=== PATIENT | male | born 1965 | race Caucasian/White ===

== ENCOUNTER 2018-06-11 05:52 | Inpatient (IN) | payer OTHER, SELFPAY ==
[2018-06-09 09:59] VITALS: BP 126/73; PULSE 79; RESP 18; TEMP 36.8; O2SAT 97; BMI 27.3
[2018-06-11] VITALS (11 sets, daily range): BP systolic 105–135; BP diastolic 63–82; PULSE 70–90; RESP 16–18; TEMP 36.7–37.6; O2SAT 96–100; BMI 27.3
--- NOTE | 2018-06-11 | IMM_PTH ---
PATIENT: SHENA AVILA LOC: MS2 U#:[id number] AGE/SX: 52/M [place] [facility] [id number] RE06/11/[address]: Dr. Francois Colon MD : 1965 BED: 1 DIS: 06/14/2018 SPEC #: [id number] RECD: 06/13/18 14:35 STATUS: ISABELLA REQ #: [id number] JOEL: 06/11/18 00:[address]: Francois Colon DEPT: IMMUNOHISTOCHEMISTRY RECD BY: Katherine Bates ENTERED: 06/13/18 14:37 SP TYPE: IMMUNO OTHR DR: Dr. Brayan Pierce MD Tissues: A - Sigmoid colon biopsy Procedures: MSH2 (add) MLH-1 (add) MSH6 (add) Anti-PMS2 (add) JORDAN-2 (add) P53 (add) KI-67 (initial) PHYSICIAN & INSTITUTION [place] [id number] SPECIMEN INFORMATION: Tissue Source: A - Sigmoid colon, appendix Clinical Info: Sigmoid colon cancer Specimen Number: [id number] CPT code: 63435, 27339 x6 METHODOLOGY: Deparaffinized sections of prefer/formalin-fixed tissue or PAP/DQ stained slides are incubated with monoclonal/polyclonal antibodies/oligonucleotide probes. Localization is made via biotin free immunoperoxidase method. Appropriate controls are performed and reacted as expected. Results on target cell population are indicated in the following table: RESULTS: ANTIBODY / CLONE RESULT Block A3 Ki-67 (30-9) positive, high P53 (DO-7) negative JORDAN-2 (SP21) positive MLH-1 (M1) positive, focal MSH2 (25D12) positive, focal MSH6 (44) positive, focal PMS2 (EOH5613) positive These tests were developed and their performance characteristics determined by [facility]. They may not have been cleared or approved by the U.S. Food and Drug Administration. The FDA has determined that such clearance or approval is not necessary. INTERPRETATION: A. Sigmoid colon: Invasive adenocarcinoma. Result of Microsatellite Instability Study: Negative (no loss of mismatch protein; no microsatellite instability detected). KILEY:andrew 06/18/18 Case has been reviewed in consultation with Dr. Caro who concurs with the above diagnosis. IDC:[email or web address]
[2018-06-11] MEDS: Acetaminophen 500 MG Tablet 1000 MG PO ×3 (06:25→23:01)
[2018-06-11] MEDS: Gabapentin 600 MG Tablet PO (06:26)
[2018-06-11 06:50] LABS: Bedside Glucose 121 mg/dL (70-110)
[2018-06-11] MEDS: Lubricating Jelly 60 GM Tube 30 GM TOPICAL (08:00)
[2018-06-11] MEDS: Bupivacaine Mpf 0.5% 30 ML VIAL (12:00)
--- NOTE | 2018-06-11 12:30 | OP.PCM_ITS ---
Report of Operation Date of Procedure: 06/11/18 Pre-Operative Diagnosis: SIGMOID COLON CANCER Post-Operative Diagnosis: SIGMOID COLON CANCER Surgery/Procedure Performed:: LAPAROSCOPIC SIGMOID COLECTOMY WITH SPLENIC FLEXURE MOBILIZARTION, APPENDECTOMY video production coordinator: Whit Carrero Type of Anesthesia:: General Anesthesiologist: Power Garcia Specimen's removed: RIGHT COLON, APPENDIX Drains: HERNANDEZ - 450 Estimated Blood Loss (mL): 100 Fluids Replaced: 1500 Description of Procedure: The patient was brought to the operating suite. Sign in was performed verifying patient, site, procedure, position, and DVT prophylaxis with SCDs. Patient received Cefotetan 2gm. Preoperative bowel prep of mechanical and antibiotic comprised of GoLYTELY and then neomycin and Flagyl 1 g 3 doses evening before was given. Following induction of general anesthetic, the patient was placed in a modified lithotomy position and care being taken to or by pressure points in the legs and arms. An upper body strap was placed and a upper body warmer was placed. A Hernandez catheter was placed. A rectal washout was performed with dilute Betadine solution. The patient?s abdomen and perineal area were then prepped and draped in the usual fashion. Timeout was performed verifying patient, site, position. Local anesthetic was injected above the umbilicus. Incision made and dissection carried down to the umbilical root fascia. 2 stay sutures were placed. Incision made in the fascia, the peritoneum entered under direct visualization. A 10 mm Ramírez trocar was inserted and secured with the stay sutures. Pneumoperitoneum to 15 mmHg was insufflated. 2 5mm ports were placed in the lower midline and later in the left paramedian position and a 10/12 port were placed in the right lower quadrant inferior laterally. Adhesions were taken down using Harmonic scalpel. . Visual inspection revealed a normal-appearing liver with no significant abnormalities. The large bulky tumor was seen in the pelvis with adhesions to the left lower quadrant. These adhesions were taken down sharply and using the Harmonic scalpel. Following this, the somewhat firm areas, which was still on the lateral abdominal wall was dissected and sent for frozen section. This returned as inflammation, but no signs of malignancy. Once this was completed, mobilization the avascular plane was undertaken from the ascending colon down to the area of the mid sigmoid with care taken at mobilization of the level of the iliac vessels then further down to the left lateral rectal peritoneal reflection. As mobilization progressed, the left and right ureters were able to be visualized and manipulated with aerosols assuring that the ureters were intact.. Once this left-sided mobilization was undertaken, a window was made in to the bare area just proximal to the inferior mesenteric vessels As dissection was continued, the MICHELLE branches were identified and ligated with 10 and 5 mm hemoclips and divided with the Harmonic scalpel. Once this was fully divided and surrounded with dissection carried down to the area posterior to the rectum, a 60 mm echelon stapler with a thick load was placed and fired to transect the rectum. A second load was required. I performed an appendectomy dividing the mesoappendix with the Harmonic scalpel and the base of the appendix with the regular load stapler. The appendix was removed the right lower quadrant port site. With full dissection of the mesentery and full mobilization the colon, the umbilical incision was extended and a wound protector placed. The sigmoid colon were delivered through the wound protector. At this point at the planned transection point of the proximal sigmoid colon, the pericolonic were fully mobilized to the margin of the bowel using the harmonic scalpel. The bowel was transected family with a 10 blade scalpel. A 29 mm CEA circular stapler anvil was then placed in the descending colon region and a 2-0 Prolene pursestring suture was used to close the bowel around the anvil. The bowel did not easily make it to the pelvis, so therefore, mobilization splenic flexure using Harmonic Scalpel was completed with the colon being completely mobilized off to rectus fascia/left kidney. This allowed good reachi ng of the bowel to the pelvis without tension At this point, I proceeded down to the rectum. Rigid proctoscopy was performed after flooding the pelvis with saline. Insufflation demonstrated no leak at the rectal staple line. The staple line was felt to be approximately 17 cm. Next the 29 CEA stapler was lubricated and placed through the rectum up to the staple line. The spike was then opened just anterior to the previous echelon stapler line and the anvil properly seated onto the stapler and brought down to mid gap. The stapler was fired released and withdrawn from the rectum. The proximal and distal doughnuts were noted to be intact. Repeat proctoscopy was again performed again with the pelvis being flooded with saline. Air left in the rectum with insufflation and there was no intra-abdominal leakage noted. The anastomosis was noted to be at 13 cm from the anal verge Gown and gloves were changed. Pneumoperitoneum was released and the umbilical incision was closed with running 0 PDS sutures with the 2 sutures meeting and closed just above the umbilicus. Pneumoperitoneum was reestablished. The right lower quadrant fascial defect was closed with a running 0 PDS suture. Visual inspection revealed no material adhered to the midline closure. The 5mm ports were removed under direct visualization with no signs of bleeding. Pneumoperitoneum was released. Right lower quadrant fascial suture was secured. Subcutaneous tissue at the level of the umbilicus reapproximated with interrupted 3-0 Vicryl sutures. Skin was closed with interrupted and running 4- 0 Monocryl subcuticular sutures. Steri-Strips and bandages were applied.
--- NOTE | 2018-06-11 12:34 | COL._PTH ---
PATIENT: SHENA AVILA LOC: MS2 U#:[id number] AGE/SX: 52/M ROOM: [facility] [id number] RE06/11/[address]: Dr. Francois Colon MD : 1965 BED: 1 DIS: 06/14/2018 SPEC #: [id number] RECD: 06/11/18 12:34 STATUS: ISABELLA REQ #: [id number] JOEL: 06/11/18 12:[address]: Francois Colon DEPT: SURGICAL PATHOLOGY RECD BY: Nilo Nagy ENTERED: 06/11/18 12:53 SP TYPE: COLON OTHR DR: Dr. Brayan Pierce MD Tissues: A - Colon, NOS B - Colon Donuts C - Colon Donuts Procedures: Surgery Specimen Level III Surgery Specimen Level HEADER OPERATION: Laparoscopic sigmoid colectomy with resection, appendectomy PRE-OP DIAGNOSIS: Cancer of sigmoid colon TISSUE SUBMITTED: A - Sigmoid colon, appendix, B - Proximal donut, C - Distal donut MICROSCOPIC DIAGNOSIS A. Sigmoid colon and appendix, colectomy and appendectomy: Invasive adenocarcinoma. See cancer summary below. COLON CANCER SUMMARY: Specimen - sigmoid colon and appendix Procedure - Sigmoidectomy and appendectomy Specimen length - 37 cm, appendix 5.5 cm in length and 0.7 cm in diameter Tumor site - sigmoid colon Tumor size - 2 x 1.5 cm Macroscopic tumor perforation - not identified Histologic type - adenocarcinoma Histologic grade - low grade (moderately differentiated) Histologic features suggestive of Microsatellite Instability: Intratumoral lymphocytic response - tumor infiltrating lymphocyte (mild) Peritumoral lymphocytic response (Crohn-like) - none Tumor subtype and differentiation: Mucinous tumor component - not identified Medullary tumor component - not identified High histologic grade - poorly differentiated. Microscopic tumor extension - tumor invades through the muscularis propria into subserosal adipose tissue. Margins: Proximal margin - free of tumor Distal margin - free of tumor Circumferential margin - tumor deposit is present at the inked circumferential resection margin. The tumor is 6 cm away from the closest axial resection margin (staple end). Treatment effect - no known presurgical therapy. Lymph-Vascular invasion - not identified Perineural invasion - not identified Tumor deposits - present Number of tumor deposits - 4 Type of polyp in which invasive carcinoma arose - none identified Lymph nodes: Number of lymph nodes examined - 19 Number of lymph nodes involved - 12 Distant metastasis - unknown Additional findings - appendix with no gross abnormality. Ancillary studies: See microsatellite instability study by IHC ([id number]) for complete details. Negative (no loss of mismatch protein; no microsatellite instability detected). Immunohistochemistry Studies for Mismatch Repair Proteins: MLH1 - Intact nuclear positivity, tumor cells, focal MSH2 - Intact nuclear positivity, tumor cells, focal MSH6 - Intact nuclear positivity, tumor cells, focal PMS2 - Intact nuclear positivity, tumor cells PATHOLOGIC STAGE: pT3 pN2b Mx The above summary is in compliance with [employer] [place] [employer] (CAP) Cancer Protocols Checklist and [place] Joint Committee on Cancer (AJCC), Staging Manual, 8th Ed. B. Proximal donut: Colonic donut, no pathologic diagnosis. C. Distal donut: Colonic donut with mucosal congestion and hemorrhage. SJ:andrew 06/16/18 COMMENT A. The largest focus of metastatic carcinoma in a lymph node measures 1.6cms in greatest dimension-. Extranodal extension is noted. Many of the lymph nodes are completely replaced by the metastatic tumor. Please make reference to previous specimen from [facility] ([id number]), colon mass at 40 cm, biopsy with diagnosis of invasive moderately differentiated adenocarcinoma. Case has been reviewed in consultation with Dr. Caro who concurs with the above diagnosis. IDC:[email or web address] MICROSCOPIC DESCRIPTION Slides are reviewed. GROSS DESCRIPTION A - Received in fixative is one container labeled with the patient's name and designated sigmoid colon and appendix. The specimen consists of a 30 cm segment of bowel with attached fibrofatty tissue. The bowel has been opened along one aspect near metallic tracer clip. Located 6 cm from one stapled end is a firm, poon-pink lesion measuring 2 x 1.5 cm. The remainder of the bowel mucosa is light poon in color and contains normal rugal folds. No other mucosal mass lesions are identified. The serosal surface in the area of the mass is inked in black ink. Present free in the container is a vermiform appendix measuring 5.5 cm in length and 0.7 cm in average diameter. Sections do not reveal mass lesion. The lumen is patent. No perforations are seen. The specimen is left for overnight fixation. / AM: 06/11/18 After fixation, the mass is serially sectioned. Serial sections reveal involvement of subserosal fatty tissue by mass. No other mass lesions are identified. The attached fibrofatty tissue contains a number of firm nodules resembling lymph nodes. Feller Machine Operator sections are submitted in 12 cassettes as follows: 1 - proximal and distal mucosal margins (proximal margin inked black), 2-5 - tumor with serosal surface inked, 6 - one nodule bisected, 7 - one nodule bisected, 8 - security representative section of one large lymph node, 9-12 - multiple lymph nodes. / AM: 06/12/18 B - Received in fixative is one container labeled with the patient's name and designated proximal donut. The specimen consists of a mucosal donut measuring 2 cm in diameter and 1 cm in length. No mucosal mass lesions are identified. Feller Machine Operator sections are submitted in one cassette. / AM: 06/11/18 C - Received in fixative is one container labeled with the patient's name and designated distal donut. The specimen consists of a mucosal donut measuring 2 cm in diameter and 1.3 cm in length. No mucosal mass lesions are identified. Feller Machine Operator sections are submitted in one cassette. / AM: 06/11/18 TC:0 CPT: 40285, 18752 x2
[2018-06-11] MEDS: Ketorolac 15 MG/ML Vial IV (15:36)
--- NOTE | 2018-06-11 17:50 | NURSING ---
IV fluids hung in pacu- rate entered at 65 per current order-
[2018-06-11] MEDS: Tamsulosin HCl 0.4 MG Capsule PO (18:53)
[2018-06-11] MEDS: Docusate Sodium 100 MG Capsule PO (22:59)
[2018-06-12 01:27] VITALS: BP 103/62; PULSE 72; RESP 16; TEMP 36.8; O2SAT 97
[2018-06-12 05:53] LABS: Hematocrit 39.5 % (40-54); Hemoglobin 13.3 g/dl (13.0-16.5); Mean Corp Hgb Conc 33.7 g/gl (32-36); Mean Corpuscular Hgb 30.2 pg (27.0-32.0); Mean Corpuscular Volume 89.8 fL (80-94); Mean Platelet Vol. 11.6 fl (6.2-12.0); Platelet Count 149 K/mm3 (150-450); RBC Distribution Width CV 12.9 % (11.6-14.6); RBC Distribution Width SD 42.1 fl (35.1-43.9)
[2018-06-12] MEDS: Acetaminophen 500 MG Tablet 1000 MG PO ×2 (05:56→12:03)
[2018-06-12] MEDS: Ketorolac 15 MG/ML Vial IV ×3 (05:56→20:02)
[2018-06-12] MEDS: 0.9% NaCl Peripheral Flush Adult/Peds IV ×4 (05:56→21:32)
[2018-06-12 06:06] LABS: Anion Gap 8 (5-15); BUN 13 mg/dL (7-18); Calcium,Total 8.7 mg/dL (8.5-10.1); Chloride 107 mmol/L (98-107); EST Glomerular Filtration Rate 83 mL/min (>60); Est Glom Filt Rate - Afr Amer 100 mL/min (>60); Glucose 113 mg/dL (74-106); Sodium Level 143 mmol/L (136-145)
[2018-06-12 06:22] LABS: Scan Indicated on CBC? Y/N NO
[2018-06-12 07:00] VITALS: RESP 18; O2SAT 98
[2018-06-12 07:27] VITALS: BP 106/54; PULSE 62; RESP 16; TEMP 36.9; O2SAT 99
[2018-06-12] MEDS: Docusate Sodium 100 MG Capsule PO (09:19)
[2018-06-12] MEDS: Enoxaparin 40 MG/0.4 ML Syringe SC (09:19)
--- NOTE | 2018-06-12 11:05 | CASEMGMT ---
SARAH MERCADO ASSESSMENT Face to Face with patient for initial transition planning/care coordination assessment. SARAH MERCADO introduced self and role at [facility]. Pt voices understanding and consents to assessment at this time. Pt resting in bed in no distress at this time. @ bedside. Pt is A/O at this time and answers all questions appropriately. Care providers, pharmacy, and demographics verified/updated at this time. PCP: Kari Specialists: Isaiah Tsang Pharmacy: [facility] [place] [employer], [facility] Retail on day of d/c only. Insurance: [employer] Prescription Benefit: Yes Living Will/HPOA: States does not have LW or HCPOA . Interested in more information and states would like to talk with about filling out paperwork. Provided information on advanced directives. BOOM Merritt, made aware. LNOK: and 2 sons, ages 15 and 10. Living Arrangements: Lives with in a 2-story home. 3 steps to enter. States bedroom is upstairs but that he can sleep in the living room on the main floor if he would need to after returning home, if he would have difficulty with stairs. Has 1/2 bath on main floor. Transportation: Pt states drives self and states no transportation concerns at this time. DME/HHC: Denies using any DME and denies needs. has never used HHC or been to a SNF. States has went to Out-pt therapy in the past after having knee surgery. may be interested in Out-pt therapy after following up with MD. Instructed to discuss this with his doctor @ F/U appt. Pt wishes to return home and states has no concerns with going home at time of discharge. Pt states does not smoke or drink ETOH, except for on rare occasion. CM to follow for any further discharge planning/needs. Pt voices no further concerns/needs at this time. Advised pt to ask for CM if any further questions/concerns/needs arise. Voices understanding. Plan: Home with spousal support. Sony URIAS RN, CM
[2018-06-12 13:59] VITALS: BP 112/69; PULSE 74; RESP 16; TEMP 37.1; O2SAT 99
[2018-06-12 14:01] VITALS: RESP 18
--- NOTE | 2018-06-12 15:30 | CASEMGMT ---
Social Work Note SW received referral for advanced directives. SW met with pt. Pt's present. Pt gave this worker permission to speak to him in front of his . SW explained advanced directives with pt. Pt states that he would like to take the documents home and complete them at a later time. Ayse June PRESS BOX CUSTODIAN, ELECTRONICS WORKER
[2018-06-12] MEDS: Ensure Surgery 237 ML LIQUID PO (15:55)
[2018-06-12] MEDS: Tamsulosin HCl 0.4 MG Capsule PO (16:57)
--- NOTE | 2018-06-12 19:18 | PN.SURG_ITS ---
Subjective: some incisional pain, liquid bowel movement - Physical Exam General: Alert, Oriented x3, Cooperative Lungs: Clear to auscultation, Normal air movement Cardiovascular: Regular rate, No murmurs Abdomen: Bowel Sounds Present, Soft, Hypoactive Bowel Sounds, Tender - at incisions but otherwise benign Vital Signs Temp Pulse Resp BP Pulse Ox 98.8 F 74 18 112/69 99 06/12/18 13:59 06/12/18 13:59 06/12/18 14:01 06/12/18 13:59 06/12/18 13:59 Oxygen Delivery Method Room Air Weight: 99.2 kg Body Mass Index (BMI) 27.3 Intake and Output for Last 24 Hours 06/10/18 06/11/18 06/12/18 23:59 23:59 23:59 Intake Total 3107 / 3107 2435 / 2435 Output Total 3600 / 3600 1550 / 1550 Balance -493 / -493 885 / 885 Laboratory Tests Past 24 Hrs 06/12/18 06/12/18 05:30 05:30 WBC 10.0 RBC 4.40 L Hgb 13.3 Hct 39.5 L MCV 89.8 MCH 30.2 MCHC 33.7 RDW 12.9 RDW Differential 42.1 Plt Count 149 L MPV 11.6 Sodium 143 Potassium 4.0 Chloride 107 Carbon Dioxide 28.0 Anion Gap 8 BUN 13 Creatinine 1.00 Estim Creat Clear Calc 102.10 Est GFR (MDRD) Af Amer 100 Est GFR (MDRD) Non-Af 83 BUN/Creatinine Ratio 13.0 Glucose 113 H Calcium 8.7 Medical Necessity - Tobacco Use Smoking Status: Former smoker Assessment/Plan postoperative day #1 status post laparoscopic sigmoid colectomy with splenic flexure mobilization and appendectomy for sigmoid colon cancer. patient doing quite well with well-managed pain control. Bowel sounds present, we will encourage cautious oral liquids, we'll not advanced till bowel movement and more flatus. We will encourage chewing gum, incentive spirometry and amb ulation.
[2018-06-12] MEDS: Ondansetron ODT 4 MG Tablet PO (20:08)
[2018-06-12 20:10] VITALS: BP 140/86; PULSE 61; RESP 14; TEMP 37.1; O2SAT 98
[2018-06-12] MEDS: Morphine 2 MG/ML Syringe IV (21:32)
[2018-06-13] MEDS: Acetaminophen 500 MG Tablet 1000 MG PO ×4 (00:17→18:20)
[2018-06-13 02:10] VITALS: BP 120/73; PULSE 67; RESP 16; TEMP 36.9; O2SAT 95
[2018-06-13] MEDS: Ketorolac 15 MG/ML Vial IV ×2 (04:34→20:33)
[2018-06-13] MEDS: 0.9% NaCl Peripheral Flush Adult/Peds IV ×2 (04:34→20:33)
[2018-06-13 05:51] LABS: Absolute Lymphocyte Count 1.06 X10^3/ul (0.83-4.51); Absolute Neutrophil Count 4.8 X10^3/uL (2.0-7.7); Eosinophil# 0.02 X10^3/uL; Eosinophils% 0.3 % (0-5); Hematocrit 39.7 % (40-54); Hemoglobin 13.2 g/dl (13.0-16.5); Lymphocyte # 1.06 X10^3/ul (4.0); Mean Corp Hgb Conc 33.2 g/gl (32-36); Mean Corpuscular Hgb 30.2 pg (27.0-32.0); Mean Corpuscular Volume 90.8 fL (80-94); Mean Platelet Vol. 11.7 fl (6.2-12.0); Monocyte# 0.68 X10^3/uL; Monocyte% 10.3 % (0-10); Neutrophil # 4.84 X10^3/uL (2.7-7.7); Neutrophil % 73.2 % (47-70); Platelet Count 132 K/mm3 (150-450); RBC Distribution Width SD 42.7 fl (35.1-43.9); Red Blood Count 4.37 M/mm3 (4.6-6.2); White Blood Count 6.6 K/mm3 (4.4-11.0)
[2018-06-13 05:55] LABS: POSITIVE COUNT NO; POSITIVE DIFFERENTIAL NO; POSITIVE MORPHOLOGY NO
[2018-06-13 06:17] LABS: ALB/GLOB Ratio 1.3 RATIO (0.9-2.4); AST(SGOT) 23 U/L (15-37); Alanine Aminotransfer ALT/SGPT 28 U/L (16-61); Albumin, Serum 3.4 g/dL (3.2-5.0); Alkaline Phosphatase 40 U/L (45-117); Anion Gap 8 (5-15); BUN 13 mg/dL (7-18); Calcium,Total 8.5 mg/dL (8.5-10.1); Chloride 106 mmol/L (98-107); Creatinine, Serum 0.93 mg/dL (0.70-1.30); EST Glomerular Filtration Rate 91 mL/min (>60); Est Glom Filt Rate - Afr Amer 110 mL/min (>60); Estimated Creatinine Clearance 109.79 ml/min; Globulin 2.7 g/dL (2.2-4.2); Glucose 93 mg/dL (74-106); Potassium 3.9 mmol/L (3.5-5.1); Protein, Total 6.1 g/dL (6.4-8.2); Sodium Level 143 mmol/L (136-145)
[2018-06-13 08:00] VITALS: O2SAT 98
[2018-06-13 08:10] VITALS: BP 120/79; PULSE 56; RESP 16; TEMP 36.8; O2SAT 98
[2018-06-13] MEDS: Morphine 2 MG/ML Syringe 1 MG IV (10:56)
[2018-06-13] MEDS: Docusate Sodium 100 MG Capsule PO ×2 (10:57→21:35)
[2018-06-13] MEDS: Enoxaparin 40 MG/0.4 ML Syringe SC (10:57)
[2018-06-13 14:42] VITALS: BP 132/79; PULSE 58; RESP 16; TEMP 36.9; O2SAT 99
[2018-06-13] MEDS: Ibuprofen 400 MG Tablet PO (15:22)
--- NOTE | 2018-06-13 16:53 | PCM.PN.SRG ---
- Physical Exam General: Alert, Oriented x3, Cooperative Lungs: Clear to auscultation, Normal air movement Cardiovascular: Regular rate, No murmurs Abdomen: Bowel Sounds Present, Soft, Non Tender Vital Signs Temp Pulse Resp BP Pulse Ox 98.4 F 58 L 16 132/79 H 99 06/13/18 14:42 06/13/18 14:42 06/13/18 14:42 06/13/18 14:42 06/13/18 14:42 Oxygen Delivery Method Room Air Weight: 99.2 kg Body Mass Index (BMI) 27.3 Intake and Output for Last 24 Hours 06/11/18 06/12/18 06/13/18 23:59 23:59 23:59 Intake Total 3107 / 3107 2435 / 2435 590 / 590 Output Total 3600 / 3600 1550 / 1550 500 / 500 Balance -493 / -493 885 / 885 90 / 90 Laboratory Tests Past 24 Hrs 06/13/18 06/13/18 05:30 05:30 WBC 6.6 RBC 4.37 L Hgb 13.2 Hct 39.7 L MCV 90.8 MCH 30.2 MCHC 33.2 RDW 13.0 RDW Differential 42.7 Plt Count 132 L MPV 11.7 Immature Gran % (Auto) 0.200 Neut % (Auto) 73.2 H Lymph % (Auto) 16.0 L [place] % (Auto) 10.3 H Eos % (Auto) 0.3 Baso % (Auto) 0.0 Absolute Neuts (auto) 4.8 Absolute Lymphs (auto) 1.06 Total Counted Not Reportable Sodium 143 Potassium 3.9 Chloride 106 Carbon Dioxide 29.0 Anion Gap 8 BUN 13 Creatinine 0.93 Estim Creat Clear Calc 109.79 Est GFR (MDRD) Af Amer 110 Est GFR (MDRD) Non-Af 91 BUN/Creatinine Ratio 14.0 Glucose 93 Calcium 8.5 Total Bilirubin 0.60 AST 23 ALT 28 Alkaline Phosphatase 40 L Total Protein 6.1 L Albumin 3.4 Globulin 2.7 Albumin/Globulin Ratio 1.3 Medical Necessity - Tobacco Use Smoking Status: Former smoker Assessment/Plan postoperative day #2 status post laparoscopic sigmoid colectomy with splenic flexure mobilization and appendectomy for sigmoid colon cancer. patient doing quite well with well-managed pain control I initially but then had significant oral intake and noted some pain secondary to cramping and distention. This is resolved overnight.. Bowel sounds present, we will encourage cautious oral liquids. he is passing flatus and has liquid bowel movements. If his symptoms do not return we will plan to advance his diet later today. We will encourage chewing gum, incentive spirometry and ambulation.
[2018-06-13] MEDS: Tamsulosin HCl 0.4 MG Capsule PO (18:20)
[2018-06-13 20:31] VITALS: BP 109/69; PULSE 60; RESP 16; TEMP 36.8; O2SAT 96
[2018-06-13] MEDS: Ensure Surgery 237 ML LIQUID PO (21:35)
[2018-06-14 00:50] VITALS: BP 123/81; PULSE 58; RESP 16; TEMP 36.8; O2SAT 97
[2018-06-14] MEDS: Acetaminophen 500 MG Tablet 1000 MG PO ×2 (00:51→06:26)
[2018-06-14 06:24] VITALS: BP 125/75; PULSE 56; RESP 16; TEMP 36.6; O2SAT 96
[2018-06-14 08:52] VITALS: BP 109/58; PULSE 76; RESP 18; TEMP 36.8; O2SAT 96
--- NOTE | 2018-06-14 09:41 | DCINST_ITS ---
Discharge Diet: Light diet - advance as tolerated Discharge Activity: May Not Drive - for 1 week or while taking narcotic pain meds., May not drive while taking narcotic pain medications. May shower in (days): 0 Lifting Restrictions: 10 pounds Call your doctor if your incision/area has: Continuous Slow Oozing, Sudden Increased Bleeding, Increased Pain/ Swelling, Increased Redness, Foul Smelling Discharge Call your doctor if you observe: Fever of 101 or Higher Suture Line Care: Avoid Pulling/Pushing, Avoid Pinching/Bending Additional Dressing/Incision Instructions:: Change or remove dressing in 4 days. Leave steri-strips in place for 1 week. Allergies/Adverse Reactions: Allergies No Known Allergies Allergy (Verified 06/09/18 09:39) Medications to take at Discharge Tamsulosin HCl [Flomax] 0.4 mg PO QHS 06/09/18 Acetaminophen [Tylenol] 1,000 mg PO Q6 tablet 06/14/18 Insulin Lispro [Humalog KwikPen] 0 unit SC Q4H PRN PRN insuln.pen 06/14/18 Oxycodone HCl/Acetaminophen [Percocet 5/325] 1 tab PO Q6H PRN PRN 7 Days #10 tab 06/14/18 The following prescriptions were given: Oxycodone HCl/Acetaminophen [Percocet 5/325] 1 tab PO Q6H PRN PRN 7 Days #10 tab PRN Reason: Pain Primary Care Physician: Brayan Pierce MD [Primary Care Provider] - Test Results: Test results from this visit will be discussed in further detail at your follow- up appointment, if applicable. Please Follow Up With: Francois Colon MD - [phone] When: Call to make an appointment to be seen in about 5 days.
--- NOTE | 2018-06-14 10:03 | PCM.DC.SUM ---
Discharge Date and Diagnosis Date of Admission: 06/11/18 Date of Discharge: 06/14/18 - Primary Discharge Diagnosis sigmoid colon cancer Hospital Course and Treatment Operations: colectomy - laparoscopic sigmoid colectomy with splenic flexure mobilization and appendectomy Summary of Care Provided: The patient is a 52 year old M recently diagnosed with a sigmoid colon cancer. The patient was brought in for laparoscopic sigmoid resection. The patient was maintained on the EUS protocol and did well postoperatively with return of bowel function on postoperative day 2. The patient tolerated advancement of diet and was discharged home on postoperative day 3. - Physical Exam General: Alert, Oriented x3, Cooperative Lungs: Clear to auscultation, Normal air movement Cardiovascular: Regular rate, No murmurs Abdomen: Bowel Sounds Present, Soft, Non Tender Vital Signs Temp Pulse Resp BP Pulse Ox 98.3 F 76 18 109/58 L 96 06/14/18 08:52 06/14/18 08:52 06/14/18 08:52 06/14/18 08:52 06/14/18 08:52 Oxygen Delivery Method Room Air Weight: 99.2 kg Body Mass Index (BMI) 27.3 Intake and Output for Last 24 Hours 06/12/18 06/13/18 06/14/18 23:59 23:59 23:59 Intake Total 2435 / 2435 840 / 840 500 / 500 Output Total 1550 / 1550 500 / 500 525 / 525 Balance 885 / 885 340 / 340 -25 / -25 Discharge Diet: Light diet - advance as tolerated Discharge Activity: May Not Drive - for 1 week or while taking narcotic pain meds., May not drive while taking narcotic pain medications. May shower in (days): 0 Call your doctor if your incision/area has: Continuous Slow Oozing, Sudden Increased Bleeding, Increased Pain/ Swelling, Increased Redness, Foul Smelling Discharge Call your doctor if you observe: Fever of 101 or Higher Suture Line Care: Avoid Pulling/Pushing, Avoid Pinching/Bending Additional Dressing/Incision Instructions:: Change or remove dressing in 4 days. Leave steri-strips in place for 1 week. Home Medications: Medications to take at Discharge Tamsulosin HCl [Flomax] 0.4 mg PO QHS 06/09/18 Acetaminophen [Tylenol] 1,000 mg PO Q6 tablet 06/14/18 Insulin Lispro [Humalog KwikPen] 0 unit SC Q4H PRN PRN insuln.pen 06/14/18 Oxycodone HCl/Acetaminophen [Percocet 5/325] 1 tab PO Q6H PRN PRN 7 Days #10 tab 06/14/18 Following Prescrptions Were Given to Patient: Oxycodone HCl/Acetaminophen [Percocet 5/325] 1 tab PO Q6H PRN PRN 7 Days #10 tab PRN Reason: Pain Primary Care Physician: Brayan Pierce MD [Primary Care Provider] - Please Follow Up With: Francois Colon MD - [phone] When: Call to make an appointment to be seen in about 5 days. Medical Necessity - Tobacco Use Smoking Status: Former smoker Meaningful Use Info Meaningful Use Diagnoses (Choose all that apply): None applicable
[2018-06-14] MEDS: Docusate Sodium 100 MG Capsule PO (10:06)
[2018-06-14] MEDS: Enoxaparin 40 MG/0.4 ML Syringe SC (10:07)
--- NOTE | 2018-06-14 12:43 | NURSING ---
scop patch removed from behind right ear by this RN prior to discharge.
--- OUTSIDE RECORDS SUMMARY | 2018-09-12 07:31 | XMS RPT_ITS ---
:1965 Author Organization OHIP Care Team Providers Name Role Phone DUTCH LOWERY Admitting Unavailable DUTCH LOWERY Attending Unavailable DUTCH LOWERY Admitting Unavailable DUTCH LOWERY Attending Unavailable DUTCH LOWERY Admitting Unavailable DUTCH LOWERY Attending Unavailable DUTCH LOWERY Admitting Unavailable DUTCH LOWERY Attending Unavailable STANISLAV COLON Admitting Unavailable ISAIAH STANISLAV Lvaon Attending Unavailable ALMAZ SANTOS ([facility]) Attending Unavailable ISAURA LOZANO ([facility]) Referring Unavailable ISAIAH, STANISLAV Lavon Admitting Unavailable ISAIAHSTANISLAV Attending Unavailable ISAIAHSTANISLAV Referring Unavailable ISAIAHSTANISLAV Attending Unavailable ISAIAHSTANISLAV Referring Unavailable ISAIAHSTANISLAV Attending Unavailable STANISLAV COLON Referring Unavailable GIOVANY RODRIGUES Attending Unavailable ARA PIERCE Referring Unavailable DUTCH LOWERY Attending Unavailable ISAURA LOZANO ([facility]) Referring Unavailable ISAURA VALIENTE ([facility]) Referring Unavailable DUTCH LOWERY Attending Unavailable ISAURA LOZANO ([facility]) Referring Unavailable ISAIAH, STANISLAV T Admitting Unavailable ISAIAH, STANISLAV Lavon Attending Unavailable ZECHARIAH LOPEZ ([facility]) Referring Unavailable ISAIAH, STANISLAV Rodrigues Admitting Unavailable ISAIAH, STANISLAV Lavon Attending Unavailable SANDY HA ([place]) Referring Unavailable SANDY HA ([place]) Attending Unavailable ZECHARIAH LOPEZ ([facility]) Referring Unavailable ZECHARIAH LOPEZ ([facility]) Attending Unavailable MASCDUTCH Cespedes Attending Unavailable ISAIAH, STANISLAV Rodrigues Referring Unavailable ISAIAH, STANISLAV Rodrigues Attending Unavailable ARA PIERCE Referring Unavailable MYRON LEIJA Admitting Unavailable MYRON LEIJA Attending Unavailable ISAIAH, STANISLAV T Admitting Unavailable ISAIAH, STANISLAV T Attending Unavailable ISAIAH, STANISLAV T Referring Unavailable ISAIAH, STANISLAV T Admitting Unavailable ISAIAH, STANISLAV T Attending Unavailable ISAIAH, STANISLAV T Referring Unavailable [facility] DUMAS () Attending Unavailable MASCI, DUTCH Valadez Referring Unavailable MASCI, DUTCH Valadez Referring Unavailable MASCI, DUTCH Valadez Referring Unavailable ISAIAH, STANISLAV T Admitting Unavailable ISAIAH, STANISLAV T Attending Unavailable ISAIAH, STANISLAV T Referring Unavailable MASCI, DUTCH Valadez Referring Unavailable MASCI, DUTCH Valadez Referring Unavailable ISAIAH, STANISLAV T Attending Unavailable ISAIAH, STANISLAV T Referring Unavailable Ara Pierce Primary Care Unavailable James Ferris Attending Unavailable Isaiah, Stanislav Admitting Unavailable Isaiah, Stanislav Attending Unavailable Isaiah, Stanislav Referring Unavailable Ara Pierce Primary Care Unavailable PROBLEMS PROBLEMS DATE TYPE CONDITION / CODE ATTENDING STATUS SOURCE 07/01/2018 Active Malignant neoplasm NA Active [place] of sigmoid colon / Clinic Main C18.7(ICD-10) [place] Repository 06/14/2018 Unknown C18.9 - Malignant Isaiah, Active [place] neoplasm of colon, [facility] unspecified / Hospital C18.9(ICD-10) Repository 05/27/2018 Active Malignant neoplasm MYRON LEIJA Active [place] of colon, [facility] Main unspecified / [place] C18.9(ICD-10) Repository 05/22/2018 Active Encounter for ISAIAH, Active [place] screening for [facility] malignant neoplasm [place] of colon / Repository Z12.11(ICD-10) 02/18/2018 Active Other intervertebral ISAIAH, 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 Main radiculopathy, [place] lumbar region / Repository M47.816(ICD-10) 02/18/2018 Active Low back pain / ISAIAH, Active [place] M54.5(ICD-10) [facility] Main [place] Repository 02/18/2018 Active Other chronic pain / ISAIAH, Active [place] G89.29(ICD-10) [facility] Main [place] Repository 04/25/2010 Active Hyperlipidemia, ISAIAH, Active [place] unspecified / [facility] Main E78.5(ICD-10) [place] Repository 05/16/2009 Active Impaired fasting ISAIAH, Active [place] glucose / [facility] Main R73.01(ICD-10) [place] Repository 06/10/2007 Active Calculus of ureter / ISAIAH, Active [place] N20.1(ICD-10) [facility] Main [place] Repository 05/20/2018 Active Gastro-esophageal ISAIAH, Active [place] reflux disease [facility] without esophagitis [place] / K21.9(ICD-10) Repository 06/10/2007 Active Left lower quadrant ISAIAH, Active [place] abdominal swelling, [facility] Main mass and lump / [place] R19.04(ICD-10) Repository 09/07/2017 Active Unknown / NA Active [place] UNK(Unknown) [facility] Main [place] Repository PROCEDURES PROCEDURES No Procedure Records FoundRESULTS RESULTS PROCEDURE Observed: 07/17/2018 Status: COMPLETED Source: [place] 2:34 PM [facility] REPOSITORY HNO ID: [id number] Author: Giovany Rodrigues Service: (none) Author Type: Physician Type: Procedures Filed: 07/17/2018 3:24 PM Note Text: ?? [facility] LOCATION: [address] [place] [address] PHYSICIANS NOTE: TRANSRECTAL ULTRASOUND AND BIOPSY PROCEDURE: July 17, 2018 Sign In History and Physical Exam reviewed and is unchanged. Primary Diagnosis: No diagnosis found. Informed Consent Discussed: Yes. Risks, benefits, alternatives and personnel discussed with patient who consents to proceed. Sign in Communication: Completed Time Out: Team Confirms the Correct Patient, Correct Procedure; Transrectal Ultrasound and Biopsy, Correct Site and Site Marking (not applicable), Correct Position. Affirmation of Time Out: YES Sign Out: Sign Out Discussion: Completed Patient history and ROS confirmed unchanged from last office visit. Family history for prostate cancer is: negative Audible Time Out: Yes TRUS PROCEDURE WITH BIOPSY Number of Prior Biopsies: 0 Highest Number of Cores on a Prior Biopsy: <12-12 The patient was placed in the lateral decubitus position. Digital rectal exam was normal. The ultrasound probe was placed into the rectum and the prostate visualized. Approximately five cc plain lidocaine was injected bilaterally into the perioprostatic nerves. The prostate was visualized in both planes and no hypoechoic lesion identified. The total prostate volume was 60 gm The patient underwent biopsy removing 12 total cores. Prostate biopsies taken from the site below using ultrasound guidance: Right Base: 2 Right Mid: 2 Right [place]: 2 Left Base: 2 Left Mid: 2 Left [place]: 2 PSA (ng/mL) Date Value 07/08/2018 6.51 Patient has full bladder and BPH Weak stream, despite Flomax Needs UA and PVR next visit Complications: None Follow-up: Patient already has appointment scheduled ONE MONTH. Giovany Rodrigues DO, MBA CNOV Observed: 07/17/2018 Status: COMPLETED Source: [place] 2:00 PM [facility] REPOSITORY Office Visit (UROLMD) AMELIA AVILA ([id number]) 1965 M Date Time Provider Department 07/17/18 2:00 PM GIOVANY RODRIGUES UROLMD During your visit today, we recorded the following information about you: Pulse Blood pressure Weight Height 62/minute 128/71 94.8 kg 1.905 m [facility] 07/17/2018 2:33 PM Signed Patient presents with: Prostate Biopsy Giovany Rodrigues DO, MBA 07/17/2018 3:24 PM Signed ?? [facility] LOCATION: [address] [place] [address] PHYSICIANS NOTE: TRANSRECTAL ULTRASOUND AND BIOPSY PROCEDURE: July 17, 2018 Sign In History and Physical Exam reviewed and is unchanged. Primary Diagnosis: No diagnosis found. Informed Consent Discussed: Yes. Risks, benefits, alternatives and personnel discussed with patient who consents to proceed. Sign in Communication: Completed Time Out: Team Confirms the Correct Patient, Correct Procedure; Transrectal Ultrasound and Biopsy, Correct Site and Site Marking (not applicable), Correct Position. Affirmation of Time Out: YES Sign Out: Sign Out Discussion: Completed Patient history and ROS confirmed unchanged from last office visit. Family history for prostate cancer is: negative Audible Time Out: Yes TRUS PROCEDURE WITH BIOPSY Number of Prior Biopsies: 0 Highest Number of Cores on a Prior Biopsy: <12-12 The patient was placed in the lateral decubitus position. Digital rectal exam was normal. The ultrasound probe was placed into the rectum and the prostate visualized. Approximately five cc plain lidocaine was injected bilaterally into the perioprostatic nerves. The prostate was visualized in both planes and no hypoechoic lesion identified. The total prostate volume was 60 gm The patient underwent biopsy removing 12 total cores. Prostate biopsies taken from the site below using ultrasound guidance: Right Base: 2 Right Mid: 2 Right [place]: 2 Left Base: 2 Left Mid: 2 Left [place]: 2 PSA (ng/mL) Date Value 07/08/2018 6.51 Patient has full bladder and BPH Weak stream, despite Flomax Needs UA and PVR next visit Complications: None Follow-up: Patient already has appointment scheduled ONE MONTH. Giovany Rodrigues DO, MBA Janelle Shook RN 07/17/2018 3:29 PM Signed FOLLOWING YOUR PROSTATE BIOPSY Rest and refrain from physical activity (jogging, lifting heavy objects) for 2 days. Drink plenty of liquids to clear the urine. (Water is the best). You may experience some burning on urination. You may have some blood or small clots in your urine. You may see blood in your stool. You may experience some rectal pressure as well as some minor rectal blood. These are not unusual and generally subside in 2-3 days. You may see blood in your ejaculate for a few weeks and sometimes a few months. Do not resume medications that make you more prone to bleeding until 1 day after the biopsy, unless otherwise directed by your physician (refer to pre-procedure instruction list) Call Your Doctor if You Have: Fever/Chills Temperature greater than 101 F Difficulty urinating Excessive bleeding from your rectum or urethra [facility] [place] 8am-5pm [phone] After hours/weekend physician answering service [phone] If after hours or on weekend you develop fever/chills, temp more than 101F or unable to urinate go to Emergency Room. Rev 04/21/13 BREANNA Jimenez RN 07/17/2018 4:40 PM Signed STRO TRANS RECTAL TRUSP - PROSTATE WITH BIOPSY July 17, 2018 PREOPERATIVE/PROCEDURAL VERIFICATION: Patient verified by: Name and Date of UNIVERSAL PROTOCOL / SAFETY CHECKLIST Procedure to be performed: Prostate Biopsy Sign in Communication: Completed Time Out: Team Confirms the Correct Patient, Correct Procedure, Correct Site and Site Marking, Correct Position (if applicable), Prep and Dry Time (if applicable). Time: 1450 Affirmation of Time Out: YES Sign Out Discussion: Completed Latex Allergy: No Allergies reviewed and updated. Anticoagulant: No Pre-Procedure Antibiotics: Yes, see MAR for administration. Fleets Enema: No Pre-Procedure Vital Signs: BP BP 128/71 Pulse 62 Ht 190.5 cm (6' 3) Wt 94.8 kg (209 lb) SpO2 100% BMI 26.12 kg/m? Pain Rating: on a scale of 0-10: 0 Pre-Procedure Anesthetic given: Administered by MD - see Procedure Physician Note. Instruction sheet given and reviewed: Yes Patient verbalizes understanding: Yes Post-Procedure vital signs: BP 125/85 Pulse 77 Respirations 20. Pain Rating: on a scale of 0-10: 0 Post-Procedure Antibiotics: No. Patient tolerated procedure well and did have some blood from tip of penis during exam. Denies any dizziness or wooziness or light headedness after procedure. Color good. Juice given. will drive home, but ambulated out with gait steady. Nurse's signature: Beverley Jimenez RN Referring Provider: ARA PIERCE [[id number]] Allergies As of Date: 07/17/2018 (No Known Allergies) Date Reviewed: 07/17/2018 Reviewed by: Giovany Rodrigues - Fully Assessed Reason for Visit: Prostate Biopsy [371] Primary Visit Diagnosis:Elevated prostate specific antigen (PSA) [R97.20] Other Visit Diagnoses:Malignant neoplasm of colon, unspecified part of colon (HCC) [C18.9] BPH with obstruction/lower urinary tract symptoms [N40.1, N13.8] Order(s):UA DIP, URINE (POC) [9668816] Order #: [id number]. #:[id number] PROSTATE BIOPSY (POC) GUKI USE ONLY [[id number]] Order #: [id number]: 1 [] levoFLOXacin 750 mg tab(s) (LEVAQUIN)Disp: Rfl: [] gentamicin 40 mg/mL 120 mg injectionDisp: Rfl: SURGICAL PATHOLOGY [7238798] Order #: [id number] Prescriptions as of 07/17/2018 Sig: LIDOCAINE-PRILOCAINE 2.5 %-2.* APPLY TO AFFECTED AREA 30 MIN* ONDANSETRON HCL 8 MG TABLET Take 1 tablet by mouth every * TAMSULOSIN 0.4 MG CAPSULE Take 1 capsule by mouth daily* STOOL SOFTENER ORAL Take 2 capsules by mouth. Rhona* RANITIDINE 75 MG TABLET Take 75 mg by mouth as needed. Problem List As Of Date 07/17/2018 Noted Resolved ESOPHAGEAL REFLUX [K21.9] INVALID FOR* OTHER LUNG DISEASE NEC [J98.4] INVALID FOR* CALCULUS OF URETER [N20.1] INVALID FOR* Impaired Fasting Glucose [R73.01] INVALID FOR* DDD (Degenerative Disc Disease), Lumbar [M51.36]INVALID FOR* Prediabetes [R73.03] INVALID FOR*05/07/2016 Hyperlipidemia [E78.5] INVALID FOR* Chronic bilateral low back pain without sciatic*INVALID FOR* Spondylosis of lumbar region without myelopathy*INVALID FOR* Discogenic low back pain [M51.36] INVALID FOR* More... Annular tear of lumbar disc [M51.36] INVALID FOR* More... More... Colon cancer metastasized to intra-abdominal ly*INVALID FOR* Cancer of sigmoid colon (HCC) [C18.7] INVALID FOR* Other instructions from your clinician: FOLLOWING YOUR PROSTATE BIOPSY Rest and refrain from physical activity (jogging, lifting heavy objects) for 2 days. Drink plenty of liquids to clear the urine. (Water is the best). You may experience some burning on urination. You may have some blood or small clots in your urine. You may see blood in your stool. You may experience some rectal pressure as well as some minor rectal blood. These are not unusual and generally subside in 2-3 days. You may see blood in your ejaculate for a few weeks and sometimes a few months. Do not resume medications that make you more prone to bleeding until 1 day after the biopsy, unless otherwise directed by your physician (refer to pre-procedure instruction list) Call Your Doctor if You Have: Fever/Chills Temperature greater than 101 F Difficulty urinating Excessive bleeding from your rectum or urethra [facility] M-F 8am-5pm [phone] After hours/weekend physician answering service [phone] If after hours or on weekend you develop fever/chills, temp more than 101F or unable to urinate go to Emergency Room. Rev 04/21/13 KW Visit Notes: >> Cinthya Hernandez Mónica [facility] Jul 17, 2018 2:29 PM Status: Signed Patient presents with: Prostate Biopsy >> Beverley Jimenez RN [facility] Jul 17, 2018 4:32 PM Status: Signed STRO TRANS RECTAL TRUSP - PROSTATE WITH BIOPSY July 17, 2018 PREOPERATIVE/PROCEDURAL VERIFICATION: Patient verified by: Name and Date of UNIVERSAL PROTOCOL / SAFETY CHECKLIST Procedure to be performed: Prostate Biopsy Sign in Communication: Completed Time Out: Team Confirms the Correct Patient, Correct Procedure, Correct Site and Site Marking, Correct Position (if applicable), Prep and Dry Time (if applicable). Time: 1450 Affirmation of Time Out: YES Sign Out Discussion: Completed Latex Allergy: No Allergies reviewed and updated. Anticoagulant: No Pre-Procedure Antibiotics: Yes, see MAR for administration. Fleets Enema: No Pre-Procedure Vital Signs: BP BP 128/71 Pulse 62 Ht 190.5 cm (6' 3) Wt 94.8 kg (209 lb) SpO2 100% BMI 26.12 kg/m? Pain Rating: on a scale of 0-10: 0 Pre-Procedure Anesthetic given: Administered by MD - see Procedure Physician Note. Instruction sheet given and reviewed: Yes Patient verbalizes understanding: Yes Post-Procedure vital signs: BP 125/85 Pulse 77 Respirations 20. Pain Rating: on a scale of 0-10: 0 Post-Procedure Antibiotics: No. Patient tolerated procedure well and did have some blood from tip of penis during exam. Denies any dizziness or wooziness or light headedness after procedure. Color good. Juice given. will drive home, but ambulated out with gait steady. Nurse's signature: Beverley Jimenez RN Prescriptions ordered this encounter Disp Refills Start End LEVOFLOXACIN 750 MG TABLET 07/17/2018 07/17/2018 Route: ORAL GENTAMICIN 40 MG/ML INJECTION SOLUTI* 07/17/2018 07/17/2018 Route: INTRAMUSCULA Disposition: Return in about 4 weeks (around 08/14/2018). Follow-up and Disposition History Recorded Letter Text Encounter Status:Closed by GIOVANY RODRIGUES on 07/17/18 PROGRESS Observed: 07/16/2018 Status: COMPLETED Source: [place] 9:18 AM [facility] REPOSITORY HNO ID: [id number] Author: Beverly Dumas Service: (none) Author Type: Genetic Counselor Type: Progress Notes Filed: 07/16/2018 2:50 PM Note Text: [facility] Consultation Note Genetic Counselor: Beverly Dumas, MS, [facility] Patient: Amelia Avila Patient Name and confirmed at initiation of visit HIGH LEVEL SUMMARY: ? The patient's personal history is potentially suggestive of a hereditary colorectal cancer syndrome. ? At this time, the patient does not meet NCCN criteria for consideration of hereditary colorectal cancer testing (Em Syndrome and FAP/AFAP). ? Personal history of colorectal cancer and four tubular adenomas at age 52 remains concerning for an inherited predisposition to colorectal cancer, and we discussed other moderate risk genes for which there are not testing guidelines. Due to this, self-pay testing options were discussed and may be pursued if the patient desires. IDENTIFICATION AND CHIEF COMPLAINT: Dr. Dutch Escalante requested a consultation for genetic counseling and risk assessment for Amelia Avila, a 52 year old male, for discussion of his personal history of colorectal cancer. He presents to clinic today to discuss the possibility of a genetic predisposition to cancer, and to further clarify his risks, as well as his family members' risks for cancer. HISTORY OF PRESENT ILLNESS: In April of 2018, at the age of 52, Amelia Avila was diagnosed with adenocarcinoma of the sigmoid colon. At the time of diagnosis, four tubular adenomas were also identified in the cecum and transverse colon. This was treated with hemicolectomy. Final pathology included immunohistochemistry of the mismatch repair proteins, with normal (negative) results: See microsatellite instability study by IHC ([id number]) for complete details. Negative (no loss of mismatch protein; no microsatellite instability detected). Immunohistochemistry Studies for Mismatch Repair Proteins: MLH1 - Intact nuclear positivity, tumor cells, focal MSH2 - Intact nuclear positivity, tumor cells, focal MSH6 - Intact nuclear positivity, tumor cells, focal PMS2 - Intact nuclear positivity, tumor cells He has no other personal history of cancer, though noted increased urination frequency in 2018. Imaging related to his cancer diagnosis noted enlargement of the prostate, with subsequent PSA result of 6.51 (ref rangs of 0.00 - 2.59 ng/mL). He has a urology appointment tomorrow. 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 CANCER SURVEILLANCE HISTORY: Mammograms: N/A Breast MRI's: N/A Breast Biopsies: N/A Colonoscopy: Yes / First colonoscopy Apr 2018 identified cancer of sigmoid colon and four tubular adenomas. EGD: No GI Polyps: Yes / 4 tubular adenomas found on initial colonoscopy Pelvic Exam: N/A Pap Smear: N/A CA-125: N/A Transvaginal Ultrasound: N/A Prostate Cancer surveillance: Recent PSA elevated, referred to urology. Seeing tomorrow in [place]. Possible prostate biopsy. Dermatology: No REPRODUCTIVE HISTORY AND PERSONAL RISK ASSESSMENT FACTORS: Weight: Last 1 Encounter Wt Readings: Date: Wt: 07/15/2018 95.7 kg (211 lb) Height: Last 1 Encounter Ht Readings: Date: Ht: 07/01/2018 190.5 cm (6' 3) SOCIAL HISTORY: Social History Substance Use Topics - Smoking status: Former Smoker Packs/day: 0.50 Years: 10.00 Types: Cigarettes - Smokeless tobacco: Never Used Comment: latia in 1996 - Alcohol use 3.0 - 4.5 oz/week 2 - 3 Glasses of Wine (5oz) per week FAMILY HISTORY: We obtained a detailed, 4-generation family history. Significant diagnoses are listed below: ? Personal history of colon cancer and 4 adenomatous polyps diagnosed at age 52. ? Father with lung cancer diagnosed at age 69. at age 69. History of smoking. ? Paternal half-aunt with breast cancer in her mid to late 60's. Currently about age 68. FAMILY HISTORY Problem Relation Age of Onset - Hypertension Mother - Cancer Father LUNG The patient's maternal ancestors are of [place] ([place] ) descent and paternal ancestors are of [place] descent. There is no Ashkenazi Jain ancestry. There is no known consanguinity.. A copy of the patient's pedigree will be available under the scanned documents tab following today's visit. GENETIC COUNSELING RISK ASSESSMENT, DISCUSSION, AND SUGGESTED FOLLOW UP: We reviewed the natural history and genetic etiology of sporadic, familial and hereditary cancer syndromes. The patient's personal history is potentially suggestive of an inherited predisposition to colon cancer, based on his diagnosis of colon cancer under age 60 and presence of four additional adenomatous polyps. However, the patient does not meet NCCN testing criteria for Em syndrome or FAP, the most common hereditary colorectal cancer syndromes, at this time. An available risk assessment model (Premm5) estimates there is a 4.3% chance for Amelia Avila to carry a mutation in one of the mismatch repair genes that cause Em syndrome, which is below the 5% cutoff to meet NCCN guidelines for consideration of genetic testing. Premm 5 model: 4.3% probability of MLH1, MSH2, MSH6, PMS2, or EPCAM mutation (does not account for negative IHC) We discussed that while Em syndrome and FAP/AFAP are the most common causes of hereditary colon cancer, there are several other 'moderate risk' genes that increase the risk of colon cancer to a lesser degree. Identification of a hereditary cancer syndrome or moderate risk gene mutation may help his care providers tailor his medical management. Some of these genes have accompanying NCCN or other expert recommendations for management, while some of the more recently discovered genes may not have evidence based guidelines. If a mutation were detected, the patient would be referred back to the referring provider and to any additional appropriate care providers to discuss the relevant options. Inheritance of hereditary cancer syndromes was discussed with the patient. If a mutation is not found in the patient, this will decrease the likelihood of a hereditary colorectal cancer syndrome as the explanation for the patient's personal history of colorectal cancer. However, it cannot completely rule out this possibility. Cancer surveillance options would be discussed for the patient according to the appropriate standard National Comprehensive Cancer Network and [place] [employer] guidelines, with consideration of their personal and family history risk factors. In this case, the patient will be referred back to their care providers for discussions of management. Based on today's assessment of the patient's family and personal history, genetic testing through the patient's insurance is not recommended. However, we discussed that should he wish to pursue genetic testing, patient self-pay testing options are available through several laboratories. Specifically, we discussed a hereditary colorectal cancer panel test through [facility], who provides a patient self-pay chilel of $250. Furthermore, both genetic testing recommendations and family histories overweaver time, and the patient is therefore encouraged to follow up with genetics to provide any updates to his family history (including any new cancer diagnoses in himself or family members) and to check back for updated recommendations and testing options should he decide not to pursue self-pay testing at this time. At the time of the encounter, we discussed that insurance coverage of testing was unlikely due to the lack of family history and his age at diagnosis. We agreed to follow-up communication via [employer] message/telephone to discuss testing options, and a subsequent lab appointment in [place] if Mr. Saravia decides he would like to proceed. The patient was seen for a total of 60 minutes, greater than 50% of which was spent [id number]-[id number] counseling. This plan is being carried out per Dr. Kendy Asencio's recommendations. This note will also be sent to the referring provider via the electronic medical record. Beverly Dumas MS, [facility] Licensed Genetic Counselor [facility] CC: Dr. Dutch Asencio EDUCATIONAL INFORMATION SUPPLIED TO PATIENT AT ENCOUNTER: None - note will be available in [facility] Additional Educational Information about Em syndrome was requested by the patient and will be provided via [employer]. INFORMATION TO BE MAILED TO PATIENT None KEY Observed: 07/16/2018 Status: COMPLETED Source: [place] 12:00 AM [facility] REPOSITORY Telephone (DOMINICK) AMELIA AVILA ([id number]) 1965 M Date Time Provider Department 07/16/18 MAIRA العراقي) DOMINICK During your visit today, we recorded the following information about you: Maira العراقي RN, RN 07/16/2018 11:30 AM Signed CYCLE 1/DAY 1 POST TREATMENT CALL Today's date: July 16, 2018 Treatment Regimen: Folfox C1D1 Date: 07/15/2018 Called patient to follow-up on symptom management. Spoke with patient Patient reports treatment related symptoms: Yes- Headaches after taking Zofran. Patient stated during treatment yesterday, patient developed a headache after zofran was administered. At home yesterday, patient took Zofran PO and developed a 6-7/10 aching headache in the back of my head, top of my neck. Patient stated he took 1000 mg tylenol yesterday with little to no relief. Patient stated ibuprofen typically works better for pain relief.Patient informed this nurse will send a different anti- nausea medication to [facility] pharmacy in [place]. Patient denies N/V today and stated he is only taking Zofran PRN. Patient reports adequate fluid and nutrition intake: YES Reinforced CURRENT treatment education based on current and anticipated symptoms. Patient verbalizes understanding of anticipated symptoms and when to seek medical attention. Discussed port/line care, if applicable and patient verbalizes understanding. Patient instructed to contact office or after hours Hematology/Oncology fellow for: temperature ? 100.4; questions or concerns. Contact information provided. Patient is also asking if he can have pump d/c here in [place] tomorrow since the medication will be done around 10:00am. Patient was wondering if the Urologist would need access to his port during his biopsy tomorrow. This nurse contacted Dr. Rodrigues's office and spoke to Darling which stated they will not need access to patient's port tomorrow. Please schedule patient for Pump D/C tomorrow in [place]. Thank you. ANDRE Menon RN, RN 07/16/2018 11:32 AM Signed PSR's: Patient is asking if he can have pump d/c here in [place] tomorrow since the medication will be done around 10:00am. Patient was wondering if the Urologist in [place] would need access to his port during his biopsy tomorrow. If [place] needs access, patient would like to keep [place] pump d/c appointment. This nurse contacted Dr. Rodrigues's office and spoke to Darling which stated they will not need access to patient's port tomorrow. Please schedule patient for Pump D/C tomorrow, 07/17/2018 in [place]. Thank you. Emani Rodriguez 07/16/2018 11:39 AM Signed D/C [place] scheduled for . Maira اعلراقي RN, RN 07/17/2018 3:08 PM Signed Addended by: MAIRA العراقي on: 07/17/2018 03:08 PM Modules accepted: Orders Dutch Escalante DO 07/17/2018 3:18 PM Signed Addended by: DUTCH ESCALANTE DO on: 07/17/2018 03:18 PM Modules accepted: Orders Allergies As of Date: 07/16/2018 (No Known Allergies) Date Reviewed: 07/15/2018 Reviewed by: Johana Potts (Rn) ANDRE Head - Fully Assessed Reason for Visit: Care Coordination [3491] Cmt: Cycle 1/Day 1 Post Treatment Call Reason For Visit History Recorded Order(s):promethazine (PHENERGAN) 25 mg tabletTake 1 tablet by mouth every 6 hours as needed for Nausea/Vomiting. FOR NAUSEADisp: 60 tabletRfl: 2 Prescriptions as of 07/16/2018 Sig: PROMETHAZINE 25 MG TABLET Take 1 tablet by mouth every * OXYCODONE-ACETAMINOPHEN 5 MG-* Take 1 tablet by mouth every * LIDOCAINE-PRILOCAINE 2.5 %-2.* APPLY TO AFFECTED AREA 30 MIN* ONDANSETRON HCL 8 MG TABLET Take 1 tablet by mouth every * TAMSULOSIN 0.4 MG CAPSULE Take 1 capsule by mouth daily* STOOL SOFTENER ORAL Take 2 capsules by mouth. Rhona* RANITIDINE 75 MG TABLET Take 75 mg by mouth as needed. Problem List As Of Date 07/16/2018 Noted Resolved ESOPHAGEAL REFLUX [K21.9] INVALID FOR* OTHER LUNG DISEASE NEC [J98.4] INVALID FOR* CALCULUS OF URETER [N20.1] INVALID FOR* Impaired Fasting Glucose [R73.01] INVALID FOR* DDD (Degenerative Disc Disease), Lumbar [M51.36]INVALID FOR* Prediabetes [R73.03] INVALID FOR*05/07/2016 Hyperlipidemia [E78.5] INVALID FOR* Chronic bilateral low back pain without sciatic*INVALID FOR* Spondylosis of lumbar region without myelopathy*INVALID FOR* Discogenic low back pain [M51.36] INVALID FOR* More... Annular tear of lumbar disc [M51.36] INVALID FOR* More... More... Colon cancer metastasized to intra-abdominal ly*INVALID FOR* Cancer of sigmoid colon (HCC) [C18.7] INVALID FOR* Prescriptions ordered this encounter Disp Refills Start End PROMETHAZINE 25 MG TABLET 60 t* 2 07/17/2018 Route: ORAL Sig: Take 1 tablet by mouth every 6 hours as needed for Nausea/Vomiting. FOR NAUSEA Encounter Status:Closed by EMANI RODRIGUEZ on 07/16/18 KEY Observed: 07/10/2018 Status: COMPLETED Source: [place] 12:00 AM [facility] REPOSITORY Telephone (AKURFL) AMELIA AVILA ([id number]) 1965 M Date Time Provider Department 07/10/18 GIOVANY RODRIGUES During your visit today, we recorded the following information about you: Olga Bautista 07/10/2018 1:52 PM Signed ----- Message from Giovany Rodrigues sent at 07/10/2018 1:31 PM EST ----- Please add on at 2 PM in [place] on 07/17/18 Thanks ----- Message ----- From: Olga Bautista Sent: 07/09/2018 3:39 PM To: Giovany Rodrigues Your next opening for a procedure is Aug 13. Is that ok? Olga Bautista ----- Message ----- From: Giovany Rodrigues Sent: 07/09/2018 2:33 PM To: Olga Bautista Please add new appt for this patient with possible trus biopsy prostate Thanks ----- Message ----- From: Dutch Escalante Sent: 07/09/2018 1:37 PM To: Giovany Rosario, How goes it? I'm going to refer this very nice donny to see you. He's about to start 6 months' worth of adjuvant chemotherapy for high risk resected colon cancer (12 of 19 LNs positive). He was put on Flomax a few months prior to this diagnosis for slowing of stream. Had normal PSA in 2009. I repeated (right or wrong; but thought right due to his younger age of colon cancer and wanting to be sure I'm not missing something else) it and it's 6 now. I'm hoping just BPH but he seemed rather young for BPH that required treatment. Anyway, if you think he needs a biopsy, maybe best to hold off till done with chemo. Thanks again, Dutch Bautista 07/10/2018 1:54 PM Signed July 10, 2018 1:53 PM Called and left a voicemail for patient to call the office. I went ahead and scheduled him for 07/17/18 at 2:00pm per Dr. Rodrigues. Patient is unaware of time till he calls back-RELL Bautista 07/10/2018 1:58 PM Signed July 10, 2018 1:57 PM Patient called back, he is aware of appointment with Dr. Rodrigues on 07/17/18 @ 2:00pm. Address given to patient-RELL Jimenez RN 07/10/2018 4:42 PM Signed Sorry but unable to accommodate this patient in [place] at that time due to equipment availability. Please assist in getting patient rescheduled for another day. Giovany Rodrigues DO, MBA 07/10/2018 5:43 PM Signed How long will it take to turn over the probe? We can put one in the morning and one in the afternoon Beverley Jimenez RN 07/11/2018 1:54 PM Signed Procedure to continue at 2 pm and other patient moved up to earlier slot to accommodate. Please keep Procedure at 2pm on 07-17-2018 with Prostate Biopsy. No other concerns. Spoke with patient as appt was cancelled after accommodations made. He is suppose to get Chemo disconnected at 4 pm. Spoke with [facility] to see if they can do because he wont be able to get to [place] at 4 pm. We can disconnect at 4 pm here in [place] Per Jessie SMITH. MEDICATION INFORMATION ASPIRIN and ADVIL can make you more prone to bleeding after surgery. Please STOP taking these medications at least (7) days before surgery or procedure. Medications can be resumed (1) days after the Prostate Biopsy procedure. NOTE: Please obtain approval to stop any prescribed medication from the prescribing doctor. Some common medications that contain ASPIRIN or act like Aspirin are to be avoided are as follows: This is a list of the medications you should avoid: Advil Clinoril (Sulindac) Naprosyn (Naproxen) Aggrenox Ecotrin NSAID (Non-Steroidal Agrylin Excedrin Anti-Inflammatory Drugs) Aleve (Naproxen) Fish Oil Pepto-Bismol Shoshana-Clark Gingko Bil[place]a Persantine (Dipyridamole) Anacin Glucosamine Chondroitin Plavix (Clopidogrel) Ascriptin Green Tea Plaquenil (Hydroxychloroquine) Aspergum Heparin Pletal (Cilostazol) Aspirin Herbals Ticlid (Ticlopidine) Nick Ibuprofen Trental (Pentoxyfylline) Bextra Indocin (Indomethacin) Vanquish Bufferin Midol Vitamin E (MVI) Coumadin (warfarin) Mobic/Meloxicam Multivitamin (MVI) MEDICATIONS you may SUBSTITUTE: Anacin 3 Plenadol Percocet* Datril Sine-Aide Excedrin PM Tylenol Fioricet* Tylenol with codeine* (*Denotes prescription needed to obtain these medications) ADDITIONAL DIRECTIONS Antibiotic: Oral and IM Injection will be given in office the day of the procedure Please arrive 15 minutes early, you will be asked to provide a urine sample upon arrival. Fasting: Fasting is NOT required. Fleets Enema: Please administer rectally 2-4 hours before the Prostate Biopsy. This can be purchased at the pharmacy of your choice. VALIUM (Diazepam): You may have been given a script for VALUIM. The Valium is to be taken 1 hour before the Prostate Biopsy (TRUS) Consulting Property Manager: If you take the Valium, you WILL NEED a petrol tanker driver. If you DO NOT take the Valium, you WILL NOT need a petrol tanker driver. For questions contact: [facility] Urology Nurse Line @ [phone] After hours, call answering service @ [phone] Allergies As of Date: 07/10/2018 (No Known Allergies) Date Reviewed: 07/09/2018 Reviewed by: Odilia (Rn) ANDRE Mata - Fully Assessed Reason for Visit: Appointment [186] Prescriptions as of 07/10/2018 Sig: OXYCODONE-ACETAMINOPHEN 5 MG-* Take 1 tablet by mouth every * LIDOCAINE-PRILOCAINE 2.5 %-2.* APPLY TO AFFECTED AREA 30 MIN* ONDANSETRON HCL 8 MG TABLET Take 1 tablet by mouth every * TAMSULOSIN 0.4 MG CAPSULE Take 1 capsule by mouth daily* STOOL SOFTENER ORAL Take 2 capsules by mouth. Rhona* RANITIDINE 75 MG TABLET Take 75 mg by mouth as needed. Problem List As Of Date 07/10/2018 Noted Resolved ESOPHAGEAL REFLUX [K21.9] INVALID FOR* OTHER LUNG DISEASE NEC [J98.4] INVALID FOR* CALCULUS OF URETER [N20.1] INVALID FOR* Impaired Fasting Glucose [R73.01] INVALID FOR* DDD (Degenerative Disc Disease), Lumbar [M51.36]INVALID FOR* Prediabetes [R73.03] INVALID FOR*05/07/2016 Hyperlipidemia [E78.5] INVALID FOR* Chronic bilateral low back pain without sciatic*INVALID FOR* Spondylosis of lumbar region without myelopathy*INVALID FOR* Discogenic low back pain [M51.36] INVALID FOR* More... Annular tear of lumbar disc [M51.36] INVALID FOR* More... More... Colon cancer metastasized to intra-abdominal ly*INVALID FOR* Cancer of sigmoid colon (HCC) [C18.7] INVALID FOR* Encounter Status:Closed by OLGA GREWAL on 07/10/18 ANES POST Observed: 07/09/2018 Status: COMPLETED Source: [place] 11:03 AM [facility] REPOSITORY HNO ID: [id number] Author: Priscila Troncoso Service: Anesthesiology Author Type: Anesthesiologist Type: Anesthesia PostOp Filed: 07/09/2018 11:03 AM Note Text: POST ANESTHESIA EVALUATION NOTE SERVICE DATE: 07/09/2018 SERVICE TIME: 11:03 AM : 1965 Vitals: 07/09/18 0750 07/09/18 0917 07/09/18 1000 Temp: 36 ?C (96.8 ?F) 36.5 ?C (97.7 ?F) 36.6 ?C (97.9 ?F) 07/09/18 0917 07/09/18 0930 07/09/18 0945 07/09/18 1000 BP: 103/66 106/67 114/75 116/78 07/09/18 0917 07/09/18 0930 07/09/18 0945 07/09/18 1000 Pulse: 65 (!) 53 (!) 55 (!) 55 07/09/18 0917 07/09/18 0930 07/09/18 0945 07/09/18 1000 Resp: 07/09/18 0917 07/09/18 0930 07/09/18 0945 07/09/18 1000 SpO2: 98% 97% 97% 95% Validated Vital Signs: Yes POST ANES STATUS: No apparent anesthetic complications. The patient is appropriately hydrated with stable respiratory and cardiovascular status. Patient has safe and adequate airway control. The patient has appropriate pain relief and no significant post operative nausea or vomiting. The patient has achieved baseline mental status. Intra-Operative Events: No Significant Anesthesia Events Further assessment by Anesthesia Service: None Other Remarks: SIGNATURE: Priscila Troncoso MD PATIENT NAME: Amelia Avila DATE: July 09, 2018 TIME: 11:03 AM PAGER/CONTACT #: [id number] NURSING PROG Observed: 07/09/2018 Status: COMPLETED Source: [place] 9:37 AM [facility] REPOSITORY O ID: [id number] Author: Odilia (Rn) ANDRE Mata Service: (none) Author Type: Registered Nurse Type: Nursing Progress Note Filed: 07/09/2018 10:13 AM Note Text: @ 0917 Pt received to PACU, via cart, from OR. Pt sedated - rouses easily AND briefly - quickly returns to sleep when not stimulated. Left subclavian area dressing clean AND dry. SCD hose on. Side rails up. @ 0923 Portable chest x-ray done. @ 0940 in to speak to pt. @ 1002 Preliminary report to ASCU. @ 1012 VS stable - pt denies any discomfort . Physical assess same. XR CHEST 1V FRONTAL Observed: 07/09/2018 Status: F Source: [facility] 9:25 AM [facility] REPOSITORY * * *Final Report* * * DATE OF EXAM: Jul 09 2018 9:25AM MDX [id number] - XR CHEST 1V FRONTAL PORT / PROCEDURE REASON: Evaluate tube, line or lead position * * * * Physician Interpretation * * * * EXAMINATION: CHEST RADIOGRAPH (PORTABLE SINGLE VIEW AP) Exam Date/Time: 07/09/2018 9:25 AM Clinical History: Evaluate tube, line or lead position, MQ: [id number]_5 Comparison: None RESULT: See impression. IMPRESSION: Lines, tubes, and devices: Placement of left subclavian chest port with tip overlying the region of the superior cavoatrial junction. Lungs and pleura: No focal consolidation, pleural effusion or pneumothorax. Cardiomediastinal silhouette: Within normal limits. Other: No acute osseous abnormality. Last Putter Away: PSCB Transcribe Date/Time: Jul 09 2018 10:03A Dictated by : DIANE PORTER MD This examination was interpreted and the report reviewed and electronically signed by: DIANE PORTER MD on Jul 09 2018 10:04AM EST [id number] BRIEF OP NOT Observed: 07/09/2018 Status: COMPLETED Source: [place] 9:12 AM [facility] REPOSITORY HNO ID: [id number] Author: Stanislav Colon Service: General Surgery Author Type: Physician Type: Brief Op Note Filed: 07/09/2018 9:15 AM Note Text: BRIEF OPERATIVE NOTATION FOR SURGICAL PROCEDURE. Imed Tom 1965 [id number] male LOG ID: [id number] Surgery/Procedure Date: 07/09/2018 Incision/Procedure Start Time: 8:47 AM Incision Close/Procedure End Time: 9:10 AM Surgeon(s)/Proceduralist(s) and Field Service Consultant(s): Surgeon(s) and Role: * Stanislav Colon - Primary Physician Field Service Consultant: Whitney Bey REFERRING PHYSICIAN: Outpatient DEPT: SID PROVIDER: Joana POS: [id number] ANESTHESIA: Monitored Anesthesia Care ASA CLASS: 3 - Severe DIAGNOSIS: PROCEDURE: left Subclavian portacath - [id number] and Fluoroscopic for vascular access - [id number] IVF: 500 EBL: 10 Specimens: ADDITIONAL DIAGNOSES: FINDINGS: tip in SVC RA COMPLICATIONS: None PMHx - PAST MEDICAL HISTORY Diagnosis Date - Allergic rhinitis - DDD (degenerative disc disease), lumbar - Kidney stone - Prediabetes COMORBIDITIES - None Post Op Occurrences - None Wound Classification - Clean Operative note dictated in the dictation system. - [id number] Stanislav Colon MD XR FLUOROSCOPY Observed: 07/09/2018 Status: F Source: [place] 9:11 AM [facility] REPOSITORY * * *Final Report* * * DATE OF EXAM: Jul 09 2018 9:11AM MDR [id number] - XR FLUOROSCOPY / PROCEDURE REASON: LEFT PORT PLACEMENT FOR COLON CA * * * * Physician Interpretation * * * * INDICATION: Intraoperative fluoroscopy TECHNIQUE: Single submitted fluoroscopic spot image Fluoroscopic Radiation Summary: Plane A, Air Kerma: 6.8 mGy Plane B, Air Kerma: 0.0 mGy Dose Area Product (DAP): 1871.2 mGy*cmS2 Fluoro time: 0:38 min:sec FINDINGS/ IMPRESSION: Single submitted fluoroscopic spot image demonstrates a central venous catheter with probable tip overlying the region of the superior cavoatrial junction. Evaluation is limited by fluoroscopic technique. Refer to the procedure note for details regarding this procedure. Last Putter Away: PSCB Transcribe Date/Time: Jul 09 2018 10:04A Dictated by : DIANE PORTER MD This examination was interpreted and the report reviewed and electronically signed by: DIANE PORTER MD on Jul 09 2018 10:05AM EST [id number] PT ED Observed: 07/09/2018 Status: COMPLETED Source: [place] 8:25 AM [facility] REPOSITORY HNO ID: [id number] Author: Saritha SantiagoRnAbby Graham RN Service: Nursing Author Type: Registered Nurse Type: Patient Education Filed: 07/09/2018 8:25 AM Note Text: PRE OP LEARNING ASSESSMENT PROCEDURE/SURGERY: insertion medport READINESS TO LEARN COGNITIVE ABILITY: Alert and oriented MOTIVATION TO LEARN: Interested FAMILY SUPPORT: High - Very involved in pt care PATIENT LEARNS BEST BY: Verbal Instruction FACTORS AFFECTING LEARNING: None PHYSICAL LIMITATIONS AFFECTING LEARNING: None Electronically Signed By: Saritha Graham RN In Department: [facility] SURGERY HISTORY PHYSICAL Observed: 07/09/2018 Status: COMPLETED Source: [place] 8:19 AM [facility] OTHER [facility] REPOSITORY HNO ID: [id number] Author: Stanislav Colon Service: General Surgery Author Type: Physician Type: HANDP Filed: 07/09/2018 8:19 AM Note Text: HISTORY AND PHYSICAL ? Imed Tom 1965 ? ? REFERRING PHYSICIAN: Stanislav Colon MD ? CHIEF COMPLAINT: No chief complaint on file. ? HPI: The patient is a 52 year old male with a diagnosis of sigmoid colon cancer. Imed is currently scheduled to undergo chemotherapy and needs vascular access for treatment. The patient denies a prior history of central venous access. ? The patient is right hand dominant. ? PAST MEDICAL HISTORY PAST MEDICAL HISTORY Diagnosis Date - Allergic rhinitis ? - DDD (degenerative disc disease), lumbar ? - Kidney stone ? - Prediabetes ? ? ? PAST SURGICAL HISTORY PAST SURGICAL HISTORY Procedure Laterality Date - AMPUTATION FINGER/THUMB ? ? ? accident as a child - COLONOSCOP W/ OR W/O [facility] SPEC ? 05/20/2018 ? Colonoscopy - KNEE SCOPE,DIAGNOSTIC ? 2013 ? Arthroscopy, knee - PART REMOVAL COLON W ANASTOMOSIS ? 06/11/2018 ? Hemicolectomy - PAST SURGICAL HISTORY OF ? ? ? injections in back/nerve ablation - REPAIR OF NASAL SEPTUM ? 2002 ? ? ? CURRENT MEDICATIONS ? Current Outpatient Prescriptions: ondansetron (ZOFRAN) 8 mg tablet Take 1 tablet by mouth every 8 hours as needed for Nausea/Vomiting. Disp: 30 tablet Rfl: 2 tamsulosin ER (FLOMAX) 0.4 mg cap Take 1 capsule by mouth daily at bedtime. Disp: 90 capsule Rfl: 3 docusate sodium (STOOL SOFTENER ORAL) Take 2 capsules by mouth. Daily Disp: Rfl: ranitidine (ZANTAC) 75 mg tablet Take 75 mg by mouth as needed. Disp: Rfl: oxyCODONE-acetaminophen (PERCOCET) 5-325 mg tablet EVERY 6 HOURS NEEDED PRN For Pain Disp: Rfl: ? No current facility-administered medications for this visit. ? ALLERGIES: Patient has no known allergies. ? PERSONAL HISTORY: SOCIAL HISTORY Social History Marital status: Spouse name: Years of education: Number of children: ? Social History Main Topics Smoking status: Former Smoker Packs/day: 0.50 Years: 10.00 Types: Cigarettes Smokeless tobacco: Never Used Comment: latia in 1996 Alcohol use: Yes 3.0 - 4.5 oz/week Glasses of Wine (5oz): 2 - 3 per week Drug use: No ? FAMILY HISTORY: FAMILY HISTORY FAMILY HISTORY Problem Relation Age of Onset - Hypertension Mother ? - Cancer Father ? ? LUNG ? ? REVIEW OF SYMPTOMS: The review of systems data was entered by the nurse and reviewed by me ? ? REVIEW OF SYSTEMS: ?General:???The patient denies fatigue, denies weight loss, denies weight gain, denies feeling hot, and denies feelings of cold. ?Eyes: ?The patient denies glaucoma, denies eye injury/surgery, wears glasses or contacts. ?Ear/Nose/Throat: ?The patient denies allergies, denies hayfever, denies ear infections, and denies bloody noses. ?Cardiovascular: ?The patient denies chest pain, denies heart disease, denies high blood pressure,denies cardiac stent, denies prior heart attack, denies irregular heart beat, denies high cholesterol, ?denies poor circulation, denies heart failure, other cardiac issues, denies claudication, denies cold feet, denies peripheral arterial stent. ?Respiratory: ?The patient denies tuberculosis, denies pneumonia, denies frequent cough, denies pulmonary embolism, denies shortness of breath, and denies coughing up blood. ?Gastrointestinal: ?The patient denies difficulty swallowing, notes acid reflux, denies ulcers, denies vomiting, denies jaundice/hepatitis, denies gallbladder problems, denies black or tarry stools, denies hemorrhoids, denies bleeding from rectum, denies diverticulitis, denies constipation, denies diarrhea, denies loss of stool control, and denies hernias. ?Kidney/Bladder: ?The patient notes kidney stones, denies urine infections, and denies bloody urine. ?Skin: ?The patient denies a history of skin cancer, denies bleeding/changing moles, and denies a history of skin rash. ?Neurologic: ?The patient denies a history of epilepsy/convulsions, denies headaches, denies head/spinal injuries, and denies stroke/TIA. ?Psychiatric: ?The patient denies psychiatric medications, denies depression, and denies voices, denies substance abuse. ?Endocrine: ?The patient denies thyroid disorders, denies diabetes, and denies hormonal problems. ?Hematologic: ?The patient denies a history of bruising, denies bleeding, and denies anemia, denies blood clots. ?Infections: ?The patient denies a history of measles and mumps, denies rheumatic fever, and denies sexually transmitted diseases. ?Musculoskeletal: ?The patient denies back pain/injury, notes back problems, denies sciatica, NOTES knee/foot trouble, denies arthritis, or NOTES gout. ? PHYSICAL EXAMINATION: ? General: The patient is 52 year old male, well nourished, well hydrated in no acute distress. The patient is oriented to time, place, and person. ? VITALS: There were no vitals taken for this visit. There is no height or weight on file to calculate BMI. ? HEENT: Normal cephalic, ataumatic, pupils are equally round, sclera are anicteric, mucous membranes are moist, oropharynx is clear. Neck has no masses, asymmetry or lymphadenopathy. Thyroid is unremarkable. ? Respiratory: Clear to auscultation and percussion. Normal respiratory excursion and pattern. ? Cardiac: Examination is regular rate and rhythm. No murmurs, rubs, or additional cardiac tones ? Abdominal exam: Soft, nontender, with no palpable masses. No hepatosplenomegaly. No palpable hernias. ? Rectal exam: exam deferred ? Extremities: no clubbing, cyanosis or edema. No adenopathy. ? Other: ? ? LABORATORY VALUES: As Noted ? RADIOLOGIC STUDIES: As Noted ? Assessment IMPRESSION: Colon cancer, need for IV access ? PLAN: I plan to perform a left subclavian port a cath placement. The planned surgical procedure was discussed extensively with the patient. The risks, benefits, anticipated outcomes and possible complications were mentioned. My staff has also explained the procedure in understandable terms and the patient was given the option to take printed material concerning the planned procedure. The patient had the opportunity to ask questions concerning the planned procedure. The patient freely consents to the planned procedure. ? Planned Procedure: left Subclavian portacath - [id number] and Fluoroscopic for vascular access - [id number] ? Patient Weight Last 1 Encounter Wt Readings: Date: Wt: 06/30/2018 94.8 kg (209 lb) ? Antibiotic: Ancef 2gm IVPB production trainer to OR ? Planned Anesthetic: MAC with local ? I do not plan to access the port at the time of surgery. ? Diagnoses: (C18.7) Cancer of sigmoid colon (HCC) (primary encounter diagnosis) ? Stanislav Colon MD ANES PREOP Observed: 07/09/2018 Status: COMPLETED Source: [place] 7:44 AM [facility] OTHER CAMPUS REPOSITORY O ID: [id number] Author: Priscila Troncoso Service: Anesthesiology Author Type: Anesthesiologist Type: Anesthesia PreOp Filed: 07/09/2018 7:45 AM Note Text: ANESTHESIOLOGY DAY OF SURGERY NOTE SERVICE DATE: 07/09/2018 SERVICE TIME: 7:44 AM : 1965 Procedure(s) (LRB): INSERTION PORT VENOUS ACCESS ADULT (Left) Surgeon(s): Stanislav Colon Estimated body mass index is 26.12 kg/m? as calculated from the following: Height as of 06/03/18: 190.5 cm (6' 3). Weight as of 06/30/18: 94.8 kg (209 lb). Most recent hematocrit and potassium results: Hematocrit 46.7 05/20/2018 Potassium 3.9 07/08/2018 ANES DOS/PREOP NOTE: Vitals: There were no vitals filed for this visit. ACTIVE PROBLEM LIST Esophageal Reflux Other Diseases of Lung, Not Elsewhere Classified Calculus of Ureter Impaired Fasting Glucose Ddd (Degenerative Disc Disease), Lumbar Hyperlipidemia Chronic Bilateral Low Back Pain Without Sciatica Spondylosis of Lumbar Region Without Myelopathy Or Radiculopathy Discogenic Low Back Pain Annular Tear of Lumbar Disc Colon Cancer Metastasized to Intra-Abdominal Lymph Node (Hcc) Cancer of Sigmoid Colon (Hcc) PAST MEDICAL HISTORY Diagnosis Date - Allergic rhinitis - DDD (degenerative disc disease), lumbar - Kidney stone - Prediabetes PAST SURGICAL HISTORY Procedure Laterality Date - AMPUTATION FINGER/THUMB accident as a child - COLONOSCOP W/ OR W/O [facility] SPEC 05/20/2018 Colonoscopy - KNEE SCOPE,DIAGNOSTIC 2013 Arthroscopy, knee - PART REMOVAL COLON W ANASTOMOSIS 06/11/2018 Hemicolectomy - PAST SURGICAL HISTORY OF injections in back/nerve ablation - REPAIR OF NASAL SEPTUM 2002 FAMILY HISTORY Problem Relation Age of Onset - Hypertension Mother - Cancer Father LUNG Social History: Social History Substance Use Topics - Smoking status: Former Smoker Packs/day: 0.50 Years: 10.00 Types: Cigarettes - Smokeless tobacco: Never Used Comment: qit in 1996 - Alcohol use 3.0 - 4.5 oz/week 2 - 3 Glasses of Wine (5oz) per week No current facility-administered medications on file prior to encounter. Current Outpatient Prescriptions on File Prior to Encounter: ondansetron (ZOFRAN) 8 mg tablet Take 1 tablet by mouth every 8 hours as needed for Nausea/Vomiting. tamsulosin ER (FLOMAX) 0.4 mg cap Take 1 capsule by mouth daily at bedtime. oxyCODONE-acetaminophen (PERCOCET) 5-325 mg tablet EVERY 6 HOURS NEEDED PRN For Pain docusate sodium (STOOL SOFTENER ORAL) Take 2 capsules by mouth. Daily ranitidine (ZANTAC) 75 mg tablet Take 75 mg by mouth as needed. Current Facility-Administered Medications: lactated ringers infusion 5-30 mL/hr INTRAVENOUS CONTINUOUS Whitney (Harry-C) Maida lactated ringers infusion 30 mL/hr INTRAVENOUS CONTINUOUS Stanislav Colon ceFAZolin iv piggyback 2 g in D5W (iso-osmotic) 100 mL (ANCEF) 2 g INTRAVENOUS Pre-Op Once Stanislav Colon Allergies: ALLERGIES No Known Allergies DOS EXAM: Adequate NPO Status: Yes Anesthetic Risks, Benefits, Alternatives, Personnel and Consent Discussed: Yes Patient agrees to proceed: Yes Previous Anesthesia: No history of adverse event Airway Assessment: MP 2; Neck ROM: Full ROM without neurologic symptoms; Airway Evaluation: Short Neck Symptoms of Sleep Apnea: Age over 50 (52 year old) and Male gender Dentition: Missing tooth upper right Additional Physical Exam: Lungs: Patient health status unchanged since recent history and physical. See history and physical for exam findings. Cardiac: Patient health status unchanged since recent history and physical. See history and physical for exam findings. Additional Pertinent Findings: N/A Blood Products: Not anticipated for this procedure Anesthetic Plan: MAC with general as back up Anesthetic Monitoring: Standard ASA Monitors Pain Management Plan: Parenteral or Oral ASA Class: 3 Other Medical Problems: None Chronic Beta Petar medication administered within 24 hours: N/A I have interviewed and examined the patient. I have reviewed the medical record and/or the pre-anesthesia evaluation, pertinent labs, and test results. Significant changes in the patient's condition since the History and Physical, not otherwise documented in primary service progress notes: No This contains updated information obtained within 48 hours of Surgery/Procedure. SIGNATURE: Priscila Troncoso MD PATIENT NAME: Amelia Avila DATE: July 09, 2018 TIME: 7:44 AM CSN: [id number] OPERATIVE NO Observed: 07/09/2018 Status: COMPLETED Source: [place] 12:00 AM [facility] OTHER CAMPUS REPOSITORY HNO ID: [id number] Author: Stanislav Colon Service: General Surgery Author Type: Physician Type: Operative Report Filed: 07/15/2018 8:22 AM Note Text: [facility] - Operative Report AMELIA AVILA : 1965 AGE: 52. SEX: M PATIENT TYPE: A HOSP [facility]: [facility] LOCATION: [facility] ATTENDING PHYSICIAN: Stanislav Colon M.D. CSN NUMBER: [id number] DATE OF SURGERY/PROCEDURE: 07/09/2018 INCISION/PROCEDURE START TIME: 08:47. INCISION CLOSE/PROCEDURE END TIME: 09:10. PREOPERATIVE DIAGNOSIS: 1. Colon cancer. 2. Need for IV access. POSTOPERATIVE DIAGNOSIS: 1. Colon cancer. 2. Successful left subclavian Port-A-Cath placement. SURGEON: Stanislav Colon M.D. MACHINE HELPER: SURGERY/PROCEDURE: Left subclavian Port-A-Cath placement with fluoroscopy for access. ANESTHESIA: Local MAC, monitored anesthetic care. LOG ID: [id number]. ASA: 3. IV FLUIDS: 500 cc. EBL: 10 cc. URINE OUTPUT: No catheter. FINDINGS: Tip of the catheter in the SVC-RA. DRAINS: None. COMPLICATIONS: None. DISPOSITION: The patient taken to PACU in stable condition. DESCRIPTION OF PROCEDURE: The patient's left neck and subclavian site were marked in the holding area. The patient concurred this was the planned operative site. The plan was not to access the port. Sign-in was performed verifying patient, site, procedure, position, critical nursing information, VTE, and antibiotic prophylaxis. The patient received 2 g of Ancef and had sequential compression devices placed. Following IV sedation, the left neck and chest were prepped and draped in the usual fashion. Time-out was performed verifying the patient, site, procedure, position. Local anesthetic was injected, and a Seldinger needle was used to access the left subclavian vein on the first attempt without difficulty. Fluoroscopy demonstrated good positioning of the wire to the SVC-RA region. Local anesthetic was injected, and an incision was made and a pocket was created for the port site. Next, an incision was made over the wire and the catheter over the port site to the wire site. Under fluoroscopic control, an introducer sheath and dilator were inserted over the wire. The wire and dilator were removed. The catheter was fed to the introducer sheath to the SVC-RA region, and the introducer sheath was removed. There was good return of venous blood and easy flow of saline through the system. Fluoroscopy demonstrated good position of the catheter. The catheter was cut to length, affixed to the port with a locking ring, and secured to the pocket with two 2-0 Prolene sutures. There was good return of venous blood to the port and easy flow of saline through the port. Fluoroscopy demonstrated good position of the system. Subcutaneous skin was closed with interrupted 3-0 Vicryl sutures. Skin was closed with 4-0 Monocryl subcuticular suture. Steri- Strips were applied. The port was again accessed, good return of venous blood, easy flow of saline, flushed with 3 mL of 100 units/mL of heparin, a dressing applied. The patient was brought to Recovery in stable condition. Stanislav Colon M.D. R /[id number] PROGRESS Observed: 07/08/2018 Status: COMPLETED Source: [place] 4:02 PM [facility] REPOSITORY [facility] ID: [id number] Author: Nika Nelson) Jorden Service: (none) Author Type: Sales Estimator Type: Progress Notes Filed: 07/08/2018 4:29 PM Note Text: PSYCHOSOCIAL ASSESSMENT Date of Service: July 08, 2018 Amelia Avila is a 52 year old male being seen for initial social work assessment. 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 Escalante Radiation Oncologist: DESEAN Goals of Care: Curative intent Today's visit includes: self/patient and spouse Family History of Cancer: Father *SUPPORT NETWORK: Marital status: Parent(s): Mother is living and Father is Child/Children: Yes. How many? 2 sons, aged 10 and 15 direct care counselor arrangements needed: No Siblings: 1 brother(s) Grandchild(kayleen): none Home Health Provider: No Community Services: No Shae Identified: No Church/Spirituality: None Are these practices or beliefs that may affect or influence treatment? No *EMPLOYMENT/FINANCIAL/HEALTH INSURANCE: Employment: Employed: [employer] Income source: Salary Insurance: Private Prescription coverage: Yes COBRA Is the patient appropriate for referral to [facility] COBRA Assistance program? No Financial Distress: No : No *LIVING ARRANGEMENTS: Type: House- independent [place] Resides with: Family Spouse and two sons and two cats *FUNCTIONAL STATUS: Cognitive limitations: none Physical limitations: none Language barrier: No Hearing Impaired: No Speech Impaired: No Visual Impairments: Yes, glasses Literacy Issues: No Special considerations/accommodations needed: No MENTAL HEALTH HISTORY: No History of combat/trauma: No Substance Use and Treatment History: denied History of Abuse: No Issues with: ? Sleep:No ? Eating:No ? Exercising: No ? Stress Management: No *ADVANCE DIRECTIVES/LEGAL DOCUMENTS: Living Will: No and declined at this time Health Care Durable Power of Hot Worker: No and declined at this time Scanned into EPIC: No Guardianship: NA Scanned into EPIC:NA *COPING STATUS: Coping Strengths: supportive relationships with immediate family and with friends successful managing past crises hopefulness self advocate strong problem-solving skills ability to plan able to follow direction consistently over time able to communicate effectively uses physical exercise future oriented and able to identify goals Current affect/mood: appropriate History of Loss: Yes, father from lung cancer Adjustment to diagnosis: reflecting understanding, responding appropriately and accepting help *BARRIERS/CARE CHALLENGES: Other Difficulty discussing diagnosis with family Are barriers/care challenges identified likely to have an impact on the patient's quality of life during treatment? Yes Family Concerns *CLINICAL IMPRESSION: BOOM met with patient and spouse following his chemotherapy education appointment. Patient reports strong support system and lives with his spouse, two sons and two cats. Patient reports he has had no issues with sleep, appetite, pain, cognition or mood. Patient also denies history of any MH issues. Patient reports he stays physically active (mostly walking) and is currently employed. Patient reports his FMLA paperwork is complete and denies any needs with this at this time. Patient reports he does not have Advance Directives completed and does not wish to do this today. Patient would like to complete these documents at his next visit to [facility] and will meet with BOOM at that time. SW oriented patient and his spouse to services and provided him with a list of local cancer resources. After patient left to schedule an appointment, his informed BOOM that patient has not yet told his children and brother of his diagnosis. She reports that patient's youngest son (10 y/o) has frequent seizures, which can be exacerbated by stress, so they are very worried about how to discuss this news with him specifically. BOOM directed patient's spouse to [email or web address] and [email or web address], which both offer some insight into this issue. SW also encouraged her to reach out with specific questions. She is agreeable. INTERVENTIONS/REFERRALS TO BE PROVIDED: Monitor patient response to treatment Communicate pertinent medical/psychosocial information to Cancer Center team Provide emotional support to patient/family Referral to community resource Education Relaxation Techniques Provided education on distress and screening process Continue follow up as needed Resources and Referrals: ? Internal: [facility] ? External: [facility] PLAN: Follow up appointment with BOOM in: [place] ABS GR + CBC Collected: 07/08/2018 Status: F Source: [place] 2:36 PM [facility] REPOSITORY TYPE CODE TESTS RESULT OUT OF REFERENCE UNITS RANGE LAB WWBC 3.70-11.00 k/uL [place] WBC 4.02 LAB WRBC 4.20-6.00 m/uL Les RBC 4.42 LAB WHGB 13.0-17.0 g/dL [place] Hemoglobin 13.2 LAB WHCT 39.0-51.0 % [place] Hematocrit 40.3 LAB WMCV 80.0-100.0 fL [place] MCV 91.2 LAB WMCH 26.0-34.0 pg [place] MCH 29.9 LAB WMCHC 30.5-36.0 g/dL [place] MCHC 32.8 LAB WRDW 11.5-15.0 % Les RDW 13.0 LAB WPLT 150-400 k/uL Low Les Platelet Cnt 147 LAB WMPV 9.0-12.7 fL Les MPV 11.5 Result Comment: Test performed at: [facility] Les, [address] [place] [address]. LAB ABGRAN 1.45-7.50 k/uL Absol Gran 2.52 Count COMP METABOLIC PANEL Collected: 07/08/2018 Status: F Source: [place] 2:35 PM [facility] [place] REPOSITORY TYPE CODE TESTS RESULT OUT OF REFERENCE UNITS RANGE LAB TP 6.3-8.0 g/dL Protein, Total 6.8 LAB ALB 3.9-4.9 g/dL Albumin 4.6 LAB CA 8.5-10.2 mg/dL Calcium, Total 10.1 LAB TBIL 0.2-1.3 mg/dL Bilirubin, Total 0.4 LAB ALKP 38-113 U/L Alkaline Phosphatase 49 LAB AST 14-40 U/L AST 20 LAB GLU 74-99 mg/dL Glucose High 168 LAB BUN 9-24 mg/dL BUN 14 LAB CRET 0.73-1.22 mg/dL Creatinine 0.73 LAB NA 136-144 mmol/L Sodium 138 LAB K 3.7-5.1 mmol/L Potassium 3.9 LAB CL 97-105 mmol/L Chloride 102 LAB CO2 22-30 mmol/L CO2 29 LAB AGAP 9-18 mmol/L Anion Gap Low 7 LAB ALT 10-54 U/L ALT 25 LAB GFRAA eGFR- >60 Amer. LAB GFRNAA . eGFR-All Other Races >60 Result Comment: eGFR (Estimated GFR) Units of measure: mL/min/1.73 meters squared eGFR is derived from the reexpressed MDRD Study equation using the following parameters: serum creatinine, age, gender and race. The creatinine assay has been calibrated to be traceable to IDMS. An eGFR <60 mL/min/1.73m2 for >3 months is consistent with chronic kidney disease. Refer to KDOQI guidelines for clinical interpretation. In patients with unstable renal function, e.g. those with acute kidney injury, the eGFR may not accurately reflect actual GFR. MAGNESIUM Collected: 07/08/2018 Status: F Source: [place] 2:35 PM [facility] REPOSITORY TYPE CODE TESTS RESULT OUT OF REFERENCE UNITS RANGE LAB MG 1.7-2.3 mg/dL Magnesium 2.1 PSA, DIAGNOSTIC Collected: 07/08/2018 Status: F Source: [place] 2:35 PM [facility] REPOSITORY TYPE CODE TESTS RESULT OUT OF REFERENCE UNITS RANGE LAB PSA 0.00-2.59 ng/mL PSA, High Diagnostic 6.51 Result Comment: Total PSA test methodology used is the Electrochemiluminescence Immunoassay. For an individual patient, the significance of a PSA level should be interpreted in a broad clinical context, including age, race, family history, digital rectal exam, prostate size, results of prior te sting (prostate biopsy, free PSA, PCA3), and use of 5-alpha reductase inhibitors. Considering the high incidence of asymptomatic cancer in the general population that may not pose an ultimate risk to a patient, the decision to recommend urological evaluation or prostate biopsy should be individualized after consideration of all these factors. REFERENCE: Melchor Rogers M.D., M.P.H., Mateo Edmond M.D., Ph.D., Bret Lugo M.D., Lisbeth Payne, M.P.H., Johana Friend, Sc.Jose. Effect of Verification Bias on Screening for Prostate Cancer by Measurement of Prostatic Specific Antigen. N Engl J Med 2003,349:335-42. Performed By: #### PSA #### [facility] [address], [place] [address] PROGRESS Observed: 07/08/2018 Status: COMPLETED Source: [place] 1:50 PM [facility] REPOSITORY HNO ID: [id number] Author: Stanislav Colon Service: (none) Author Type: Physician Type: Progress Notes Filed: 07/09/2018 5:53 AM Note Text: HISTORY AND PHYSICAL Imed [facility] 1965 REFERRING PHYSICIAN: Stanislav Colon MD CHIEF COMPLAINT: No chief complaint on file. HPI: The patient is a 52 year old male with a diagnosis of sigmoid colon cancer. Imed is currently scheduled to undergo chemotherapy and needs vascular access for treatment. The patient denies a prior history of central venous access. The patient is right hand dominant. PAST MEDICAL HISTORY Diagnosis Date - Allergic rhinitis - DDD (degenerative disc disease), lumbar - Kidney stone - Prediabetes PAST SURGICAL HISTORY Procedure Laterality Date - AMPUTATION FINGER/THUMB accident as a child - COLONOSCOP W/ OR W/O [facility] SPEC 05/20/2018 Colonoscopy - KNEE SCOPE,DIAGNOSTIC 2014 Arthroscopy, knee - PART REMOVAL COLON W ANASTOMOSIS 06/11/2018 Hemicolectomy - PAST SURGICAL HISTORY OF injections in back/nerve ablation - REPAIR OF NASAL SEPTUM 2002 Current Outpatient Prescriptions: ondansetron (ZOFRAN) 8 mg tablet Take 1 tablet by mouth every 8 hours as needed for Nausea/Vomiting. Disp: 30 tablet Rfl: 2 tamsulosin ER (FLOMAX) 0.4 mg cap Take 1 capsule by mouth daily at bedtime. Disp: 90 capsule Rfl: 3 docusate sodium (STOOL SOFTENER ORAL) Take 2 capsules by mouth. Daily Disp: Rfl: ranitidine (ZANTAC) 75 mg tablet Take 75 mg by mouth as needed. Disp: Rfl: oxyCODONE-acetaminophen (PERCOCET) 5-325 mg tablet EVERY 6 HOURS NEEDED PRN For Pain Disp: Rfl: No current facility-administered medications for this visit. ALLERGIES: Patient has no known allergies. PERSONAL HISTORY: Social History Marital status: Spouse name: Years of education: Number of children: Social History Main Topics Smoking status: Former Smoker Packs/day: 0.50 Years: 10.00 Types: Cigarettes Smokeless tobacco: Never Used Comment: qit in 1996 Alcohol use: Yes 3.0 - 4.5 oz/week Glasses of Wine (5oz): 2 - 3 per week Drug use: No FAMILY HISTORY: FAMILY HISTORY Problem Relation Age of Onset - Hypertension Mother - Cancer Father LUNG REVIEW OF SYMPTOMS: The review of systems data was entered by the nurse and reviewed by me REVIEW OF SYSTEMS: ?General:???The patient denies fatigue, denies weight loss, denies weight gain, denies feeling hot, and denies feelings of cold. ?Eyes: ?The patient denies glaucoma, denies eye injury/surgery, wears glasses or contacts. ?Ear/Nose/Throat: ?The patient denies allergies, denies hayfever, denies ear infections, and denies bloody noses. ?Cardiovascular: ?The patient denies chest pain, denies heart disease, denies high blood pressure,denies cardiac stent, denies prior heart attack, denies irregular heart beat, denies high cholesterol, ?denies poor circulation, denies heart failure, other cardiac issues, denies claudication, denies cold feet, denies peripheral arterial stent. ?Respiratory: ?The patient denies tuberculosis, denies pneumonia, denies frequent cough, denies pulmonary embolism, denies shortness of breath, and denies coughing up blood. ?Gastrointestinal: ?The patient denies difficulty swallowing, notes acid reflux, denies ulcers, denies vomiting, denies jaundice/hepatitis, denies gallbladder problems, denies black or tarry stools, denies hemorrhoids, denies bleeding from rectum, denies diverticulitis, denies constipation, denies diarrhea, denies loss of stool control, and denies hernias. ?Kidney/Bladder: ?The patient notes kidney stones, denies urine infections, and denies bloody urine. ?Skin: ?The patient denies a history of skin cancer, denies bleeding/changing moles, and denies a history of skin rash. ?Neurologic: ?The patient denies a history of epilepsy/convulsions, denies headaches, denies head/spinal injuries, and denies stroke/TIA. ?Psychiatric: ?The patient denies psychiatric medications, denies depression, and denies voices, denies substance abuse. ?Endocrine: ?The patient denies thyroid disorders, denies diabetes, and denies hormonal problems. ?Hematologic: ?The patient denies a history of bruising, denies bleeding, and denies anemia, denies blood clots. ?Infections: ?The patient denies a history of measles and mumps, denies rheumatic fever, and denies sexually transmitted diseases. ?Musculoskeletal: ?The patient denies back pain/injury, notes back problems, denies sciatica, NOTES knee/foot trouble, denies arthritis, or NOTES gout. PHYSICAL EXAMINATION: General: The patient is 52 year old male, well nourished, well hydrated in no acute distress. The patient is oriented to time, place, and person. VITALS: There were no vitals taken for this visit. There is no height or weight on file to calculate BMI. HEENT: Normal cephalic, ataumatic, pupils are equally round, sclera are anicteric, mucous membranes are moist, oropharynx is clear. Neck has no masses, asymmetry or lymphadenopathy. Thyroid is unremarkable. Respiratory: Clear to auscultation and percussion. Normal respiratory excursion and pattern. Cardiac: Examination is regular rate and rhythm. No murmurs, rubs, or additional cardiac tones Abdominal exam: Soft, nontender, with no palpable masses. No hepatosplenomegaly. No palpable hernias. Rectal exam: exam deferred Extremities: no clubbing, cyanosis or edema. No adenopathy. Other: LABORATORY VALUES: As Noted RADIOLOGIC STUDIES: As Noted Assessment IMPRESSION: Colon cancer, need for IV access PLAN: I plan to perform a left subclavian port a cath placement. The planned surgical procedure was discussed extensively with the patient. The risks, benefits, anticipated outcomes and possible complications were mentioned. My staff has also explained the procedure in understandable terms and the patient was given the option to take printed material concerning the planned procedure. The patient had the opportunity to ask questions concerning the planned procedure. The patient freely consents to the planned procedure. Planned Procedure: left Subclavian portacath - [id number] and Fluoroscopic for vascular access - 34276-380-06 Patient Weight Last 1 Encounter Wt Readings: Date: Wt: 06/30/2018 94.8 kg (209 lb) Antibiotic: Ancef 2gm IVPB production trainer to OR Planned Anesthetic: MAC with local I do not plan to access the port at the time of surgery. Diagnoses: (C18.7) Cancer of sigmoid colon (HCC) (primary encounter diagnosis) Stanislav Colon MD CNOV Observed: 07/08/2018 Status: COMPLETED Source: [place] 1:20 PM [facility] REPOSITORY Office Visit (GENSWS) AMELIA AVILA ([id number]) 1965 M Date Time Provider Department 07/08/18 1:20 PM STANISLAV COLON During your visit today, we recorded the following information about you: Stanislav Colon MD 07/09/2018 5:53 AM Addendum HISTORY AND PHYSICAL Amelia Avila 1965 REFERRING PHYSICIAN: Stanislav Colon MD CHIEF COMPLAINT: No chief complaint on file. HPI: The patient is a 52 year old male with a diagnosis of sigmoid colon cancer. Imsaurabh is currently scheduled to undergo chemotherapy and needs vascular access for treatment. The patient denies a prior history of central venous access. The patient is right hand dominant. PAST MEDICAL HISTORY Diagnosis Date - Allergic rhinitis - DDD (degenerative disc disease), lumbar - Kidney stone - Prediabetes PAST SURGICAL HISTORY Procedure Laterality Date - AMPUTATION FINGER/THUMB accident as a child - COLONOSCOP W/ OR W/O [facility] SPEC 05/20/2018 Colonoscopy - KNEE SCOPE,DIAGNOSTIC 2013 Arthroscopy, knee - PART REMOVAL COLON W ANASTOMOSIS 06/11/2018 Hemicolectomy - PAST SURGICAL HISTORY OF injections in back/nerve ablation - REPAIR OF NASAL SEPTUM 2002 Current Outpatient Prescriptions: ondansetron (ZOFRAN) 8 mg tablet Take 1 tablet by mouth every 8 hours as needed for Nausea/Vomiting. Disp: 30 tablet Rfl: 2 tamsulosin ER (FLOMAX) 0.4 mg cap Take 1 capsule by mouth daily at bedtime. Disp: 90 capsule Rfl: 3 docusate sodium (STOOL SOFTENER ORAL) Take 2 capsules by mouth. Daily Disp: Rfl: ranitidine (ZANTAC) 75 mg tablet Take 75 mg by mouth as needed. Disp: Rfl: oxyCODONE-acetaminophen (PERCOCET) 5-325 mg tablet EVERY 6 HOURS NEEDED PRN For Pain Disp: Rfl: No current facility-administered medications for this visit. ALLERGIES: Patient has no known allergies. PERSONAL HISTORY: Social History Marital status: Spouse name: Years of education: Number of children: Social History Main Topics Smoking status: Former Smoker Packs/day: 0.50 Years: 10.00 Types: Cigarettes Smokeless tobacco: Never Used Comment: latia in 1996 Alcohol use: Yes 3.0 - 4.5 oz/week Glasses of Wine (5oz): 2 - 3 per week Drug use: No FAMILY HISTORY: FAMILY HISTORY Problem Relation Age of Onset - Hypertension Mother - Cancer Father LUNG REVIEW OF SYMPTOMS: The review of systems data was entered by the nurse and reviewed by me REVIEW OF SYSTEMS: ?General:???The patient denies fatigue, denies weight loss, denies weight gain, denies feeling hot, and denies feelings of cold. ?Eyes: ?The patient denies glaucoma, denies eye injury/surgery, wears glasses or contacts. ?Ear/Nose/Throat: ?The patient denies allergies, denies hayfever, denies ear infections, and denies bloody noses. ?Cardiovascular: ?The patient denies chest pain, denies heart disease, denies high blood pressure,denies cardiac stent, denies prior heart attack, denies irregular heart beat, denies high cholesterol, ?denies poor circulation, denies heart failure, other cardiac issues, denies claudication, denies cold feet, denies peripheral arterial stent. ?Respiratory: ?The patient denies tuberculosis, denies pneumonia, denies frequent cough, denies pulmonary embolism, denies shortness of breath, and denies coughing up blood. ?Gastrointestinal: ?The patient denies difficulty swallowing, notes acid reflux, denies ulcers, denies vomiting, denies jaundice/hepatitis, denies gallbladder problems, denies black or tarry stools, denies hemorrhoids, denies bleeding from rectum, denies diverticulitis, denies constipation, denies diarrhea, denies loss of stool control, and denies hernias. ?Kidney/Bladder: ?The patient notes kidney stones, denies urine infections, and denies bloody urine. ?Skin: ?The patient denies a history of skin cancer, denies bleeding/changing moles, and denies a history of skin rash. ?Neurologic: ?The patient denies a history of epilepsy/convulsions, denies headaches, denies head/spinal injuries, and denies stroke/TIA. ?Psychiatric: ?The patient denies psychiatric medications, denies depression, and denies voices, denies substance abuse. ?Endocrine: ?The patient denies thyroid disorders, denies diabetes, and denies hormonal problems. ?Hematologic: ?The patient denies a history of bruising, denies bleeding, and denies anemia, denies blood clots. ?Infections: ?The patient denies a history of measles and mumps, denies rheumatic fever, and denies sexually transmitted diseases. ?Musculoskeletal: ?The patient denies back pain/injury, notes back problems, denies sciatica, NOTES knee/foot trouble, denies arthritis, or NOTES gout. PHYSICAL EXAMINATION: General: The patient is 52 year old male, well nourished, well hydrated in no acute distress. The patient is oriented to time, place, and person. VITALS: There were no vitals taken for this visit. There is no height or weight on file to calculate BMI. HEENT: Normal cephalic, ataumatic, pupils are equally round, sclera are anicteric, mucous membranes are moist, oropharynx is clear. Neck has no masses, asymmetry or lymphadenopathy. Thyroid is unremarkable. Respiratory: Clear to auscultation and percussion. Normal respiratory excursion and pattern. Cardiac: Examination is regular rate and rhythm. No murmurs, rubs, or additional cardiac tones Abdominal exam: Soft, nontender, with no palpable masses. No hepatosplenomegaly. No palpable hernias. Rectal exam: exam deferred Extremities: no clubbing, cyanosis or edema. No adenopathy. Other: LABORATORY VALUES: As Noted RADIOLOGIC STUDIES: As Noted Assessment IMPRESSION: Colon cancer, need for IV access PLAN: I plan to perform a left subclavian port a cath placement. The planned surgical procedure was discussed extensively with the patient. The risks, benefits, anticipated outcomes and possible complications were mentioned. My staff has also explained the procedure in understandable terms and the patient was given the option to take printed material concerning the planned procedure. The patient had the opportunity to ask questions concerning the planned procedure. The patient freely consents to the planned procedure. Planned Procedure: left Subclavian portacath - [id number] and Fluoroscopic for vascular access - 01811-794-66 Patient Weight Last 1 Encounter Wt Readings: Date: Wt: 06/30/2018 94.8 kg (209 lb) Antibiotic: Ancef 2gm IVPB production trainer to OR Planned Anesthetic: MAC with local I do not plan to access the port at the time of surgery. Diagnoses: (C18.7) Cancer of sigmoid colon (HCC) (primary encounter diagnosis) Stanislav Colon MD Referring Provider: STANISLAV COLON [[id number]] Allergies As of Date: 07/08/2018 (No Known Allergies) Date Reviewed: 07/08/2018 Reviewed by: Stanislav Colon - Fully Assessed Primary Visit Diagnosis:Cancer of sigmoid colon (HCC) [C18.7] Prescriptions as of 07/08/2018 Sig: ONDANSETRON HCL 8 MG TABLET Take 1 tablet by mouth every * TAMSULOSIN 0.4 MG CAPSULE Take 1 capsule by mouth daily* STOOL SOFTENER ORAL Take 2 capsules by mouth. Rhona* RANITIDINE 75 MG TABLET Take 75 mg by mouth as needed. OXYCODONE-ACETAMINOPHEN 5 MG-* EVERY 6 HOURS NEEDED PRN F* Medication notes this encounter OXYCODONE-ACETAMINOPHEN 5 MG-325 MG TABLET >> Jan Monroe LPN 07/08/2018 1:30 PM >> JAN MONROE LPN tayo Jul 08, 2018 1:30 PM Please d/c Problem List As Of Date 07/08/2018 Noted Resolved ESOPHAGEAL REFLUX [K21.9] INVALID FOR* OTHER LUNG DISEASE NEC [J98.4] INVALID FOR* CALCULUS OF URETER [N20.1] INVALID FOR* Impaired Fasting Glucose [R73.01] INVALID FOR* DDD (Degenerative Disc Disease), Lumbar [M51.36]INVALID FOR* Prediabetes [R73.03] INVALID FOR*05/07/2016 Hyperlipidemia [E78.5] INVALID FOR* Chronic bilateral low back pain without sciatic*INVALID FOR* Spondylosis of lumbar region without myelopathy*INVALID FOR* Discogenic low back pain [M51.36] INVALID FOR* More... Annular tear of lumbar disc [M51.36] INVALID FOR* More... More... Colon cancer metastasized to intra-abdominal ly*INVALID FOR* Cancer of sigmoid colon (HCC) [C18.7] INVALID FOR* Encounter Status:Closed by STANISLAV COLON MD on 07/08/18 NURSING PROG Observed: 07/08/2018 Status: COMPLETED Source: [place] 8:30 AM CLINIC OTHER CAMPUS REPOSITORY HNO ID: [id number] Author: Radha (Rn) ANDRE Song Service: Nursing Author Type: Registered Nurse Type: Nursing Progress Note Filed: 07/08/2018 10:09 AM Note Text: PACC Nurse Progress Note History AND Physical: PACC Visit Date: N/A Original HANDP Date: 06/30/[address] Escalante ED visit Date: N/A Outside HANDP Scanned Date: N/A Labs Within Last 6 Months: CBC: Date 05/20/18 cbc/diff- platelets 145, within acceptable limits BMP/CMP: Date 05/20/18 cmp- BS 112,otherwise wnl Imaging Within Last 12 Months: N/A Cardiac Testing: EKG in last 12 Months: Yes: Date: 05/27/18, Comment: SR with 1st degree AV block BMI Percentile (PEDS): N/A Risk Assessment: N/A Anesthesia Review: N/A Narrative: HX colon CA -stage 3, S/P sigmoid colectomy 06/11/18 Pre-op Considerations: N/A Chart Check: IN PROGRESS Needs instructions. Radha Song RN July 08, 2018 8:30 AM PATIENT PREOPERATIVE INSTRUCTIONS No ref. provider found has scheduled you for your procedure at this surgery center: [facility]: [phone] -- [address] [place] [address]. Please read below carefully for your personalized instructions. Blood Thinning Medications: - Stop NSAIDS (Ibuprofen, Advil, Aleve, Motrin, Celebrex, Mobic, etc.) 7 days before surgery, as directed by your surgeon. - Stop Vitamin E, ALL multi-vitamins, herbals and dietary supplements 7 days before surgery. Dietary Restrictions: - No solid food after midnight. - You may have 12 ounces of clear liquids (water, clear juices such as apple juice or gatorade, carbonated beverages, clear tea, black coffee, jello) until 2 hours before scheduled arrival at facility. Pain Medications: - Your pain medication may cause thinning of your blood. Please see directions for Blood Thinning Medications. Medications: Approved medications to take the morning of surgery with a sip of water: Zantac, Pt wants to take Flomax also - Your pain medication may cause thinning of your blood. Please see directions for Blood Thinning Medications. If you start any new medications after today's visit, please contact the surgeon's office. Important Reminders: - Candy, mints, gum and tobacco products are NOT permitted the morning of surgery. - Hearing aids, dentures and glasses may be worn the morning of surgery. - NO jewelry, body piercings, makeup, hairpins or contacts are to be worn the day of surgery. OK to shower DOS do not use creams, lotions, powders perfume/cologne or after shave if extremity surgery remove all nail brazilian pre op and do not shave site If you develop symptoms such as a fever, cold, or flu, or have other changes to your health within TWO DAYS of scheduled surgery or the morning of surgery, please contact the surgery center above. Personal Belongings: - Leave ALL valuables and money at home or with family members. For Outpatient Procedures: - YOU MUST HAVE A RESPONSIBLE COUNTY MANAGER TAKE YOU HOME. A TRAIN GATEMAN OR FLAT FOLDING MACHINE OPERATOR CANNOT BE MADE A RESPONSIBLE COUNTY MANAGER. - We recommend that a responsible person stays with you overnight to take care of you. - You cannot stay in a hotel alone after outpatient surgery. You will not be permitted to have your surgery, if you do not have someone to take care of you. Arrival Time for Surgery: - The Surgery Center or hospital where you are having surgery will call the afternoon before surgery (or Saturday for Saturday surgery) with a scheduled arrival time. - If you have not heard by 4 pm, please contact the surgery center above. Please be aware that emergency situations arise, which may delay or change your surgical time. If this happens, we will notify you as soon as possible and regret any inconvenience. Radha Song RN 07/08/18 10 am OBSOLETE Observed: 07/08/2018 Status: COMPLETED Source: [place] 12:00 AM [facility] REPOSITORY Refill (HEMAWS) AMELIA AVILA ([id number]) 1965 M Date Time Provider Department 07/08/18 DUTCH ESCALANTE During your visit today, we recorded the following information about you: Allergies As of Date: 07/08/2018 (No Known Allergies) Date Reviewed: 07/08/2018 Reviewed by: Stanislav oClon - Fully Assessed Reason for Visit: Refill Request [94] Order(s):lidocaine-prilocaine (EMLA) creamAPPLY TO AFFECTED AREA 30 MINUTES BEFORE CHEMOTHERAPYDisp: 15 gRfl: 2 Prescriptions as of 07/08/2018 Sig: LIDOCAINE-PRILOCAINE 2.5 %-2.* APPLY TO AFFECTED AREA 30 MIN* ONDANSETRON HCL 8 MG TABLET Take 1 tablet by mouth every * TAMSULOSIN 0.4 MG CAPSULE Take 1 capsule by mouth daily* OXYCODONE-ACETAMINOPHEN 5 MG-* EVERY 6 HOURS NEEDED PRN F* STOOL SOFTENER ORAL Take 2 capsules by mouth. Rhona* RANITIDINE 75 MG TABLET Take 75 mg by mouth as needed. Problem List As Of Date 07/08/2018 Noted Resolved ESOPHAGEAL REFLUX [K21.9] INVALID FOR* OTHER LUNG DISEASE NEC [J98.4] INVALID FOR* CALCULUS OF URETER [N20.1] INVALID FOR* Impaired Fasting Glucose [R73.01] INVALID FOR* DDD (Degenerative Disc Disease), Lumbar [M51.36]INVALID FOR* Prediabetes [R73.03] INVALID FOR*05/07/2016 Hyperlipidemia [E78.5] INVALID FOR* Chronic bilateral low back pain without sciatic*INVALID FOR* Spondylosis of lumbar region without myelopathy*INVALID FOR* Discogenic low back pain [M51.36] INVALID FOR* More... Annular tear of lumbar disc [M51.36] INVALID FOR* More... More... Colon cancer metastasized to intra-abdominal ly*INVALID FOR* Cancer of sigmoid colon (HCC) [C18.7] INVALID FOR* Prescriptions ordered this encounter Disp Refills Start End LIDOCAINE-PRILOCAINE 2.5 %-2.5 % TOP* 15 g 2 07/08/2018 Sig: APPLY TO AFFECTED AREA 30 MINUTES BEFORE CHEMOTHERAPY Encounter Status:Closed by DUTCH ESCALANTE DO on 07/08/18 CNSW Observed: 07/08/2018 Status: COMPLETED Source: [place] 12:00 AM [facility] REPOSITORY Social Work (DOMINICK) AMELIA AVILA ([id number]) 1965 M Date Time Provider Department 07/08/18 NIKA CALVO (SW) During your visit today, we recorded the following information about you: VIRGINIA Sweet 07/08/2018 4:29 PM Addendum PSYCHOSOCIAL ASSESSMENT Date of Service: July 08, 2018 Amelia Avila is a 52 year old male being seen for initial social work assessment. 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 Escalante Radiation Oncologist: DESEAN Goals of Care: Curative intent Today's visit includes: self/patient and spouse Family History of Cancer: Father *SUPPORT NETWORK: Marital status: Parent(s): Mother is living and Father is Child/Children: Yes. How many? 2 sons, aged 10 and 15 direct care counselor arrangements needed: No Siblings: 1 brother(s) Grandchild(kayleen): none Home Health Provider: No Community Services: No Shae Identified: No Church/Spirituality: None Are these practices or beliefs that may affect or influence treatment? No *EMPLOYMENT/FINANCIAL/HEALTH INSURANCE: Employment: Employed: [employer] Income source: Salary Insurance: Private Prescription coverage: Yes COBRA Is the patient appropriate for referral to [facility] COBRA Assistance program? No Financial Distress: No : No *LIVING ARRANGEMENTS: Type: House- independent colonial Resides with: Family Spouse and two sons and two cats *FUNCTIONAL STATUS: Cognitive limitations: none Physical limitations: none Language barrier: No Hearing Impaired: No Speech Impaired: No Visual Impairments: Yes, glasses Literacy Issues: No Special considerations/accommodations needed: No MENTAL HEALTH HISTORY: No History of combat/trauma: No Substance Use and Treatment History: denied History of Abuse: No Issues with: ? Sleep:No ? Eating:No ? Exercising: No ? Stress Management: No *ADVANCE DIRECTIVES/LEGAL DOCUMENTS: Living Will: No and declined at this time Health Care Durable Power of Hot Worker: No and declined at this time Scanned into [facility]: No Guardianship: NA Scanned into [facility]:NA *COPING STATUS: Coping Strengths: supportive relationships with immediate family and with friends successful managing past crises hopefulness self advocate strong problem-solving skills ability to plan able to follow direction consistently over time able to communicate effectively uses physical exercise future oriented and able to identify goals Current affect/mood: appropriate History of Loss: Yes, father from lung cancer Adjustment to diagnosis: reflecting understanding, responding appropriately and accepting help *BARRIERS/CARE CHALLENGES: Other Difficulty discussing diagnosis with family Are barriers/care challenges identified likely to have an impact on the patient's quality of life during treatment? Yes Family Concerns *CLINICAL IMPRESSION: BOOM met with patient and spouse following his chemotherapy education appointment. Patient reports strong support system and lives with his spouse, two sons and two cats. Patient reports he has had no issues with sleep, appetite, pain, cognition or mood. Patient also denies history of any MH issues. Patient reports he stays physically active (mostly walking) and is currently employed. Patient reports his [facility] paperwork is complete and denies any needs with this at this time. Patient reports he does not have Advance Directives completed and does not wish to do this today. Patient would like to complete these documents at his next visit to [facility] and will meet with BOOM at that time. BOOM oriented patient and his spouse to services and provided him with a list of local cancer resources. After patient left to schedule an appointment, his informed BOOM that patient has not yet told his children and brother of his diagnosis. She reports that patient's youngest son (10 y/o) has frequent seizures, which can be exacerbated by stress, so they are very worried about how to discuss this news with him specifically. BOOM directed patient's spouse to [email or web address] and cancer.org, which both offer some insight into this issue. BOOM also encouraged her to reach out with specific questions. She is agreeable. INTERVENTIONS/REFERRALS TO BE PROVIDED: Monitor patient response to treatment Communicate pertinent medical/psychosocial information to Cancer Center team Provide emotional support to patient/family Referral to community resource Education Relaxation Techniques Provided education on distress and screening process Continue follow up as needed Resources and Referrals: ? Internal: [facility] ? External: [facility] PLAN: Follow up appointment with SW in: PRN VIR[place]IA Sweet Allergies As of Date: 07/08/2018 (No Known Allergies) Date Reviewed: 07/08/2018 Reviewed by: Stanislav Colon - Fully Assessed Reason for Visit: Psychosocial Assessment [[id number]] Prescriptions as of 07/08/2018 Sig: LIDOCAINE-PRILOCAINE 2.5 %-2.* APPLY TO AFFECTED AREA 30 MIN* ONDANSETRON HCL 8 MG TABLET Take 1 tablet by mouth every * TAMSULOSIN 0.4 MG CAPSULE Take 1 capsule by mouth daily* OXYCODONE-ACETAMINOPHEN 5 MG-* EVERY 6 HOURS NEEDED PRN F* STOOL SOFTENER ORAL Take 2 capsules by mouth. Rhona* RANITIDINE 75 MG TABLET Take 75 mg by mouth as needed. Problem List As Of Date 07/08/2018 Noted Resolved ESOPHAGEAL REFLUX [K21.9] INVALID FOR* OTHER LUNG DISEASE NEC [J98.4] INVALID FOR* CALCULUS OF URETER [N20.1] INVALID FOR* Impaired Fasting Glucose [R73.01] INVALID FOR* DDD (Degenerative Disc Disease), Lumbar [M51.36]INVALID FOR* Prediabetes [R73.03] INVALID FOR*05/07/2016 Hyperlipidemia [E78.5] INVALID FOR* Chronic bilateral low back pain without sciatic*INVALID FOR* Spondylosis of lumbar region without myelopathy*INVALID FOR* Discogenic low back pain [M51.36] INVALID FOR* More... Annular tear of lumbar disc [M51.36] INVALID FOR* More... More... Colon cancer metastasized to intra-abdominal ly*INVALID FOR* Cancer of sigmoid colon (HCC) [C18.7] INVALID FOR* Encounter Status:Closed by NIKA CALVO on 07/08/18 EMERGENCY DEPARTMENT Observed: 07/01/2018 Status: F Source: [place] SUMMARY 1:14 AM [facility] REPOSITORY [facility] Medical Records Department [address] [place] [id number] Emergency Department Summary 06/16/18 1244 MR#: [id number] Acct: [id number] Name: AMELIA AVILA Rep #: [id number] : 1965 52 From: James Ferris DO PCP: Ara Pierce MD Status: DEP ER - ER Visit Summary Date of Service: 06/16/18 Chief Complaint: Shortness of breath History of Present Illness: The patient is a 52 M who had surgery last week for partial colectomy with Dr. Solis. Patient was discharged home. He states yesterday he ate normally for the first time. Has been moving his bowels. We will cup today he felt short of breath a tightness in his chest. Denies any palpitations. He denies any leg swelling. No history of DVT. Former smoker. He states that to him it seems may be that this is gastritis/indigestion. He occasionally does take an acid maritime pilot when he has symptoms. Physical Examination: Afebrile vital signs stable Gen: Well-nourished well-developed Head: Normocephalic atraumatic Eyes: Perrl EOMI ENT: TMs clear no rhinorrhea moist mucous membranes Neck: Supple no lymphadenopathy no JVD nontender CVS: Regular rate rhythm no murmurs normal S1-S2 Respiratory: No distress clear to auscultation bilaterally chest nontender Abdomen: Soft healing surgical incisions nondistended normal bowel sounds no masses Back: Nontender Extremity: Nontender no edema Skin: Normal color no rash Neuro: alert orientated 3 CN II-XII intact normal strength sensation reflexes gait cerebellar Psych: Normal affect normal mood Test Results: CBC CMP and troponin negative. EKG sinus rhythm with a rate of 67. CT Nancy of the chest was negative for pulmonary embolism or dissection. Noted nodule see radiology dictation Emergency Department Course and Treatment: Patient received IV fluids. He also received a GI cocktail which had resolution of his symptoms. I think this is most likely GERD related and with the slight expiratory wheeze heard he may have had a small amount of aspiration. His lung sounds are clear on repeat examination. I spoke with Dr. Solis who has come to the emergency department seeing the patient. Follow-up as scheduled. Impression: 1. Chest pain 2. Bronchospasm 3. GERD This note was generated with MDLIVEation software. It may contain incorrect words, spelling, and punctuation that were not noted in review of the chart prior to signing ED Disposition - Plan for ED Patient: Disposition: Home or Assisted Living Chief Complaint: Shortness of Breath Instructions: ED GERD Referrals: Stanislav Colon MD [STAFF PHYSICIAN] - Keep Brenda appointment Additional Instructions: I would recommend you starting your acid reducing medicine. What to do if you have Problems For any increased pain, shortness of breath, bleeding, nausea or vomiting, chest pain, or any unexpected problems, contact your Primary Care Provider. Call [facility] ([phone]) or report to the closest Emergency Room. Call 911 if necessary. 07/01/18 0114 <Electronically signed by James Ferris DO> Date James Ferris DO Cosigner Signature (If Indicated): Date CC: Ara Pierce MD HOSP Observed: 07/01/2018 Status: COMPLETED Source: [place] 12:00 AM CLINIC OTHER CAMPUS REPOSITORY Patient:Amelia Avila MRN: <[id number]> Height:6' 3(1.905 m) Weight:209 lb (94.802 kg) Outpatient Medications as of 07/09/18: lidocaine-prilocaine (EMLA) cream ondansetron (ZOFRAN) 8 mg tablet tamsulosin ER (FLOMAX) 0.4 mg cap docusate sodium (STOOL SOFTENER ORAL) ranitidine (ZANTAC) 75 mg tablet Admission/Clinic Administered Medications as of 07/09/18: lactated ringers infusion lactated ringers infusion ceFAZolin iv piggyback 2 g in D5W (iso-osmotic) 100 mL (ANCEF) Problem List: Esophageal reflux [K21.9] Other diseases of lung, not elsewhere classified [J98.4] Calculus of ureter [N20.1] Impaired fasting glucose [R73.01] DDD (degenerative disc disease), lumbar [M51.36] Hyperlipidemia [E78.5] Chronic bilateral low back pain without sciatica [M54.5, G89.29] Spondylosis of lumbar region without myelopathy or radiculopathy [M47.816] Discogenic low back pain [M51.36] Annular tear of lumbar disc [M51.36] Colon cancer metastasized to intra-abdominal lymph node (HCC) [C18.9, C77.2] Cancer of sigmoid colon (HCC) [C18.7] Allergies: No Known Allergies Date Verified:07/09/18 Lab Values Lab Value Units Date High Low POTA* 3.9 mmol/L 07/08/2018 5.1 3.7 Progress Notes ([facility]): [place] Sweet 07/08/2018 4:29 PM Addendum PSYCHOSOCIAL ASSESSMENT Date of Service: July 08, 2018 Amelia Avila is a 52 year old male being seen for initial social work assessment. 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 Escalante Radiation Oncologist: DESEAN Goals of Care: Curative intent Today's visit includes: self/patient and spouse Family History of Cancer: Father *SUPPORT NETWORK: Marital status: Parent(s): Mother is living and Father is Child/Children: Yes. How many? 2 sons, aged 10 and 15 direct care counselor arrangements needed: No Siblings: 1 brother(s) Grandchild(kayleen): none Home Health Provider: No Community Services: No Shae Identified: No Church/Spirituality: None Are these practices or beliefs that may affect or influence treatment? No *EMPLOYMENT/FINANCIAL/HEALTH INSURANCE: Employment: Employed: [employer] Income source: Salary Insurance: Private Prescription coverage: Yes COBRA Is the patient appropriate for referral to [facility] COBRA Assistance program? No Financial Distress: No : No *LIVING ARRANGEMENTS: Type: House- independent [place] Resides with: Family Spouse and two sons and two cats *FUNCTIONAL STATUS: Cognitive limitations: none Physical limitations: none Language barrier: No Hearing Impaired: No Speech Impaired: No Visual Impairments: Yes, glasses Literacy Issues: No Special considerations/accommodations needed: No MENTAL HEALTH HISTORY: No History of combat/trauma: No Substance Use and Treatment History: denied History of Abuse: No Issues with: ? Sleep:No ? Eating:No ? Exercising: No ? Stress Management: No *ADVANCE DIRECTIVES/LEGAL DOCUMENTS: Living Will: No and declined at this time Health Care Durable Power of Hot Worker: No and declined at this time Scanned into [facility]: No Guardianship: NA Scanned into [facility]:NA *COPING STATUS: Coping Strengths: supportive relationships with immediate family and with friends successful managing past crises hopefulness self advocate strong problem-solving skills ability to plan able to follow direction consistently over time able to communicate effectively uses physical exercise future oriented and able to identify goals Current affect/mood: appropriate History of Loss: Yes, father from lung cancer Adjustment to diagnosis: reflecting understanding, responding appropriately and accepting help *BARRIERS/CARE CHALLENGES: Other Difficulty discussing diagnosis with family Are barriers/care challenges identified likely to have an impact on the patient's quality of life during treatment? Yes Family Concerns *CLINICAL IMPRESSION: SW met with patient and spouse following his chemotherapy education appointment. Patient reports strong support system and lives with his spouse, two sons and two cats. Patient reports he has had no issues with sleep, appetite, pain, cognition or mood. Patient also denies history of any MH issues. Patient reports he stays physically active (mostly walking) and is currently employed. Patient reports his [facility] paperwork is complete and denies any needs with this at this time. Patient reports he does not have Advance Directives completed and does not wish to do this today. Patient would like to complete these documents at his next visit to [facility] and will meet with SW at that time. SW oriented patient and his spouse to services and provided him with a list of local cancer resources. After patient left to schedule an appointment, his informed BOOM that patient has not yet told his children and brother of his diagnosis. She reports that patient's youngest son (10 y/o) has frequent seizures, which can beexacerbated by stress, so they are very worried about how to discuss this news with him specifically. BOOM directed patient's spouse to [email or web address] and [email or web address], which both offer some insight into this issue. BOOM also encouraged her to reach out with specific questions. She is agreeable. INTERVENTIONS/REFERRALS TO BE PROVIDED: Monitor patient response to treatment Communicate pertinent medical/psychosocial information to Cancer Center team Provide emotional support to patient/family Referral to community resource Education Relaxation Techniques Provided education on distress and screening process Continue follow up as needed Resources and Referrals: ? Internal: [facility] Schreiber ? External: [facility] PLAN: Follow up appointment with BOOM in: [place] Previous Version Progress Notes ([facility]): Stanislav Colon MD 07/09/2018 5:53 AM Addendum HISTORY AND PHYSICAL Imed Tom 1965 REFERRING PHYSICIAN: Stanislav Colon MD CHIEF COMPLAINT: No chief complaint on file. HPI: The patient is a 52 year old male with a diagnosis of sigmoid colon cancer. Imed is currently scheduled to undergo chemotherapy and needs vascular access for treatment. The patient denies a prior history of central venous access. The patient is right hand dominant. PAST MEDICAL HISTORY Diagnosis Date - Allergic rhinitis - DDD (degenerative disc disease), lumbar - Kidney stone - Prediabetes PAST SURGICAL HISTORY Procedure Laterality Date - AMPUTATION FINGER/THUMB accident as a child - COLONOSCOP W/ OR W/O [facility] SPEC 05/20/2018 Colonoscopy - KNEE SCOPE,DIAGNOSTIC 2013 Arthroscopy, knee - PART REMOVAL COLON W ANASTOMOSIS 06/11/2018 Hemicolectomy - PAST SURGICAL HISTORY OF injections in back/nerve ablation - REPAIR OF NASAL SEPTUM 2002 Current Outpatient Prescriptions: ondansetron (ZOFRAN) 8 mg tablet Take 1 tablet by mouth every 8 hours as needed for Nausea/Vomiting. Disp: 30 tablet Rfl: 2 tamsulosin ER (FLOMAX) 0.4 mg cap Take 1 capsule by mouth daily at bedtime. Disp: 90 capsule Rfl: 3 docusate sodium (STOOL SOFTENER ORAL) Take 2 capsules by mouth. Daily Disp: Rfl: ranitidine (ZANTAC) 75 mg tablet Take 75 mg by mouth as needed. Disp: Rfl: oxyCODONE-acetaminophen (PERCOCET) 5-325 mg tablet EVERY 6 HOURS NEEDED PRN For Pain Disp: Rfl: No current facility-administered medications for this visit. ALLERGIES: Patient has no known allergies. PERSONAL HISTORY: Social History Marital status: Spouse name: Years of education: Number of children: Social History Main Topics Smoking status: Former Smoker Packs/day: 0.50 Years: 10.00 Types: Cigarettes Smokeless tobacco: Never Used Comment: qit in 1996 Alcohol use: Yes 3.0 - 4.5 oz/week Glasses of Wine (5oz): 2 - 3 per week Drug use: No FAMILY HISTORY: FAMILY HISTORY Problem Relation Age of Onset - Hypertension Mother - Cancer Father LUNG REVIEW OF SYMPTOMS: The review of systems data was entered by the nurse and reviewed by me REVIEW OF SYSTEMS: ?General:???The patient denies fatigue, denies weight loss, denies weight gain, denies feeling hot, and denies feelings of cold. ?Eyes: ?The patient denies glaucoma, denies eye injury/surgery, wears glasses or contacts. ?Ear/Nose/Throat: ?The patient denies allergies, denies hayfever, denies ear infections, and denies bloody noses. ?Cardiovascular: ?The patient denies chest pain, denies heart disease, denies high blood pressure,denies cardiac stent, denies prior heart attack, denies irregular heart beat, denies high cholesterol, ?denies poor circulation, denies heart failure, other cardiac issues, denies claudication, denies cold feet, denies peripheral arterial stent. ?Respiratory: ?The patient denies tuberculosis, denies pneumonia, denies frequent cough, denies pulmonary embolism, denies shortness of breath, and denies coughing up blood. ?Gastrointestinal: ?The patient denies difficulty swallowing, notes acid reflux, denies ulcers, denies vomiting, denies jaundice/hepatitis, denies gallbladder problems, denies black or tarry stools, denies hemorrhoids, denies bleeding from rectum, denies diverticulitis, denies constipation, denies diarrhea, denies loss of stool control, and denies hernias. ?Kidney/Bladder: ?The patient notes kidney stones, denies urine infections, and denies bloody urine. ?Skin: ?The patient denies a history of skin cancer, denies bleeding/changing moles, and denies a history of skin rash. ?Neurologic: ?The patient denies a history of epilepsy/convulsions, denies headaches, denies head/spinal injuries, and denies stroke/TIA. ?Psychiatric: ?The patient denies psychiatric medications, denies depression, and denies voices, denies substance abuse. ?Endocrine: ?The patient denies thyroid disorders, denies diabetes, and denies hormonal problems. ?Hematologic: ?The patient denies a history of bruising, denies bleeding, and denies anemia, denies blood clots. ?Infections: ?The patient denies a history of measles and mumps, denies rheumatic fever, and denies sexually transmitted diseases. ?Musculoskeletal: ?The patient denies back pain/injury, notes back problems, denies sciatica, NOTES knee/foot trouble, denies arthritis, or NOTES gout. PHYSICAL EXAMINATION: General: The patient is 52 year old male, well nourished, well hydrated in no acute distress. The patient is oriented to time, place, and person. VITALS: There were no vitals taken for this visit. There is no height or weight on file to calculate BMI. HEENT: Normal cephalic, ataumatic, pupils are equally round, sclera are anicteric, mucous membranes are moist, oropharynx is clear. Neck has no masses, asymmetry or lymphadenopathy. Thyroid is unremarkable. Respiratory: Clear to auscultation and percussion. Normal respiratory excursion and pattern. Cardiac: Examination is regular rate and rhythm. No murmurs, rubs, or additional cardiac tones Abdominal exam: Soft, nontender, with no palpable masses. No hepatosplenomegaly. No palpable hernias. Rectal exam: exam deferred Extremities: no clubbing, cyanosis or edema. No adenopathy. Other: LABORATORY VALUES: As Noted RADIOLOGIC STUDIES: As Noted Assessment IMPRESSION: Colon cancer, need for IV access PLAN: I plan to perform a left subclavian port a cath placement. The planned surgical procedure was discussed extensively with the patient. The risks, benefits, anticipated outcomes and possible complications were mentioned. My staff has also explained the procedure in understandable terms and the patient was given the option to take printed material concerning the planned procedure. The patient had the opportunity to ask questions concerning the planned procedure. The patient freely consents to the planned procedure. Planned [facility] [id number] and Fluoroscopic for vascular access - [id number] Patient Weight Last 1 Encounter Wt Readings: Date: Wt: 06/30/2018 94.8 kg (209 lb) Antibiotic: Ancef 2gm IVPB production trainer to OR Planned Anesthetic: MAC with local I do not plan to access the port at the time of surgery. Diagnoses: (C18.7) Cancer of sigmoid colon (HCC) (primary encounter diagnosis) Stanislav Colon MD Previous Version 12 LEAD ELECTROCARDIOGRAM Observed: 06/30/2018 Status: F Source: [place] 1:51 PM [facility] REPOSITORY [facility] [place] [address] 12 Lead EKG 06/16/18 1000 MR#: [id number] Acct: [id number] Name: AMELIA AVILA Rep #: [id number] : 1965 52 From: James Galaviz MD Attending Dr: Status: DEP ER Ordering Dr: James Ferris DO Date: 06/16/18 Location: ED Sex: M C Admitted: Test Reason : SOB CP Blood Pressure : / mmHG Vent. Rate : 067 BPM Atrial Rate : 067 BPM P-R Int : 178 ms QRS Dur : 088 ms QT Int : 368 ms P-R-T Axes : 043 048 005 degrees QTc Int : 388 ms Normal sinus rhythm Nonspecific T wave abnormality Abnormal ECG Confirmed by JAMES GALAVIZ ([id number]), writer editor ISA CARUSO ([id number]) on 06/30/2018 1:50:51 PM Referred By: JAYDEN Confirmed By:JAMES GALAVIZ 06/30/18 1350 Date James Galaviz MD CC: James Ferris DO; Ara Pierce MD Signed PROGRESS Observed: 06/30/2018 Status: COMPLETED Source: [place] 11:40 AM [facility] REPOSITORY O ID: [id number] Author: Dutch Escalante Service: (none) Author Type: Physician Type: Progress Notes Filed: 06/30/2018 1:26 PM Note Text: Consult requested by Dr. Colon for a patient recently diagnosed with stage III colon cancer. The impression and plan will be communicated by way of the shared electronic record. HPI: Patient is a 52-year-old male with past medical history significant for hyperlipidemia, renal lithiasis, esophageal reflux and chronic low back pain. He was seen by his PCP for complaint of slowing of urinary stream. Exam was suggestive of BPH and the patient was given a prescription for Flomax. However at the same exam he noted that he had a one-time episode of bright red blood in the stool. He was then referred for colonoscopy. Patient underwent a screening colonoscopy on 05/20/2018. There were 4 medium-sized polyps observed in the proximal sigmoid colon, distal sigmoid colon in the transverse colon as well as the cecum. All were removed with hot snare. There was also what appeared to be a malignant mass in the sigmoid colon. There was a fungating infiltrative and ulcerated nonobstructing medium sized mass. It was not circumferential. It measured about 2 cm in length. The diameter measured about 6 mm. Oozing was present. Biopsies were obtained. Pathology: 1. Cecal polyp, biopsy (A) - Tubular adenoma. 2. Proximal transverse colon polyp, biopsy (B) - Tubular adenoma. 3. Colon polyp at 50 cm, biopsy (C) - Tubular adenoma. 4. Colon mass at 40 cm, biopsy (D) - Invasive moderately differentiated adenocarcinoma. 5. Colon polyp at 20 cm, biopsy (E) - Tubular adenoma. CT of chest, abdomen and pelvis 05/22/2018: CHEST: NO METASTATIC DISEASE IN THE CHEST. ABDOMEN AND PELVIS: MULTIPLE PERITONEAL SOFT TISSUE NODULES SUSPICIOUS FOR PERITONEAL CARCINOMATOSIS. ?MANY OF THESE ARE AMENABLE TO PERCUTANEOUS BIOPSY IF CLINICALLY INDICATED. ENLARGED PROSTATE, CORRELATE WITH PSA LEVEL. [facility] and underwent diagnostic laparoscopy on 05/29/2018. No evidence of metastatic disease was observed. Underwent appendectomy along with sigmoid colectomy on 06/11/2018. Pathology: A. Sigmoid colon and appendix, colectomy and appendectomy: Invasive adenocarcinoma. See cancer summary below. COLON CANCER SUMMARY: Specimen ? sigmoid colon and appendix Procedure ? Sigmoidectomy and appendectomy Specimen length ? 37 cm, appendix 5.5 cm in length and 0.7 cm in diameter Tumor site ? sigmoid colon Tumor size ? 2 x 1.5 cm Macroscopic tumor perforation ? not identified Histologic type - adenocarcinoma Histologic grade ? low grade (moderately differentiated) Histologic features suggestive of Microsatellite Instability: Intratumoral lymphocytic response ? tumor infiltrating lymphocyte (mild) Peritumoral lymphocytic response (Crohn-like) - none Tumor subtype and differentiation: Mucinous tumor component - not identified Medullary tumor component - not identified High histologic grade ? poorly differentiated. Microscopic tumor extension ? tumor invades through the muscularis propria into subserosal adipose tissue. Margins: Proximal margin ? free of tumor Distal margin - free of tumor Circumferential margin ? tumor deposit is present at the inked circumferential resection margin. The tumor is 6 cm away from the closest axial resection margin (staple end). Treatment effect ? no known presurgical therapy. Lymph-Vascular invasion ? not identified Perineural invasion - not identified Tumor deposits ? present Number of tumor deposits - 4 Type of polyp in which invasive carcinoma arose ? none identified Lymph nodes: Number of lymph nodes examined - 19 Number of lymph nodes involved - 12 Distant metastasis ? unknown Additional findings ? appendix with no gross abnormality. Ancillary studies: See microsatellite instability study by IHC ([id number]) for complete details. Negative (no loss of mismatch protein; no microsatellite instability detected). Immunohistochemistry Studies for Mismatch Repair Proteins: MLH1 - Intact nuclear positivity, tumor cells, focal MSH2 - Intact nuclear positivity, tumor cells, focal MSH6 - Intact nuclear positivity, tumor cells, focal PMS2 - Intact nuclear positivity, tumor cells PATHOLOGIC STAGE: pT3 pN2b Mx He has no complaints today. His appetite is been increasing and he is not having as much abdominal pain. Bowels are starting work on a more regular basis without evidence of GI bleeding. Flomax did help improve his urinary stream. He had a baseline PSA test in 2009. PMH, medications and allergies personally reviewed by me today. Any changes documented in appropriate section. No known family history of cancer other than father who had lung cancer. ROS: Constitutional: Denies episodes of fever and night sweats. Not significantly fatigued. Normal appetite. Neuro: Denies [place], vertigo, dizziness and imbalance. Denies symptoms of neuropathy. HEENT: No recent change in voice, vision or hearing. Resp: Denies cough, wheeze and hemoptysis. Denies shortness of breath at rest. Denies HO. CVS: Denies exertional chest pain, PND, orthopnea and LE edema. GI: Denies dysgeusia. Denies symptoms of stomatitis. Denies dysphagia and odynophagia. : See above. Endo: Denies hot flashes. Denies polyuria and polydipsia. Denies heat and cold intolerance. Musculoskeletal: Denies bone, back, joint and muscular pain. Derm: Denies rash. Denies jaundice and diffuse pruritis. Heme: Denies unusual bleeding and unexplained bruising. Psych: Normal mood. PHYSICAL EXAM: Vitals: Blood pressure 125/75, pulse 77, temperature 36.5 ?C (97.7 ?F), weight 94.8 kg (209 lb). Well-appearing and in no acute distress. EYES: Sclerae are anicteric bilaterally. ENT: Oral mucosa is unremarkable. NECK: Supple. LYMPHATIC: There is no palpable cervical or supraclavicular adenopathy. RESPIRATORY: Inspiratory breath sounds are of normal intensity in all randall. No rales, wheezes or rhonchi. Expiratory phase is normal. CARDIOVASCULAR: Rhythm is regular. Normal intensity S1/S2. There is no gallop or murmur. ABDOMEN: Trocar incision sites as well as small midline incision are healed well with no sign of infection. Minimal abdominal tenderness. Extremities: No swelling or edema. SKIN: No jaundice or rash. No petechiae. NEUROLOGIC: cafeteria cook II-XII are grossly intact. No focal motor weakness. MUSCULOSKELETAL: No muscle wasting. 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 -KPS is 80-90%. -I discussed with the patient and his the natural history, treated course, and prognosis of stage IIIC colon cancer. Also discussed the rationale, logistics, potential risks (including ), benefits and alternatives, as well as the personnel involved in the administration of FOLFOX. I answered his questions in detail and he verbalized understanding and agreed with the recommended therapy. Please see the electronic consent document for details of doses and schedule. -Given younger age, I recommended genetic counseling. -Discussed plan for surveillance following chemotherapy including baseline CT scan about 3-4 months after completing treatment and then every 6 months thereafter for the first 2 years or so then annually out to 5 years. Plan: -Rx for Zofran sent. -Will need port placement. -Chemotherapy teaching. -Begin chemotherapy after port placement. -Telegenetics consultation. (N40.0) Hypertrophy of prostate Assessment: -Symptoms responded to Flomax. Plan: -Refill Flomax. -Check PSA when here for other lab work at the time of chemotherapy teaching. Total [id number] time was >60 minutes with greater than 45 minutes spent discussing the issues outlined above and/or coordinating care. DO STEVE MuñozOVSP Observed: 06/30/2018 Status: COMPLETED Source: [place] 11:10 AM [facility] REPOSITORY Visit (SP) Office (DOMINICK) VERITO AVILASAURABH ([id number]) 1965 M Date Time Provider Department 06/30/18 11:10 AM DUTCH ESCALANTE During your visit today, we recorded the following information about you: Temperature Pulse Blood pressure Weight 97.7 degrees 77/minute 125/75 94.8 kg Ashleigh Payne LPN, LPN 06/30/2018 11:51 AM Signed New patient, Discuss recent dx: colon cancer MYLENE Hinojosa DO 06/30/2018 1:26 PM Signed Consult requested by Dr. Colon for a patient recently diagnosed with stage III colon cancer. The impression and plan will be communicated by way of the shared electronic record. HPI: Patient is a 52-year-old male with past medical history significant for hyperlipidemia, renal lithiasis, esophageal reflux and chronic low back pain. He was seen by his PCP for complaint of slowing of urinary stream. Exam was suggestive of BPH and the patient was given a prescription for Flomax. However at the same exam he noted that he had a one-time episode of bright red blood in the stool. He was then referred for colonoscopy. Patient underwent a screening colonoscopy on 05/20/2018. There were 4 medium-sized polyps observed in the proximal sigmoid colon, distal sigmoid colon in the transverse colon as well as the cecum. All were removed with hot snare. There was also what appeared to be a malignant mass in the sigmoid colon. There was a fungating infiltrative and ulcerated nonobstructing medium sized mass. It was not circumferential. It measured about 2 cm in length. The diameter measured about 6 mm. Oozing was present. Biopsies were obtained. Pathology: 1. Cecal polyp, biopsy (A) - Tubular adenoma. 2. Proximal transverse colon polyp, biopsy (B) - Tubular adenoma. 3. Colon polyp at 50 cm, biopsy (C) - Tubular adenoma. 4. Colon mass at 40 cm, biopsy (D) - Invasive moderately differentiated adenocarcinoma. 5. Colon polyp at 20 cm, biopsy (E) - Tubular adenoma. CT of chest, abdomen and pelvis 05/22/2018: CHEST: NO METASTATIC DISEASE IN THE CHEST. ABDOMEN AND PELVIS: MULTIPLE PERITONEAL SOFT TISSUE NODULES SUSPICIOUS FOR PERITONEAL CARCINOMATOSIS. ?MANY OF THESE ARE AMENABLE TO PERCUTANEOUS BIOPSY IF CLINICALLY INDICATED. ENLARGED PROSTATE, CORRELATE WITH PSA LEVEL. Was referred to [facility] and underwent diagnostic laparoscopy on 05/29/2018. No evidence of metastatic disease was observed. Underwent appendectomy along with sigmoid colectomy on 06/11/2018. Pathology: A. Sigmoid colon and appendix, colectomy and appendectomy: Invasive adenocarcinoma. See cancer summary below. COLON CANCER SUMMARY: Specimen ? sigmoid colon and appendix Procedure ? Sigmoidectomy and appendectomy Specimen length ? 37 cm, appendix 5.5 cm in length and 0.7 cm in diameter Tumor site ? sigmoid colon Tumor size ? 2 x 1.5 cm Macroscopic tumor perforation ? not identified Histologic type - adenocarcinoma Histologic grade ? low grade (moderately differentiated) Histologic features suggestive of Microsatellite Instability: Intratumoral lymphocytic response ? tumor infiltrating lymphocyte (mild) Peritumoral lymphocytic response (Crohn-like) - none Tumor subtype and differentiation: Mucinous tumor component - not identified Medullary tumor component - not identified High histologic grade ? poorly differentiated. Microscopic tumor extension ? tumor invades through the muscularis propria into subserosal adipose tissue. Margins: Proximal margin ? free of tumor Distal margin - free of tumor Circumferential margin ? tumor deposit is present at the inked circumferential resection margin. The tumor is 6 cm away from the closest axial resection margin (staple end). Treatment effect ? no known presurgical therapy. Lymph-Vascular invasion ? not identified Perineural invasion - not identified Tumor deposits ? present Number of tumor deposits - 4 Type of polyp in which invasive carcinoma arose ? none identified Lymph nodes: Number of lymph nodes examined - 19 Number of lymph nodes involved - 12 Distant metastasis ? unknown Additional findings ? appendix with no gross abnormality. Ancillary studies: See microsatellite instability study by IHC ([id number]) for complete details. Negative (no loss of mismatch protein; no microsatellite instability detected). Immunohistochemistry Studies for Mismatch Repair Proteins: MLH1 - Intact nuclear positivity, tumor cells, focal MSH2 - Intact nuclear positivity, tumor cells, focal MSH6 - Intact nuclear positivity, tumor cells, focal PMS2 - Intact nuclear positivity, tumor cells PATHOLOGIC STAGE: pT3 pN2b Mx He has no complaints today. His appetite is been increasing and he is not having as much abdominal pain. Bowels are starting work on a more regular basis without evidence of GI bleeding. Flomax did help improve his urinary stream. He had a baseline PSA test in 2009. PMH, medications and allergies personally reviewed by me today. Any changes documented in appropriate section. No known family history of cancer other than father who had lung cancer. ROS: Constitutional: Denies episodes of fever and night sweats. Not significantly fatigued. Normal appetite. Neuro: Denies [place], vertigo, dizziness and imbalance. Denies symptoms of neuropathy. HEENT: No recent change in voice, vision or hearing. Resp: Denies cough, wheeze and hemoptysis. Denies shortness of breath at rest. Denies HO. CVS: Denies exertional chest pain, PND, orthopnea and LE edema. GI: Denies dysgeusia. Denies symptoms of stomatitis. Denies dysphagia and odynophagia. : See above. Endo: Denies hot flashes. Denies polyuria and polydipsia. Denies heat and cold intolerance. Musculoskeletal: Denies bone, back, joint and muscular pain. Derm: Denies rash. Denies jaundice and diffuse pruritis. Heme: Denies unusual bleeding and unexplained bruising. Psych: Normal mood. PHYSICAL EXAM: Vitals: Blood pressure 125/75, pulse 77, temperature 36.5 ?C (97.7 ?F), weight 94.8 kg (209 lb). Well-appearing and in no acute distress. EYES: Sclerae are anicteric bilaterally. ENT: Oral mucosa is unremarkable. NECK: Supple. LYMPHATIC: There is no palpable cervical or supraclavicular adenopathy. RESPIRATORY: Inspiratory breath sounds are of normal intensity in all randall. No rales, wheezes or rhonchi. Expiratory phase is normal. CARDIOVASCULAR: Rhythm is regular. Normal intensity S1/S2. There is no gallop or murmur. ABDOMEN: Trocar incision sites as well as small midline incision are healed well with no sign of infection. Minimal abdominal tenderness. Extremities: No swelling or edema. SKIN: No jaundice or rash. No petechiae. NEUROLOGIC: cafeteria cook II-XII are grossly intact. No focal motor weakness. MUSCULOSKELETAL: No muscle wasting. 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 -KPS is 80-90%. -I discussed with the patient and his the natural history, treated course, and prognosis of stage IIIC colon cancer. Also discussed the rationale, logistics, potential risks (including ), benefits and alternatives, as well as the personnel involved in the administration of FOLFOX. I answered his questions in detail and he verbalized understanding and agreed with the recommended therapy. Please see the electronic consent document for details of doses and schedule. -Given younger age, I recommended genetic counseling. -Discussed plan for surveillance following chemotherapy including baseline CT scan about 3-4 months after completing treatment and then every 6 months thereafter for the first 2 years or so then annually out to 5 years. Plan: -Rx for Zofran sent. -Will need port placement. -Chemotherapy teaching. -Begin chemotherapy after port placement. -Telegenetics consultation. (N40.0) Hypertrophy of prostate Assessment: -Symptoms responded to Flomax. Plan: -Refill Flomax. -Check PSA when here for other lab work at the time of chemotherapy teaching. Total hjqu-xx-rshi time was >60 minutes with greater than 45 minutes spent discussing the issues outlined above and/or coordinating care. Dutch Escalante DO Referring Provider: STANISLAV COLON [[id number]] Allergies As of Date: 06/30/2018 (No Known Allergies) Date Reviewed: 06/30/2018 Reviewed by: Dutch Escalante - Fully Assessed Reason for Visit: New Patient [[id number]] Primary Visit Diagnosis:Cancer of sigmoid colon (HCC) [C18.7] Other Visit Diagnoses:Colon cancer metastasized to intra- abdominal lymph node (HCC) [C18.9, C77.2] Hypertrophy of prostate [N40.0] Weak urinary stream [R39.12] Order(s):PSA/PROSTSPECAG DIAG [SQPSA] Order #: [id number] FUTURE CONSULT TO GENETIC COUNSELING [1159112] Order #: [id number]: 1 ondansetron (ZOFRAN) 8 mg tabletTake 1 tablet by mouth every 8 hours as needed for Nausea/Vomiting.Disp: 30 tabletRfl: 2 tamsulosin ER (FLOMAX) 0.4 mg capTake 1 capsule by mouth daily at bedtime.Disp: 90 capsuleRfl: 3 Follow-up and Disposition History Recorded Prescriptions as of 06/30/2018 Sig: TAMSULOSIN 0.4 MG CAPSULE Take 1 capsule by mouth daily* STOOL SOFTENER ORAL Take 2 capsules by mouth. Rhona* RANITIDINE 75 MG TABLET Take 75 mg by mouth as needed. ONDANSETRON HCL 8 MG TABLET Take 1 tablet by mouth every * OXYCODONE-ACETAMINOPHEN 5 MG-* EVERY 6 HOURS NEEDED PRN F* Problem List As Of Date 06/30/2018 Noted Resolved ESOPHAGEAL REFLUX [K21.9] INVALID FOR* OTHER LUNG DISEASE NEC [J98.4] INVALID FOR* CALCULUS OF URETER [N20.1] INVALID FOR* Impaired Fasting Glucose [R73.01] INVALID FOR* DDD (Degenerative Disc Disease), Lumbar [M51.36]INVALID FOR* Prediabetes [R73.03] INVALID FOR*05/07/2016 Hyperlipidemia [E78.5] INVALID FOR* Chronic bilateral low back pain without sciatic*INVALID FOR* Spondylosis of lumbar region without myelopathy*INVALID FOR* Discogenic low back pain [M51.36] INVALID FOR* More... Annular tear of lumbar disc [M51.36] INVALID FOR* More... More... Colon cancer metastasized to intra-abdominal ly*INVALID FOR* Cancer of sigmoid colon (HCC) [C18.7] INVALID FOR* Visit Notes: >> Ashleigh Payne LPN Mon Jun 30, 2018 11:35 AM Status: Signed New patient, Discuss recent dx: colon cancer Ashleigh Payne LPN Encounter Status:Closed by DUTCH ESCALANTE DO on 06/30/18 PROGRESS Observed: 06/19/2018 Status: COMPLETED Source: [facility] 6:37 PM [facility] RE[facility]IT[facility] HNO ID: [id number] Author: Stanislav Colon Service: (none) Author Type: Physician Type: Progress Notes Filed: 06/19/2018 6:42 PM Note Text: FOLLOW UP VISIT - POST OP COLON CANCER NAME: [facility] NO.: [id number] DATE OF SERVICE: 06/19/2018 : 1965 REFERRING PHYSICIAN: Ara Pierce MD Amelia is a patient I am following for a sigmoid colon cancer. The patient is a 52 year old male referred for endoscopy and seen by my physician's pizza hut assistant Sandy JOSEPH. Amelia notes no history of colon complaints. He states he had one isolated episode of bright red rectal bleeding which he attributed to a hemorrhoid as it occurred after some constipation and straining. Denies any bleeding before or since that time. Denies any changes in bowel habits, abdominal pain or black tarry stools. He notes rare acid reflux which is relieved by awyk-vsw-ernnzcm antacids. Amelia has not undergone prior endoscopy. The patient is being seen by Sandy today at the request of Zechariah Lopez CNP on April 24, 2018. The patient underwent colonoscopy on May 20, 2018 which demonstrated 4 polyps located in the cecum, proximal transverse colon, 50 cm and 20 cm. Unfortunately, there was an irregular ulcerated lesion located was felt to be within the mid sigmoid colon at approximately 40 cm. Multiple biopsies were performed, the site was tattooed, and a marker clip was placed. Postprocedure KUB was obtained which demonstrated the clip to be in the mid sigmoid colon. Pathology returned as: Specimen originated from [facility] Specimen #: [id number] Submitting Physician: STANISLAV COLON ([id number]) FINAL DIAGNOSIS 1. Cecal polyp, biopsy (A) - Tubular adenoma. 2. Proximal transverse colon polyp, biopsy (B) - Tubular adenoma. 3. Colon polyp at 50 cm, biopsy (C) - Tubular adenoma. 4. Colon mass at 40 cm, biopsy (D) - Invasive moderately differentiated adenocarcinoma. 5. Colon polyp at 20 cm, biopsy (E) - Tubular adenoma. JEL/dss 05/22/2018 As I was comfortable at the time of endoscopy this was in fact invasive cancer, preoperative laboratory studies and a CT scan were obtained. These demonstrated: Admission on 05/20/2018, Discharged on 05/20/2018 Component Date Value - Detail Assembler 05/20/2018 Value: Specimen originated from [facility] Specimen #: [id number] Submitting Physician: STANISLAV COLON ([id number]) FINAL DIAGNOSIS 1. Cecal polyp, biopsy (A) - Tubular adenoma. 2. Proximal transverse colon polyp, biopsy (B) - Tubular adenoma. 3. Colon polyp at 50 cm, biopsy (C) - Tubular adenoma. 4. Colon mass at 40 cm, biopsy (D) - Invasive moderately differentiated adenocarcinoma. 5. Colon polyp at 20 cm, biopsy (E) - Tubular adenoma. JEL/dss 05/22/2018 Maureen Anderson M.D. (Electronic Signature) SPECIMEN SUBMITTED A: CECUM POLYP B: PROXIMAL TRANSVERSE COLON POLYP C: COLON, POLYP AT 50CM D: COLON, BIOPSY AT 40CM E: COLON, POLYP AT 20CM CLINICAL DATA A-C, E: HOT SNARE GROSS DESCRIPTION A. Received in formalin is one piece of poon, soft tissue measuring 0.2 x 0.2 x 0.2 cm. To tally submitted in one cassette. B. Received in formalin are four pieces of poon, soft tissue aggregating to 1.4 x 0.2 x 0.1 cm. Totally submitted in one cassette. C. Received in formalin is a poon polypoid segment of tissue measuring 0.5 x 0.4 x 0.3 cm. No stalk is noted. The line of resection is noted. Specimen is bisected. Totally submitted in one cassette. D. Received in formalin are six pieces of poon, soft tissue aggregating to 2.0 x 0.3 x 0.2 cm. Totally submitted in one cassette. E. Received in formalin are five pieces of poon, soft tissue aggregating to 1.2 x 0.2 x 0.2 cm. Totally submitted in one cassette. Gross examination performed at [facility], [address] [place] [address] 05/21/2018 9:57:38 AM Date of Report: 05/22/2018 Date of Procedure: 05/20/2018 Date of Receipt: 05/20/2018 Submitted by: STANISLAV COLON ([id number]) [facility] performed at [facility], [address] [place] [address]. Appointment on 05/20/2018 Component Date Value - WBC 05/20/2018 4.54 - RBC 05/20/2018 5.07 - Hemoglobin 05/20/2018 15.1 - Hematocrit 05/20/2018 46.7 - MCV 05/20/2018 92.1 - MCH 05/20/2018 29.8 - MCHC 05/20/2018 32.3 - RDW-CV 05/20/2018 13.1 - Platelet Count 05/20/2018 145* - MPV 05/20/2018 11.5 - Neut% 05/20/2018 64.1 - Abs Neut (ANC) 05/20/2018 2.90 - Lymph% 05/20/2018 24.7 - Abs Lymph 05/20/2018 1.12 - [place]% 05/20/2018 9.9 - Abs [place] 05/20/2018 0.45 - Eosin% 05/20/2018 0.9 - Abs Eosin 05/20/2018 0.04 - Baso% 05/20/2018 0.4 - Abs Baso 05/20/2018 <0.03 - Nucleated Reds 05/20/2018 0.0 - Absolute nRBC 05/20/2018 <0.01 - Diff Type 05/20/2018 Auto Diff - Protein, Total 05/20/2018 6.3 - Albumin 05/20/2018 4.2 - Calcium 05/20/2018 9.7 - Bilirubin, Total 05/20/2018 0.6 - Alkaline Phosphatase 05/20/2018 49 - AST 05/20/2018 27 - Glucose 05/20/2018 112* - BUN 05/20/2018 12 - Creatinine 05/20/2018 0.95 - Sodium 05/20/2018 140 - Potassium 05/20/2018 4.3 - Chloride 05/20/2018 102 - CO2 05/20/2018 29 - Anion Gap 05/20/2018 9 - ALT 05/20/2018 27 - eGFR- 05/20/2018 >60 - eGFR-All Other Races 05/20/2018 >60 - CEA 05/20/2018 5.4* CT scan of the chest abdomen and pelvis is still currently pending. My impression was I saw no specific chest abnormalities. There was a small lesion in the liver that I felt was most likely a cyst but I could not truly characterize this. I saw no other specific intra-abdominal abnormalities. Final CT report: IMPRESSION: CHEST: NO METASTATIC DISEASE IN THE CHEST. ABDOMEN AND PELVIS: MULTIPLE PERITONEAL SOFT TISSUE NODULES SUSPICIOUS FOR PERITONEAL CARCINOMATOSIS. ?MANY OF THESE ARE AMENABLE TO PERCUTANEOUS BIOPSY IF CLINICALLY INDICATED. ENLARGED PROSTATE, CORRELATE WITH PSA LEVEL. Last Putter Away: RODOLFO ? Transcribe Date/Time: May ?3:44P Dictated by : JOEL HOWELL MD This examination was interpreted and the report reviewed and electronically signed by: JOEL HOWELL MD on May ?4:02PM ?EST Results-Findings * * *Final Report* * * DATE OF EXAM: May 22 2018 12:03PM ? [facility] ? 0530 ?- ?CT ABD/PEL W IVCON ?/ PROCEDURE REASON: Left lower quadrant abdominal mass ?? ? * * * * Physician Interpretation * * * * ?EXAMINATION: ?CT CHEST WITH CONTRAST CT ABDOMEN AND PELVIS WITH CONTRAST HISTORY: ?Sigmoid colon cancer TECHNIQUE: ?Spiral CT acquisition following IV contrast. Contrast: IV: ?150 mL of Omnipaque 300 Oral: ?50 mL of 50ML Omnipaque [address] Radiation dose: Integrated Dose-length product (DLP) for this visit = ? 954 mGy*cm. CT Dose Reduction Employed: Automated exposure control(AEC) and iterative recon COMPARISON: ?CT abdomen/pelvis 12/12/2006 RESULT: Chest: Limitations: ?None. Lines, tubes, and devices: ?None. Lung parenchyma and pleura: ?No consolidation. No suspicious pulmonary nodule. No pleural effusion. Central airways are patent. Thoracic inlet, heart, and mediastinum: ?No lymphadenopathy in the axillary, mediastinal, or hilar regions. The thoracic aorta and main pulmonary artery are normal in caliber. The cardiac chambers are normal in size. No coronary artery atherosclerotic calcifications are noted, although the study is not optimized for coronary assessment. No pericardial effusion or thickening. Bones and soft tissues: ?No destructive bone lesion. Chest wall is unremarkable. Abdomen and pelvis: Liver: 1 cm hepatic dome cyst. ?No suspicious hepatic lesion. Biliary: No bile duct dilation. ?Gallbladder is unremarkable. Spleen: No mass. No splenomegaly. Pancreas: No mass or duct dilation. Adrenals: No mass. Kidneys: 1.5 cm left midpole cyst. ?No calculus or hydronephrosis. Vasculature: ?The celiac axis and SMA are patent. The portal vein and branches, splenic vein, SMV, and hepatic veins are patent. ?No abdominal aortic or iliac artery aneurysm. GI tract: There is focal thickening in the mid sigmoid colon with endoscopically placed clip in place, consistent with the known sigmoid colon cancer. ?Remainder of the large and small bowel is unremarkable. ? Appendix within normal limits. Lymph nodes: No pathologically enlarged abdominal or pelvic lymph nodes. Mesentery/Peritoneum: There are multiple peritoneal based soft tissue nodules, for example: -Partially calcified 1.8 x 1.0 cm soft tissue nodule abutting the expected location of the sigmoid cancer (5:114) -Conglomerate of soft tissue along the peritoneum in the left lower quadrant measuring 4.0 x 1.3 cm (5:89) -Peritoneal based soft tissue mass in the left midabdomen anteriorly measuring 2.9 x 1.5 cm (5:59) Pelvis: Trace pelvic ascites. ?Enlarged prostate. Bones/Soft Tissues: No osseous metastatic disease. The patient returns today to discuss pathology results and plan course of treatment for resection of his colon cancer. I spoke with Dr Leija for consideration of laparoscopy/biopsy and if positive - consideration of resection with intraoperative intraperitoneal chemotherapy. The patient underwent diagnostic laparoscopy at [facility] last . No signs of peritoneal metastases were noted area and the small bowel was run in its entirety. No biopsies were performed. I performed a laparoscopic low anterior resection and and mobilization of the splenic flexure on June 11, 2018. The pathology demonstrated: MICROSCOPIC DIAGNOSIS A. Sigmoid colon and appendix, colectomy and appendectomy: Invasive adenocarcinoma. See cancer summary below. COLON CANCER SUMMARY: Specimen ? sigmoid colon and appendix Procedure ? Sigmoidectomy and appendectomy Specimen length ? 37 cm, appendix 5.5 cm in length and 0.7 cm in diameter Tumor site ? sigmoid colon Tumor size ? 2 x 1.5 cm Macroscopic tumor perforation ? not identified Histologic type - adenocarcinoma Histologic grade ? low grade (moderately differentiated) Histologic features suggestive of Microsatellite Instability: Intratumoral lymphocytic response ? tumor infiltrating lymphocyte (mild) Peritumoral lymphocytic response (Crohn-like) - none Tumor subtype and differentiation: Mucinous tumor component - not identified Medullary tumor component - not identified High histologic grade ? poorly differentiated. Microscopic tumor extension ? tumor invades through the muscularis propria into subserosal adipose tissue. Margins: Proximal margin ? free of tumor Distal margin - free of tumor Circumferential margin ? tumor deposit is present at the inked circumferential resection margin. The tumor is 6 cm away from the closest axial resection margin (staple end). Treatment effect ? no known presurgical therapy. Lymph-Vascular invasion ? not identified Perineural invasion - not identified Tumor deposits ? present Number of tumor deposits - 4 Type of polyp in which invasive carcinoma arose ? none identified Lymph nodes: Number of lymph nodes examined - 19 Number of lymph nodes involved - 12 Distant metastasis ? unknown Additional findings ? appendix with no gross abnormality. Ancillary studies: See microsatellite instability study by IHC ([id number]) for complete details. Negative (no loss of mismatch protein; no microsatellite instability detected). Immunohistochemistry Studies for Mismatch Repair Proteins: MLH1 - Intact nuclear positivity, tumor cells, focal MSH2 - Intact nuclear positivity, tumor cells, focal MSH6 - Intact nuclear positivity, tumor cells, focal PMS2 - Intact nuclear positivity, tumor cells PATHOLOGIC STAGE: pT3 pN2b Mx The above summary is in compliance with [employer] [place] [employer] (CAP) Cancer Protocols Checklist and [place] Joint Committee on Cancer (AJCC), Staging Manual, 8th Ed. B. Proximal donut: Colonic donut, no pathologic diagnosis. C. Distal donut: Colonic donut with mucosal congestion and hemorrhage. SJ:andrew 06/16/18 COMMENT A. The largest focus of metastatic carcinoma in a lymph node measures 1.6cms in greatest dimension-. Extranodal extension is noted. Many of the lymph nodes are completely replaced by the metastatic tumor. Imed notes an episode of shortness of breath for which he presented to [facility] emergency department on June 16. He underwent CT angiogram of the chest which was negative. Post operative pain has been well controlled. The patient denies nausea. The patient`s appetite has been good. VITALS: Blood pressure 112/72, pulse 85, temperature 36.3 ?C (97.3 ?F), temperature source Temporal Artery, weight 97.2 kg (214 lb 3.2 oz), SpO2 97 %. On examination, the abdominal skin incisions were clean, dry, and intact. The bowel sounds were normal, the abdomen was soft. Assessment IMPRESSION: Status Post laparoscopic low anterior resection for colon cancer. PLAN: Amelia may return to regular activities as tolerated with the exception of no heavy lifting. .he may shower and bathe. The patient may now drive as long as he is no longer taking narcotic pain medication. If he notes any difficulties, he should contact me immediately. I plan to refer him for evaluation by oncology - I have discussed the above pathology results with Dr. Dutch Escalante. Diagnoses: (C18.7) Cancer of sigmoid colon (HCC) (primary encounter diagnosis) Return to Clinic: The patient is instructed to follow- up with me in 3 weeks. Stanislav Colon MD CNOV Observed: 06/19/2018 Status: COMPLETED Source: [facility] 3:30 PM [facility] REPOSITORY Office Visit (GENSWS) VERITO AVILASAURABH ([id number]) 1965 M Date Time Provider Department 06/19/18 3:30 PM STANISLAV COLON GENDEDRA During your visit today, we recorded the following information about you: Temperature Pulse Blood pressure Weight 97.3 degrees 85/minute 112/72 97.2 kg Stanislav Colon MD 06/19/2018 6:42 PM Signed FOLLOW UP VISIT - POST OP COLON CANCER NAME: Amelia Avila [facility] NO.: [id number] DATE OF SERVICE: 06/19/2018 : 1965 REFERRING PHYSICIAN: Ara Pierce MD Amelia is a patient I am following for a sigmoid colon cancer. The patient is a 52 year old male referred for endoscopy and seen by my physician's pizza hut assistant Sandy JOSEPH. Amelia notes no history of colon complaints. He states he had one isolated episode of bright red rectal bleeding which he attributed to a hemorrhoid as it occurred after some constipation and straining. Denies any bleeding before or since that time. Denies any changes in bowel habits, abdominal pain or black tarry stools. He notes rare acid reflux which is relieved by kqoy-sla-qjgufii antacids. Amelia has not undergone prior endoscopy. The patient is being seen by Sandy kendall at the request of Zechariah Lopez CNP on April 24, 2018. The patient underwent colonoscopy on May 20, 2018 which demonstrated 4 polyps located in the cecum, proximal transverse colon, 50 cm and 20 cm. Unfortunately, there was an irregular ulcerated lesion located was felt to be within the mid sigmoid colon at approximately 40 cm. Multiple biopsies were performed, the site was tattooed, and a marker clip was placed. Postprocedure KUB was obtained which demonstrated the clip to be in the mid sigmoid colon. Pathology returned as: Specimen originated from [facility] Specimen #: [id number] Submitting Physician: STANISLAV COLON ([id number]) FINAL DIAGNOSIS 1. Cecal polyp, biopsy (A) - Tubular adenoma. 2. Proximal transverse colon polyp, biopsy (B) - Tubular adenoma. 3. Colon polyp at 50 cm, biopsy (C) - Tubular adenoma. 4. Colon mass at 40 cm, biopsy (D) - Invasive moderately differentiated adenocarcinoma. 5. Colon polyp at 20 cm, biopsy (E) - Tubular adenoma. JEL/dss 05/22/2018 As I was comfortable at the time of endoscopy this was in fact invasive cancer, preoperative laboratory studies and a CT scan were obtained. These demonstrated: Admission on 05/20/2018, Discharged on 05/20/2018 Component Date Value - Detail Assembler 05/20/2018 Value: Specimen originated from [facility] Specimen #: [id number] Submitting Physician: STANISLAV COLON ([id number]) FINAL DIAGNOSIS 1. Cecal polyp, biopsy (A) - Tubular adenoma. 2. Proximal transverse colon polyp, biopsy (B) - Tubular adenoma. 3. Colon polyp at 50 cm, biopsy (C) - Tubular adenoma. 4. Colon mass at 40 cm, biopsy (D) - Invasive moderately differentiated adenocarcinoma. 5. Colon polyp at 20 cm, biopsy (E) - Tubular adenoma. JEL/dss 05/22/2018 Maureen Anderson M.D. (Electronic Signature) SPECIMEN SUBMITTED A: CECUM POLYP B: PROXIMAL TRANSVERSE COLON POLYP C: COLON, POLYP AT 50CM D: COLON, BIOPSY AT 40CM E: COLON, POLYP AT 20CM CLINICAL DATA A-C, E: HOT SNARE GROSS DESCRIPTION A. Received in formalin is one piece of poon, soft tissue measuring 0.2 x 0.2 x 0.2 cm. To tally submitted in one cassette. B. Received in formalin are four pieces of poon, soft tissue aggregating to 1.4 x 0.2 x 0.1 cm. Totally submitted in one cassette. C. Received in formalin is a poon polypoid segment of tissue measuring 0.5 x 0.4 x 0.3 cm. No stalk is noted. The line of resection is noted. Specimen is bisected. Totally submitted in one cassette. D. Received in formalin are six pieces of poon, soft tissue aggregating to 2.0 x 0.3 x 0.2 cm. Totally submitted in one cassette. E. Received in formalin are five pieces of poon, soft tissue aggregating to 1.2 x 0.2 x 0.2 cm. Totally submitted in one cassette. Gross examination performed at [facility], [address] [place] [address] NMP 05/21/2018 9:57:38 AM Date of Report: 05/22/2018 Date of Procedure: 05/20/2018 Date of Receipt: 05/20/2018 Submitted by: STANISLAV COLON ([id number]) Location: [facility] Diagnostic interpretation performed at [facility], [address] [place] [address]. Appointment on 05/20/2018 Component Date Value - WBC 05/20/2018 4.54 - RBC 05/20/2018 5.07 - Hemoglobin 05/20/2018 15.1 - Hematocrit 05/20/2018 46.7 - MCV 05/20/2018 92.1 - MCH 05/20/2018 29.8 - MCHC 05/20/2018 32.3 - RDW-CV 05/20/2018 13.1 - Platelet Count 05/20/2018 145* - MPV 05/20/2018 11.5 - Neut% 05/20/2018 64.1 - Abs Neut (ANC) 05/20/2018 2.90 - Lymph% 05/20/2018 24.7 - Abs Lymph 05/20/2018 1.12 - [place]% 05/20/2018 9.9 - Abs [place] 05/20/2018 0.45 - Eosin% 05/20/2018 0.9 - Abs Eosin 05/20/2018 0.04 - Baso% 05/20/2018 0.4 - Abs Baso 05/20/2018 <0.03 - Nucleated Reds 05/20/2018 0.0 - Absolute nRBC 05/20/2018 <0.01 - Diff Type 05/20/2018 Auto Diff - Protein, Total 05/20/2018 6.3 - Albumin 05/20/2018 4.2 - Calcium 05/20/2018 9.7 - Bilirubin, Total 05/20/2018 0.6 - Alkaline Phosphatase 05/20/2018 49 - AST 05/20/2018 27 - Glucose 05/20/2018 112* - BUN 05/20/2018 12 - Creatinine 05/20/2018 0.95 - Sodium 05/20/2018 140 - Potassium 05/20/2018 4.3 - Chloride 05/20/2018 102 - CO2 05/20/2018 29 - Anion Gap 05/20/2018 9 - ALT 05/20/2018 27 - eGFR- 05/20/2018 >60 - eGFR-All Other Races 05/20/2018 >60 - CEA 05/20/2018 5.4* CT scan of the chest abdomen and pelvis is still currently pending. My impression was I saw no specific chest abnormalities. There was a small lesion in the liver that I felt was most likely a cyst but I could not truly characterize this. I saw no other specific intra-abdominal abnormalities. Final CT report: IMPRESSION: CHEST: NO METASTATIC DISEASE IN THE CHEST. ABDOMEN AND PELVIS: MULTIPLE PERITONEAL SOFT TISSUE NODULES SUSPICIOUS FOR PERITONEAL CARCINOMATOSIS. ?MANY OF THESE ARE AMENABLE TO PERCUTANEOUS BIOPSY IF CLINICALLY INDICATED. ENLARGED PROSTATE, CORRELATE WITH PSA LEVEL. Last Putter Away: RODOLFO ? Transcribe Date/Time: May ?3:44P Dictated by : JOEL HOWELL MD This examination was interpreted and the report reviewed and electronically signed by: JOEL HOWELL MD on May ?4:02PM ?EST Results-Findings * * *Final Report* * * DATE OF EXAM: May 22 2018 12:03PM ? [facility] ? 0530 ?- ?CT ABD/PEL W IVCON ?/ PROCEDURE REASON: Left lower quadrant abdominal mass ?? ? * * * * Physician Interpretation * * * * ?EXAMINATION: ?CT CHEST WITH CONTRAST CT ABDOMEN AND PELVIS WITH CONTRAST HISTORY: ?Sigmoid colon cancer TECHNIQUE: ?Spiral CT acquisition following IV contrast. Contrast: IV: ?150 mL of Omnipaque 300 Oral: ?50 mL of 50ML Omnipaque [address] Radiation dose: Integrated Dose-length product (DLP) for this visit = ? 954 mGy*cm. CT Dose Reduction Employed: Automated exposure control(AEC) and iterative recon COMPARISON: ?CT abdomen/pelvis 12/12/2006 RESULT: Chest: Limitations: ?None. Lines, tubes, and devices: ?None. Lung parenchyma and pleura: ?No consolidation. No suspicious pulmonary nodule. No pleural effusion. Central airways are patent. Thoracic inlet, heart, and mediastinum: ?No lymphadenopathy in the axillary, mediastinal, or hilar regions. The thoracic aorta and main pulmonary artery are normal in caliber. The cardiac chambers are normal in size. No coronary artery atherosclerotic calcifications are noted, although the study is not optimized for coronary assessment. No pericardial effusion or thickening. Bones and soft tissues: ?No destructive bone lesion. Chest wall is unremarkable. Abdomen and pelvis: Liver: 1 cm hepatic dome cyst. ?No suspicious hepatic lesion. Biliary: No bile duct dilation. ?Gallbladder is unremarkable. Spleen: No mass. No splenomegaly. Pancreas: No mass or duct dilation. Adrenals: No mass. Kidneys: 1.5 cm left midpole cyst. ?No calculus or hydronephrosis. Vasculature: ?The celiac axis and SMA are patent. The portal vein and branches, splenic vein, SMV, and hepatic veins are patent. ?No abdominal aortic or iliac artery aneurysm. GI tract: There is focal thickening in the mid sigmoid colon with endoscopically placed clip in place, consistent with the known sigmoid colon cancer. ?Remainder of the large and small bowel is unremarkable. ? Appendix within normal limits. Lymph nodes: No pathologically enlarged abdominal or pelvic lymph nodes. Mesentery/Peritoneum: There are multiple peritoneal based soft tissue nodules, for example: -Partially calcified 1.8 x 1.0 cm soft tissue nodule abutting the expected location of the sigmoid cancer (5:114) -Conglomerate of soft tissue along the peritoneum in the left lower quadrant measuring 4.0 x 1.3 cm (5:89) -Peritoneal based soft tissue mass in the left midabdomen anteriorly measuring 2.9 x 1.5 cm (5:59) Pelvis: Trace pelvic ascites. ?Enlarged prostate. Bones/Soft Tissues: No osseous metastatic disease. The patient returns today to discuss pathology results and plan course of treatment for resection of his colon cancer. I spoke with Dr Leija for consideration of laparoscopy/biopsy and if positive - consideration of resection with intraoperative intraperitoneal chemotherapy. The patient underwent diagnostic laparoscopy at [facility] last . No signs of peritoneal metastases were noted area and the small bowel was run in its entirety. No biopsies were performed. I performed a laparoscopic low anterior resection and and mobilization of the splenic flexure on June 11, 2018. The pathology demonstrated: MICROSCOPIC DIAGNOSIS A. Sigmoid colon and appendix, colectomy and appendectomy: Invasive adenocarcinoma. See cancer summary below. COLON CANCER SUMMARY: Specimen ? sigmoid colon and appendix Procedure ? Sigmoidectomy and appendectomy Specimen length ? 37 cm, appendix 5.5 cm in length and 0.7 cm in diameter Tumor site ? sigmoid colon Tumor size ? 2 x 1.5 cm Macroscopic tumor perforation ? not identified Histologic type - adenocarcinoma Histologic grade ? low grade (moderately differentiated) Histologic features suggestive of Microsatellite Instability: Intratumoral lymphocytic response ? tumor infiltrating lymphocyte (mild) Peritumoral lymphocytic response (Crohn-like) - none Tumor subtype and differentiation: Mucinous tumor component - not identified Medullary tumor component - not identified High histologic grade ? poorly differentiated. Microscopic tumor extension ? tumor invades through the muscularis propria into subserosal adipose tissue. Margins: Proximal margin ? free of tumor Distal margin - free of tumor Circumferential margin ? tumor deposit is present at the inked circumferential resection margin. The tumor is 6 cm away from the closest axial resection margin (staple end). Treatment effect ? no known presurgical therapy. Lymph-Vascular invasion ? not identified Perineural invasion - not identified Tumor deposits ? present Number of tumor deposits - 4 Type of polyp in which invasive carcinoma arose ? none identified Lymph nodes: Number of lymph nodes examined - 19 Number of lymph nodes involved - 12 Distant metastasis ? unknown Additional findings ? appendix with no gross abnormality. Ancillary studies: See microsatellite instability study by IHC ([id number]) for complete details. Negative (no loss of mismatch protein; no microsatellite instability detected). Immunohistochemistry Studies for Mismatch Repair Proteins: MLH1 - Intact nuclear positivity, tumor cells, focal MSH2 - Intact nuclear positivity, tumor cells, focal MSH6 - Intact nuclear positivity, tumor cells, focal PMS2 - Intact nuclear positivity, tumor cells PATHOLOGIC STAGE: pT3 pN2b Mx The above summary is in compliance with [employer] [employer] (CAP) Cancer Protocols Checklist and [place] Joint Committee on Cancer (AJCC), Staging Manual, 8th Ed. B. Proximal donut: Colonic donut, no pathologic diagnosis. C. Distal donut: Colonic donut with mucosal congestion and hemorrhage. SJ:andrew 06/16/18 COMMENT A. The largest focus of metastatic carcinoma in a lymph node measures 1.6cms in greatest dimension-. Extranodal extension is noted. Many of the lymph nodes are completely replaced by the metastatic tumor. Amelia notes an episode of shortness of breath for which he presented to [facility] emergency department on June 16. He underwent CT angiogram of the chest which was negative. Post operative pain has been well controlled. The patient denies nausea. The patient`s appetite has been good. VITALS: Blood pressure 112/72, pulse 85, temperature 36.3 ?C (97.3 ?F), temperature source Temporal Artery, weight 97.2 kg (214 lb 3.2 oz), SpO2 97 %. On examination, the abdominal skin incisions were clean, dry, and intact. The bowel sounds were normal, the abdomen was soft. Assessment IMPRESSION: Status Post laparoscopic low anterior resection for colon cancer. PLAN: Imed may return to regular activities as tolerated with the exception of no heavy lifting. .he may shower and bathe. The patient may now drive as long as he is no longer taking narcotic pain medication. If he notes any difficulties, he should contact me immediately. I plan to refer him for evaluation by oncology - I have discussed the above pathology results with Dr. Dutch Escalante. Diagnoses: (C18.7) Cancer of sigmoid colon (HCC) (primary encounter diagnosis) Return to Clinic: The patient is instructed to follow- up with me in 3 weeks. Stanislav Colon MD Referring Provider: STANISLAV COLON [[id number]] Allergies As of Date: 06/19/2018 (No Known Allergies) Date Reviewed: 06/19/2018 Reviewed by: Jan Monroe LPN - Fully Assessed Reason for Visit: Post Op [174] Cmt: Post op bowel resection 06/11/18 Primary Visit Diagnosis:Cancer of sigmoid colon (HCC) [C18.7] Prescriptions as of 06/19/2018 Sig: STOOL SOFTENER ORAL Take by mouth. OXYCODONE-ACETAMINOPHEN 5 MG-* EVERY 6 HOURS NEEDED PRN F* RANITIDINE 75 MG TABLET Take 75 mg by mouth as needed. TAMSULOSIN 0.4 MG CAPSULE Take 1 capsule by mouth daily* Problem List As Of Date 06/19/2018 Noted Resolved ESOPHAGEAL REFLUX [K21.9] INVALID FOR* OTHER LUNG DISEASE NEC [J98.4] INVALID FOR* CALCULUS OF URETER [N20.1] INVALID FOR* Impaired Fasting Glucose [R73.01] INVALID FOR* DDD (Degenerative Disc Disease), Lumbar [M51.36]INVALID FOR* Prediabetes [R73.03] INVALID FOR*05/07/2016 Hyperlipidemia [E78.5] INVALID FOR* Chronic bilateral low back pain without sciatic*INVALID FOR* Spondylosis of lumbar region without myelopathy*INVALID FOR* Discogenic low back pain [M51.36] INVALID FOR* More... Annular tear of lumbar disc [M51.36] INVALID FOR* More... Colon cancer (HCC) [C18.9] INVALID FOR* More... Follow-up and Disposition History Recorded Encounter Status:Closed by STANISLAV COLON MD on 06/19/18 CBC W/DIFF, AUTOMATED Collected: 06/16/2018 Status: F Source: [place] 10:50 AM [facility] REPOSITORY TYPE CODE TESTS RESULT OUT OF RANGE REFERENCE UNITS LAB L100.1000 4.4-11.0 K/mm3 Low WBC 4.0 LAB L100.1200 4.6-6.2 M/mm3 Low RBC 4.50 LAB L100.1300 13.0-16.5 g/dl Normal HGB 13.5 LAB L100.1400 40-54 % Low HCT 39.9 LAB L100.1500 80-94 fL Normal MCV 88.7 LAB L100.1600 27.0-32.0 pg Normal MCH 30.0 LAB L100.1700 32-36 g/gl Normal MCHC 33.8 LAB L100.1810 11.6-14.6 % Normal RDW CV 12.8 LAB L100.1820 35.1-43.9 fl Normal RDW SD 41.6 LAB L100.1900 150-450 K/mm3 Normal PLT 158 LAB L100.2000 6.2-12.0 fl Normal MPV 11.0 LAB L100.2100 47-70 % High NEUT% 71.5 LAB L100.2200 19-41 % Low LY% 16.6 LAB L100.2300 0-10 % Normal MONO% 9.7 LAB L100.2400 0-5 % Normal EO% 2.2 LAB L100.2500 0-1 % Normal BASO% 0.0 LAB L100.2550 0.0-0.9 % Normal IM GRAN % 0.000 Result Comment: IG% - Immature Granulocytes (promyelocytes, myelocytes and metamyelocytes) > 1% indicates that a LEFT SHIFT is Present. LAB L100.2620 2.0-7.7 X10 3/uL Normal Absolute Neut 2.9 LAB L100.2720 0.83-4.51 X10 3/ul Low Absolute Lymph 0.67 Performed By: #### L100.0100 #### [facility] [address] [place], [place], [id number] COMPREHENSIVE METABOLIC Collected: 06/16/2018 Status: F Source: [facility] 10:50 AM [facility] REPOSITORY TYPE CODE TESTS RESULT OUT OF RANGE REFERENCE UNITS LAB L501.0100 74-106 mg/dL High GLU 113 Result Comment: Fasting Glucose result from 100 to 125 mg/dL suggests IMPAIRED HOMEOSTASIS per A.D.A. criteria. Please note revised GLUCOSE reference range effective 2017. LAB L501.1000 7-18 mg/dL Normal BUN 13 LAB L501.1100 0.70-1.30 mg/dL Normal CREAT,SERUM 0.78 Result Comment: The validity of the calculated GFR AND GFRAA in patients over 70 years has not been determined. Clinical correlation is essential. LAB L501.1110 >60 mL/min Normal EST GFR 110 Result Comment: Non- GFR Calc LAB L501.1115 >60 mL/min Normal EST GFR - AA 133 Result Comment: GFR Calc LAB L501.1255 ml/min Normal Estimated CRCL 130.90 LAB L501.1300 10-20 RATIO BUN/CRE Normal 16.6 LAB L501.1500 6.4-8. g/dL 2 T PROT Normal 6.4 LAB L501.1800 3.2-5. g/dL 0 ALB Normal 3.5 LAB L501.1950 2.2-4. g/dL 2 GLOB Normal 2.9 LAB L501.2000 0.9-2. RATIO 4 A/G Normal 1.2 LAB L501.2200 8.5-10 mg/dL .1 CA Normal 8.5 LAB L501.4100 15-37 U/L AST Normal 37 LAB L501.4305 45-117 U/L Low ALK P 43 LAB L501.4405 16-61 U/L ALT Normal 49 LAB L501.4600 0.20-1 mg/dL .00 T BILI Normal 0.40 LAB L501.5300 136-14 mmol/L 5 NA Normal 141 LAB L501.5600 3.5-5. mmol/L 1 K Normal 3.9 LAB L501.5900 98-107 mmol/L CL Normal 106 LAB L501.6100 21.0-3 mmol/L 2.0 CO2 Normal 27.0 LAB L501.6200 5-15 GAP Normal 8 Performed By: #### L500.4050, L501.4010 #### [facility] [address] [place], [address] TROPONIN-I Collected: 06/16/2018 Status: F Source: [place] 10:50 AM [facility] REPOSITORY TYPE CODE TESTS RESULT OUT OF RANGE REFERENCE UNITS LAB L501.4010 <0.045 ng/mL Normal < 0.015 TROPONIN-I Result Comment: TROPONIN-I EXPECTED VALUES <0.045 Negative 0.045 - 0.590 Consistent with Cardiac Damage > OR = 0.600 Critical Value Not every elevated troponin is indicative of AZ. These values should be used with clinical judgement in examining the patient's clinical picture for diagnosis. To establish a diagnosis of AZ versus myocardial injury, there must be a demonstrated rise and/or fall in the troponin values, in addition to ischemic symptoms, EKG changes, new regional wall motion abnormality, and/or angiographical evidence. PLEASE NOTE: REFERENCE RANGES EDITED 17 Performed By: #### L500.4050, L501.4010 #### [facility] [address] [place], [address] CTA CHEST W/WO Observed: 06/16/2018 Status: F Source: [place] CONTRAST 10:09 AM [facility] REPOSITORY [facility] Imaging Services [address] [place] [address] CTA Chest W/WO Contrast MR#: [id number] Acct: [id number] Name: AMELIA AVILA Rep #: [id number] : 1965 M 52 From: Bernard Martínez MD PCP: Kari HERNANDEZ,Ara Status: REG ER Study: CTA Chest W/WO Contrast Date of Exam: 06/16/18 Exam# [id number] Ordering Dr: James Ferris DO STUDY: CTA CHEST/THORAX REASON FOR EXAM: Male, 52 years old. Shortness of breath, chest pain. Recent surgery. RADIATION DOSAGE (If Supplied By Facility): CTDIvol = ( 16.57 ) mGy, DLP = ( 538.41 ) mGycm TECHNIQUE: The examination was performed with the intravenous administration of 100 ml of Isovue 370 contrast material. Post-processing of the angiographic images was performed, with multiplanar reformation. No 3D reconstruction. Individualized dose optimization techniques were used for this CT. COMPARISON: None. FINDINGS: Normal enhancement of the main pulmonary artery and right and left pulmonary arteries. Normal enhancement of the bilateral peripheral pulmonary arteries. There is no demonstrated pulmonary embolism. Normal thoracic aorta and visualized great vessels. There is no demonstrated aortic dissection. Normal heart and pericardium. Normal mediastinum. Normal hilar regions. Normal visualized trachea and bronchi. The lungs are well expanded. Ill-defined 4 mm nodular density seen in the anterolateral right upper lobe on series 2 image 118, series 601 image 78. 2-3 mm nodule seen in the superior margin of the right middle lobe abutting the minor fissure on series 2 image 103, series 601 image 82. The lungs are otherwise clear Normal pleura. Gas bubbles are seen in the deep subcutaneous tissues bordering the musculature of the bilateral lower anterolateral chest wall/upper abdomen. There are degenerative changes of upper and lower most thoracic spine. Rounded 9 mm low-density in the upper right lobe of the liver consistent with a cyst CT/CTA Chest W/WO Contrast IMPRESSION: 1. No demonstrated pulmonary embolism or arterial dissection. 2. Gas bubbles in the deep anterolateral subcutaneous tissues of the bilateral lower chest wall/upper abdomen, presumably reflecting expected postoperative findings. 3. A pair of sub 6 mm densities are seen in the right midlung, as noted. The lungs are otherwise clear. Per Fleischner guidelines, no specific radiographic follow-up is required. 4. Rounded 9 mm low density in the upper right lobe of liver is likely a cyst. This could be potentially confirmed with ultrasound. Electronically Signed: Tyree Martínez MD at 12:27 EST , Service support , CC: James Ferris DO; Ara Pierce MD Last Putter Away: Signed PROGRESS Observed: 06/15/2018 Status: COMPLETED Source: [place] 7:01 AM [facility] REPOSITORY O ID: [id number] Author: Stanislav Colon Service: (none) Author Type: Physician Type: Progress Notes Filed: 06/15/2018 7:07 AM Note Text: OPERATIVE NOTATION FOR [facility] SURGICAL PROCEDURE. June 11, 2018 Amelia Avila 1965 [id number] male PROCEDURE: laparoscopic appendectomy - 53960-823, Laparoscopic Low Anterior Resection - [id number] and Lap Mobilization of the Splenic Flexure - +[phone] SURGEON: Abbi Colon M.D. FACS MACHINE HELPER: None DEPT: SID PROVIDER: [email or web address] Colon MD POS: [id number] DIAGNOSIS: (C18.7) Cancer of sigmoid colon (HCC) (primary encounter diagnosis) ASA CLASS: 2 - mild FINDINGS: COMPLICATIONS: None PMHx - PAST MEDICAL HISTORY Diagnosis Date - Allergic rhinitis - DDD (degenerative disc disease), lumbar - Kidney stone - Prediabetes COMORBIDITIES - None Post Op Occurrences - None Wound Classification - Clean Contaminated Operative note dictated in the [facility] dictation system. Stanislav Colon MD DISCHARGE SUMMARY Observed: 06/14/2018 Status: F Source: [place] 10:04 AM [facility] REPOSITORY [facility] Medical Records Department [address] [place] [address] Discharge Summary 06/14/18 1003 MR#: [id number] Acct: [id number] Name: AMELIA AVILA E Rep #: [id number] : 1965 52 From: Stanislav Colon MD PCP: Ara Pierce MD Status: ADM IN Y Location: [facility] [id number] Discharge Date and Diagnosis Date of Admission: 06/11/18 Date of Discharge: 06/14/18 - Primary Discharge Diagnosis sigmoid colon cancer Hospital Course and Treatment Operations: colectomy - laparoscopic sigmoid colectomy with splenic flexure mobilization and appendectomy Summary of Care Provided: The patient is a 52 year old M recently diagnosed with a sigmoid colon cancer. The patient was brought in for laparoscopic sigmoid resection. The patient was maintained on the EUS protocol and did well postoperatively with return of bowel function on postoperative day 2. The patient tolerated advancement of diet and was discharged home on postoperative day 3. - Physical Exam General: Alert, Oriented x3, Cooperative Lungs: Clear to auscultation, Normal air movement Cardiovascular: Regular rate, No murmurs Abdomen: Bowel Sounds Present, Soft, Non Tender Vital Signs Temp Pulse Resp BP Pulse Ox 98.3 F 76 18 109/58 L 96 06/14/18 08:52 06/14/18 08:52 06/14/18 08:52 06/14/18 08:52 06/14/18 08:52 Oxygen Delivery Method Room Air Weight: 99.2 kg Body Mass Index (BMI) 27.3 Intake and Output for Last 24 Hours Intake Total 2435 / 2435 840 / 840 500 / 500 Output Total 1550 / 1550 500 / 500 525 / 525 Balance 885 / 885 340 / 340 -25 / -25 Discharge Diet: Light diet - advance as tolerated Discharge Activity: May Not Drive - for 1 week or while taking narcotic pain meds., May not drive while taking narcotic pain medications. May shower in (days): 0 Call your doctor if your incision/area has: Continuous Slow Oozing, Sudden Increased Bleeding, Increased Pain/ Swelling, Increased Redness, Foul Smelling Discharge Call your doctor if you observe: Fever of 101 or Higher Suture Line Care: Avoid Pulling/Pushing, Avoid Pinching/Bending Additional Dressing/Incision Instructions:: Change or remove dressing in 4 days. Leave steri-strips in place for 1 week. Home Medications: Medications to take at Discharge Tamsulosin HCl [Flomax] 0.4 mg PO QHS 06/09/18 Acetaminophen [Tylenol] 1,000 mg PO Q6 tablet 06/14/18 Insulin Lispro [Humalog KwikPen] 0 unit SC Q4H PRN PRN insuln.pen 06/14/18 Oxycodone HCl/Acetaminophen [Percocet 5/325] 1 tab PO Q6H PRN PRN 7 Days #10 tab 06/14/18 Following Prescrptions Were Given to Patient: Oxycodone HCl/Acetaminophen [Percocet 5/325] 1 tab PO Q6H PRN PRN 7 Days #10 tab PRN Reason: Pain Primary Care Physician: Ara Pierce MD [Primary Care Provider] - Please Follow Up With: Stanislav Colon MD - [phone] When: Call to make an appointment to be seen in about 5 days. Medical Necessity - Tobacco Use Smoking Status: Former smoker Meaningful Use Info Meaningful Use Diagnoses (Choose all that apply): None applicable 06/14/18 1004 <Electronically signed by Stanislav Colon MD> Date Stanislav Colon MD Cosigner Signature (if applicable): Date CC: Ara Pierce MD; Stanislav Colon MD Signed DISCHARGE INSTRUCTION Observed: 06/14/2018 Status: F Source: [place] 9:41 AM [facility] REPOSITORY [facility] Medical Records Department [address] [place] [address] Instructions for Home/Discharge Instructions 06/14/18 0940 MR#: [id number] Acct: [id number] Name: AMELIA AVILA Rep #: [id number] : 1965 52 From: Stanislav Colon MD PCP: Ara Pierce MD Status: ADM IN Discharge Diet: Light diet - advance as tolerated Discharge Activity: May Not Drive - for 1 week or while taking narcotic pain meds., May not drive while taking narcotic pain medications. May shower in (days): 0 Lifting Restrictions: 10 pounds Call your doctor if your incision/area has: Continuous Slow Oozing, Sudden Increased Bleeding, Increased Pain/ Swelling, Increased Redness, Foul Smelling Discharge Call your doctor if you observe: Fever of 101 or Higher Suture Line Care: Avoid Pulling/Pushing, Avoid Pinching/Bending Additional Dressing/Incision Instructions:: Change or remove dressing in 4 days. Leave steri-strips in place for 1 week. Allergies/Adverse Reactions: Allergies No Known Allergies Allergy (Verified 06/09/18 09:39) Medications to take at Discharge Tamsulosin HCl [Flomax] 0.4 mg PO QHS 06/09/18 Acetaminophen [Tylenol] 1,000 mg PO Q6 tablet 06/14/18 Insulin Lispro [Humalog KwikPen] 0 unit SC Q4H PRN PRN insuln.pen 06/14/18 Oxycodone HCl/Acetaminophen [Percocet 5/325] 1 tab PO Q6H PRN PRN 7 Days #10 tab 06/14/18 The following prescriptions were given: Oxycodone HCl/Acetaminophen [Percocet 5/325] 1 tab PO Q6H PRN PRN 7 Days #10 tab PRN Reason: Pain Primary Care Physician: Ara Pierce MD [Primary Care Provider] - Test Results: Test results from this visit will be discussed in further detail at your follow-up appointment, if applicable. Please Follow Up With: Stanislav Colon MD - [phone] When: Call to make an appointment to be seen in about 5 days. 06/14/18 0941 <Electronically signed by Stanislav Colon MD> Date Stanislav Colon MD CC: Ara Pierce MD Signed CBC W/DIFF, AUTOMATED Collected: 06/13/2018 Status: F Source: [place] 5:30 AM [facility] REPOSITORY TYPE CODE TESTS RESULT OUT OF RANGE REFERENCE UNITS LAB L100.1000 4.4-11.0 K/mm3 Normal WBC 6.6 LAB L100.1200 4.6-6.2 M/mm3 Low RBC 4.37 LAB L100.1300 13.0-16.5 g/dl Normal HGB 13.2 LAB L100.1400 40-54 % Low HCT 39.7 LAB L100.1500 80-94 fL Normal MCV 90.8 LAB L100.1600 27.0-32.0 pg Normal MCH 30.2 LAB L100.1700 32-36 g/gl Normal MCHC 33.2 LAB L100.1810 11.6-14.6 % Normal RDW CV 13.0 LAB L100.1820 35.1-43.9 fl Normal RDW SD 42.7 LAB L100.1900 150-450 K/mm3 Low PLT 132 LAB L100.2000 6.2-12.0 fl Normal MPV 11.7 LAB L100.2100 47-70 % High NEUT% 73.2 LAB L100.2200 19-41 % Low LY% 16.0 LAB L100.2300 0-10 % High MONO% 10.3 LAB L100.2400 0-5 % Normal EO% 0.3 LAB L100.2500 0-1 % Normal BASO% 0.0 LAB L100.2550 0.0-0.9 % Normal IM GRAN % 0.200 Result Comment: IG% - Immature Granulocytes (promyelocytes, myelocytes and metamyelocytes) > 1% indicates that a LEFT SHIFT is Present. LAB L100.2620 2.0-7.7 X10 3/uL Normal Absolute Neut 4.8 LAB L100.2720 0.83-4.51 X10 3/ul Normal Absolute Lymph 1.06 Performed By: #### L100.0100 #### [facility] [address] [place], [address] COMPREHENSIVE METABOLIC Collected: 06/13/2018 Status: F Source: [facility] 5:30 AM [facility] REPOSITORY TYPE CODE TESTS RESULT OUT OF RANGE REFERENCE UNITS LAB L501.0100 74-106 mg/dL Normal GLU 93 Result Comment: Please note revised GLUCOSE reference range effective 2017. LAB L501.1000 7-18 mg/dL Normal BUN 13 LAB L501.1100 0.70-1.30 mg/dL Normal CREAT,SERUM 0.93 Result Comment: The validity of the calculated GFR AND GFRAA in patients over 70 years has not been determined. Clinical correlation is essential. LAB L501.1110 >60 mL/min Normal EST GFR 91 Result Comment: Non- GFR Calc LAB L501.1115 >60 mL/min Normal EST GFR - AA 110 Result Comment: GFR Calc LAB L501.1255 ml/min Normal Estimated CRCL 109.79 LAB L501.1300 10-20 RATIO BUN/CRE Normal 14.0 LAB L501.1500 6.4-8. g/dL Low 2 T PROT 6.1 LAB L501.1800 3.2-5. g/dL 0 ALB Normal 3.4 LAB L501.1950 2.2-4. g/dL 2 GLOB Normal 2.7 LAB L501.2000 0.9-2. RATIO 4 A/G Normal 1.3 LAB L501.2200 8.5-10 mg/dL .1 CA Normal 8.5 LAB L501.4100 15-37 U/L AST Normal 23 LAB L501.4305 45-117 U/L Low ALK P 40 LAB L501.4405 16-61 U/L ALT Normal 28 LAB L501.4600 0.20-1 mg/dL .00 T BILI Normal 0.60 LAB L501.5300 136-14 mmol/L 5 NA Normal 143 LAB L501.5600 3.5-5. mmol/L 1 K Normal 3.9 LAB L501.5900 98-107 mmol/L CL Normal 106 LAB L501.6100 21.0-3 mmol/L 2.0 CO2 Normal 29.0 LAB L501.6200 5-15 GAP Normal 8 Performed By: #### L500.4050 #### [facility] [address] [place], [address] BASIC METABOLIC Collected: 06/12/2018 Status: F Source: [place] [facility] (B[facility]) 5:30 AM [facility] REPOSITORY TYPE CODE TESTS RESULT OUT OF RANGE REFERENCE UNITS LAB L501.0100 74-106 mg/dL High GLU 113 Result Comment: Fasting Glucose result from 100 to 125 mg/dL suggests IMPAIRED HOMEOSTASIS per A.D.A. criteria. Please note revised GLUCOSE reference range effective 2017. LAB L501.1000 7-18 mg/dL Normal BUN 13 LAB L501.1100 0.70-1.30 mg/dL Normal CREAT,SERUM 1.00 Result Comment: The validity of the calculated GFR AND GFRAA in patients over 70 years has not been determined. Clinical correlation is essential. LAB L501.1110 >60 mL/min Normal EST GFR 83 Result Comment: Non- GFR Calc LAB L501.1115 >60 mL/min Normal EST GFR - AA 100 Result Comment: GFR Calc LAB L501.1255 ml/min Normal Estimated CRCL 102.10 LAB L501.1300 10-20 RATIO BUN/CRE Normal 13.0 LAB L501.2200 8.5-10 mg/dL .1 CA Normal 8.7 LAB L501.5300 136-14 mmol/L 5 NA Normal 143 LAB L501.5600 3.5-5. mmol/L 1 K Normal 4.0 LAB L501.5900 98-107 mmol/L CL Normal 107 LAB L501.6100 21.0-3 mmol/L 2.0 CO2 Normal 28.0 LAB L501.6200 5-15 GAP Normal 8 Performed By: #### L500.2500 #### [facility] [address] [place], [address] CBC-COMPLETE BLOOD CNT Collected: 06/12/2018 Status: F Source: [facility] NO DIFF 5:30 AM [facility] REPOSITORY TYPE CODE TESTS RESULT OUT OF RANGE REFERENCE UNITS LAB L100.1000 4.4-11.0 K/mm3 Normal WBC 10.0 LAB L100.1200 4.6-6.2 M/mm3 Low RBC 4.40 LAB L100.1300 13.0-16.5 g/dl Normal HGB 13.3 LAB L100.1400 40-54 % Low HCT 39.5 LAB L100.1500 80-94 fL Normal MCV 89.8 LAB L100.1600 27.0-32.0 pg Normal MCH 30.2 LAB L100.1700 32-36 g/gl Normal MCHC 33.7 LAB L100.1810 11.6-14.6 % Normal RDW CV 12.9 LAB L100.1820 35.1-43.9 fl Normal RDW SD 42.1 LAB L100.1900 150-450 K/mm3 Low PLT 149 LAB L100.2000 6.2-12.0 fl Normal MPV 11.6 Performed By: #### L100.0500 #### [facility] [address] [facility] [place] [place], [address] OPERATIVE REPORT Observed: 06/11/2018 Status: F Source: [place] 6:52 PM [facility] REPOSITORY [facility] Medical Records Department [facility] [place] [address] Operative Report 06/11/18 1228 MR#: [id number] Acct: [id number] Name: AMELIA AVILA Rep #: [id number] : 1965 52 From: Stanislav Colon MD PCP: Ara Pierce MD Status: ADM IN Y Location: [facility] [id number] Report of Operation Date of Procedure: 06/11/18 Pre-Operative Diagnosis: SIGMOID COLON CANCER Post-Operative Diagnosis: SIGMOID COLON CANCER Surgery/Procedure Performed:: LAPAROSCOPIC SIGMOID COLECTOMY WITH SPLENIC FLEXURE MOBILIZARTION, APPENDECTOMY product management internship: Whit Carrero Type of Anesthesia:: General Anesthesiologist: Power Garcia Specimen's removed: RIGHT COLON, APPENDIX Drains: JUAREZ - 450 Estimated Blood Loss (mL): 100 Fluids Replaced: 1500 Description of Procedure: The patient was brought to the operating suite. Sign in was performed verifying patient, site, procedure, position, and DVT prophylaxis with SCDs. Patient received Cefotetan 2gm. Preoperative bowel prep of mechanical and antibiotic comprised of GoLYTELY and then neomycin and Flagyl 1 g 3 doses evening before was given. Following induction of general anesthetic, the patient was placed in a modified lithotomy position and care being taken to or by pressure points in the legs and arms. An upper body strap was placed and a upper body warmer was placed. A Juarez catheter was placed. A rectal washout was performed with dilute Betadine solution. The patient s abdomen and perineal area were then prepped and draped in the usual fashion. Timeout was performed verifying patient, site, position. Local anesthetic was injected above the umbilicus. Incision made and dissection carried down to the umbilical root fascia. 2 stay sutures were placed. Incision made in the fascia, the peritoneum entered under direct visualization. A 10 mm Ramírez trocar was inserted and secured with the stay sutures. Pneumoperitoneum to 15 mmHg was insufflated. 2 5mm ports were placed in the lower midline and later in the left paramedian position and a 10/12 port were placed in the right lower quadrant inferior laterally. Adhesions were taken down using Harmonic scalpel. . Visual inspection revealed a normal-appearing liver with no significant abnormalities. The large bulky tumor was seen in the pelvis with adhesions to the left lower quadrant. These adhesions were taken down sharply and using the Harmonic scalpel. Following this, the somewhat firm areas, which was still on the lateral abdominal wall was dissected and sent for frozen section. This returned as inflammation, but no signs of malignancy. Once this was completed, mobilization the avascular plane was undertaken from the ascending colon down to the area of the mid sigmoid with care taken at mobilization of the level of the iliac vessels then further down to the left lateral rectal peritoneal reflection. As mobilization progressed, the left and right ureters were able to be visualized and manipulated with aerosols assuring that the ureters were intact.. Once this left-sided mobilization was undertaken, a window was made in to the bare area just proximal to the inferior mesenteric vessels As dissection was continued, the MICHELLE branches were identified and ligated with 10 and 5 mm hemoclips and divided with the Harmonic scalpel. Once this was fully divided and surrounded with dissection carried down to the area posterior to the rectum, a 60 mm echelon stapler with a thick load was placed and fired to transect the rectum. A second load was required. I performed an appendectomy dividing the mesoappendix with the Harmonic scalpel and the base of the appendix with the regular load stapler. The appendix was removed the right lower quadrant port site. With full dissection of the mesentery and full mobilization the colon, the umbilical incision was extended and a wound protector placed. The sigmoid colon were delivered through the wound protector. At this point at the planned transection point of the proximal sigmoid colon, the pericolonic were fully mobilized to the margin of the bowel using the harmonic scalpel. The bowel was transected family with a 10 blade scalpel. A 29 mm CEA circular stapler anvil was then placed in the descending colon region and a 2-0 Prolene pursestring suture was used to close the bowel around the anvil. The bowel did not easily make it to the pelvis, so therefore, mobilization splenic flexure using Harmonic Scalpel was completed with the colon being completely mobilized off to rectus fascia/left kidney. This allowed good reaching of the bowel to the pelvis without tension At this point, I proceeded down to the rectum. Rigid proctoscopy was performed after flooding the pelvis with saline. Insufflation demonstrated no leak at the rectal staple line. The staple line was felt to be approximately 17 cm. Next the 29 CEA stapler was lubricated and placed through the rectum up to the staple line. The spike was then opened just anterior to the previous echelon stapler line and the anvil properly seated onto the stapler and brought down to mid gap. The stapler was fired released and withdrawn from the rectum. The proximal and distal doughnuts were noted to be intact. Repeat proctoscopy was again performed again with the pelvis being flooded with saline. Air left in the rectum with insufflation and there was no intra-abdominal leakage noted. The anastomosis was noted to be at 13 cm from the anal verge Gown and gloves were changed. Pneumoperitoneum was released and the umbilical incision was closed with running 0 PDS sutures with the 2 sutures meeting and closed just above the umbilicus. Pneumoperitoneum was reestablished. The right lower quadrant fascial defect was closed with a running 0 PDS suture. Visual inspection revealed no material adhered to the midline closure. The 5mm ports were removed under direct visualization with no signs of bleeding. Pneumoperitoneum was released. Right lower quadrant fascial suture was secured. Subcutaneous tissue at the level of the umbilicus reapproximated with interrupted 3-0 Vicryl sutures. Skin was closed with interrupted and running 4-0 Monocryl subcuticular sutures. Steri-Strips and bandages were applied. 06/11/181851 <Electronically signed by Stanislav Colon MD> Date Stanislav Colon MD CC: Ara Pierce MD; Stanislav Colon MD Signed COLON (NEOPLASM) Observed: 06/11/2018 Status: F Source: [place] 12:34 PM [facility] REPOSITORY Patient: AMELIA AVILA : 1965 (52/M) Acct Num: [id number] Phys: Stanislav Colon MD Unit Num: [id number] Loc: MS2 [id number] Specimen: [id number] Received: 06/11/18 - 1234 Spec Type: COLON TISSUES 1 TISSUES: A. Colon, NOS B. Colon Donuts C. Colon Donuts COMMENT A. The largest focus of metastatic carcinoma in a lymph node measures 1.6cms in greatest dimension-. Extranodal extension is noted. Many of the lymph nodes are completely replaced by the metastatic tumor. Please make reference to previous specimen from [facility] ([id number]), colon mass at 40 cm, biopsy with diagnosis of invasive moderately differentiated adenocarcinoma. Case has been reviewed in consultation with Dr. Caro who concurs with the above diagnosis. IDC:SJ GROSS DESCRIPTION A - Received in fixative is one container labeled with the patient's name and designated sigmoid colon and appendix. The specimen consists of a 30 cm segment of bowel with attached fibrofatty tissue. The bowel has been opened along one aspect near metallic tracer clip. Located 6 cm from one stapled end is a firm, poon-pink lesion measuring 2 x 1.5 cm. The remainder of the bowel mucosa is light poon in color and contains normal rugal folds. No other mucosal mass lesions are identified. The serosal surface in the area of the mass is inked in black ink. Present free in the container is a vermiform appendix measuring 5.5 cm in length and 0.7 cm in average diameter. Sections do not reveal mass lesion. The lumen is patent. No perforations are seen. The specimen is left for overnight fixation. / AM: 06/11/18 After fixation, the mass is serially sectioned. Serial sections reveal involvement of subserosal fatty tissue by mass. No other mass lesions are identified. The attached fibrofatty tissue contains a number of firm nodules resembling lymph nodes. Fitness Sales Consultant sections are submitted in 12 cassettes as follows: 1 - proximal and distal mucosal margins (proximal margin inked black), 2-5 - tumor with serosal surface inked, 6 - one nodule bisected, 7 - one nodule bisected, 8 - fulfillment representative section of one large lymph node, 9-12 - multiple lymph nodes. / AM: 06/12/18 B - Received in fixative is one container labeled with the patient's name and designated proximal donut. The specimen consists of a mucosal donut measuring 2 cm in diameter and 1 cm in length. No mucosal mass lesions are identified. Fitness Sales Consultant sections are submitted in one cassette. / AM: 06/11/18 C - Received in fixative is one container labeled with the patient's name and designated distal donut. The specimen consists of a mucosal donut measuring 2 cm in diameter and 1.3 cm in length. No mucosal mass lesions are identified. Fitness Sales Consultant sections are submitted in one cassette. / AM: 06/11/18 TC:0 CPT: 56774, 37850 x2 HEADER OPERATION: Laparoscopic sigmoid colectomy with resection, appendectomy PRE-OP DIAGNOSIS: Cancer of sigmoid colon TISSUE SUBMITTED: A - Sigmoid colon, appendix, B - Proximal donut, C - Distal donut MICROSCOPIC DESCRIPTION Slides are reviewed. MICROSCOPIC DIAGNOSIS A. Sigmoid colon and appendix, colectomy and appendectomy: Invasive adenocarcinoma. See cancer summary below. COLON CANCER SUMMARY: Specimen - sigmoid colon and appendix Procedure - Sigmoidectomy and appendectomy Specimen length - 37 cm, appendix 5.5 cm in length and 0.7 cm in diameter Tumor site - sigmoid colon Tumor size - 2 x 1.5 cm Macroscopic tumor perforation - not identified Histologic type - adenocarcinoma Histologic grade - low grade (moderately differentiated) Histologic features suggestive of Microsatellite Instability: Intratumoral lymphocytic response - tumor infiltrating lymphocyte (mild) Peritumoral lymphocytic response (Crohn-like) - none Tumor subtype and differentiation: Mucinous tumor component - not identified Medullary tumor component - not identified High histologic grade - poorly differentiated. Microscopic tumor extension - tumor invades through the muscularis propria into subserosal adipose tissue. Margins: Proximal margin - free of tumor Distal margin - free of tumor Circumferential margin - tumor deposit is present at the inked circumferential resection margin. The tumor is 6 cm away from the closest axial resection margin (staple end) . Treatment effect - no known presurgical therapy. Lymph-Vascular invasion - not identified Perineural invasion - not identified Tumor deposits - present Number of tumor deposits - 4 Type of polyp in which invasive carcinoma arose - none identified Lymph nodes: Number of lymph nodes examined - 19 Number of lymph nodes involved - 12 Distant metastasis - unknown Additional findings - appendix with no gross abnormality. Ancillary studies: See microsatellite instability study by IHC ([id number]) for complete details. Negative (no loss of mismatch protein; no microsatellite instability detected). Immunohistochemistry Studies for Mismatch Repair Proteins: MLH1 - Intact nuclear positivity, tumor cells, focal MSH2 - Intact nuclear positivity, tumor cells, focal MSH6 - Intact nuclear positivity, tumor cells, focal PMS2 - Intact nuclear positivity, tumor cells PATHOLOGIC STAGE: pT3 pN2b Mx The above summary is in compliance with [employer] [place] [employer] (CAP) Cancer Protocols Checklist and [place] Joint Committee on Cancer (AJCC), Staging Manual, 8th Ed. B. Proximal donut: Colonic donut, no pathologic diagnosis. C. Distal donut: Colonic donut with mucosal congestion and hemorrhage. SJ:andrew 06/16/18 Signed Rayo Scott, DO 06/19/18 <signature on file> Performed By: #### PCOL. #### [facility] [address] [place], [address] BEDSIDE GLUCOSE Collected: 06/11/2018 Status: F Source: [place] 6:24 AM [facility] REPOSITORY TYPE CODE TESTS RESULT OUT OF REFERENCE UNITS RANGE LAB L501.080 70-110 mg/dL High BEDSIDE GLU 121 Result Comment: MANAGEMENT OF PATIENT CARE PER NURSING PROTOCOL Performed By: #### L501.080 #### [facility] Point of Care [address] [place], [place] [address] CNOP Observed: 06/11/2018 Status: COMPLETED Source: [place] 12:00 AM [facility] REPOSITORY Operative Note (Enc) (GENSWS) Progress Notes: Stanislav Colon MD 06/15/2018 7:07 AM Signed OPERATIVE NOTATION FOR [facility] SURGICAL PROCEDURE. June 11, 2018 Amelia Avila 1965 [id number] male PROCEDURE: laparoscopic appendectomy - 22286-974, Laparoscopic Low Anterior Resection - 72132-232 and Lap Mobilization of the Splenic Flexure - [phone] SURGEON: Abbi Colon M.D. FACS MACHINE HELPER: None DEPT: WQ PROVIDER: [id number] Colon MD POS: [id number] DIAGNOSIS: (C18.7) Cancer of sigmoid colon (HCC) (primary encounter diagnosis) ASA CLASS: 2 - mild FINDINGS: COMPLICATIONS: None PMHx - PAST MEDICAL HISTORY Diagnosis Date - Allergic rhinitis - DDD (degenerative disc disease), lumbar - Kidney stone - Prediabetes COMORBIDITIES - None Post Op Occurrences - None Wound Classification - Clean Contaminated Operative note dictated in the [facility] dictation system. Stanislav Colon MD Encounter Status:Closed by STANISLAV COLON MD on 06/15/18 IMMUNOHISTOCHEMISTRY Observed: 06/11/2018 Status: F Source: [place] 12:00 AM [facility] REPOSITORY Patient: AMELIA AVILA : 1965 (52/M) Acct Num: [id number] Phys: Stanislav Colon MD Unit Num: [id number] Loc: MS2 [id number] Specimen: [id number] Received: 06/13/18 - 8195 Spec Type: IMMUNO TISSUES 1 TISSUES: A. Sigmoid colon biopsy SPECIMEN INFORMATION: Tissue Source: A - Sigmoid colon, appendix Clinical Info: Sigmoid colon cancer Specimen Number: [id number] CPT code: 21297, 14144 x6 METHODOLOGY: Deparaffinized sections of prefer/formalin-fixed tissue or PAP/DQ stained slides are incubated with monoclonal/polyclonal antibodies/oligonucleotide probes. Localization is made via biotin free immunoperoxidase method. Appropriate controls are performed and reacted as expected. Results on target cell population are indicated in the following table: RESULTS: ANTIBODY / CLONE RESULT Block A3 Ki-67 (30-9) positive, high P53 (DO-7) negative JORDAN-2 (SP21) positive MLH-1 (M1) positive, focal MSH2 (25D12) positive, focal MSH6 (44) positive, focal PMS2 (MVU1282) positive These tests were developed and their performance characteristics determined by [facility]. They may not have been cleared or approved by the U.S. Food and Drug Administration. The FDA has determined that such clearance or approval is not necessary. INTERPRETATION: A. Sigmoid colon: Invasive adenocarcinoma. Result of Microsatellite Instability Study: Negative (no loss of mismatch protein; no microsatellite instability detected). SJ:andrew 06/18/18 Case has been reviewed in consultation with Dr. Caro who concurs with the above diagnosis. IDC:[facility] [address] [address] Signed Rayo Chavez, DO 06/19/18 <signature on file> Performed By: #### PIMM #### [facility] [address] [place] [address]. [place], [address] PROGRESS Observed: 06/04/2018 Status: COMPLETED Source: [place] 5:17 PM [facility] REPOSITORY HNO ID: [id number] Author: Stanislav Colon Service: (none) Author Type: Physician Type: Progress Notes Filed: 06/04/2018 5:18 PM Note Text: HISTORY AND PHYSICAL - COLON RESECTION FOR SIGMOID COLON CANCER Amelia Avila 1965 May 22, 2018 REFERRING PHYSICIAN: Zechariah Lopez (Refrigeration Systems Installer), APR* CHIEF COMPLAINT: Colon cancer HPI: The patient is a 52 year old male with a finding of a sigmoid colon cancer. The patient is a 52 year old male referred for endoscopy and seen by my physician's pizza hut assistant Sandy JOSEPH. Imed notes no history of colon complaints. He states he had one isolated episode of bright red rectal bleeding which he attributed to a hemorrhoid as it occurred after some constipation and straining. Denies any bleeding before or since that time. Denies any changes in bowel habits, abdominal pain or black tarry stools. He notes rare acid reflux which is relieved by [id number]-[id number] antacids. Amelia has not undergone prior endoscopy. The patient is being seen by Sandy today at the request of Zechariah Lopez CNP on April 24, 2018. The patient underwent colonoscopy on May 20, 2018 which demonstrated 4 polyps located in the cecum, proximal transverse colon, 50 cm and 20 cm. Unfortunately, there was an irregular ulcerated lesion located was felt to be within the mid sigmoid colon at approximately 40 cm. Multiple biopsies were performed, the site was tattooed, and a marker clip was placed. Postprocedure KUB was obtained which demonstrated the clip to be in the mid sigmoid colon. Pathology returned as: Specimen originated from [facility] Specimen #: [id number] Submitting Physician: STANISLAV COLON ([id number]) FINAL DIAGNOSIS 1. Cecal polyp, biopsy (A) - Tubular adenoma. 2. Proximal transverse colon polyp, biopsy (B) - Tubular adenoma. 3. Colon polyp at 50 cm, biopsy (C) - Tubular adenoma. 4. Colon mass at 40 cm, biopsy (D) - Invasive moderately differentiated adenocarcinoma. 5. Colon polyp at 20 cm, biopsy (E) - Tubular adenoma. JEL/dss 05/22/2018 As I was comfortable at the time of endoscopy this was in fact invasive cancer, preoperative laboratory studies and a CT scan were obtained. These demonstrated: Admission on 05/20/2018, Discharged on 05/20/2018 Component Date Value - Detail Assembler 05/20/2018 Value: Specimen originated from [facility] Specimen #: [id number] Submitting Physician: STANISLAV COLON ([id number]) FINAL DIAGNOSIS 1. Cecal polyp, biopsy (A) - Tubular adenoma. 2. Proximal transverse colon polyp, biopsy (B) - Tubular adenoma. 3. Colon polyp at 50 cm, biopsy (C) - Tubular adenoma. 4. Colon mass at 40 cm, biopsy (D) - Invasive moderately differentiated adenocarcinoma. 5. Colon polyp at 20 cm, biopsy (E) - Tubular adenoma. JEL/dss 05/22/2018 Maureen Anderson M.D. (Electronic Signature) SPECIMEN SUBMITTED A: CECUM POLYP B: PROXIMAL TRANSVERSE COLON POLYP C: COLON, POLYP AT 50CM D: COLON, BIOPSY AT 40CM E: COLON, POLYP AT 20CM CLINICAL DATA A-C, E: HOT SNARE GROSS DESCRIPTION A. Received in formalin is one piece of poon, soft tissue measuring 0.2 x 0.2 x 0.2 cm. To tally submitted in one cassette. B. Received in formalin are four pieces of poon, soft tissue aggregating to 1.4 x 0.2 x 0.1 cm. Totally submitted in one cassette. C. Received in formalin is a poon polypoid segment of tissue measuring 0.5 x 0.4 x 0.3 cm. No stalk is noted. The line of resection is noted. Specimen is bisected. Totally submitted in one cassette. D. Received in formalin are six pieces of poon, soft tissue aggregating to 2.0 x 0.3 x 0.2 cm. Totally submitted in one cassette. E. Received in formalin are five pieces of poon, soft tissue aggregating to 1.2 x 0.2 x 0.2 cm. Totally submitted in one cassette. Gross examination performed at [facility], [address] [place] [address] NM 05/21/2018 9:57:38 AM Date of Report: 05/22/2018 Date of Procedure: 05/20/2018 Date of Receipt: 05/20/2018 Submitted by: STANISLAV COLON ([id number]) Location: [facility] Diagnostic interpretation performed at [facility], [address] [place] [address]. Appointment on 05/20/2018 Component Date Value - WBC 05/20/2018 4.54 - RBC 05/20/2018 5.07 - Hemoglobin 05/20/2018 15.1 - Hematocrit 05/20/2018 46.7 - MCV 05/20/2018 92.1 - MCH 05/20/2018 29.8 - MCHC 05/20/2018 32.3 - RDW-CV 05/20/2018 13.1 - Platelet Count 05/20/2018 145* - MPV 05/20/2018 11.5 - Neut% 05/20/2018 64.1 - Abs Neut (ANC) 05/20/2018 2.90 - Lymph% 05/20/2018 24.7 - Abs Lymph 05/20/2018 1.12 - [place]rier% 05/20/2018 9.9 - Abs [place] 05/20/2018 0.45 - Eosin% 05/20/2018 0.9 - Abs Eosin 05/20/2018 0.04 - Baso% 05/20/2018 0.4 - Abs Baso 05/20/2018 <0.03 - Nucleated Reds 05/20/2018 0.0 - Absolute nRBC 05/20/2018 <0.01 - Diff Type 05/20/2018 Auto Diff - Protein, Total 05/20/2018 6.3 - Albumin 05/20/2018 4.2 - Calcium 05/20/2018 9.7 - Bilirubin, Total 05/20/2018 0.6 - Alkaline Phosphatase 05/20/2018 49 - AST 05/20/2018 27 - Glucose 05/20/2018 112* - BUN 05/20/2018 12 - Creatinine 05/20/2018 0.95 - Sodium 05/20/2018 140 - Potassium 05/20/2018 4.3 - Chloride 05/20/2018 102 - CO2 05/20/2018 29 - Anion Gap 05/20/2018 9 - ALT 05/20/2018 27 - eGFR- 05/20/2018 >60 - eGFR-All Other Races 05/20/2018 >60 - CEA 05/20/2018 5.4* CT scan of the chest abdomen and pelvis is still currently pending. My impression was I saw no specific chest abnormalities. There was a small lesion in the liver that I felt was most likely a cyst but I could not truly characterize this. I saw no other specific intra-abdominal abnormalities. Final CT report: IMPRESSION: CHEST: NO METASTATIC DISEASE IN THE CHEST. ABDOMEN AND PELVIS: MULTIPLE PERITONEAL SOFT TISSUE NODULES SUSPICIOUS FOR PERITONEAL CARCINOMATOSIS. ?MANY OF THESE ARE AMENABLE TO PERCUTANEOUS BIOPSY IF CLINICALLY INDICATED. ENLARGED PROSTATE, CORRELATE WITH PSA LEVEL. Last Putter Away: RODOLFO ? Transcribe Date/Time: May ?2017 ?3:44P Dictated by : JOEL HOWELL MD This examination was interpreted and the report reviewed and electronically signed by: JOEL HOWELL MD on May ?4:02PM ?EST Results-Findings * * *Final Report* * * DATE OF EXAM: May 22 2018 12:03PM ? [facility] ? 0530 ?- ?CT ABD/PEL W IVCON ?/ PROCEDURE REASON: Left lower quadrant abdominal mass ?? ? * * * * Physician Interpretation * * * * ?EXAMINATION: ?CT CHEST WITH CONTRAST CT ABDOMEN AND PELVIS WITH CONTRAST HISTORY: ?Sigmoid colon cancer TECHNIQUE: ?Spiral CT acquisition following IV contrast. Contrast: IV: ?150 mL of Omnipaque 300 Oral: ?50 mL of 50ML Omnipaque [address] Radiation dose: Integrated Dose-length product (DLP) for this visit = ? 954 mGy*cm. CT Dose Reduction Employed: Automated exposure control(AEC) and iterative recon COMPARISON: ?CT abdomen/pelvis 12/12/2006 RESULT: Chest: Limitations: ?None. Lines, tubes, and devices: ?None. Lung parenchyma and pleura: ?No consolidation. No suspicious pulmonary nodule. No pleural effusion. Central airways are patent. Thoracic inlet, heart, and mediastinum: ?No lymphadenopathy in the axillary, mediastinal, or hilar regions. The thoracic aorta and main pulmonary artery are normal in caliber. The cardiac chambers are normal in size. No coronary artery atherosclerotic calcifications are noted, although the study is not optimized for coronary assessment. No pericardial effusion or thickening. Bones and soft tissues: ?No destructive bone lesion. Chest wall is unremarkable. Abdomen and pelvis: Liver: 1 cm hepatic dome cyst. ?No suspicious hepatic lesion. Biliary: No bile duct dilation. ?Gallbladder is unremarkable. Spleen: No mass. No splenomegaly. Pancreas: No mass or duct dilation. Adrenals: No mass. Kidneys: 1.5 cm left midpole cyst. ?No calculus or hydronephrosis. Vasculature: ?The celiac axis and SMA are patent. The portal vein and branches, splenic vein, SMV, and hepatic veins are patent. ?No abdominal aortic or iliac artery aneurysm. GI tract: There is focal thickening in the mid sigmoid colon with endoscopically placed clip in place, consistent with the known sigmoid colon cancer. ?Remainder of the large and small bowel is unremarkable. ? Appendix within normal limits. Lymph nodes: No pathologically enlarged abdominal or pelvic lymph nodes. Mesentery/Peritoneum: There are multiple peritoneal based soft tissue nodules, for example: -Partially calcified 1.8 x 1.0 cm soft tissue nodule abutting the expected location of the sigmoid cancer (5:114) -Conglomerate of soft tissue along the peritoneum in the left lower quadrant measuring 4.0 x 1.3 cm (5:89) -Peritoneal based soft tissue mass in the left midabdomen anteriorly measuring 2.9 x 1.5 cm (5:59) Pelvis: Trace pelvic ascites. ?Enlarged prostate. Bones/Soft Tissues: No osseous metastatic disease. The patient returns today to discuss pathology results and plan course of treatment for resection of his colon cancer. I spoke with Dr Leija for consideration of laparoscopy/biopsy and if positive - consideration of resection with intraoperative intraperitoneal chemotherapy. The patient underwent diagnostic laparoscopy at [facility] last . No signs of peritoneal metastases were noted area and the small bowel was run in its entirety. No biopsies were performed. The patient is being seen by me today at the request of Zechariah Lopez ([facility]), APR* my opinion and advice regarding sigmoid colon cancer. PAST MEDICAL HISTORY Diagnosis Date - Allergic rhinitis - DDD (degenerative disc disease), lumbar - Kidney stone - Prediabetes PAST SURGICAL HISTORY Procedure Laterality Date - AMPUTATION FINGER/THUMB accident as a child - COLONOSCOP W/ OR W/O [facility] SPEC 05/20/2018 Colonoscopy - KNEE SCOPE,DIAGNOSTIC 2013 Arthroscopy, knee - PAST SURGICAL HISTORY OF injections in back/nerve ablation - REPAIR OF NASAL SEPTUM 2002 Current Outpatient Prescriptions: tamsulosin ER (FLOMAX) 0.4 mg cap Take 1 capsule by mouth daily at bedtime. Disp: 30 capsule Rfl: 1 No current facility-administered medications for this visit. ALLERGIES: Patient has no known allergies. PERSONAL HISTORY: Social History Marital status: Spouse name: Years of education: Number of children: Social History Main Topics Smoking status: Former Smoker Packs/day: 0.50 Years: 10.00 Types: Cigarettes Smokeless tobacco: Never Used Comment: qit in 1996 Alcohol use: Yes 3.0 - 4.5 oz/week Glasses of Wine (5oz): 2 - 3 per week Drug use: No FAMILY HISTORY: FAMILY HISTORY Problem Relation Age of Onset - Hypertension Mother - Cancer Father LUNG REVIEW OF SYMPTOMS: The review of systems data was entered by the nurse and reviewed by me Nursing Notes: Adele Acevedo RN 04/24/2018 4:17 PM Signed REVIEW OF SYSTEMS: General: The patient denies fatigue, denies weight loss, denies weight gain, denies feeling hot, and denies feelings of cold. Eyes: The patient denies glaucoma, denies eye injury/surgery, wears glasses or contacts. Ear/Nose/Throat: The patient denies allergies, denies hayfever, denies ear infections, and denies bloody noses. Cardiovascular: The patient denies chest pain, denies heart disease, denies high blood pressure,denies cardiac stent, denies prior heart attack, denies irregular heart beat, denies high cholesterol, denies poor circulation, denies heart failure, other cardiac issues, denies claudication, denies cold feet, denies peripheral arterial stent. Respiratory: The patient denies tuberculosis, denies pneumonia, denies frequent cough, denies pulmonary embolism, denies shortness of breath, and denies coughing up blood. Gastrointestinal: The patient denies difficulty swallowing, notes acid reflux, denies ulcers, denies vomiting, denies jaundice/hepatitis, denies gallbladder problems, denies black or tarry stools, denies hemorrhoids, denies bleeding from rectum, denies diverticulitis, denies constipation, denies diarrhea, denies loss of stool control, and denies hernias. Kidney/Bladder: The patient notes kidney stones, denies urine infections, and denies bloody urine. Skin: The patient denies a history of skin cancer, denies bleeding/changing moles, and denies a history of skin rash. Neurologic: The patient denies a history of epilepsy/convulsions, denies headaches, denies head/spinal injuries, and denies stroke/TIA. Psychiatric: The patient denies psychiatric medications, denies depression, and denies voices, denies substance abuse. Endocrine: The patient denies thyroid disorders, denies diabetes, and denies hormonal problems. Hematologic: The patient denies a history of bruising, denies bleeding, and denies anemia, denies blood clots. Infections: The patient denies a history of measles and mumps, denies rheumatic fever, and denies sexually transmitted diseases. Musculoskeletal: The patient denies back pain/injury, notes back problems, denies sciatica, NOTES knee/foot trouble, denies arthritis, or NOTES gout. ? PHYSICAL EXAMINATION: General: The patient is 52 year old male, well nourished, well hydrated in no acute distress. The patient is oriented to time, place, and person. VITALS: BP 114/68 Pulse 87 Temp 36.4 ?C (97.5 ?F) (Temporal Artery) Ht 190.5 cm (6' 3) Wt 99.8 kg (220 lb) SpO2 99% BMI 27.50 kg/m? Body mass index is 27.5 kg/m?. HEENT: Normal cephalic, ataumatic, pupils are equally round, sclera are anicteric, mucous membranes are moist, oropharynx is clear. Neck has no masses, asymmetry or lymphadenopathy. Thyroid is unremarkable. Respiratory: Clear to auscultation and percussion. Normal respiratory excursion and pattern. Cardiac: Examination is regular rate and rhythm. No rubs, murmurs or additional sounds Abdominal exam: Soft, nontender, with no palpable masses. No hepatosplenomegaly. No palpable hernias. Rectal exam: exam deferred Extremities: no clubbing, cyanosis or edema. No adenopathy. LABORATORY VALUES: As Noted RADIOLOGIC STUDIES: As Noted Assessment IMPRESSION: Sigmoid colon cancer, peritoneal nodules PLAN: We will again plan for laparoscopic sigmoid resection as previously discussed.. Diagnoses: (C18.7) Cancer of sigmoid colon (HCC) (primary encounter diagnosis) My findings have been communicated to Zechariahtayo Lopez via shared medical record. This note will be forwarded to Ara Pierce MD. Return to Clinic: The patient is instructed to follow-up with me 1 week postoperatively. Stanislav Colon MD CNOV Observed: 06/03/2018 Status: COMPLETED Source: [facility] 3:50 PM [facility] REPOSITORY Office Visit (GENSWS) AMELIA AVILA ([id number]) 1965 M Date Time Provider Department 06/03/18 3:50 PM STANISLAV COLON During your visit today, we recorded the following information about you: Temperature Pulse Blood pressure Weight 97.5 degrees 87/minute 114/68 99.8 kg Height 1.905 m Stanislav Colon MD 06/03/2018 3:39 PM Signed The following instructions are important for you related to your office visit today with the [facility]. INSTRUCTIONS FOR YOUR SURGICAL PROCEDURE - COLON RESECTION We discussed the risks and benefits of your planned procedure. If you have any additional questions, please contact our office immediately. Preadmission testing is an important part of preparation for your procedure. All laboratory studies, x-rays, and additional testing must be available for the preadmission testing staff to help ready you for surgery. You should not take aspirin or other blood thinners for one week prior to surgery unless instructed differently. You were given handouts with instructions for your bowel preparation. It is important that should follow these instructions closely. If you do not feel you are becoming adequately clean after your bowel preparation, contact our office. Make sure to drink plenty of clear liquids with your bowel cleansing. This well help to better clean your colon and prevent dehydration. Do not eat or drink liquids after midnight. After completing the bowel cleansing, You may be given antibiotic tablets to further prepare your colon. Typically neomycin and flagyl - 1gram orally at: 4pm, 6pm and 10pm are given. The times may be different if surgery is not scheduled for the first case of the day. You should not have anything to eat or drink after midnight the night prior to your surgery. You should wear comfortable clothes for your procedure. Please understand that the operating room schedule is an estimated time for your surgical procedure. Your procedure may be somewhat earlier or somewhat later than the estimated time. You will typically be kept NPO in the hospital until you have return of bowel activity. Once you have return of bowel activity, you will be started on clear liquids and typically will go home the following day. You'll be discharged home with postoperative instructions and typically pain medications. Please be aware that many pain medications may cause nausea. You should typically eat light foods as you take your pain medications. Your dressing will usually be able to be removed two to three days following surgery. You may typically shower three days after surgery. If you have Steri-Strips on your incision (little white tapes) you should leave these in place until they fall off. You will typically have a followup office visit 1 to 2 weeks after surgery. Again, if you have any difficulties or concerns, contact our office immediately. If you note any additional difficulties, questions, or concerns, you should contact our office immediately @ [phone] and ask to be transferred to the General Surgery department. Stanislav Colon MD 06/04/2018 5:18 PM Signed HISTORY AND PHYSICAL - COLON RESECTION FOR SIGMOID COLON CANCER Amelia Avila 1965 May 22, 2018 REFERRING PHYSICIAN: Zechariah Lopez ([facility]), APR* CHIEF COMPLAINT: Colon cancer HPI: The patient is a 52 year old male with a finding of a sigmoid colon cancer. The patient is a 52 year old male referred for endoscopy and seen by my physician's pizza hut assistant Sandy JOSEPH. Amelia notes no history of colon complaints. He states he had one isolated episode of bright red rectal bleeding which he attributed to a hemorrhoid as it occurred after some constipation and straining. Denies any bleeding before or since that time. Denies any changes in bowel habits, abdominal pain or black tarry stools. He notes rare acid reflux which is relieved by [id number] antacids. Amelia has not undergone prior endoscopy. The patient is being seen by Sandy kendall at the request of Zechariah Lopez CNP on April 24, 2018. The patient underwent colonoscopy on May 20, 2018 which demonstrated 4 polyps located in the cecum, proximal transverse colon, 50 cm and 20 cm. Unfortunately, there was an irregular ulcerated lesion located was felt to be within the mid sigmoid colon at approximately 40 cm. Multiple biopsies were performed, the site was tattooed, and a marker clip was placed. Postprocedure KUB was obtained which demonstrated the clip to be in the mid sigmoid colon. Pathology returned as: Specimen originated from [facility] Specimen #: [id number] Submitting Physician: STANISLAV COLON ([id number]) FINAL DIAGNOSIS 1. Cecal polyp, biopsy (A) - Tubular adenoma. 2. Proximal transverse colon polyp, biopsy (B) - Tubular adenoma. 3. Colon polyp at 50 cm, biopsy (C) - Tubular adenoma. 4. Colon mass at 40 cm, biopsy (D) - Invasive moderately differentiated adenocarcinoma. 5. Colon polyp at 20 cm, biopsy (E) - Tubular adenoma. JEL/dss 05/22/2018 As I was comfortable at the time of endoscopy this was in fact invasive cancer, preoperative laboratory studies and a CT scan were obtained. These demonstrated: Admission on 05/20/2018, Discharged on 05/20/2018 Component Date Value - Detail Assembler 05/20/2018 Value: Specimen originated from [facility] Specimen #: [id number] Submitting Physician: STANISLAV COLON ([id number]) FINAL DIAGNOSIS 1. Cecal polyp, biopsy (A) - Tubular adenoma. 2. Proximal transverse colon polyp, biopsy (B) - Tubular adenoma. 3. Colon polyp at 50 cm, biopsy (C) - Tubular adenoma. 4. Colon mass at 40 cm, biopsy (D) - Invasive moderately differentiated adenocarcinoma. 5. Colon polyp at 20 cm, biopsy (E) - Tubular adenoma. JEL/dss 05/22/2018 Maureen Anderson M.D. (Electronic Signature) SPECIMEN SUBMITTED A: CECUM POLYP B: PROXIMAL TRANSVERSE COLON POLYP C: COLON, POLYP AT 50CM D: COLON, BIOPSY AT 40CM E: COLON, POLYP AT 20CM CLINICAL DATA A-C, E: HOT SNARE GROSS DESCRIPTION A. Received in formalin is one piece of poon, soft tissue measuring 0.2 x 0.2 x 0.2 cm. To tally submitted in one cassette. B. Received in formalin are four pieces of poon, soft tissue aggregating to 1.4 x 0.2 x 0.1 cm. Totally submitted in one cassette. C. Received in formalin is a poon polypoid segment of tissue measuring 0.5 x 0.4 x 0.3 cm. No stalk is noted. The line of resection is noted. Specimen is bisected. Totally submitted in one cassette. D. Received in formalin are six pieces of poon, soft tissue aggregating to 2.0 x 0.3 x 0.2 cm. Totally submitted in one cassette. E. Received in formalin are five pieces of poon, soft tissue aggregating to 1.2 x 0.2 x 0.2 cm. Totally submitted in one cassette. Gross examination performed at [facility], [address] [place] [address] NMP 05/21/2018 9:57:38 AM Date of Report: 05/22/2018 Date of Procedure: 05/20/2018 Date of Receipt: 05/20/2018 Submitted by: STANISLAV COLON ([id number]) Location: [facility] Diagnostic interpretation performed at [facility], [address] [place] [address] [place] [address]. Appointment on 05/20/2018 Component Date Value - WBC 05/20/2018 4.54 - RBC 05/20/2018 5.07 - Hemoglobin 05/20/2018 15.1 - Hematocrit 05/20/2018 46.7 - MCV 05/20/2018 92.1 - MCH 05/20/2018 29.8 - MCHC 05/20/2018 32.3 - RDW-CV 05/20/2018 13.1 - Platelet Count 05/20/2018 145* - MPV 05/20/2018 11.5 - Neut% 05/20/2018 64.1 - Abs Neut (ANC) 05/20/2018 2.90 - Lymph% 05/20/2018 24.7 - Abs Lymph 05/20/2018 1.12 - [place]% 05/20/2018 9.9 - Abs [place] 05/20/2018 0.45 - Eosin% 05/20/2018 0.9 - Abs Eosin 05/20/2018 0.04 - Baso% 05/20/2018 0.4 - Abs Baso 05/20/2018 <0.03 - Nucleated Reds 05/20/2018 0.0 - Absolute nRBC 05/20/2018 <0.01 - Diff Type 05/20/2018 Auto Diff - Protein, Total 05/20/2018 6.3 - Albumin 05/20/2018 4.2 - Calcium 05/20/2018 9.7 - Bilirubin, Total 05/20/2018 0.6 - Alkaline Phosphatase 05/20/2018 49 - AST 05/20/2018 27 - Glucose 05/20/2018 112* - BUN 05/20/2018 12 - Creatinine 05/20/2018 0.95 - Sodium 05/20/2018 140 - Potassium 05/20/2018 4.3 - Chloride 05/20/2018 102 - CO2 05/20/2018 29 - Anion Gap 05/20/2018 9 - ALT 05/20/2018 27 - eGFR- 05/20/2018 >60 - eGFR-All Other Races 05/20/2018 >60 - CEA 05/20/2018 5.4* CT scan of the chest abdomen and pelvis is still currently pending. My impression was I saw no specific chest abnormalities. There was a small lesion in the liver that I felt was most likely a cyst but I could not truly characterize this. I saw no other specific intra-abdominal abnormalities. Final CT report: IMPRESSION: CHEST: NO METASTATIC DISEASE IN THE CHEST. ABDOMEN AND PELVIS: MULTIPLE PERITONEAL SOFT TISSUE NODULES SUSPICIOUS FOR PERITONEAL CARCINOMATOSIS. ?MANY OF THESE ARE AMENABLE TO PERCUTANEOUS BIOPSY IF CLINICALLY INDICATED. ENLARGED PROSTATE, CORRELATE WITH PSA LEVEL. Last Putter Away: PSCB ? Transcribe Date/Time: May ?3:44P Dictated by : JOEL HOWELL MD This examination was interpreted and the report reviewed and electronically signed by: JOEL HOWELL MD on May ?4:02PM ?EST Results-Findings * * *Final Report* * * DATE OF EXAM: May 22 2018 12:03PM ? [facility] ? 0530 ?- ?CT ABD/PEL W IVCON ?/ PROCEDURE REASON: Left lower quadrant abdominal mass ?? ? * * * * Physician Interpretation * * * * ?EXAMINATION: ?CT CHEST WITH CONTRAST CT ABDOMEN AND PELVIS WITH CONTRAST HISTORY: ?Sigmoid colon cancer TECHNIQUE: ?Spiral CT acquisition following IV contrast. Contrast: IV: ?150 mL of Omnipaque 300 Oral: ?50 mL of 50ML Omnipaque 240 W 850ML Water CT Radiation dose: Integrated Dose-length product (DLP) for this visit = ? 954 mGy*cm. CT Dose Reduction Employed: Automated exposure control(AEC) and iterative recon COMPARISON: ?CT abdomen/pelvis 12/12/2006 RESULT: Chest: Limitations: ?None. Lines, tubes, and devices: ?None. Lung parenchyma and pleura: ?No consolidation. No suspicious pulmonary nodule. No pleural effusion. Central airways are patent. Thoracic inlet, heart, and mediastinum: ?No lymphadenopathy in the axillary, mediastinal, or hilar regions. The thoracic aorta and main pulmonary artery are normal in caliber. The cardiac chambers are normal in size. No coronary artery atherosclerotic calcifications are noted, although the study is not optimized for coronary assessment. No pericardial effusion or thickening. Bones and soft tissues: ?No destructive bone lesion. Chest wall is unremarkable. Abdomen and pelvis: Liver: 1 cm hepatic dome cyst. ?No suspicious hepatic lesion. Biliary: No bile duct dilation. ?Gallbladder is unremarkable. Spleen: No mass. No splenomegaly. Pancreas: No mass or duct dilation. Adrenals: No mass. Kidneys: 1.5 cm left midpole cyst. ?No calculus or hydronephrosis. Vasculature: ?The celiac axis and SMA are patent. The portal vein and branches, splenic vein, SMV, and hepatic veins are patent. ?No abdominal aortic or iliac artery aneurysm. GI tract: There is focal thickening in the mid sigmoid colon with endoscopically placed clip in place, consistent with the known sigmoid colon cancer. ?Remainder of the large and small bowel is unremarkable. ? Appendix within normal limits. Lymph nodes: No pathologically enlarged abdominal or pelvic lymph nodes. Mesentery/Peritoneum: There are multiple peritoneal based soft tissue nodules, for example: -Partially calcified 1.8 x 1.0 cm soft tissue nodule abutting the expected location of the sigmoid cancer (5:114) -Conglomerate of soft tissue along the peritoneum in the left lower quadrant measuring 4.0 x 1.3 cm (5:89) -Peritoneal based soft tissue mass in the left midabdomen anteriorly measuring 2.9 x 1.5 cm (5:59) Pelvis: Trace pelvic ascites. ?Enlarged prostate. Bones/Soft Tissues: No osseous metastatic disease. The patient returns today to discuss pathology results and plan course of treatment for resection of his colon cancer. I spoke with Dr Leija for consideration of laparoscopy/biopsy and if positive - consideration of resection with intraoperative intraperitoneal chemotherapy. The patient underwent diagnostic laparoscopy at [facility] last . No signs of peritoneal metastases were noted area and the small bowel was run in its entirety. No biopsies were performed. The patient is being seen by me today at the request of Zechariah Lopez ([facility]), APR* my opinion and advice regarding sigmoid colon cancer. PAST MEDICAL HISTORY Diagnosis Date - Allergic rhinitis - DDD (degenerative disc disease), lumbar - Kidney stone - Prediabetes PAST SURGICAL HISTORY Procedure Laterality Date - AMPUTATION FINGER/THUMB accident as a child - COLONOSCOP W/ OR W/O [facility] SPEC 05/20/2018 Colonoscopy - KNEE SCOPE,DIAGNOSTIC 2014 Arthroscopy, knee - PAST SURGICAL HISTORY OF injections in back/nerve ablation - REPAIR OF NASAL SEPTUM 2002 Current Outpatient Prescriptions: tamsulosin ER (FLOMAX) 0.4 mg cap Take 1 capsule by mouth daily at bedtime. Disp: 30 capsule Rfl: 1 No current facility-administered medications for this visit. ALLERGIES: Patient has no known allergies. PERSONAL HISTORY: Social History Marital status: Spouse name: Years of education: Number of children: Social History Main Topics Smoking status: Former Smoker Packs/day: 0.50 Years: 10.00 Types: Cigarettes Smokeless tobacco: Never Used Comment: qit in 1996 Alcohol use: Yes 3.0 - 4.5 oz/week Glasses of Wine (5oz): 2 - 3 per week Drug use: No FAMILY HISTORY: FAMILY HISTORY Problem Relation Age of Onset - Hypertension Mother - Cancer Father LUNG REVIEW OF SYMPTOMS: The review of systems data was entered by the nurse and reviewed by mo Nursing Notes: Adele Acevedo RN 04/24/2018 4:17 PM Signed REVIEW OF SYSTEMS: General: The patient denies fatigue, denies weight loss, denies weight gain, denies feeling hot, and denies feelings of cold. Eyes: The patient denies glaucoma, denies eye injury/surgery, wears glasses or contacts. Ear/Nose/Throat: The patient denies allergies, denies hayfever, denies ear infections, and denies bloody noses. Cardiovascular: The patient denies chest pain, denies heart disease, denies high blood pressure,denies cardiac stent, denies prior heart attack, denies irregular heart beat, denies high cholesterol, denies poor circulation, denies heart failure, other cardiac issues, denies claudication, denies cold feet, denies peripheral arterial stent. Respiratory: The patient denies tuberculosis, denies pneumonia, denies frequent cough, denies pulmonary embolism, denies shortness of breath, and denies coughing up blood. Gastrointestinal: The patient denies difficulty swallowing, notes acid reflux, denies ulcers, denies vomiting, denies jaundice/hepatitis, denies gallbladder problems, denies black or tarry stools, denies hemorrhoids, denies bleeding from rectum, denies diverticulitis, denies constipation, denies diarrhea, denies loss of stool control, and denies hernias. Kidney/Bladder: The patient notes kidney stones, denies urine infections, and denies bloody urine. Skin: The patient denies a history of skin cancer, denies bleeding/changing moles, and denies a history of skin rash. Neurologic: The patient denies a history of epilepsy/convulsions, denies headaches, denies head/spinal injuries, and denies stroke/TIA. Psychiatric: The patient denies psychiatric medications, denies depression, and denies voices, denies substance abuse. Endocrine: The patient denies thyroid disorders, denies diabetes, and denies hormonal problems. Hematologic: The patient denies a history of bruising, denies bleeding, and denies anemia, denies blood clots. Infections: The patient denies a history of measles and mumps, denies rheumatic fever, and denies sexually transmitted diseases. Musculoskeletal: The patient denies back pain/injury, notes back problems, denies sciatica, NOTES knee/foot trouble, denies arthritis, or NOTES gout. ? PHYSICAL EXAMINATION: General: The patient is 52 year old male, well nourished, well hydrated in no acute distress. The patient is oriented to time, place, and person. VITALS: BP 114/68 Pulse 87 Temp 36.4 ?C (97.5 ?F) (Temporal Artery) Ht 190.5 cm (6' 3) Wt 99.8 kg (220 lb) SpO2 99% BMI 27.50 kg/m? Body mass index is 27.5 kg/m?. HEENT: Normal cephalic, ataumatic, pupils are equally round, sclera are anicteric, mucous membranes are moist, oropharynx is clear. Neck has no masses, asymmetry or lymphadenopathy. Thyroid is unremarkable. Respiratory: Clear to auscultation and percussion. Normal respiratory excursion and pattern. Cardiac: Examination is regular rate and rhythm. No rubs, murmurs or additional sounds Abdominal exam: Soft, nontender, with no palpable masses. No hepatosplenomegaly. No palpable hernias. Rectal exam: exam deferred Extremities: no clubbing, cyanosis or edema. No adenopathy. LABORATORY VALUES: As Noted RADIOLOGIC STUDIES: As Noted Assessment IMPRESSION: Sigmoid colon cancer, peritoneal nodules PLAN: We will again plan for laparoscopic sigmoid resection as previously discussed.. Diagnoses: (C18.7) Cancer of sigmoid colon (HCC) (primary encounter diagnosis) My findings have been communicated to Zechariah Lopez via shared medical record. This note will be forwarded to Ara Pierce MD. Return to Clinic: The patient is instructed to follow-up with me 1 week postoperatively. Stanislav Colon MD Referring Provider: ARA PIERCE [[id number]] Allergies As of Date: 06/03/2018 (No Known Allergies) Date Reviewed: 06/03/2018 Reviewed by: Jan Monroe LPN - Fully Assessed Reason for Visit: Post Op [174] Cmt: Post op diagnostic laparotomy Reason For Visit History Recorded Primary Visit Diagnosis:Cancer of sigmoid colon (HCC) [C18.7] Prescriptions as of 06/03/2018 Sig: TAMSULOSIN 0.4 MG CAPSULE Take 1 capsule by mouth daily* Problem List As Of Date 06/03/2018 Noted Resolved ESOPHAGEAL REFLUX [K21.9] INVALID FOR* OTHER LUNG DISEASE NEC [J98.4] INVALID FOR* CALCULUS OF URETER [N20.1] INVALID FOR* Impaired Fasting Glucose [R73.01] INVALID FOR* DDD (Degenerative Disc Disease), Lumbar [M51.36]INVALID FOR* Prediabetes [R73.03] INVALID FOR*05/07/2016 Hyperlipidemia [E78.5] INVALID FOR* Chronic bilateral low back pain without sciatic*INVALID FOR* Spondylosis of lumbar region without myelopathy*INVALID FOR* Discogenic low back pain [M51.36] INVALID FOR* More... Annular tear of lumbar disc [M51.36] INVALID FOR* More... Colon cancer (HCC) [C18.9] INVALID FOR* More... Other instructions from your clinician: The following instructions are important for you related to your office visit today with the [facility]. INSTRUCTIONS FOR YOUR SURGICAL PROCEDURE - COLON RESECTION We discussed the risks and benefits of your planned procedure. If you have any additional questions, please contact our office immediately. Preadmission testing is an important part of preparation for your procedure. All laboratory studies, x-rays, and additional testing must be available for the preadmission testing staff to help ready you for surgery. You should not take aspirin or other blood thinners for one week prior to surgery unless instructed differently. You were given handouts with instructions for your bowel preparation. It is important that should follow these instructions closely. If you do not feel you are becoming adequately clean after your bowel preparation, contact our office. Make sure to drink plenty of clear liquids with your bowel cleansing. This well help to better clean your colon and prevent dehydration. Do not eat or drink liquids after midnight. After completing the bowel cleansing, You may be given antibiotic tablets to further prepare your colon. Typically neomycin and flagyl - 1gram orally at: 4pm, 6pm and 10pm are given. The times may be different if surgery is not scheduled for the first case of the day. You should not have anything to eat or drink after midnight the night prior to your surgery. You should wear comfortable clothes for your procedure. Please understand that the operating room schedule is an estimated time for your surgical procedure. Your procedure may be somewhat earlier or somewhat later than the estimated time. You will typically be kept NPO in the hospital until you have return of bowel activity. Once you have return of bowel activity, you will be started on clear liquids and typically will go home the following day. You'll be discharged home with postoperative instructions and typically pain medications. Please be aware that many pain medications may cause nausea. You should typically eat light foods as you take your pain medications. Your dressing will usually be able to be removed two to three days following surgery. You may typically shower three days after surgery. If you have Steri-Strips on your incision (little white tapes) you should leave these in place until they fall off. You will typically have a followup office visit 1 to 2 weeks after surgery. Again, if you have any difficulties or concerns, contact our office immediately. If you note any additional difficulties, questions, or concerns, you should contact our office immediately @ [phone] and ask to be transferred to the General Surgery department. Encounter Status:Closed by STANSILAV COLON MD on 06/04/18 PT ED Observed: 05/29/2018 Status: COMPLETED Source: [place] 3:11 PM [facility] REPOSITORY HNO ID: [id number] Author: Ann Marie SantiagoRn) ANDRE Benton Service: Nursing Author Type: Registered Nurse Type: Patient Education Filed: 05/29/2018 3:11 PM Note Text: PATIENT EDUCATION TOPIC: PROCEDURE / SURGERY: Post-op Teaching: Symptom Management PATIENT NAME: Amelia Avila PATIENT LOCATION: M022 [id number] READINESS TO LEARN COGNITIVE ABILITY: Alert and oriented MOTIVATION TO LEARN: Eager FAMILY SUPPORT: High - Very involved in pt care INSTRUCTION PROVIDED TO: Patient and family member PATIENT LEARNS BEST BY: Individual Instruction Written Instruction - Hand-outs Verbal Instruction FACTORS AFFECTING LEARNING: None PHYSICAL LIMITATIONS AFFECTING LEARNING: None LEARNING RESPONSE DIAGNOSIS: ADULT: Well Adult PATIENT/FAMILY RESPONSE: Information received as demonstrated by interest and questions METHOD OF INSTRUCTION: Individual instruction Written instruction - handouts FOLLOW-UP PLAN: Patient instructed to call with any further issues Follow up phone call. INSTRUCTIONAL AIDS USED: NA SUPPLEMENTAL MATERIAL PROVIDED TO PATIENT: None REFERRAL (RECOMMENDATION): None Electronically Signed By: Ann Marie Benton RN ANES POST Observed: 05/29/2018 Status: COMPLETED Source: [place] 2:38 PM [facility] REPOSITORY [facility] ID: [id number] Author: True Neely Service: Anesthesiology Author Type: Anesthesiologist Type: Anesthesia PostOp Filed: 05/29/2018 2:39 PM Note Text: POST ANESTHESIA EVALUATION NOTE SERVICE DATE: 05/29/2018 SERVICE TIME: 2:39 PM : 1965 Vitals: 05/29/18 0844 05/29/18 1252 05/29/18 1345 05/29/18 1420 Temp: 36.1 ?C (97 ?F) 36.1 ?C (97 ?F) 36.1 ?C (97 ?F) 36.2 ?C (97.2 ?F) 05/29/18 1330 05/29/18 1345 05/29/18 1400 05/29/18 1420 BP: 145/81 135/85 131/80 128/77 05/29/18 1330 05/29/18 1345 05/29/18 1400 05/29/18 1420 Pulse: 60 (!) 58 60 62 05/29/18 1330 05/29/18 1345 05/29/18 1400 05/29/18 1420 Resp: 15 15 15 15 05/29/18 1330 05/29/18 1345 05/29/18 1400 05/29/18 1420 SpO2: 97% 99% 97% 97% Validated Vital Signs: Yes POST ANES STATUS: No apparent anesthetic complications. The patient is appropriately hydrated with stable respiratory and cardiovascular status. Patient has safe and adequate airway control. The patient has appropriate pain relief and no significant post operative nausea or vomiting. The patient has achieved baseline mental status. Intra-Operative Events: See the [facility] record for the event detail Further assessment by Anesthesia Service: None Other Remarks: SIGNATURE: True Neely MD PATIENT NAME: Amelia Avila DATE: May 29, 2018 TIME: 2:38 PM PAGER/CONTACT #: [phone] NURSING PROG Observed: 05/29/2018 Status: COMPLETED Source: WENDEL 2:32 PM [facility] REPOSITORY HNO ID: [id number] Author: Rachid (Rn) ANDRE Macdonald Service: (none) Author Type: Registered Nurse Type: Nursing Progress Note Filed: 05/29/2018 2:32 PM Note Text: PATIENT EDUCATION TOPIC: PROCEDURE / SURGERY: Post-op Teaching: Med Administration and Symptom Management PATIENT NAME: Amelia Avila PATIENT LOCATION: [place] [address] READINESS TO LEARN COGNITIVE ABILITY: Alert and oriented MOTIVATION TO LEARN: Eager FAMILY SUPPORT: High - Very involved in pt care INSTRUCTION PROVIDED TO: Patient and Family member PATIENT LEARNS BEST BY: Individual Instruction Written Instruction - Hand-outs FACTORS AFFECTING LEARNING: None PHYSICAL LIMITATIONS AFFECTING LEARNING: None LEARNING RESPONSE DIAGNOSIS: ADULT: Well Adult PATIENT/FAMILY RESPONSE: Verbalizes understanding of: POST-OPERATIVE INSTRUCTIONS-Correct actions to take to reduce postoperative complications POST-PROCEDURE INSTRUCTIONS-Correct actions to take to reduce post procedure complications METHOD OF INSTRUCTION: Individual instruction FOLLOW-UP PLAN: Complete - No need for follow-up Patient instructed to call with any further issues INSTRUCTIONAL AIDS USED: NA SUPPLEMENTAL MATERIAL PROVIDED TO PATIENT: None REFERRAL (RECOMMENDATION): None Electronically Signed By: Rachid Macdonald RN PLAN OF CARE Observed: 05/29/2018 Status: COMPLETED Source: [place]EN[place] 1:45 PM [facility] REPOSITORY HNO ID: [id number] Author: Johana Hayward (Tube Buffer) Service: (none) Author Type: (none) Type: Plan of Care Filed: 05/29/2018 1:45 PM Note Text: Pharmacy Discharge Medication Service: This patient has elected to receive their discharge prescriptions through the [facility] Bedside Prescription Delivery program. The prescriptions are currently being processed. A follow-up note will be entered once the prescriptions have been filled and delivered to the patient. Please contact me with any questions or updates to the patient's discharge medications. Johana Mainor ([employer]) DCT Contact Info: [id number] PLAN OF CARE Observed: 05/29/2018 Status: COMPLETED Source: [place] 1:36 PM [facility] REPOSITORY HNO ID: [id number] Author: Johana Hayward ([employer]) Service: (none) Author Type: (none) Type: Plan of Care Filed: 05/29/2018 1:45 PM Note Text: [employer] BEDSIDE DELIVERY SURVEY 1. Patient to use [facility] Bedside Delivery - YES 2. If fax, patient would like us to fax prescriptions to Pharmacy of choice a. Pharmacy: b. Location: c. Phone: 3. Insurance card on file - NO 4. Credit card for payment - N/A BRIEF OP NOT Observed: 05/29/2018 Status: COMPLETED Source: [place] 12:26 PM [facility] REPOSITORY HNO ID: [id number] Author: Susy Ornelas (Fel) Service: Colorectal Author Type: Fellow Type: Brief Op Note Filed: 05/29/2018 12:27 PM Note Text: BRIEF OPERATIVE NOTE - COLORECTAL SURGERY Log ID: [id number] Surgery/Procedure Date: 05/29/2018 Incision/Procedure Start Time: 11:51 AM Incision Close/Procedure End Time: 12:25 Surgeon(s) and Field Service Consultant(s): Surgeon(s) and Role: * Myron Leija - Primary * Susy Ornelas (Fel) - Fellow No Additional Staff Procedures and Anesthesia: Procedure(s) and Anesthesia Type: * LAPAROSCOPY DIAGNOSTIC - General Stoma Type: N/A Findings: No peritoneal carcinomatosis seen. Bulky sigmoid colon tumour - tattoed Estimated Blood Loss: Minimal Specimens: None Diagnosis Code(s): Pre-Op Diagnosis Codes: * Colon cancer (HCC) [C18.9] Postop Diagnosis: Sigmoid tumour Drains: None Wound Classification: Class 1, operative wound clean, non- traumatic, with no inflammation encountered, no break in technique, gastrointestinal and genitor-urinary tracts not entered Complications: None SIGNATURE: Susy Ornelas MD PATIENT NAME: Amelia Avila DATE: May 29, 2018 TIME: 12:26 PM PAGER/CONTACT #: [phone] CONFIRM BLOOD TYPE Collected: 05/29/2018 Status: F Source: WENDEL 9:10 AM [facility] REPOSITORY TYPE CODE TESTS RESULT OUT OF REFERENCE UNITS RANGE LAB %ABR O ABO/RH(D) POSITIVE Performed By: #### CONABO #### [place] [address] TYPE AND SCREEN Collected: 05/29/2018 Status: F Source: WENDEL 8:46 AM [facility] REPOSITORY TYPE CODE TESTS RESULT OUT OF REFERENCE UNITS RANGE LAB %ABR O ABO/RH(D) POSITIVE LAB % Antibody NEG Screen Performed By: #### TSCR #### [place] [address] PT ED Observed: 05/29/2018 Status: COMPLETED Source: WEN[place] 8:40 AM [facility] REPOSITORY HNO ID: [id number] Author: Gabriela SantiagoRnAbby Peterson RN Service: Nursing Author Type: Registered Nurse Type: Patient Education Filed: 05/29/2018 8:40 AM Note Text: PRE OP LEARNING ASSESSMENT PROCEDURE/SURGERY: SURGERY: pre op READINESS TO LEARN COGNITIVE ABILITY: Alert and oriented MOTIVATION TO LEARN: Eager FAMILY SUPPORT: High - Very involved in pt care PATIENT LEARNS BEST BY: Multiple Methods FACTORS AFFECTING LEARNING: None PHYSICAL LIMITATIONS AFFECTING LEARNING: None Electronically Signed By: Gabriela Peterson RN In Department: [place] [address] OPERATIVE NO Observed: 05/29/2018 Status: COMPLETED Source: [place] 12:00 AM [facility] REPOSITORY HNO ID: [id number] Author: Myron Leija Service: Colorectal Author Type: Physician Type: Operative Report Filed: 05/30/2018 8:30 AM Note Text: [facility] - Operative Report [address] [place] [address] [place] AMELIA AVILA : 1965 AGE: 52. SEX: M PATIENT TYPE: A [facility]: [facility] LOCATION: [id number] ATTENDING PHYSICIAN: Myron Leija M.D. CSN NUMBER: [id number] DATE OF SURGERY/PROCEDURE: 05/29/2018 INCISION/PROCEDURE START TIME: 11:51. INCISION CLOSE/PROCEDURE END TIME: 12:22. 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 POSTOPERATIVE DIAGNOSIS: Sigmoid colon cancer. SURGEON: Myron Leija M.D. MACHINE HELPER: Dr. Susy Ornelas. SURGERY/PROCEDURE: Diagnostic laparoscopy. ANESTHESIA: General endo-orotracheal. TOTAL INTRAVENOUS FLUIDS: 600 mL. ESTIMATED BLOOD LOSS: 5 mL. URINE OUTPUT: Not applicable. OPERATIVE INDICATIONS: The patient has a history of a sigmoid colon cancer and was referred to me by Dr. Stanislav Colon with the concerns on preoperative imaging for carcinomatosis. The plan is to undergo a diagnostic laparoscopy with possible biopsy should there be any carcinosis to plan for resection and possible HIPEC therapy versus a simple diagnostic laparoscopy with eventual sigmoid resection if no sign of any carcinomatosis. OPERATIVE FINDINGS: Tattoo and sigmoid colon with a large redundant sigmoid colon and no sign of any carcinomatosis. DESCRIPTION OF PROCEDURE: After patient consent, the patient was taken to the operating room and placed in a supine position on operating table. We made a pause to identify the patient, procedure, and other pertinent information. Once everyone was in agreement, we proceeded. He underwent general endo-orotracheal anesthesia and then was placed in a lithotomy position on operating room table ensuring all bony prominences well padded. His abdomen was prepped and draped in standard surgical fashion. He was given perioperative antibiotics with Ancef and we waited greater than 3 minutes for the skin prep time to dry. Following this, we made a secondary pause and then made an incision below the umbilicus and his abdomen was entered using a standard Esa technique. After adequate pneumoperitoneum, two right-sided 5-mm ports and a left-sided 5-mm port were placed. Generalized inspection of the abdomen starting with the diaphragms and over the top of the liver and circumferentially looking at the anterior abdominal wall revealed there to be no sign of any obvious carcinomatosis. He did have an obvious tattooed lesion in the sigmoid colon with a very large redundant sigmoid colon. We then ran the small bowel from the ligament of Treitz to ileocecal valve looking at all the mesentery and the bowel itself and there was no sign of any carcinomatosis. We again looked at the cul-de-sac as well as the entire colon including the mesentery on both the lateral and the medial side and there was no sign of any carcinomatosis. In addition, we looked all over the retroperitoneum and there was no sign of any carcinomatosis. The scope was removed. The pneumoperitoneum was allowed to resolve and the trocars were removed. We copiously irrigated out the sites and closed the fascia of the umbilical port using a 2-0 Vicryl and closed the skin using 4-0 Monocryl in running subcuticular form. Steri-Strips and sterile gauze dressing were applied. The patient was extubated and taken to recovery room in stable condition. I called Dr. Colon and informed him of all of this and he will plan to take sigmoid colon out shortly. COUNTS: All counts to include sponge, needle, instrument counts were correct. TOTAL INTRAVENOUS FLUIDS: 600 mL. ESTIMATED BLOOD LOSS: 5 mL. URINE OUTPUT: Not applicable. SPECIMENS: None. WOUND CLASS: 1. DRAINS: None. ANTIBIOTICS: Ancef. ATTESTATION: I was present throughout the entire procedure. Myron Leija M.D. SS:[id number] /[id number] cc: PROGRESS Observed: 05/28/2018 Status: COMPLETED Source: WEN[place] 6:05 PM [facility] REPOSITORY HNO ID: [id number] Author: Myron Leija Service: Colorectal Author Type: Physician Type: Progress Notes Filed: 05/28/2018 6:06 PM Note Text: Long discussion with Dr Colon and patient will be taken for a dx lap to see if this is a case of carcinomatosis. If not will then plan on getting a resection. If so then will set up for chemo or HIPEC. Procedure:DX lap and possible biopsy The risks, benefits and anticipated outcomes of the procedure, the risks and benefits of the alternatives to the procedure, and the roles and tasks of the personnel to be involved, were discussed with the patient, and the patient consents to the procedure and agrees to proceed. Myron Leija MD, FACS, FASCRS bunker worker Event Coordinator Marketing [employer] Sales, Department [place] [address] CNOV Observed: 05/27/2018 Status: COMPLETED Source: WENDEL 3:30 PM [facility] REPOSITORY Office Visit (GENSWS) AMELIA AVILA ([id number]) 1965 M Date Time Provider Department 05/27/18 3:30 PM STANISLAV COLON During your visit today, we recorded the following information about you: Pulse Blood pressure Weight 68/minute 142/82 99.5 kg Stanislav Colon MD 05/27/2018 7:31 PM Signed HISTORY AND PHYSICAL - COLON RESECTION FOR SIGMOID COLON CANCER Amelia Avila 1965 May 22, 2018 REFERRING PHYSICIAN: Zechariah Lopez (Refrigeration Systems Installer), APR* CHIEF COMPLAINT: Colon cancer HPI: The patient is a 52 year old male with a finding of a sigmoid colon cancer. The patient is a 52 year old male referred for endoscopy and seen by my physician's pizza hut assistant Sandy Ha - JAKE. Amelia notes no history of colon complaints. He states he had one isolated episode of bright red rectal bleeding which he attributed to a hemorrhoid as it occurred after some constipation and straining. Denies any bleeding before or since that time. Denies any changes in bowel habits, abdominal pain or black tarry stools. He notes rare acid reflux which is relieved by [id number] antacids. Amelia has not undergone prior endoscopy. The patient is being seen by Sandy today at the request of Zechariah Lopez CNP on April 24, 2018. The patient underwent colonoscopy on May 20, 2018 which demonstrated 4 polyps located in the cecum, proximal transverse colon, 50 cm and 20 cm. Unfortunately, there was an irregular ulcerated lesion located was felt to be within the mid sigmoid colon at approximately 40 cm. Multiple biopsies were performed, the site was tattooed, and a marker clip was placed. Postprocedure KUB was obtained which demonstrated the clip to be in the mid sigmoid colon. Pathology returned as: Specimen originated from [facility] Specimen #: [id number] Submitting Physician: STANISLAV COLON ([id number]) FINAL DIAGNOSIS 1. Cecal polyp, biopsy (A) - Tubular adenoma. 2. Proximal transverse colon polyp, biopsy (B) - Tubular adenoma. 3. Colon polyp at 50 cm, biopsy (C) - Tubular adenoma. 4. Colon mass at 40 cm, biopsy (D) - Invasive moderately differentiated adenocarcinoma. 5. Colon polyp at 20 cm, biopsy (E) - Tubular adenoma. JEL/dss 05/22/2018 As I was comfortable at the time of endoscopy this was in fact invasive cancer, preoperative laboratory studies and a CT scan were obtained. These demonstrated: Admission on 05/20/2018, Discharged on 05/20/2018 Component Date Value - Detail Assembler 05/20/2018 Value: Specimen originated from [facility] Specimen #: [id number] Submitting Physician: STANISLAV COLON ([id number]) FINAL DIAGNOSIS 1. Cecal polyp, biopsy (A) - Tubular adenoma. 2. Proximal transverse colon polyp, biopsy (B) - Tubular adenoma. 3. Colon polyp at 50 cm, biopsy (C) - Tubular adenoma. 4. Colon mass at 40 cm, biopsy (D) - Invasive moderately differentiated adenocarcinoma. 5. Colon polyp at 20 cm, biopsy (E) - Tubular adenoma. JEL/dss 05/22/2018 Maureen Anderson M.D. (Electronic Signature) SPECIMEN SUBMITTED A: CECUM POLYP B: PROXIMAL TRANSVERSE COLON POLYP C: COLON, POLYP AT 50CM D: COLON, BIOPSY AT 40CM E: COLON, POLYP AT 20CM CLINICAL DATA A-C, E: HOT SNARE GROSS DESCRIPTION A. Received in formalin is one piece of poon, soft tissue measuring 0.2 x 0.2 x 0.2 cm. To tally submitted in one cassette. B. Received in formalin are four pieces of poon, soft tissue aggregating to 1.4 x 0.2 x 0.1 cm. Totally submitted in one cassette. C. Received in formalin is a poon polypoid segment of tissue measuring 0.5 x 0.4 x 0.3 cm. No stalk is noted. The line of resection is noted. Specimen is bisected. Totally submitted in one cassette. D. Received in formalin are six pieces of poon, soft tissue aggregating to 2.0 x 0.3 x 0.2 cm. Totally submitted in one cassette. E. Received in formalin are five pieces of poon, soft tissue aggregating to 1.2 x 0.2 x 0.2 cm. Totally submitted in one cassette. Gross examination performed at [facility], [address] [place] [address] NM 05/21/2018 9:57:38 AM Date of Report: 05/22/2018 Date of Procedure: 05/20/2018 Date of Receipt: 05/20/2018 Submitted by: STANISLAV COLON ([id number]) [facility] interpretation performed at [facility], [address] [place] [address]. Appointment on 05/20/2018 Component Date Value - WBC 05/20/2018 4.54 - RBC 05/20/2018 5.07 - Hemoglobin 05/20/2018 15.1 - Hematocrit 05/20/2018 46.7 - MCV 05/20/2018 92.1 - MCH 05/20/2018 29.8 - MCHC 05/20/2018 32.3 - RDW-CV 05/20/2018 13.1 - Platelet Count 05/20/2018 145* - MPV 05/20/2018 11.5 - Neut% 05/20/2018 64.1 - Abs Neut (ANC) 05/20/2018 2.90 - Lymph% 05/20/2018 24.7 - Abs Lymph 05/20/2018 1.12 - [place]% 05/20/2018 9.9 - Abs [place] 05/20/2018 0.45 - Eosin% 05/20/2018 0.9 - Abs Eosin 05/20/2018 0.04 - Baso% 05/20/2018 0.4 - Abs Baso 05/20/2018 <0.03 - Nucleated Reds 05/20/2018 0.0 - Absolute nRBC 05/20/2018 <0.01 - Diff Type 05/20/2018 Auto Diff - Protein, Total 05/20/2018 6.3 - Albumin 05/20/2018 4.2 - Calcium 05/20/2018 9.7 - Bilirubin, Total 05/20/2018 0.6 - Alkaline Phosphatase 05/20/2018 49 - AST 05/20/2018 27 - Glucose 05/20/2018 112* - BUN 05/20/2018 12 - Creatinine 05/20/2018 0.95 - Sodium 05/20/2018 140 - Potassium 05/20/2018 4.3 - Chloride 05/20/2018 102 - CO2 05/20/2018 29 - Anion Gap 05/20/2018 9 - ALT 05/20/2018 27 - eGFR- 05/20/2018 >60 - eGFR-All Other Races 05/20/2018 >60 - CEA 05/20/2018 5.4* CT scan of the chest abdomen and pelvis is still currently pending. My impression was I saw no specific chest abnormalities. There was a small lesion in the liver that I felt was most likely a cyst but I could not truly characterize this. I saw no other specific intra-abdominal abnormalities. Final CT report: IMPRESSION: CHEST: NO METASTATIC DISEASE IN THE CHEST. ABDOMEN AND PELVIS: MULTIPLE PERITONEAL SOFT TISSUE NODULES SUSPICIOUS FOR PERITONEAL CARCINOMATOSIS. ?MANY OF THESE ARE AMENABLE TO PERCUTANEOUS BIOPSY IF CLINICALLY INDICATED. ENLARGED PROSTATE, CORRELATE WITH PSA LEVEL. Last Putter Away: RODOLFO ? Transcribe Date/Time: May ?3:44P Dictated by : JOEL HOWELL MD This examination was interpreted and the report reviewed and electronically signed by: JOEL HOWELL MD on May ?4:02PM ?EST Results-Findings * * *Final Report* * * DATE OF EXAM: May 22 2018 12:03PM ? [facility] ? 0530 ?- ?CT ABD/PEL W IVCON ?/ PROCEDURE REASON: Left lower quadrant abdominal mass ?? ? * * * * Physician Interpretation * * * * ?EXAMINATION: ?CT CHEST WITH CONTRAST CT ABDOMEN AND PELVIS WITH CONTRAST HISTORY: ?Sigmoid colon cancer TECHNIQUE: ?Spiral CT acquisition following IV contrast. Contrast: IV: ?150 mL of Omnipaque 300 Oral: ?50 mL of 50ML Omnipaque [address] Radiation dose: Integrated Dose-length product (DLP) for this visit = ? 954 mGy*cm. CT Dose Reduction Employed: Automated exposure control(AEC) and iterative recon COMPARISON: ?CT abdomen/pelvis 12/12/2006 RESULT: Chest: Limitations: ?None. Lines, tubes, and devices: ?None. Lung parenchyma and pleura: ?No consolidation. No suspicious pulmonary nodule. No pleural effusion. Central airways are patent. Thoracic inlet, heart, and mediastinum: ?No lymphadenopathy in the axillary, mediastinal, or hilar regions. The thoracic aorta and main pulmonary artery are normal in caliber. The cardiac chambers are normal in size. No coronary artery atherosclerotic calcifications are noted, although the study is not optimized for coronary assessment. No pericardial effusion or thickening. Bones and soft tissues: ?No destructive bone lesion. Chest wall is unremarkable. Abdomen and pelvis: Liver: 1 cm hepatic dome cyst. ?No suspicious hepatic lesion. Biliary: No bile duct dilation. ?Gallbladder is unremarkable. Spleen: No mass. No splenomegaly. Pancreas: No mass or duct dilation. Adrenals: No mass. Kidneys: 1.5 cm left midpole cyst. ?No calculus or hydronephrosis. Vasculature: ?The celiac axis and SMA are patent. The portal vein and branches, splenic vein, SMV, and hepatic veins are patent. ?No abdominal aortic or iliac artery aneurysm. GI tract: There is focal thickening in the mid sigmoid colon with endoscopically placed clip in place, consistent with the known sigmoid colon cancer. ?Remainder of the large and small bowel is unremarkable. ? Appendix within normal limits. Lymph nodes: No pathologically enlarged abdominal or pelvic lymph nodes. Mesentery/Peritoneum: There are multiple peritoneal based soft tissue nodules, for example: -Partially calcified 1.8 x 1.0 cm soft tissue nodule abutting the expected location of the sigmoid cancer (5:114) -Conglomerate of soft tissue along the peritoneum in the left lower quadrant measuring 4.0 x 1.3 cm (5:89) -Peritoneal based soft tissue mass in the left midabdomen anteriorly measuring 2.9 x 1.5 cm (5:59) Pelvis: Trace pelvic ascites. ?Enlarged prostate. Bones/Soft Tissues: No osseous metastatic disease. The patient returns today to discuss pathology results and plan course of treatment for resection of his colon cancer. I spoke with Dr Leija for consideration of laparoscopy/biopsy and if positive - consideration of resection with intraoperative intraperitoneal chemotherapy. The patient is being seen by me today at the request of Zechariah Lopez ([facility]), APR* my opinion and advice regarding sigmoid colon cancer. PAST MEDICAL HISTORY Diagnosis Date - Allergic rhinitis - DDD (degenerative disc disease), lumbar - Kidney stone - Prediabetes PAST SURGICAL HISTORY Procedure Laterality Date - AMPUTATION FINGER/THUMB accident as a child - COLONOSCOP W/ OR W/O [facility] SPEC 05/20/2018 Colonoscopy - KNEE SCOPE,DIAGNOSTIC 2013 Arthroscopy, knee - PAST SURGICAL HISTORY OF injections in back/nerve ablation - REPAIR OF NASAL SEPTUM 2002 Current Outpatient Prescriptions: metroNIDAZOLE (FLAGYL) 500 mg tablet Take 1 tablet by mouth three times daily. 2 TABLETS AT 6, 8, AND 10 PM Disp: 6 tablet Rfl: 0 tamsulosin ER (FLOMAX) 0.4 mg cap Take 1 capsule by mouth daily at bedtime. Disp: 30 capsule Rfl: 1 neomycin 500 mg tablet Take 2 tablets by mouth four times daily. 2 TABLETS AT 6, 8 ,AND 10 PM Disp: 6 tablet Rfl: 0 No current facility-administered medications for this visit. ALLERGIES: Patient has no known allergies. PERSONAL HISTORY: Social History Marital status: Spouse name: Years of education: Number of children: Social History Main Topics Smoking status: Former Smoker Packs/day: 0.50 Years: 10.00 Types: Cigarettes Smokeless tobacco: Never Used Comment: qit in 1996 Alcohol use: Yes 3.0 - 4.5 oz/week Glasses of Wine (5oz): 2 - 3 per week Drug use: No FAMILY HISTORY: FAMILY HISTORY Problem Relation Age of Onset - Hypertension Mother - Cancer Father LUNG REVIEW OF SYMPTOMS: The review of systems data was entered by the nurse and reviewed by me Nursing Notes: Adele Acevedo RN 04/24/2018 4:17 PM Signed REVIEW OF SYSTEMS: General: The patient denies fatigue, denies weight loss, denies weight gain, denies feeling hot, and denies feelings of cold. Eyes: The patient denies glaucoma, denies eye injury/surgery, wears glasses or contacts. Ear/Nose/Throat: The patient denies allergies, denies hayfever, denies ear infections, and denies bloody noses. Cardiovascular: The patient denies chest pain, denies heart disease, denies high blood pressure,denies cardiac stent, denies prior heart attack, denies irregular heart beat, denies high cholesterol, denies poor circulation, denies heart failure, other cardiac issues, denies claudication, denies cold feet, denies peripheral arterial stent. Respiratory: The patient denies tuberculosis, denies pneumonia, denies frequent cough, denies pulmonary embolism, denies shortness of breath, and denies coughing up blood. Gastrointestinal: The patient denies difficulty swallowing, notes acid reflux, denies ulcers, denies vomiting, denies jaundice/hepatitis, denies gallbladder problems, denies black or tarry stools, denies hemorrhoids, denies bleeding from rectum, denies diverticulitis, denies constipation, denies diarrhea, denies loss of stool control, and denies hernias. Kidney/Bladder: The patient notes kidney stones, denies urine infections, and denies bloody urine. Skin: The patient denies a history of skin cancer, denies bleeding/changing moles, and denies a history of skin rash. Neurologic: The patient denies a history of epilepsy/convulsions, denies headaches, denies head/spinal injuries, and denies stroke/TIA. Psychiatric: The patient denies psychiatric medications, denies depression, and denies voices, denies substance abuse. Endocrine: The patient denies thyroid disorders, denies diabetes, and denies hormonal problems. Hematologic: The patient denies a history of bruising, denies bleeding, and denies anemia, denies blood clots. Infections: The patient denies a history of measles and mumps, denies rheumatic fever, and denies sexually transmitted diseases. Musculoskeletal: The patient denies back pain/injury, notes back problems, denies sciatica, NOTES knee/foot trouble, denies arthritis, or NOTES gout. ? PHYSICAL EXAMINATION: General: The patient is 52 year old male, well nourished, well hydrated in no acute distress. The patient is oriented to time, place, and person. VITALS: BP 142/82 Pulse 68 Wt 99.5 kg (219 lb 6.4 oz) BMI 27.42 kg/m? Body mass index is 27.42 kg/m?. HEENT: Normal cephalic, ataumatic, pupils are equally round, sclera are anicteric, mucous membranes are moist, oropharynx is clear. Neck has no masses, asymmetry or lymphadenopathy. Thyroid is unremarkable. Respiratory: Clear to auscultation and percussion. Normal respiratory excursion and pattern. Cardiac: Examination is regular rate and rhythm. No rubs, murmurs or additional sounds Abdominal exam: Soft, nontender, with no palpable masses. No hepatosplenomegaly. No palpable hernias. Rectal exam: exam deferred Extremities: no clubbing, cyanosis or edema. No adenopathy. LABORATORY VALUES: As Noted RADIOLOGIC STUDIES: As Noted Assessment IMPRESSION: Sigmoid colon cancer, peritoneal nodules PLAN: I spoke with Myron Leija who will plan to perform a diagnostic laparoscopy with biopsies of these nodules on . If these returned as positive, he will likely plan for resection with HIPEC. Diagnoses: (C18.7) Cancer of sigmoid colon (HCC) (primary encounter diagnosis) My findings have been communicated to Zechariah Lopez via shared medical record. This note will be forwarded to Ara Pierce MD. Return to Clinic: The patient is instructed to follow-up with me as needed. Stanislav Colon MD Referring Provider: STANISLAV COLON [[id number]] Allergies As of Date: 05/27/2018 (No Known Allergies) Date Reviewed: 05/27/2018 Reviewed by: Jan Monroe LPN - Fully Assessed Reason for Visit: Established Patient [175] Cmt: f/u Colonoscopy results Primary Visit Diagnosis:Cancer of sigmoid colon (HCC) [C18.7] Order(s):ECG COMPLETE W INTERPRETATION [ECG01] Order #: [id number] FUTURE TYPE + SCREEN [SQTSCR] Order #: [id number] FUTURE LEA WHAT TO EXPECT DURING YOUR HOSPITAL STAY [[id number]] Order #: [id number]. #:[id number]: [id number] Prescriptions as of 05/27/2018 Sig: METRONIDAZOLE 500 MG TABLET Take 1 tablet by mouth three * TAMSULOSIN 0.4 MG CAPSULE Take 1 capsule by mouth daily* NEOMYCIN 500 MG TABLET Take 2 tablets by mouth four * Medication notes this encounter METRONIDAZOLE 500 MG TABLET >> Jan Monroe LPN 05/27/2018 1:10 PM >> JAN MONROE MYLENE SatMay 27, 2018 1:10 PM Please d/c NEOMYCIN 500 MG TABLET >> Jan Monroe AUTOMOBILE PAINTER 05/27/2018 1:09 PM >> JAN MONROE MYLENE SatMay 27, 2018 1:09 PM please d/c Problem List As Of Date 05/27/2018 Noted Resolved ESOPHAGEAL REFLUX [K21.9] INVALID FOR* OTHER LUNG DISEASE NEC [J98.4] INVALID FOR* CALCULUS OF URETER [N20.1] INVALID FOR* Impaired Fasting Glucose [R73.01] INVALID FOR* DDD (Degenerative Disc Disease), Lumbar [M51.36]INVALID FOR* Prediabetes [R73.03] INVALID FOR*05/07/2016 Hyperlipidemia [E78.5] INVALID FOR* Chronic bilateral low back pain without sciatic*INVALID FOR* Spondylosis of lumbar region without myelopathy*INVALID FOR* Discogenic low back pain [M51.36] INVALID FOR* More... Annular tear of lumbar disc [M51.36] INVALID FOR* More... Colon cancer (HCC) [C18.9] INVALID FOR* More... Follow-up and Disposition History Recorded Encounter Status:Closed by STANISLAV COLON MD on 05/27/18 PROGRESS Observed: 05/27/2018 Status: COMPLETED Source: [place] 2:15 PM [facility] REPOSITORY HNO ID: [id number] Author: Stanislav Colon Service: (none) Author Type: Physician Type: Progress Notes Filed: 05/27/2018 7:31 PM Note Text: HISTORY AND PHYSICAL - COLON RESECTION FOR SIGMOID COLON CANCER [facility] 1965 May 22, 2018 REFERRING PHYSICIAN: Zechariah Lopez ([employer]), APR* CHIEF COMPLAINT: Colon cancer HPI: The patient is a 52 year old male with a finding of a sigmoid colon cancer. The patient is a 52 year old male referred for endoscopy and seen by my physician's pizza hut assistant Sandy JOSEPH. Imed notes no history of colon complaints. He states he had one isolated episode of bright red rectal bleeding which he attributed to a hemorrhoid as it occurred after some constipation and straining. Denies any bleeding before or since that time. Denies any changes in bowel habits, abdominal pain or black tarry stools. He notes rare acid reflux which is relieved by [id number] antacids. Amelia has not undergone prior endoscopy. The patient is being seen by Sandy today at the request of Zechariah Lopez CNP on April 24, 2018. The patient underwent colonoscopy on May 20, 2018 which demonstrated 4 polyps located in the cecum, proximal transverse colon, 50 cm and 20 cm. Unfortunately, there was an irregular ulcerated lesion located was felt to be within the mid sigmoid colon at approximately 40 cm. Multiple biopsies were performed, the site was tattooed, and a marker clip was placed. Postprocedure KUB was obtained which demonstrated the clip to be in the mid sigmoid colon. Pathology returned as: Specimen originated from [facility] Specimen #: [id number] Submitting Physician: STANISLAV COLON ([id number]) FINAL DIAGNOSIS 1. Cecal polyp, biopsy (A) - Tubular adenoma. 2. Proximal transverse colon polyp, biopsy (B) - Tubular adenoma. 3. Colon polyp at 50 cm, biopsy (C) - Tubular adenoma. 4. Colon mass at 40 cm, biopsy (D) - Invasive moderately differentiated adenocarcinoma. 5. Colon polyp at 20 cm, biopsy (E) - Tubular adenoma. JEL/dss 05/22/2018 As I was comfortable at the time of endoscopy this was in fact invasive cancer, preoperative laboratory studies and a CT scan were obtained. These demonstrated: Admission on 05/20/2018, Discharged on 05/20/2018 Component Date Value - Detail Assembler 05/20/2018 Value: Specimen originated from [facility] Specimen #: [id number] Submitting Physician: STANISLAV COLON ([id number]) FINAL DIAGNOSIS 1. Cecal polyp, biopsy (A) - Tubular adenoma. 2. Proximal transverse colon polyp, biopsy (B) - Tubular adenoma. 3. Colon polyp at 50 cm, biopsy (C) - Tubular adenoma. 4. Colon mass at 40 cm, biopsy (D) - Invasive moderately differentiated adenocarcinoma. 5. Colon polyp at 20 cm, biopsy (E) - Tubular adenoma. JEL/dss 05/22/2018 Maureen Anderson M.D. (Electronic Signature) SPECIMEN SUBMITTED A: CECUM POLYP B: PROXIMAL TRANSVERSE COLON POLYP C: COLON, POLYP AT 50CM D: COLON, BIOPSY AT 40CM E: COLON, POLYP AT 20CM CLINICAL DATA A-C, E: HOT SNARE GROSS DESCRIPTION A. Received in formalin is one piece of poon, soft tissue measuring 0.2 x 0.2 x 0.2 cm. To tally submitted in one cassette. B. Received in formalin are four pieces of poon, soft tissue aggregating to 1.4 x 0.2 x 0.1 cm. Totally submitted in one cassette. C. Received in formalin is a poon polypoid segment of tissue measuring 0.5 x 0.4 x 0.3 cm. No stalk is noted. The line of resection is noted. Specimen is bisected. Totally submitted in one cassette. D. Received in formalin are six pieces of poon, soft tissue aggregating to 2.0 x 0.3 x 0.2 cm. Totally submitted in one cassette. E. Received in formalin are five pieces of poon, soft tissue aggregating to 1.2 x 0.2 x 0.2 cm. Totally submitted in one cassette. Gross examination performed at [facility], [address] [place] [address] 05/21/2018 9:57:38 AM Date of Report: 05/22/2018 Date of Procedure: 05/20/2018 Date of Receipt: 05/20/2018 Submitted by: STANISLAV COLON ([id number]) Location: [id number] Diagnostic interpretation performed at [facility], [address] [place] [address]. Appointment on 05/20/2018 Component Date Value - WBC 05/20/2018 4.54 - RBC 05/20/2018 5.07 - Hemoglobin 05/20/2018 15.1 - Hematocrit 05/20/2018 46.7 - MCV 05/20/2018 92.1 - MCH 05/20/2018 29.8 - MCHC 05/20/2018 32.3 - RDW-CV 05/20/2018 13.1 - Platelet Count 05/20/2018 145* - MPV 05/20/2018 11.5 - Neut% 05/20/2018 64.1 - Abs Neut (ANC) 05/20/2018 2.90 - Lymph% 05/20/2018 24.7 - Abs Lymph 05/20/2018 1.12 - [place]% 05/20/2018 9.9 - Abs [place] 05/20/2018 0.45 - Eosin% 05/20/2018 0.9 - Abs Eosin 05/20/2018 0.04 - Baso% 05/20/2018 0.4 - Abs Baso 05/20/2018 <0.03 - Nucleated Reds 05/20/2018 0.0 - Absolute nRBC 05/20/2018 <0.01 - Diff Type 05/20/2018 Auto Diff - Protein, Total 05/20/2018 6.3 - Albumin 05/20/2018 4.2 - Calcium 05/20/2018 9.7 - Bilirubin, Total 05/20/2018 0.6 - Alkaline Phosphatase 05/20/2018 49 - AST 05/20/2018 27 - Glucose 05/20/2018 112* - BUN 05/20/2018 12 - Creatinine 05/20/2018 0.95 - Sodium 05/20/2018 140 - Potassium 05/20/2018 4.3 - Chloride 05/20/2018 102 - CO2 05/20/2018 29 - Anion Gap 05/20/2018 9 - ALT 05/20/2018 27 - eGFR- 05/20/2018 >60 - eGFR-All Other Races 05/20/2018 >60 - CEA 05/20/2018 5.4* CT scan of the chest abdomen and pelvis is still currently pending. My impression was I saw no specific chest abnormalities. There was a small lesion in the liver that I felt was most likely a cyst but I could not truly characterize this. I saw no other specific intra-abdominal abnormalities. Final CT report: IMPRESSION: CHEST: NO METASTATIC DISEASE IN THE CHEST. ABDOMEN AND PELVIS: MULTIPLE PERITONEAL SOFT TISSUE NODULES SUSPICIOUS FOR PERITONEAL CARCINOMATOSIS. ?MANY OF THESE ARE AMENABLE TO PERCUTANEOUS BIOPSY IF CLINICALLY INDICATED. ENLARGED PROSTATE, CORRELATE WITH PSA LEVEL. Last Putter Away: RODOLFO ? Transcribe Date/Time: May ?3:44P Dictated by : JOEL HOWELL MD This examination was interpreted and the report reviewed and electronically signed by: JOEL HOWELL MD on May ?4:02PM ?EST Results-Findings * * *Final Report* * * DATE OF EXAM: May 22 2018 12:03PM ? [facility] ? 0530 ?- ?CT ABD/PEL W IVCON ?/ PROCEDURE REASON: Left lower quadrant abdominal mass ?? ? * * * * Physician Interpretation * * * * ?EXAMINATION: ?CT CHEST WITH CONTRAST CT ABDOMEN AND PELVIS WITH CONTRAST HISTORY: ?Sigmoid colon cancer TECHNIQUE: ?Spiral CT acquisition following IV contrast. Contrast: IV: ?150 mL of Omnipaque 300 Oral: ?50 mL of 50ML Omnipaque 240 W 850ML Water CT Radiation dose: Integrated Dose-length product (DLP) for this visit = ? 954 mGy*cm. CT Dose Reduction Employed: Automated exposure control(AEC) and iterative recon COMPARISON: ?CT abdomen/pelvis 12/12/2006 RESULT: Chest: Limitations: ?None. Lines, tubes, and devices: ?None. Lung parenchyma and pleura: ?No consolidation. No suspicious pulmonary nodule. No pleural effusion. Central airways are patent. Thoracic inlet, heart, and mediastinum: ?No lymphadenopathy in the axillary, mediastinal, or hilar regions. The thoracic aorta and main pulmonary artery are normal in caliber. The cardiac chambers are normal in size. No coronary artery atherosclerotic calcifications are noted, although the study is not optimized for coronary assessment. No pericardial effusion or thickening. Bones and soft tissues: ?No destructive bone lesion. Chest wall is unremarkable. Abdomen and pelvis: Liver: 1 cm hepatic dome cyst. ?No suspicious hepatic lesion. Biliary: No bile duct dilation. ?Gallbladder is unremarkable. Spleen: No mass. No splenomegaly. Pancreas: No mass or duct dilation. Adrenals: No mass. Kidneys: 1.5 cm left midpole cyst. ?No calculus or hydronephrosis. Vasculature: ?The celiac axis and SMA are patent. The portal vein and branches, splenic vein, SMV, and hepatic veins are patent. ?No abdominal aortic or iliac artery aneurysm. GI tract: There is focal thickening in the mid sigmoid colon with endoscopically placed clip in place, consistent with the known sigmoid colon cancer. ?Remainder of the large and small bowel is unremarkable. ? Appendix within normal limits. Lymph nodes: No pathologically enlarged abdominal or pelvic lymph nodes. Mesentery/Peritoneum: There are multiple peritoneal based soft tissue nodules, for example: -Partially calcified 1.8 x 1.0 cm soft tissue nodule abutting the expected location of the sigmoid cancer (5:114) -Conglomerate of soft tissue along the peritoneum in the left lower quadrant measuring 4.0 x 1.3 cm (5:89) -Peritoneal based soft tissue mass in the left midabdomen anteriorly measuring 2.9 x 1.5 cm (5:59) Pelvis: Trace pelvic ascites. ?Enlarged prostate. Bones/Soft Tissues: No osseous metastatic disease. The patient returns today to discuss pathology results and plan course of treatment for resection of his colon cancer. I spoke with Dr Leija for consideration of laparoscopy/biopsy and if positive - consideration of resection with intraoperative intraperitoneal chemotherapy. The patient is being seen by me today at the request of Zechariah Lopez ([facility]), APR* my opinion and advice regarding sigmoid colon cancer. PAST MEDICAL HISTORY Diagnosis Date - Allergic rhinitis - DDD (degenerative disc disease), lumbar - Kidney stone - Prediabetes PAST SURGICAL HISTORY Procedure Laterality Date - AMPUTATION FINGER/THUMB accident as a child - COLONOSCOP W/ OR W/O [facility] SPEC 05/20/2018 Colonoscopy - KNEE SCOPE,DIAGNOSTIC 2014 Arthroscopy, knee - PAST SURGICAL HISTORY OF injections in back/nerve ablation - REPAIR OF NASAL SEPTUM 2002 Current Outpatient Prescriptions: metroNIDAZOLE (FLAGYL) 500 mg tablet Take 1 tablet by mouth three times daily. 2 TABLETS AT 6, 8, AND 10 PM Disp: 6 tablet Rfl: 0 tamsulosin ER (FLOMAX) 0.4 mg cap Take 1 capsule by mouth daily at bedtime. Disp: 30 capsule Rfl: 1 neomycin 500 mg tablet Take 2 tablets by mouth four times daily. 2 TABLETS AT 6, 8 ,AND 10 PM Disp: 6 tablet Rfl: 0 No current facility-administered medications for this visit. ALLERGIES: Patient has no known allergies. PERSONAL HISTORY: Social History Marital status: Spouse name: Years of education: Number of children: Social History Main Topics Smoking status: Former Smoker Packs/day: 0.50 Years: 10.00 Types: Cigarettes Smokeless tobacco: Never Used Comment: latia in 1996 Alcohol use: Yes 3.0 - 4.5 oz/week Glasses of Wine (5oz): 2 - 3 per week Drug use: No FAMILY HISTORY: FAMILY HISTORY Problem Relation Age of Onset - Hypertension Mother - Cancer Father LUNG REVIEW OF SYMPTOMS: The review of systems data was entered by the nurse and reviewed by mo Nursing Notes: Adele Acevedo RN 04/24/2018 4:17 PM Signed REVIEW OF SYSTEMS: General: The patient denies fatigue, denies weight loss, denies weight gain, denies feeling hot, and denies feelings of cold. Eyes: The patient denies glaucoma, denies eye injury/surgery, wears glasses or contacts. Ear/Nose/Throat: The patient denies allergies, denies hayfever, denies ear infections, and denies bloody noses. Cardiovascular: The patient denies chest pain, denies heart disease, denies high blood pressure,denies cardiac stent, denies prior heart attack, denies irregular heart beat, denies high cholesterol, denies poor circulation, denies heart failure, other cardiac issues, denies claudication, denies cold feet, denies peripheral arterial stent. Respiratory: The patient denies tuberculosis, denies pneumonia, denies frequent cough, denies pulmonary embolism, denies shortness of breath, and denies coughing up blood. Gastrointestinal: The patient denies difficulty swallowing, notes acid reflux, denies ulcers, denies vomiting, denies jaundice/hepatitis, denies gallbladder problems, denies black or tarry stools, denies hemorrhoids, denies bleeding from rectum, denies diverticulitis, denies constipation, denies diarrhea, denies loss of stool control, and denies hernias. Kidney/Bladder: The patient notes kidney stones, denies urine infections, and denies bloody urine. Skin: The patient denies a history of skin cancer, denies bleeding/changing moles, and denies a history of skin rash. Neurologic: The patient denies a history of epilepsy/convulsions, denies headaches, denies head/spinal injuries, and denies stroke/TIA. Psychiatric: The patient denies psychiatric medications, denies depression, and denies voices, denies substance abuse. Endocrine: The patient denies thyroid disorders, denies diabetes, and denies hormonal problems. Hematologic: The patient denies a history of bruising, denies bleeding, and denies anemia, denies blood clots. Infections: The patient denies a history of measles and mumps, denies rheumatic fever, and denies sexually transmitted diseases. Musculoskeletal: The patient denies back pain/injury, notes back problems, denies sciatica, NOTES knee/foot trouble, denies arthritis, or NOTES gout. ? PHYSICAL EXAMINATION: General: The patient is 52 year old male, well nourished, well hydrated in no acute distress. The patient is oriented to time, place, and person. VITALS: BP 142/82 Pulse 68 Wt 99.5 kg (219 lb 6.4 oz) BMI 27.42 kg/m? Body mass index is 27.42 kg/m?. HEENT: Normal cephalic, ataumatic, pupils are equally round, sclera are anicteric, mucous membranes are moist, oropharynx is clear. Neck has no masses, asymmetry or lymphadenopathy. Thyroid is unremarkable. Respiratory: Clear to auscultation and percussion. Normal respiratory excursion and pattern. Cardiac: Examination is regular rate and rhythm. No rubs, murmurs or additional sounds Abdominal exam: Soft, nontender, with no palpable masses. No hepatosplenomegaly. No palpable hernias. Rectal exam: exam deferred Extremities: no clubbing, cyanosis or edema. No adenopathy. LABORATORY VALUES: As Noted RADIOLOGIC STUDIES: As Noted Assessment IMPRESSION: Sigmoid colon cancer, peritoneal nodules PLAN: I spoke with Myron Leija who will plan to perform a diagnostic laparoscopy with biopsies of these nodules on . If these returned as positive, he will likely plan for resection with HIPEC. Diagnoses: (C18.7) Cancer of sigmoid colon (HCC) (primary encounter diagnosis) My findings have been communicated to Zechariah Lopez via shared medical record. This note will be forwarded to Ara Pierce MD. Return to Clinic: The patient is instructed to follow-up with me as needed. Stanislav Colon MD EKG1 Observed: 05/27/2018 Status: F Source: [place]EN[place] 2:11 PM [facility] REPOSITORY NAME : AMELIA AVILA PID : [id number] : 1965 Gender : Male Race : Other ORD : Procedure Date : May 27 2018 14:11:22 Edit Date : May 31 2018 12:57:45 Diagnosis:SINUS RHYTHM WITH 1ST DEGREE AV BLOCK POSSIBLE LEFT ATRIAL ENLARGEMENT BORDERLINE ECG Confirmed by SUSAN CONTEH D.O. ([id number]) on 05/31/2018 12:57:35 PM Ventricular Rate : 62 BPM Atrial Rate : 62 BPM P-R Interval : 210 ms QRS Duration : 86 ms Q-T Interval : 380 ms QTC Calculation(Bezet) : 385 ms P [place] : 67 degrees R [place] : 75 degrees T [place] : 50 degrees Test Reason : pre op Location : 189 : [facility] Overread By : SUSAN CONTEH D.O. Edited By : SUSAN CONTEH D.O. Referred By : stanislav colon Acquired by : jpr, CAREN Observed: 05/27/2018 Status: COMPLETED Source: [place] 12:00 AM [facility] REPOSITORY Patient:Amelia Avila MRN: <[id number]> Height:6' 3(1.905 m) Weight:219 lb 6.4 oz (99.519 kg) Outpatient Medications as of 05/29/18: tamsulosin ER (FLOMAX) 0.4 mg cap Admission/Clinic Administered Medications as of 05/29/18: lidocaine (PF) 10 mg/mL (1 %) 1-2 mg injection (XYLOCAINE) lactated ringers infusion Problem List: Esophageal reflux [K21.9] Other diseases of lung, not elsewhere classified [J98.4] Calculus of ureter [N20.1] Impaired fasting glucose [R73.01] DDD (degenerative disc disease), lumbar [M51.36] Hyperlipidemia [E78.5] Chronic bilateral low back pain without sciatica [M54.5, G89.29] Spondylosis of lumbar region without myelopathy or radiculopathy [M47.816] Discogenic low back pain [M51.36] Annular tear of lumbar disc [M51.36] Colon cancer (HCC) [C18.9] Allergies: No Known Allergies Date Verified:05/29/18 Lab Values Lab Value Units Date High Low POTA* 4.3 mmol/L 05/20/2018 5.1 3.7 NAVIN* 46.7 % 05/20/2018 51.0 39.0 Progress Notes ([facility]): Manuela Alex RN, RN 05/28/2018 10:05 AM Signed PRIMARY CARE COORDINATION FOLLOW-UP NOTE Provider Action/FYI None Patient identified by name and date of . YES Spoke to patient Summary: Sigmoid cancer with suspicion for carcinomatosis, referred by Dr. Colon Concerns: Called patient to review prep and day of surgery: 1. No bowel prep today, but NPO after midnight. Can take flomax today 2. Confirmed he does not take blood thinners 3. Arrival time of 8am because he needs additional labs and consent with Dr. Leija 4. Gave arrival address and J 1-1 location 5. Explained diagnostic laparoscopy purpose and the laparoscopic incisions 6. He will have friend/family member there to drive him home 7. Dr. Leija will notify him of findings and plan for next step 8. From time of check in to discharge, should expect to be here atleast 4 hours 9. 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 If not will then plan on getting a resection. If so then will set up for chemo or HIPEC. Procedure:DX lap and possible biopsy The risks, benefits and anticipated outcomes of the procedure, the risks and benefits of the alternatives to the procedure, and the roles and tasks of the personnel to be involved, were discussed with the patient, and the patient consents to the procedure and agrees to proceed. Myron Leija MD, FACS, FASCRS bunker worker Event Coordinator Marketing And Sales, Department [place] [address] Gabriela Peterson RN, RN 05/29/2018 8:40 AM Signed PRE OP LEARNING ASSESSMENT PROCEDURE/SURGERY: SURGERY: pre op READINESS TO LEARN COGNITIVE ABILITY: Alert and oriented MOTIVATION TO LEARN: Eager FAMILY SUPPORT: High - Very involved in pt care PATIENT LEARNS BEST BY: Multiple Methods FACTORS AFFECTING LEARNING: None PHYSICAL LIMITATIONS AFFECTING LEARNING: None Electronically Signed By: Gabriela Peterson RN In Department: [facility] [id number] PROGRESS Observed: 05/22/2018 Status: COMPLETED Source: [place] 6:32 PM [facility] [place] REPOSITORY HNO ID: [id number] Author: Stanislav Colon Service: (none) Author Type: Physician Type: Progress Notes Filed: 05/22/2018 6:42 PM Note Text: HISTORY AND PHYSICAL - COLON RESECTION FOR SIGMOID COLON CANCER Imed [facility] 1965 May 22, 2018 REFERRING PHYSICIAN: Zechariah Lopez (Refrigeration Systems Installer), APR* CHIEF COMPLAINT: Colon cancer HPI: The patient is a 52 year old male with a finding of a sigmoid colon cancer. The patient is a 52 year old male referred for endoscopy and seen by my physician's pizza hut assistant Sandy Ha - JAKE. Imed notes no history of colon complaints. He states he had one isolated episode of bright red rectal bleeding which he attributed to a hemorrhoid as it occurred after some constipation and straining. Denies any bleeding before or since that time. Denies any changes in bowel habits, abdominal pain or black tarry stools. He notes rare acid reflux which is relieved by [id number]-rxyrzsx antacids. Imed has not undergone prior endoscopy. The patient is being seen by Sandy today at the request of Zechariah Lopez CNP on April 24, 2018. The patient underwent colonoscopy on May 20, 2018 which demonstrated 4 polyps located in the cecum, proximal transverse colon, 50 cm and 20 cm. Unfortunately, there was an irregular ulcerated lesion located was felt to be within the mid sigmoid colon at approximately 40 cm. Multiple biopsies were performed, the site was tattooed, and a marker clip was placed. Postprocedure KUB was obtained which demonstrated the clip to be in the mid sigmoid colon. Pathology returned as: Specimen originated from [facility] Specimen #: [id number] Submitting Physician: STANISLAV COLON ([id number]) FINAL DIAGNOSIS 1. Cecal polyp, biopsy (A) - Tubular adenoma. 2. Proximal transverse colon polyp, biopsy (B) - Tubular adenoma. 3. Colon polyp at 50 cm, biopsy (C) - Tubular adenoma. 4. Colon mass at 40 cm, biopsy (D) - Invasive moderately differentiated adenocarcinoma. 5. Colon polyp at 20 cm, biopsy (E) - Tubular adenoma. JEL/dss 05/22/2018 As I was comfortable at the time of endoscopy this was in fact invasive cancer, preoperative laboratory studies and a CT scan were obtained. These demonstrated: Admission on 05/20/2018, Discharged on 05/20/2018 Component Date Value - Detail Assembler 05/20/2018 Value: Specimen originated from [facility] Specimen #: [id number] Submitting Physician: STANISLAV COLON ([id number]) FINAL DIAGNOSIS 1. Cecal polyp, biopsy (A) - Tubular adenoma. 2. Proximal transverse colon polyp, biopsy (B) - Tubular adenoma. 3. Colon polyp at 50 cm, biopsy (C) - Tubular adenoma. 4. Colon mass at 40 cm, biopsy (D) - Invasive moderately differentiated adenocarcinoma. 5. Colon polyp at 20 cm, biopsy (E) - Tubular adenoma. JEL/dss 05/22/2018 Maureen Anderson M.D. (Electronic Signature) SPECIMEN SUBMITTED A: CECUM POLYP B: PROXIMAL TRANSVERSE COLON POLYP C: COLON, POLYP AT 50CM D: COLON, BIOPSY AT 40CM E: COLON, POLYP AT 20CM CLINICAL DATA A-C, E: HOT SNARE GROSS DESCRIPTION A. Received in formalin is one piece of poon, soft tissue measuring 0.2 x 0.2 x 0.2 cm. To tally submitted in one cassette. B. Received in formalin are four pieces of poon, soft tissue aggregating to 1.4 x 0.2 x 0.1 cm. Totally submitted in one cassette. C. Received in formalin is a poon polypoid segment of tissue measuring 0.5 x 0.4 x 0.3 cm. No stalk is noted. The line of resection is noted. Specimen is bisected. Totally submitted in one cassette. D. Received in formalin are six pieces of poon, soft tissue aggregating to 2.0 x 0.3 x 0.2 cm. Totally submitted in one cassette. E. Received in formalin are five pieces of poon, soft tissue aggregating to 1.2 x 0.2 x 0.2 cm. Totally submitted in one cassette. Gross examination performed at [facility], [address] [place] [address] 05/21/2018 9:57:38 AM Date of Report: 05/22/2018 Date of Procedure: 05/20/2018 Date of Receipt: 05/20/2018 Submitted by: STANISLAV COLON ([id number]) [facility] interpretation performed at [facility], [address] [place] [address]. Appointment on 05/20/2018 Component Date Value - WBC 05/20/2018 4.54 - RBC 05/20/2018 5.07 - Hemoglobin 05/20/2018 15.1 - Hematocrit 05/20/2018 46.7 - MCV 05/20/2018 92.1 - MCH 05/20/2018 29.8 - MCHC 05/20/2018 32.3 - RDW-CV 05/20/2018 13.1 - Platelet Count 05/20/2018 145* - MPV 05/20/2018 11.5 - Neut% 05/20/2018 64.1 - Abs Neut (ANC) 05/20/2018 2.90 - Lymph% 05/20/2018 24.7 - Abs Lymph 05/20/2018 1.12 - [place]% 05/20/2018 9.9 - Abs [place] 05/20/2018 0.45 - Eosin% 05/20/2018 0.9 - Abs Eosin 05/20/2018 0.04 - Baso% 05/20/2018 0.4 - Abs Baso 05/20/2018 <0.03 - Nucleated Reds 05/20/2018 0.0 - Absolute nRBC 05/20/2018 <0.01 - Diff Type 05/20/2018 Auto Diff - Protein, Total 05/20/2018 6.3 - Albumin 05/20/2018 4.2 - Calcium 05/20/2018 9.7 - Bilirubin, Total 05/20/2018 0.6 - Alkaline Phosphatase 05/20/2018 49 - AST 05/20/2018 27 - Glucose 05/20/2018 112* - BUN 05/20/2018 12 - Creatinine 05/20/2018 0.95 - Sodium 05/20/2018 140 - Potassium 05/20/2018 4.3 - Chloride 05/20/2018 102 - CO2 05/20/2018 29 - Anion Gap 05/20/2018 9 - ALT 05/20/2018 27 - eGFR- 05/20/2018 >60 - eGFR-All Other Races 05/20/2018 >60 - CEA 05/20/2018 5.4* CT scan of the chest abdomen and pelvis is still currently pending. My impression was I saw no specific chest abnormalities. There was a small lesion in the liver that I felt was most likely a cyst but I could not truly characterize this. I saw no other specific intra-abdominal abnormalities. The patient returns today to discuss pathology results and plan course of treatment for resection of his colon cancer. The patient is being seen by me today at the request of Zechariah Lopez ([facility]), APR* my opinion and advice regarding sigmoid colon cancer. PAST MEDICAL HISTORY Diagnosis Date - Allergic rhinitis - DDD (degenerative disc disease), lumbar - Kidney stone - Prediabetes PAST SURGICAL HISTORY Procedure Laterality Date - AMPUTATION FINGER/THUMB accident as a child - COLONOSCOP W/ OR W/O [facility] SPEC 05/20/2018 Colonoscopy - KNEE SCOPE,DIAGNOSTIC 2014 Arthroscopy, knee - PAST SURGICAL HISTORY OF injections in back/nerve ablation - REPAIR OF NASAL SEPTUM 2002 Current Outpatient Prescriptions: neomycin 500 mg tablet Take 2 tablets by mouth four times daily. 2 TABLETS AT 6, 8 ,AND 10 PM Disp: 6 tablet Rfl: 0 metroNIDAZOLE (FLAGYL) 500 mg tablet Take 1 tablet by mouth three times daily. 2 TABLETS AT 6, 8, AND 10 PM Disp: 6 tablet Rfl: 0 peg 3350-Electrolytes (GOLYTELY) 236-22.74-6.74 -5.86 gram suspension Take 4,000 mL by mouth one time only for 1 dose. Disp: 1 Bottle Rfl: 0 tamsulosin ER (FLOMAX) 0.4 mg cap Take 1 capsule by mouth daily at bedtime. Disp: 30 capsule Rfl: 1 No current facility-administered medications for this visit. ALLERGIES: Patient has no known allergies. PERSONAL HISTORY: Social History Marital status: Spouse name: Years of education: Number of children: Social History Main Topics Smoking status: Former Smoker Packs/day: 0.50 Years: 10.00 Types: Cigarettes Smokeless tobacco: Never Used Comment: qit in 1996 Alcohol use: Yes 3.0 - 4.5 oz/week Glasses of Wine (5oz): 2 - 3 per week Drug use: No FAMILY HISTORY: FAMILY HISTORY Problem Relation Age of Onset - Hypertension Mother - Cancer Father LUNG REVIEW OF SYMPTOMS: The review of systems data was entered by the nurse and reviewed by mo Nursing Notes: Adele Acevedo RN 04/24/2018 4:17 PM Signed REVIEW OF SYSTEMS: General: The patient denies fatigue, denies weight loss, denies weight gain, denies feeling hot, and denies feelings of cold. Eyes: The patient denies glaucoma, denies eye injury/surgery, wears glasses or contacts. Ear/Nose/Throat: The patient denies allergies, denies hayfever, denies ear infections, and denies bloody noses. Cardiovascular: The patient denies chest pain, denies heart disease, denies high blood pressure,denies cardiac stent, denies prior heart attack, denies irregular heart beat, denies high cholesterol, denies poor circulation, denies heart failure, other cardiac issues, denies claudication, denies cold feet, denies peripheral arterial stent. Respiratory: The patient denies tuberculosis, denies pneumonia, denies frequent cough, denies pulmonary embolism, denies shortness of breath, and denies coughing up blood. Gastrointestinal: The patient denies difficulty swallowing, notes acid reflux, denies ulcers, denies vomiting, denies jaundice/hepatitis, denies gallbladder problems, denies black or tarry stools, denies hemorrhoids, denies bleeding from rectum, denies diverticulitis, denies constipation, denies diarrhea, denies loss of stool control, and denies hernias. Kidney/Bladder: The patient notes kidney stones, denies urine infections, and denies bloody urine. Skin: The patient denies a history of skin cancer, denies bleeding/changing moles, and denies a history of skin rash. Neurologic: The patient denies a history of epilepsy/convulsions, denies headaches, denies head/spinal injuries, and denies stroke/TIA. Psychiatric: The patient denies psychiatric medications, denies depression, and denies voices, denies substance abuse. Endocrine: The patient denies thyroid disorders, denies diabetes, and denies hormonal problems. Hematologic: The patient denies a history of bruising, denies bleeding, and denies anemia, denies blood clots. Infections: The patient denies a history of measles and mumps, denies rheumatic fever, and denies sexually transmitted diseases. Musculoskeletal: The patient denies back pain/injury, notes back problems, denies sciatica, NOTES knee/foot trouble, denies arthritis, or NOTES gout. ? PHYSICAL EXAMINATION: General: The patient is 52 year old male, well nourished, well hydrated in no acute distress. The patient is oriented to time, place, and person. VITALS: There were no vitals taken for this visit. There is no height or weight on file to calculate BMI. HEENT: Normal cephalic, ataumatic, pupils are equally round, sclera are anicteric, mucous membranes are moist, oropharynx is clear. Neck has no masses, asymmetry or lymphadenopathy. Thyroid is unremarkable. Respiratory: Clear to auscultation and percussion. Normal respiratory excursion and pattern. Cardiac: Examination is regular rate and rhythm. Abdominal exam: Soft, nontender, with no palpable masses. No hepatosplenomegaly. No palpable hernias. Rectal exam: exam deferred Extremities: no clubbing, cyanosis or edema. No adenopathy. LABORATORY VALUES: As Noted RADIOLOGIC STUDIES: As Noted Assessment IMPRESSION: Sigmoid colon cancer PLAN: We extensively discussed the diagnosis and discussed the surgical options. The patient has elected to undergo colon resction I plan to perform a Laparoscopic Low Anterior Resection - 14339-340. The planned surgical procedure was discussed extensively with the patient. The risks, benefits, anticipated outcomes and possible complications and alternatives were discussed. My staff has also explained the procedure in understandable terms and the patient was given the option to take printed material concerning the planned procedure. The patient had the opportunity to ask questions concerning the planned procedure. The patient freely consents to the planned procedure. I will plan for outpatient bowel preparation including mechanical and antibiotic preparation including Neomycin and Flagyl 1gm each at 6,8, and 10pm the night before surgery. The patient will return next Saturday to go over the planned course of events as this still remains quite a shock to him and we will discuss the plans further. Anticipated Surgical Procedure/ CPT Code: Laparoscopic Low Anterior Resection - 12352-454 Anticipated Anesthetic: General Patient weight: There were no vitals taken for this visit. BMI: There is no height or weight on file to calculate BMI. Planned antibiotic: Cefotetan 2gm IVPB production trainer to OR SCDs needed - Yes Field Service Consultant Needed - Yes Diagnoses: (C18.7) Cancer of sigmoid colon (HCC) (primary encounter diagnosis) My findings have been communicated to Zechariah Lopez via shared medical record. This note will be forwarded to Ara Pierce MD. Return to Clinic: The patient is instructed to follow-up with me next week to review the plans for surgery and then 1 week postoperatively. Stanislav Colon MD CNOV Observed: 05/22/2018 Status: COMPLETED Source: [place] 3:40 PM [facility] REPOSITORY Office Visit (GENSWS) AMELIA AVILA ([id number]) 1965 M Date Time Provider Department 05/22/18 3:40 PM STANISLAV COLON During your visit today, we recorded the following information about you: Stanislav Colon MD 05/22/2018 4:26 PM Signed The following instructions are important for you related to your office visit today with the [facility]. INSTRUCTIONS FOR YOUR SURGICAL PROCEDURE - COLON RESECTION We discussed the risks and benefits of your planned procedure. If you have any additional questions, please contact our office immediately. Preadmission testing is an important part of preparation for your procedure. All laboratory studies, x-rays, and additional testing must be available for the preadmission testing staff to help ready you for surgery. You should not take aspirin or other blood thinners for one week prior to surgery unless instructed differently. You were given handouts with instructions for your bowel preparation. It is important that should follow these instructions closely. If you do not feel you are becoming adequately clean after your bowel preparation, contact our office. Make sure to drink plenty of clear liquids with your bowel cleansing. This well help to better clean your colon and prevent dehydration. Do not eat or drink liquids after midnight. After completing the bowel cleansing, You may be given antibiotic tablets to further prepare your colon. Typically neomycin and flagyl - 1gram orally at: 4pm, 6pm and 10pm are given. The times may be different if surgery is not scheduled for the first case of the day. You should not have anything to eat or drink after midnight the night prior to your surgery. You should wear comfortable clothes for your procedure. Please understand that the operating room schedule is an estimated time for your surgical procedure. Your procedure may be somewhat earlier or somewhat later than the estimated time. You will typically be kept NPO in the hospital until you have return of bowel activity. Once you have return of bowel activity, you will be started on clear liquids and typically will go home the following day. You'll be discharged home with postoperative instructions and typically pain medications. Please be aware that many pain medications may cause nausea. You should typically eat light foods as you take your pain medications. Your dressing will usually be able to be removed two to three days following surgery. You may typically shower three days after surgery. If you have Steri-Strips on your incision (little white tapes) you should leave these in place until they fall off. You will typically have a followup office visit 1 to 2 weeks after surgery. Again, if you have any difficulties or concerns, contact our office immediately. If you note any additional difficulties, questions, or concerns, you should contact our office immediately @ [phone] and ask to be transferred to the General Surgery department. Stanislav Colon MD 05/22/2018 6:42 PM Signed HISTORY AND PHYSICAL - COLON RESECTION FOR SIGMOID COLON CANCER Amelia Avila 1965 May 22, 2018 REFERRING PHYSICIAN: Zechariah Lopez (Refrigeration Systems Installer), APR* CHIEF COMPLAINT: Colon cancer HPI: The patient is a 52 year old male with a finding of a sigmoid colon cancer. The patient is a 52 year old male referred for endoscopy and seen by my physician's pizza hut assistant Sandy JOSEPH. Amelia notes no history of colon complaints. He states he had one isolated episode of bright red rectal bleeding which he attributed to a hemorrhoid as it occurred after some constipation and straining. Denies any bleeding before or since that time. Denies any changes in bowel habits, abdominal pain or black tarry stools. He notes rare acid reflux which is relieved by ctqu-ezz-aiyvtbj antacids. Amelia has not undergone prior endoscopy. The patient is being seen by Sandy today at the request of Zechariah Lopez CNP on April 24, 2018. The patient underwent colonoscopy on May 20, 2018 which demonstrated 4 polyps located in the cecum, proximal transverse colon, 50 cm and 20 cm. Unfortunately, there was an irregular ulcerated lesion located was felt to be within the mid sigmoid colon at approximately 40 cm. Multiple biopsies were performed, the site was tattooed, and a marker clip was placed. Postprocedure KUB was obtained which demonstrated the clip to be in the mid sigmoid colon. Pathology returned as: Specimen originated from [facility] Specimen #: [id number] Submitting Physician: STANISLAV COLON ([id number]) FINAL DIAGNOSIS 1. Cecal polyp, biopsy (A) - Tubular adenoma. 2. Proximal transverse colon polyp, biopsy (B) - Tubular adenoma. 3. Colon polyp at 50 cm, biopsy (C) - Tubular adenoma. 4. Colon mass at 40 cm, biopsy (D) - Invasive moderately differentiated adenocarcinoma. 5. Colon polyp at 20 cm, biopsy (E) - Tubular adenoma. JEL/dss 05/22/2018 As I was comfortable at the time of endoscopy this was in fact invasive cancer, preoperative laboratory studies and a CT scan were obtained. These demonstrated: Admission on 05/20/2018, Discharged on 05/20/2018 Component Date Value - Detail Assembler 05/20/2018 Value: Specimen originated from [facility] Specimen #: [id number] Submitting Physician: STANISLAV COLON ([id number]) FINAL DIAGNOSIS 1. Cecal polyp, biopsy (A) - Tubular adenoma. 2. Proximal transverse colon polyp, biopsy (B) - Tubular adenoma. 3. Colon polyp at 50 cm, biopsy (C) - Tubular adenoma. 4. Colon mass at 40 cm, biopsy (D) - Invasive moderately differentiated adenocarcinoma. 5. Colon polyp at 20 cm, biopsy (E) - Tubular adenoma. JEL/dss 05/22/2018 Maureen Anderson M.D. (Electronic Signature) SPECIMEN SUBMITTED A: CECUM POLYP B: PROXIMAL TRANSVERSE COLON POLYP C: COLON, POLYP AT 50CM D: COLON, BIOPSY AT 40CM E: COLON, POLYP AT 20CM CLINICAL DATA A-C, E: HOT SNARE GROSS DESCRIPTION A. Received in formalin is one piece of poon, soft tissue measuring 0.2 x 0.2 x 0.2 cm. To tally submitted in one cassette. B. Received in formalin are four pieces of poon, soft tissue aggregating to 1.4 x 0.2 x 0.1 cm. Totally submitted in one cassette. C. Received in formalin is a poon polypoid segment of tissue measuring 0.5 x 0.4 x 0.3 cm. No stalk is noted. The line of resection is noted. Specimen is bisected. Totally submitted in one cassette. D. Received in formalin are six pieces of poon, soft tissue aggregating to 2.0 x 0.3 x 0.2 cm. Totally submitted in one cassette. E. Received in formalin are five pieces of poon, soft tissue aggregating to 1.2 x 0.2 x 0.2 cm. Totally submitted in one cassette. Gross examination performed at [facility], [address] [place] [address] 05/21/2018 9:57:38 AM Date of Report: 05/22/2018 Date of Procedure: 05/20/2018 Date of Receipt: 05/20/2018 Submitted by: STANISLAV COLON ([id number]) Location: W01 Diagnostic interpretation performed at [facility], [address] [place] [address] [place] [address]. Appointment on 05/20/2018 Component Date Value - WBC 05/20/2018 4.54 - RBC 05/20/2018 5.07 - Hemoglobin 05/20/2018 15.1 - Hematocrit 05/20/2018 46.7 - MCV 05/20/2018 92.1 - MCH 05/20/2018 29.8 - MCHC 05/20/2018 32.3 - RDW-CV 05/20/2018 13.1 - Platelet Count 05/20/2018 145* - MPV 05/20/2018 11.5 - Neut% 05/20/2018 64.1 - Abs Neut (ANC) 05/20/2018 2.90 - Lymph% 05/20/2018 24.7 - Abs Lymph 05/20/2018 1.12 - [place]% 05/20/2018 9.9 - Abs [place] 05/20/2018 0.45 - Eosin% 05/20/2018 0.9 - Abs Eosin 05/20/2018 0.04 - Baso% 05/20/2018 0.4 - Abs Baso 05/20/2018 <0.03 - Nucleated Reds 05/20/2018 0.0 - Absolute nRBC 05/20/2018 <0.01 - Diff Type 05/20/2018 Auto Diff - Protein, Total 05/20/2018 6.3 - Albumin 05/20/2018 4.2 - Calcium 05/20/2018 9.7 - Bilirubin, Total 05/20/2018 0.6 - Alkaline Phosphatase 05/20/2018 49 - AST 05/20/2018 27 - Glucose 05/20/2018 112* - BUN 05/20/2018 12 - Creatinine 05/20/2018 0.95 - Sodium 05/20/2018 140 - Potassium 05/20/2018 4.3 - Chloride 05/20/2018 102 - CO2 05/20/2018 29 - Anion Gap 05/20/2018 9 - ALT 05/20/2018 27 - eGFR- 05/20/2018 >60 - eGFR-All Other Races 05/20/2018 >60 - CEA 05/20/2018 5.4* CT scan of the chest abdomen and pelvis is still currently pending. My impression was I saw no specific chest abnormalities. There was a small lesion in the liver that I felt was most likely a cyst but I could not truly characterize this. I saw no other specific intra-abdominal abnormalities. The patient returns today to discuss pathology results and plan course of treatment for resection of his colon cancer. The patient is being seen by me today at the request of Zechariah Lopez ([facility]), APR* my opinion and advice regarding sigmoid colon cancer. PAST MEDICAL HISTORY Diagnosis Date - Allergic rhinitis - DDD (degenerative disc disease), lumbar - Kidney stone - Prediabetes PAST SURGICAL HISTORY Procedure Laterality Date - AMPUTATION FINGER/THUMB accident as a child - COLONOSCOP W/ OR W/O [facility] SPEC 05/20/2018 Colonoscopy - KNEE SCOPE,DIAGNOSTIC 2013 Arthroscopy, knee - PAST SURGICAL HISTORY OF injections in back/nerve ablation - REPAIR OF NASAL SEPTUM 2002 Current Outpatient Prescriptions: neomycin 500 mg tablet Take 2 tablets by mouth four times daily. 2 TABLETS AT 6, 8 ,AND 10 PM Disp: 6 tablet Rfl: 0 metroNIDAZOLE (FLAGYL) 500 mg tablet Take 1 tablet by mouth three times daily. 2 TABLETS AT 6, 8, AND 10 PM Disp: 6 tablet Rfl: 0 peg 3350-Electrolytes (GOLYTELY) 236-22.74-6.74 -5.86 gram suspension Take 4,000 mL by mouth one time only for 1 dose. Disp: 1 Bottle Rfl: 0 tamsulosin ER (FLOMAX) 0.4 mg cap Take 1 capsule by mouth daily at bedtime. Disp: 30 capsule Rfl: 1 No current facility-administered medications for this visit. ALLERGIES: Patient has no known allergies. PERSONAL HISTORY: Social History Marital status: Spouse name: Years of education: Number of children: Social History Main Topics Smoking status: Former Smoker Packs/day: 0.50 Years: 10.00 Types: Cigarettes Smokeless tobacco: Never Used Comment: qit in 1996 Alcohol use: Yes 3.0 - 4.5 oz/week Glasses of Wine (5oz): 2 - 3 per week Drug use: No FAMILY HISTORY: FAMILY HISTORY Problem Relation Age of Onset - Hypertension Mother - Cancer Father LUNG REVIEW OF SYMPTOMS: The review of systems data was entered by the nurse and reviewed by mo Nursing Notes: Adele Acevedo RN 04/24/2018 4:17 PM Signed REVIEW OF SYSTEMS: General: The patient denies fatigue, denies weight loss, denies weight gain, denies feeling hot, and denies feelings of cold. Eyes: The patient denies glaucoma, denies eye injury/surgery, wears glasses or contacts. Ear/Nose/Throat: The patient denies allergies, denies hayfever, denies ear infections, and denies bloody noses. Cardiovascular: The patient denies chest pain, denies heart disease, denies high blood pressure,denies cardiac stent, denies prior heart attack, denies irregular heart beat, denies high cholesterol, denies poor circulation, denies heart failure, other cardiac issues, denies claudication, denies cold feet, denies peripheral arterial stent. Respiratory: The patient denies tuberculosis, denies pneumonia, denies frequent cough, denies pulmonary embolism, denies shortness of breath, and denies coughing up blood. Gastrointestinal: The patient denies difficulty swallowing, notes acid reflux, denies ulcers, denies vomiting, denies jaundice/hepatitis, denies gallbladder problems, denies black or tarry stools, denies hemorrhoids, denies bleeding from rectum, denies diverticulitis, denies constipation, denies diarrhea, denies loss of stool control, and denies hernias. Kidney/Bladder: The patient notes kidney stones, denies urine infections, and denies bloody urine. Skin: The patient denies a history of skin cancer, denies bleeding/changing moles, and denies a history of skin rash. Neurologic: The patient denies a history of epilepsy/convulsions, denies headaches, denies head/spinal injuries, and denies stroke/TIA. Psychiatric: The patient denies psychiatric medications, denies depression, and denies voices, denies substance abuse. Endocrine: The patient denies thyroid disorders, denies diabetes, and denies hormonal problems. Hematologic: The patient denies a history of bruising, denies bleeding, and denies anemia, denies blood clots. Infections: The patient denies a history of measles and mumps, denies rheumatic fever, and denies sexually transmitted diseases. Musculoskeletal: The patient denies back pain/injury, notes back problems, denies sciatica, NOTES knee/foot trouble, denies arthritis, or NOTES gout. ? PHYSICAL EXAMINATION: General: The patient is 52 year old male, well nourished, well hydrated in no acute distress. The patient is oriented to time, place, and person. VITALS: There were no vitals taken for this visit. There is no height or weight on file to calculate BMI. HEENT: Normal cephalic, ataumatic, pupils are equally round, sclera are anicteric, mucous membranes are moist, oropharynx is clear. Neck has no masses, asymmetry or lymphadenopathy. Thyroid is unremarkable. Respiratory: Clear to auscultation and percussion. Normal respiratory excursion and pattern. Cardiac: Examination is regular rate and rhythm. Abdominal exam: Soft, nontender, with no palpable masses. No hepatosplenomegaly. No palpable hernias. Rectal exam: exam deferred Extremities: no clubbing, cyanosis or edema. No adenopathy. LABORATORY VALUES: As Noted RADIOLOGIC STUDIES: As Noted Assessment IMPRESSION: Sigmoid colon cancer PLAN: We extensively discussed the diagnosis and discussed the surgical options. The patient has elected to undergo colon resction I plan to perform a Laparoscopic Low Anterior Resection - 07509-841. The planned surgical procedure was discussed extensively with the patient. The risks, benefits, anticipated outcomes and possible complications and alternatives were discussed. My staff has also explained the procedure in understandable terms and the patient was given the option to take printed material concerning the planned procedure. The patient had the opportunity to ask questions concerning the planned procedure. The patient freely consents to the planned procedure. I will plan for outpatient bowel preparation including mechanical and antibiotic preparation including Neomycin and Flagyl 1gm each at 6,8, and 10pm the night before surgery. The patient will return next Saturday to go over the planned course of events as this still remains quite a shock to him and we will discuss the plans further. Anticipated Surgical Procedure/ CPT Code: Laparoscopic Low Anterior Resection - 43685-321 Anticipated Anesthetic: General Patient weight: There were no vitals taken for this visit. BMI: There is no height or weight on file to calculate BMI. Planned antibiotic: Cefotetan 2gm IVPB production trainer to OR SCDs needed - Yes Field Service Consultant Needed - Yes Diagnoses: (C18.7) Cancer of sigmoid colon (HCC) (primary encounter diagnosis) My findings have been communicated to Zechariah Lopez via shared medical record. This note will be forwarded to Ara Pierce MD. Return to Clinic: The patient is instructed to follow-up with me next week to review the plans for surgery and then 1 week postoperatively. Stanislav Colon MD Referring Provider: ZECHARIAH LOPEZ ([facility]) [[id number]] Allergies As of Date: 05/22/2018 (No Known Allergies) Date Reviewed: 05/22/2018 Reviewed by: Yaritza Garcia LPN - Fully Assessed Reason for Visit: Post Op [174] Primary Visit Diagnosis:Cancer of sigmoid colon (HCC) [C18.7] Order(s):neomycin 500 mg tabletTake 2 tablets by mouth four times daily. 2 TABLETS AT 6, 8 ,AND 10 PMDisp: 6 tabletRfl: 0 metroNIDAZOLE (FLAGYL) 500 mg tabletTake 1 tablet by mouth three times daily. 2 TABLETS AT 6, 8, AND 10 PMDisp: 6 tabletRfl: 0 [] peg 3350-Electrolytes (GOLYTELY) 236-22.74-6.74 -5.86 gram suspensionTake 4,000 mL by mouth one time only for 1 dose.Disp: 1 BottleRfl: 0 Prescriptions as of 05/22/2018 Sig: NEOMYCIN 500 MG TABLET Take 2 tablets by mouth four * METRONIDAZOLE 500 MG TABLET Take 1 tablet by mouth three * PEG 3350-ELECTROLYTES 236 GRA* Take 4,000 mL by mouth one ti* TAMSULOSIN 0.4 MG CAPSULE Take 1 capsule by mouth daily* Problem List As Of Date 05/22/2018 Noted Resolved ESOPHAGEAL REFLUX [K21.9] INVALID FOR* OTHER LUNG DISEASE NEC [J98.4] INVALID FOR* CALCULUS OF URETER [N20.1] INVALID FOR* Impaired Fasting Glucose [R73.01] INVALID FOR* DDD (Degenerative Disc Disease), Lumbar [M51.36]INVALID FOR* Prediabetes [R73.03] INVALID FOR*05/07/2016 Hyperlipidemia [E78.5] INVALID FOR* Chronic bilateral low back pain without sciatic*INVALID FOR* Spondylosis of lumbar region without myelopathy*INVALID FOR* Discogenic low back pain [M51.36] INVALID FOR* More... Annular tear of lumbar disc [M51.36] INVALID FOR* More... Other instructions from your clinician: The following instructions are important for you related to your office visit today with the [facility]. INSTRUCTIONS FOR YOUR SURGICAL PROCEDURE - COLON RESECTION We discussed the risks and benefits of your planned procedure. If you have any additional questions, please contact our office immediately. Preadmission testing is an important part of preparation for your procedure. All laboratory studies, x-rays, and additional testing must be available for the preadmission testing staff to help ready you for surgery. You should not take aspirin or other blood thinners for one week prior to surgery unless instructed differently. You were given handouts with instructions for your bowel preparation. It is important that should follow these instructions closely. If you do not feel you are becoming adequately clean after your bowel preparation, contact our office. Make sure to drink plenty of clear liquids with your bowel cleansing. This well help to better clean your colon and prevent dehydration. Do not eat or drink liquids after midnight. After completing the bowel cleansing, You may be given antibiotic tablets to further prepare your colon. Typically neomycin and flagyl - 1gram orally at: 4pm, 6pm and 10pm are given. The times may be different if surgery is not scheduled for the first case of the day. You should not have anything to eat or drink after midnight the night prior to your surgery. You should wear comfortable clothes for your procedure. Please understand that the operating room schedule is an estimated time for your surgical procedure. Your procedure may be somewhat earlier or somewhat later than the estimated time. You will typically be kept NPO in the hospital until you have return of bowel activity. Once you have return of bowel activity, you will be started on clear liquids and typically will go home the following day. You'll be discharged home with postoperative instructions and typically pain medications. Please be aware that many pain medications may cause nausea. You should typically eat light foods as you take your pain medications. Your dressing will usually be able to be removed two to three days following surgery. You may typically shower three days after surgery. If you have Steri-Strips on your incision (little white tapes) you should leave these in place until they fall off. You will typically have a followup office visit 1 to 2 weeks after surgery. Again, if you have any difficulties or concerns, contact our office immediately. If you note any additional difficulties, questions, or concerns, you should contact our office immediately @ [phone] and ask to be transferred to the General Surgery department. Prescriptions ordered this encounter Disp Refills Start End NEOMYCIN 500 MG TABLET 6 ta* 0 05/22/2018 Route: ORAL Sig: Take 2 tablets by mouth four times daily. 2 TABLETS AT 6, 8 ,AND 10 PM METRONIDAZOLE 500 MG TABLET 6 ta* 0 05/22/2018 Route: ORAL Sig: Take 1 tablet by mouth three times daily. 2 TABLETS AT 6, 8, AND 10 PM PEG 3350-ELECTROLYTES 236 GRAM-22.74* 1 Willem* 0 05/22/2018 05/22/2018 Route: ORAL Sig: Take 4,000 mL by mouth one time only for 1 dose. Follow-up and Disposition History Recorded Letter Text NURSE'S SIGNATURE DOCTOR'S SIGNATURE TIME TIME DATE May 22, 2018 [facility] DATE May 22, 2018 Orders verified by readback: PRE-ADMISSION TESTING PHYSICIAN'S ORDER SHEET PREOPERATIVE ORDERS: X ANTIBIOTIC: _Cefotetan 2gm IVPB production trainer to OR__ aware of penicillin allergy ok to administer X SCD'S __ PREP LOCATION: Abdomen-modified lithotomy __ PAINT WITH BETADINE/CHLORAHEXIDINE PREP PRE-ADMISSION TESTING PHYSICIAN'S ORDER SHEET 48779 [id number] REV 3.13.08 ANESTHESIA: __ Surgeon has notified anesthesia. Date/Time Doctor OR __ Anesthesia not yet notified of consult by surgeon. Check area of concern. System of concern: __Cardiac __Pulmonary __Neuro __ Airway __Allergies __Other __ Anesthesia to see patient at PAT appointment. (PAT appt must be between 1-3 pm) LAB ORDERS: X Labs done at [facility] (Copies enclosed for [facility]) __ Duplicate order __ No Labs ordered ___ CBC ___ CBC/Diff ___ Basic Metabolic Profile (BUN, Lytes, Glu, Cre, Calcium) __ Glucose __ Creatinine __ BUN __ Lytes __ Protime- Dx code: __ PTT - Dx code: __ Urinalysis __ Urinalysis (complete) __ Liver Profile __ Lipid Profile __ Alk Phosphatase __ Bilirubin __ Amylase/Lipase __ Magnesium __ Phosphorous __ PSA - Dx code: __ CEA - Dx code: __ Urine __ Serum (Age 11-52 years old unless sterilization or pt refuses) X Screen for MRSA (PCR) if guidelines met Other: BLOOD BANK: __ Type AND Screen __ Type AND Cross (RC) units __ Autologous units __ Fresh Frozen Plasma units __ Platelets units ANCILLARY DEPTS: __EKG-MD to read: __PA/Lat CXR Reason for exam: __ Incentive Spirometer __ BUSINESS INTELLIGENCE MANAGER Other: Patient has: Pacemaker ICD Chief Deputy Coroner name AND phone number: Pacer/ICD rep notified by nurse: X CHG product: [employer] or cloths Dispense CHG product+Instructions if surgical site below neck Additional Orders: PAT Comment: Anesthesia notified on about: TEDS / KNEE HIGH TEDS / THIGH HIGH Faxed to Pharmacy: __ Vancomycin 1000 mg IV X 1 dose preoperatively if history of MRSA or positive MRSA screening (Fax to Rx) Admission Status: SDC Outpatient SDC Overnight (23 hr or less) X Admit Date: PAT Surgery Allergies:. Patient has no known allergies. Patient's Name: Silvio Avila Patient's Birthdate: 1965 Diagnosis: (C18.7) Cancer of sigmoid colon (HCC) (primary encounter diagnosis) [facility] Surgery / Procedure: Surgeon / Physician: Stanislav Colon MD My doctor and I talked about the recommended surgery/procedure, the reasons it is being recommended, and what it generally is expected to do. We talked about major risks or complications that could occur. We talked about options other than the recommended surgery/procedure (including no treatment) and the benefits and risks of each option. I received and understand information describing the surgery or procedure, its potential risks and complications. I know surgery/medicine is not an exact science. No doctor, nurse or anyone from [facility] promised or guaranteed the success or clinical outcome of the surgery/procedure, or that a risk or complication could not occur. I know every surgery/procedure has risks, including the risk of anesthesia, the risk of unplanned injury, the risk of infection and the risk of failure. I know that not every possible risk could be covered in the written materials or in talking with the doctor. Before signing this Consent, I had an opportunity to discuss the recommended surgery/procedure, other options, and risks. I am satisfied with the answers to all of my questions. I understand about risks and knowingly accept them. If you are (or believe you may be ), tell your doctor or nurse before you sign this Consent. Your doctor will discuss with you if there are potential risks to your unborn child. Your consent will be for yourself and for the unborn child. It is the Hospital's policy to require that a responsible adult drive you directly home when you leave the Hospital. By signing, you accept and agree with this policy. By signing, I voluntarily and knowingly give my informed consent: O To have the doctor perform the recommended surgery/procedure. O To have such anesthetics (including moderate sedation) that are necessary and advisable. O To have the doctor perform additional, medically necessary surgery/procedures to treat any unforeseen or newly-discovered condition that occurs during surgery/the procedure, which needs prompt attention. O To examine, record and dispose of any tissue or body parts that are removed. O To allow photographs that will be used strictly for documenting my medical condition and treatment, which will be made a part of my confidential medical record. Check, if applicable: - To give me blood or blood products during surgery/procedure and during my hospital stay, as medically necessary. The risks, benefits, and alternatives to transfusions have been discussed with me and all my questions have been answered. - To not give me blood or blood products. I fully understand that this may adversely affect my medical management and may result in my . Alternatives to blood/blood products have been discussed with me. I read this Form, or had it read to me. I understand what it says. Patient or Responsible Person Relationship to Patient Witness to Signature Only Reason Patient Does Not Sign -- Date and Time signed Physician's signature [id number] Rev 12/28 Informed Consent Page 1 of 2 [facility] Informed Consent Surgery / Procedure: Laparoscopic Low Anterior Resection - 24270-212 Surgeon / Physician: Stanislav Colon MD My doctor and I talked about the recommended surgery / procedure, the reasons it is being recommended, and what it generally is expected to do. We talked about major risks or complications that could occur. We talked about options other than the recommended surgery / procedure (including no treatment) and the benefits and risks of each option. I received and understand information describing the surgery or procedure, its potential risks, and complications. I know surgery / medicine is not an exact science. No doctor, nurse or anyone from [facility] promised or guaranteed the success or clinical outcome of the surgery / procedure, or that a risk or complication could not occur. I know every surgery / procedure has risks, including the risk of anesthesia, the risk of unplanned injury, the risk of infection and the risk of failure. I know that not every possible risk could be covered in the written materials or in talking with the doctor. Before signing this Consent, I had an opportunity to discuss the recommended surgery / procedure, other options, risks, and what may occur if I choose not to have the surgery / procedure. I am satisfied with the answers to all of my questions. I understand about risks and knowingly accept them. If you are (or believe you may be ), tell your doctor or nurse before you sign this Consent. Your doctor will discuss with you if there are potential risks to your unborn child. Your consent will be for yourself and for the unborn child. It is the Hospital?s policy to require that a responsible adult drive you directly home when you leave the Hospital. By signing, you accept and agree with this policy. By signing, I voluntarily and knowingly give my informed consent: To have the doctor perform the recommended surgery / procedure To have such anesthetics (including moderate / deep sedation) that are necessary and advisable. To have the doctor perform additional, medically necessary surgery / procedures to treat any unforeseen or newly-discovered condition that occurs during surgery / the procedure, which needs prompt attention. To examine, record and dispose of any tissue or body parts that are removed. To allow photographs that will be used strictly for documenting my medical condition and treatment, which will be made a part of my confidential medical record. To allow [facility] employees, such as an Registered Nurse 911 Telecommunicator (DRY CHARGE PROCESS ATTENDANT) to assist with my surgery To allow Healthcare Industry Representatives to be present during my surgery or procedure To allow students to participate in the care, under appropriate situations. Page 1 of 2 [facility] Informed Consent Check One: To give me blood or blood products during surgery / procedure and during my hospital stay, as medically necessary. The risks, benefits, and alternatives to transfusions have been discussed with me and all my questions have been answered. To not give me blood or blood products. I fully understand that this may adversely affect my medical management and may result in my . Alternatives to blood / blood products have been discussed with me. I read this Form, or had it read to me. I understand what it says. Patient Signature Relationship to Patient Date AND Time Signed Reason Patient Does Not Sign Witness to Signature Only Date and Time Signed I certify that I have explained the nature, purpose, anticipated risks and benefits, complications, and alternatives to the proposed procedure to the patient. I have answered all questions fully and I believe the patient fully understands what I have explained. Physician?s Signature Date and Time [facility] [address], [place] [address] Ara Pierce MD [address] [place] [address] 05/22/2018 Dear Ara Pierce MD : Thank you for allowing me to evaluate your patient, Amelia Avila. I saw Imed on 05/22/2018. I am planning to perform a asdasd. Enclosed is a copy of my office dictation for ed which includes my evaluation and recommendations. Again, thank you for the referral of Amelia Avila. If I can be of any assistance to you in the future, please don't hesitate to call. Sincerely yours, Stanislav Colon MD, FACS HISTORY AND PHYSICAL - COLON RESECTION FOR SIGMOID COLON CANCER saurabh Avila 1965 May 22, 2018 REFERRING PHYSICIAN: Zechariah Lopez ([facility]), APR* CHIEF COMPLAINT: Colon cancer HPI: The patient is a 52 year old male with a finding of a sigmoid colon cancer. The patient is a 52 year old male referred for endoscopy and seen by my physician's pizza hut assistant Sadny Ha - JAKE. Imed notes no history of colon complaints. He states he had one isolated episode of bright red rectal bleeding which he attributed to a hemorrhoid as it occurred after some constipation and straining. Denies any bleeding before or since that time. Denies any changes in bowel habits, abdominal pain or black tarry stools. He notes rare acid reflux which is relieved by [id number] antacids. Imsaurabh has not undergone prior endoscopy. The patient is being seen by Sandy kendall at the request of Zechariah Lopez CNP on April 24, 2018. The patient underwent colonoscopy on May 20, 2018 which demonstrated 4 polyps located in the cecum, proximal transverse colon, 50 cm and 20 cm. Unfortunately, there was an irregular ulcerated lesion located was felt to be within the mid sigmoid colon at approximately 40 cm. Multiple biopsies were performed, the site was tattooed, and a marker clip was placed. Postprocedure KUB was obtained which demonstrated the clip to be in the mid sigmoid colon. Pathology returned as: Specimen originated from [facility] Specimen #: [id number] Submitting Physician: STANISLAV COLON ([id number]) FINAL DIAGNOSIS 1. Cecal polyp, biopsy (A) - Tubular adenoma. 2. Proximal transverse colon polyp, biopsy (B) - Tubular adenoma. 3. Colon polyp at 50 cm, biopsy (C) - Tubular adenoma. 4. Colon mass at 40 cm, biopsy (D) - Invasive moderately differentiated adenocarcinoma. 5. Colon polyp at 20 cm, biopsy (E) - Tubular adenoma. JEL/dss 05/22/2018 As I was comfortable at the time of endoscopy this was in fact invasive cancer, preoperative laboratory studies and a CT scan were obtained. These demonstrated: Admission on 05/20/2018, Discharged on 05/20/2018 Component Date Value - Detail Assembler 05/20/2018 Value: Specimen originated from [facility] Specimen #: [id number] Submitting Physician: STANISLAV COLON ([id number]) FINAL DIAGNOSIS 1. Cecal polyp, biopsy (A) - Tubular adenoma. 2. Proximal transverse colon polyp, biopsy (B) - Tubular adenoma. 3. Colon polyp at 50 cm, biopsy (C) - Tubular adenoma. 4. Colon mass at 40 cm, biopsy (D) - Invasive moderately differentiated adenocarcinoma. 5. Colon polyp at 20 cm, biopsy (E) - Tubular adenoma. JEL/dss 05/22/2018 Maureen Anderson M.D. (Electronic Signature) SPECIMEN SUBMITTED A: CECUM POLYP B: PROXIMAL TRANSVERSE COLON POLYP C: COLON, POLYP AT 50CM D: COLON, BIOPSY AT 40CM E: COLON, POLYP AT 20CM CLINICAL DATA A-C, E: HOT SNARE GROSS DESCRIPTION A. Received in formalin is one piece of poon, soft tissue measuring 0.2 x 0.2 x 0.2 cm. To tally submitted in one cassette. B. Received in formalin are four pieces of poon, soft tissue aggregating to 1.4 x 0.2 x 0.1 cm. Totally submitted in one cassette. C. Received in formalin is a poon polypoid segment of tissue measuring 0.5 x 0.4 x 0.3 cm. No stalk is noted. The line of resection is noted. Specimen is bisected. Totally submitted in one cassette. D. Received in formalin are six pieces of poon, soft tissue aggregating to 2.0 x 0.3 x 0.2 cm. Totally submitted in one cassette. E. Received in formalin are five pieces of poon, soft tissue aggregating to 1.2 x 0.2 x 0.2 cm. Totally submitted in one cassette. Gross examination performed at [facility], [address] [place] [address] 05/21/2018 9:57:38 AM Date of Report: 05/22/2018 Date of Procedure: 05/20/2018 Date of Receipt: 05/20/2018 Submitted by: STANISLAV COLON ([id number]) Location: [id number] Diagnostic interpretation performed at [facility], [address] [place] [address]. Appointment on 05/20/2018 Component Date Value - WBC 05/20/2018 4.54 - RBC 05/20/2018 5.07 - Hemoglobin 05/20/2018 15.1 - Hematocrit 05/20/2018 46.7 - MCV 05/20/2018 92.1 - MCH 05/20/2018 29.8 - MCHC 05/20/2018 32.3 - RDW-CV 05/20/2018 13.1 - Platelet Count 05/20/2018 145* - MPV 05/20/2018 11.5 - Neut% 05/20/2018 64.1 - Abs Neut (ANC) 05/20/2018 2.90 - Lymph% 05/20/2018 24.7 - Abs Lymph 05/20/2018 1.12 - Greenbrier% 05/20/2018 9.9 - Abs [place] 05/20/2018 0.45 - Eosin% 05/20/2018 0.9 - Abs Eosin 05/20/2018 0.04 - Baso% 05/20/2018 0.4 - Abs Baso 05/20/2018 <0.03 - Nucleated Reds 05/20/2018 0.0 - Absolute nRBC 05/20/2018 <0.01 - Diff Type 05/20/2018 Auto Diff - Protein, Total 05/20/2018 6.3 - Albumin 05/20/2018 4.2 - Calcium 05/20/2018 9.7 - Bilirubin, Total 05/20/2018 0.6 - Alkaline Phosphatase 05/20/2018 49 - AST 05/20/2018 27 - Glucose 05/20/2018 112* - BUN 05/20/2018 12 - Creatinine 05/20/2018 0.95 - Sodium 05/20/2018 140 - Potassium 05/20/2018 4.3 - Chloride 05/20/2018 102 - CO2 05/20/2018 29 - Anion Gap 05/20/2018 9 - ALT 05/20/2018 27 - eGFR- 05/20/2018 >60 - eGFR-All Other Races 05/20/2018 >60 - CEA 05/20/2018 5.4* CT scan of the chest abdomen and pelvis is still currently pending. My impression was I saw no specific chest abnormalities. There was a small lesion in the liver that I felt was most likely a cyst but I could not truly characterize this. I saw no other specific intra-abdominal abnormalities. The patient returns today to discuss pathology results and plan course of treatment for resection of his colon cancer. The patient is being seen by me today at the request of Zechariah Lopez ([facility]), APR* my opinion and advice regarding sigmoid colon cancer. PAST MEDICAL HISTORY Diagnosis Date - Allergic rhinitis - DDD (degenerative disc disease), lumbar - Kidney stone - Prediabetes PAST SURGICAL HISTORY Procedure Laterality Date - AMPUTATION FINGER/THUMB accident as a child - COLONOSCOP W/ OR W/O [facility] SPEC 05/20/2018 Colonoscopy - KNEE SCOPE,DIAGNOSTIC 2013 Arthroscopy, knee - PAST SURGICAL HISTORY OF injections in back/nerve ablation - REPAIR OF NASAL SEPTUM 2002 Current Outpatient Prescriptions: neomycin 500 mg tablet Take 2 tablets by mouth four times daily. 2 TABLETS AT 6, 8 ,AND 10 PM Disp: 6 tablet Rfl: 0 metroNIDAZOLE (FLAGYL) 500 mg tablet Take 1 tablet by mouth three times daily. 2 TABLETS AT 6, 8, AND 10 PM Disp: 6 tablet Rfl: 0 peg 3350-Electrolytes (GOLYTELY) 236-22.74-6.74 -5.86 gram suspension Take 4,000 mL by mouth one time only for 1 dose. Disp: 1 Bottle Rfl: 0 tamsulosin ER (FLOMAX) 0.4 mg cap Take 1 capsule by mouth daily at bedtime. Disp: 30 capsule Rfl: 1 No current facility-administered medications for this visit. ALLERGIES: Patient has no known allergies. PERSONAL HISTORY: Social History Marital status: Spouse name: Years of education: Number of children: Social History Main Topics Smoking status: Former Smoker Packs/day: 0.50 Years: 10.00 Types: Cigarettes Smokeless tobacco: Never Used Comment: qit in 1996 Alcohol use: Yes 3.0 - 4.5 oz/week Glasses of Wine (5oz): 2 - 3 per week Drug use: No FAMILY HISTORY: FAMILY HISTORY Problem Relation Age of Onset - Hypertension Mother - Cancer Father LUNG REVIEW OF SYMPTOMS: The review of systems data was entered by the nurse and reviewed by me Nursing Notes: Adele Acevedo RN 04/24/2018 4:17 PM Signed REVIEW OF SYSTEMS: General: The patient denies fatigue, denies weight loss, denies weight gain, denies feeling hot, and denies feelings of cold. Eyes: The patient denies glaucoma, denies eye injury/surgery, wears glasses or contacts. Ear/Nose/Throat: The patient denies allergies, denies hayfever, denies ear infections, and denies bloody noses. Cardiovascular: The patient denies chest pain, denies heart disease, denies high blood pressure,denies cardiac stent, denies prior heart attack, denies irregular heart beat, denies high cholesterol, denies poor circulation, denies heart failure, other cardiac issues, denies claudication, denies cold feet, denies peripheral arterial stent. Respiratory: The patient denies tuberculosis, denies pneumonia, denies frequent cough, denies pulmonary embolism, denies shortness of breath, and denies coughing up blood. Gastrointestinal: The patient denies difficulty swallowing, notes acid reflux, denies ulcers, denies vomiting, denies jaundice/hepatitis, denies gallbladder problems, denies black or tarry stools, denies hemorrhoids, denies bleeding from rectum, denies diverticulitis, denies constipation, denies diarrhea, denies loss of stool control, and denies hernias. Kidney/Bladder: The patient notes kidney stones, denies urine infections, and denies bloody urine. Skin: The patient denies a history of skin cancer, denies bleeding/changing moles, and denies a history of skin rash. Neurologic: The patient denies a history of epilepsy/convulsions, denies headaches, denies head/spinal injuries, and denies stroke/TIA. Psychiatric: The patient denies psychiatric medications, denies depression, and denies voices, denies substance abuse. Endocrine: The patient denies thyroid disorders, denies diabetes, and denies hormonal problems. Hematologic: The patient denies a history of bruising, denies bleeding, and denies anemia, denies blood clots. Infections: The patient denies a history of measles and mumps, denies rheumatic fever, and denies sexually transmitted diseases. Musculoskeletal: The patient denies back pain/injury, notes back problems, denies sciatica, NOTES knee/foot trouble, denies arthritis, or NOTES gout. ? PHYSICAL EXAMINATION: General: The patient is 52 year old male, well nourished, well hydrated in no acute distress. The patient is oriented to time, place, and person. VITALS: There were no vitals taken for this visit. There is no height or weight on file to calculate BMI. HEENT: Normal cephalic, ataumatic, pupils are equally round, sclera are anicteric, mucous membranes are moist, oropharynx is clear. Neck has no masses, asymmetry or lymphadenopathy. Thyroid is unremarkable. Respiratory: Clear to auscultation and percussion. Normal respiratory excursion and pattern. Cardiac: Examination is regular rate and rhythm. Abdominal exam: Soft, nontender, with no palpable masses. No hepatosplenomegaly. No palpable hernias. Rectal exam: exam deferred Extremities: no clubbing, cyanosis or edema. No adenopathy. LABORATORY VALUES: As Noted RADIOLOGIC STUDIES: As Noted Assessment IMPRESSION: Sigmoid colon cancer PLAN: We extensively discussed the diagnosis and discussed the surgical options. The patient has elected to undergo colon resction I plan to perform a Laparoscopic Low Anterior Resection - [id number]. The planned surgical procedure was discussed extensively with the patient. The risks, benefits, anticipated outcomes and possible complications and alternatives were discussed. My staff has also explained the procedure in understandable terms and the patient was given the option to take printed material concerning the planned procedure. The patient had the opportunity to ask questions concerning the planned procedure. The patient freely consents to the planned procedure. I will plan for outpatient bowel preparation including mechanical and antibiotic preparation including Neomycin and Flagyl 1gm each at 6,8, and 10pm the night before surgery. The patient will return next Saturday to go over the planned course of events as this still remains quite a shock to him and we will discuss the plans further. Anticipated Surgical Procedure/ CPT Code: Laparoscopic Low Anterior Resection - 96166-852 Anticipated Anesthetic: General Patient weight: There were no vitals taken for this visit. BMI: There is no height or weight on file to calculate BMI. Planned antibiotic: Cefotetan 2gm IVPB production trainer to OR SCDs needed - Yes Field Service Consultant Needed - Yes Diagnoses: (C18.7) Cancer of sigmoid colon (HCC) (primary encounter diagnosis) My findings have been communicated to Zechariah Lopez via shared medical record. This note will be forwarded to Ara Pierce MD. Return to Clinic: The patient is instructed to follow-up with me next week to review the plans for surgery and then 1 week postoperatively. Stanislav Colon MD 05/22/2018 HISTORY AND PHYSICAL - COLON RESECTION FOR SIGMOID COLON CANCER Amelia Avila 1965 May 22, 2018 REFERRING PHYSICIAN: Zechariah Lopez ([employer]), APR* CHIEF COMPLAINT: Colon cancer HPI: The patient is a 52 year old male with a finding of a sigmoid colon cancer. The patient is a 52 year old male referred for endoscopy and seen by my physician's pizza hut assistant Sandy JOSEPH. Amelia notes no history of colon complaints. He states he had one isolated episode of bright red rectal bleeding which he attributed to a hemorrhoid as it occurred after some constipation and straining. Denies any bleeding before or since that time. Denies any changes in bowel habits, abdominal pain or black tarry stools. He notes rare acid reflux which is relieved by okzf-yxl-suaaseo antacids. Amelia has not undergone prior endoscopy. The patient is being seen by Sandy today at the request of Zechariah Lopez CNP on April 24, 2018. The patient underwent colonoscopy on May 20, 2018 which demonstrated 4 polyps located in the cecum, proximal transverse colon, 50 cm and 20 cm. Unfortunately, there was an irregular ulcerated lesion located was felt to be within the mid sigmoid colon at approximately 40 cm. Multiple biopsies were performed, the site was tattooed, and a marker clip was placed. Postprocedure KUB was obtained which demonstrated the clip to be in the mid sigmoid colon. Pathology returned as: Specimen originated from [facility] Specimen #: [id number] Submitting Physician: STANISLAV COLON ([id number]) FINAL DIAGNOSIS 1. Cecal polyp, biopsy (A) - Tubular adenoma. 2. Proximal transverse colon polyp, biopsy (B) - Tubular adenoma. 3. Colon polyp at 50 cm, biopsy (C) - Tubular adenoma. 4. Colon mass at 40 cm, biopsy (D) - Invasive moderately differentiated adenocarcinoma. 5. Colon polyp at 20 cm, biopsy (E) - Tubular adenoma. JEL/dss 05/22/2018 As I was comfortable at the time of endoscopy this was in fact invasive cancer, preoperative laboratory studies and a CT scan were obtained. These demonstrated: Admission on 05/20/2018, Discharged on 05/20/2018 Component Date Value - Detail Assembler 05/20/2018 Value: Specimen originated from [facility] Specimen #: [id number] Submitting Physician: STANISLAV COLON ([id number]) FINAL DIAGNOSIS 1. Cecal polyp, biopsy (A) - Tubular adenoma. 2. Proximal transverse colon polyp, biopsy (B) - Tubular adenoma. 3. Colon polyp at 50 cm, biopsy (C) - Tubular adenoma. 4. Colon mass at 40 cm, biopsy (D) - Invasive moderately differentiated adenocarcinoma. 5. Colon polyp at 20 cm, biopsy (E) - Tubular adenoma. JEL/dss 05/22/2018 Maureen Anderson M.D. (Electronic Signature) SPECIMEN SUBMITTED A: CECUM POLYP B: PROXIMAL TRANSVERSE COLON POLYP C: COLON, POLYP AT 50CM D: COLON, BIOPSY AT 40CM E: COLON, POLYP AT 20CM CLINICAL DATA A-C, E: HOT SNARE GROSS DESCRIPTION A. Received in formalin is one piece of poon, soft tissue measuring 0.2 x 0.2 x 0.2 cm. To tally submitted in one cassette. B. Received in formalin are four pieces of poon, soft tissue aggregating to 1.4 x 0.2 x 0.1 cm. Totally submitted in one cassette. C. Received in formalin is a poon polypoid segment of tissue measuring 0.5 x 0.4 x 0.3 cm. No stalk is noted. The line of resection is noted. Specimen is bisected. Totally submitted in one cassette. D. Received in formalin are six pieces of poon, soft tissue aggregating to 2.0 x 0.3 x 0.2 cm. Totally submitted in one cassette. E. Received in formalin are five pieces of poon, soft tissue aggregating to 1.2 x 0.2 x 0.2 cm. Totally submitted in one cassette. Gross examination performed at [facility], [address] [place] [address] [place] 05/21/2018 9:57:38 AM Date of Report: 05/22/2018 Date of Procedure: 05/20/2018 Date of Receipt: 05/20/2018 Submitted by: STANISLAV COLON ([id number]) Location: [facility] Diagnostic [place] [address]. Appointment on 05/20/2018 Component Date Value - WBC 05/20/2018 4.54 - RBC 05/20/2018 5.07 - Hemoglobin 05/20/2018 15.1 - Hematocrit 05/20/2018 46.7 - MCV 05/20/2018 92.1 - MCH 05/20/2018 29.8 - MCHC 05/20/2018 32.3 - RDW-CV 05/20/2018 13.1 - Platelet Count 05/20/2018 145* - MPV 05/20/2018 11.5 - Neut% 05/20/2018 64.1 - Abs Neut (ANC) 05/20/2018 2.90 - Lymph% 05/20/2018 24.7 - Abs Lymph 05/20/2018 1.12 - Greenbrier% 05/20/2018 9.9 - Abs [place]brier 05/20/2018 0.45 - Eosin% 05/20/2018 0.9 - Abs Eosin 05/20/2018 0.04 - Baso% 05/20/2018 0.4 - Abs Baso 05/20/2018 <0.03 - Nucleated Reds 05/20/2018 0.0 - Absolute nRBC 05/20/2018 <0.01 - Diff Type 05/20/2018 Auto Diff - Protein, Total 05/20/2018 6.3 - Albumin 05/20/2018 4.2 - Calcium 05/20/2018 9.7 - Bilirubin, Total 05/20/2018 0.6 - Alkaline Phosphatase 05/20/2018 49 - AST 05/20/2018 27 - Glucose 05/20/2018 112* - BUN 05/20/2018 12 - Creatinine 05/20/2018 0.95 - Sodium 05/20/2018 140 - Potassium 05/20/2018 4.3 - Chloride 05/20/2018 102 - CO2 05/20/2018 29 - Anion Gap 05/20/2018 9 - ALT 05/20/2018 27 - eGFR- 05/20/2018 >60 - eGFR-All Other Races 05/20/2018 >60 - CEA 05/20/2018 5.4* CT scan of the chest abdomen and pelvis is still currently pending. My impression was I saw no specific chest abnormalities. There was a small lesion in the liver that I felt was most likely a cyst but I could not truly characterize this. I saw no other specific intra-abdominal abnormalities. The patient returns today to discuss pathology results and plan course of treatment for resection of his colon cancer. The patient is being seen by me today at the request of Zechariah Lopez ([facility]), APR* my opinion and advice regarding sigmoid colon cancer. PAST MEDICAL HISTORY Diagnosis Date - Allergic rhinitis - DDD (degenerative disc disease), lumbar - Kidney stone - Prediabetes PAST SURGICAL HISTORY Procedure Laterality Date - AMPUTATION FINGER/THUMB accident as a child - COLONOSCOP W/ OR W/O [facility] SPEC 05/20/2018 Colonoscopy - KNEE SCOPE,DIAGNOSTIC 2014 Arthroscopy, knee - PAST SURGICAL HISTORY OF injections in back/nerve ablation - REPAIR OF NASAL SEPTUM 2002 Current Outpatient Prescriptions: neomycin 500 mg tablet Take 2 tablets by mouth four times daily. 2 TABLETS AT 6, 8 ,AND 10 PM Disp: 6 tablet Rfl: 0 metroNIDAZOLE (FLAGYL) 500 mg tablet Take 1 tablet by mouth three times daily. 2 TABLETS AT 6, 8, AND 10 PM Disp: 6 tablet Rfl: 0 peg 3350-Electrolytes (GOLYTELY) 236-22.74-6.74 -5.86 gram suspension Take 4,000 mL by mouth one time only for 1 dose. Disp: 1 Bottle Rfl: 0 tamsulosin ER (FLOMAX) 0.4 mg cap Take 1 capsule by mouth daily at bedtime. Disp: 30 capsule Rfl: 1 No current facility-administered medications for this visit. ALLERGIES: Patient has no known allergies. PERSONAL HISTORY: Social History Marital status: Spouse name: Years of education: Number of children: Social History Main Topics Smoking status: Former Smoker Packs/day: 0.50 Years: 10.00 Types: Cigarettes Smokeless tobacco: Never Used Comment: pashat in 1996 Alcohol use: Yes 3.0 - 4.5 oz/week Glasses of Wine (5oz): 2 - 3 per week Drug use: No FAMILY HISTORY: FAMILY HISTORY Problem Relation Age of Onset - Hypertension Mother - Cancer Father LUNG REVIEW OF SYMPTOMS: The review of systems data was entered by the nurse and reviewed by me Nursing Notes: Adele Acevedo RN 04/24/2018 4:17 PM Signed REVIEW OF SYSTEMS: General: The patient denies fatigue, denies weight loss, denies weight gain, denies feeling hot, and denies feelings of cold. Eyes: The patient denies glaucoma, denies eye injury/surgery, wears glasses or contacts. Ear/Nose/Throat: The patient denies allergies, denies hayfever, denies ear infections, and denies bloody noses. Cardiovascular: The patient denies chest pain, denies heart disease, denies high blood pressure,denies cardiac stent, denies prior heart attack, denies irregular heart beat, denies high cholesterol, denies poor circulation, denies heart failure, other cardiac issues, denies claudication, denies cold feet, denies peripheral arterial stent. Respiratory: The patient denies tuberculosis, denies pneumonia, denies frequent cough, denies pulmonary embolism, denies shortness of breath, and denies coughing up blood. Gastrointestinal: The patient denies difficulty swallowing, notes acid reflux, denies ulcers, denies vomiting, denies jaundice/hepatitis, denies gallbladder problems, denies black or tarry stools, denies hemorrhoids, denies bleeding from rectum, denies diverticulitis, denies constipation, denies diarrhea, denies loss of stool control, and denies hernias. Kidney/Bladder: The patient notes kidney stones, denies urine infections, and denies bloody urine. Skin: The patient denies a history of skin cancer, denies bleeding/changing moles, and denies a history of skin rash. Neurologic: The patient denies a history of epilepsy/convulsions, denies headaches, denies head/spinal injuries, and denies stroke/TIA. Psychiatric: The patient denies psychiatric medications, denies depression, and denies voices, denies substance abuse. Endocrine: The patient denies thyroid disorders, denies diabetes, and denies hormonal problems. Hematologic: The patient denies a history of bruising, denies bleeding, and denies anemia, denies blood clots. Infections: The patient denies a history of measles and mumps, denies rheumatic fever, and denies sexually transmitted diseases. Musculoskeletal: The patient denies back pain/injury, notes back problems, denies sciatica, NOTES knee/foot trouble, denies arthritis, or NOTES gout. ? PHYSICAL EXAMINATION: General: The patient is 52 year old male, well nourished, well hydrated in no acute distress. The patient is oriented to time, place, and person. VITALS: There were no vitals taken for this visit. There is no height or weight on file to calculate BMI. HEENT: Normal cephalic, ataumatic, pupils are equally round, sclera are anicteric, mucous membranes are moist, oropharynx is clear. Neck has no masses, asymmetry or lymphadenopathy. Thyroid is unremarkable. Respiratory: Clear to auscultation and percussion. Normal respiratory excursion and pattern. Cardiac: Examination is regular rate and rhythm. Abdominal exam: Soft, nontender, with no palpable masses. No hepatosplenomegaly. No palpable hernias. Rectal exam: exam deferred Extremities: no clubbing, cyanosis or edema. No adenopathy. LABORATORY VALUES: As Noted RADIOLOGIC STUDIES: As Noted Assessment IMPRESSION: Sigmoid colon cancer PLAN: We extensively discussed the diagnosis and discussed the surgical options. The patient has elected to undergo colon resction I plan to perform a Laparoscopic Low Anterior Resection - [id number]. The planned surgical procedure was discussed extensively with the patient. The risks, benefits, anticipated outcomes and possible complications and alternatives were discussed. My staff has also explained the procedure in understandable terms and the patient was given the option to take printed material concerning the planned procedure. The patient had the opportunity to ask questions concerning the planned procedure. The patient freely consents to the planned procedure. I will plan for outpatient bowel preparation including mechanical and antibiotic preparation including Neomycin and Flagyl 1gm each at 6,8, and 10pm the night before surgery. The patient will return next Saturday to go over the planned course of events as this still remains quite a shock to him and we will discuss the plans further. Anticipated Surgical Procedure/ CPT Code: Laparoscopic Low Anterior Resection - 81039-947 Anticipated Anesthetic: General Patient weight: There were no vitals taken for this visit. BMI: There is no height or weight on file to calculate BMI. Planned antibiotic: Cefotetan 2gm IVPB production trainer to OR SCDs needed - Yes Field Service Consultant Needed - Yes Diagnoses: (C18.7) Cancer of sigmoid colon (HCC) (primary encounter diagnosis) My findings have been communicated to Zechariah Lopez via shared medical record. This note will be forwarded to Ara Pierce MD. Return to Clinic: The patient is instructed to follow-up with me next week to review the plans for surgery and then 1 week postoperatively. Stanislav Colon MD I have reviewed the above history and physical exam. There have been no significant changes Stanislav Colon MD 05/22/2018 Encounter Status:Closed by STANISLAV COLON MD on 05/22/18 PROGRESS Observed: 05/22/2018 Status: COMPLETED Source: [place] 12:04 PM [facility] [place] REPOSITORY [facility] ID: [id number] Author: Lisbeth Gunderson Service: (none) Author Type: (none) Type: Progress Notes Filed: 05/22/2018 12:04 PM Note Text: Radiology Service Progress Note PATIENT NAME: Amelia Avila DATE OF SERVICE: May 22, 2018 TIME: 12:04 PM PATIENT IDENTITY VERIFICATION COMPLETED USING TWO (2) METHODS: Patient confirmed name verbally and Date of . PATIENT GENDER DATA: Male PATIENT RELEVANT IMPLANT DATA REVIEWED: Not Applicable CONTRAST INDUCED NEPHROPATHY RISK FACTORS: Not applicable CREATININE: Creatinine Date Value Ref Range Status 05/20/2018 0.95 0.73 - 1.22 mg/dL Final eGFR-All Other Races Date Value Ref Range Status 05/20/2018 >60 . Final Comment: eGFR (Estimated GFR) Units of measure: mL/min/1.73 meters squared eGFR is derived from the reexpressed MDRD Study equation using the following parameters: serum creatinine, age, gender and race. The creatinine assay has been calibrated to be traceable to IDMS. An eGFR <60 mL/min/1.73m2 for >3 months is consistent with chronic kidney disease. Refer to KDOQI guidelines for clinical interpretation. In patients with unstable renal function, e.g. those with acute kidney injury, the eGFR may not accurately reflect actual GFR. eGFR- Date Value Ref Range Status 05/20/2018 >60 Final P.O.C.T. RESULTS: POC done: Yes, See Lab Tab May 22, 2018 RADIOLOGIST NOTIFIED?: No ALLERGIES: Reviewed and unchanged CONTRAST ALLERGY: NO. PERIPHERAL IV ACCESS: Ambulatory: IV type: A peripheral IV was started in the Left antecubital site with a Angio cath: 22 gauge., Site assessment: Clean,Dry and Intact, Site disposition Discontinued RADIOLOGY DEPARTMENT: CT; Exam(s) Completed: Chest Abdomen Pelvis SIGNED BY: Lisbeth Cisneros Ct May 22, 2018 12:[address] CHEST W IVCON Observed: 05/22/2018 Status: F Source: [place] 12:03 PM [facility] REPOSITORY * * *Final Report* * * DATE OF EXAM: May 22 2018 12:03PM [facility] 0539 - CT CHEST W IVCON / PROCEDURE REASON: multiple diagnoses * * * * Physician Interpretation * * * * EXAMINATION: CT CHEST WITH CONTRAST CT ABDOMEN AND PELVIS WITH CONTRAST HISTORY: Sigmoid colon cancer TECHNIQUE: Spiral CT acquisition following IV contrast. Contrast: IV: 150 mL of Omnipaque 300 Oral: 50 mL of 50ML Omnipaque [address] Radiation dose: Integrated Dose-length product (DLP) for this visit = 954 mGy*cm. CT Dose Reduction Employed: Automated exposure control(AEC) and iterative recon COMPARISON: CT abdomen/pelvis 12/12/2006 RESULT: Chest: Limitations: None. Lines, tubes, and devices: None. Lung parenchyma and pleura: No consolidation. No suspicious pulmonary nodule. No pleural effusion. Central airways are patent. Thoracic inlet, heart, and mediastinum: No lymphadenopathy in the axillary, mediastinal, or hilar regions. The thoracic aorta and main pulmonary artery are normal in caliber. The cardiac chambers are normal in size. No coronary artery atherosclerotic calcifications are noted, although the study is not optimized for coronary assessment. No pericardial effusion or thickening. Bones and soft tissues: No destructive bone lesion. Chest wall is unremarkable. Abdomen and pelvis: Liver: 1 cm hepatic dome cyst. No suspicious hepatic lesion. Biliary: No bile duct dilation. Gallbladder is unremarkable. Spleen: No mass. No splenomegaly. Pancreas: No mass or duct dilation. Adrenals: No mass. Kidneys: 1.5 cm left midpole cyst. No calculus or hydronephrosis. Vasculature: The celiac axis and SMA are patent. The portal vein and branches, splenic vein, SMV, and hepatic veins are patent. No abdominal aortic or iliac artery aneurysm. GI tract: There is focal thickening in the mid sigmoid colon with endoscopically placed clip in place, consistent with the known sigmoid colon cancer. Remainder of the large and small bowel is unremarkable. Appendix within normal limits. Lymph nodes: No pathologically enlarged abdominal or pelvic lymph nodes. Mesentery/Peritoneum: There are multiple peritoneal based soft tissue nodules, for example: -Partially calcified 1.8 x 1.0 cm soft tissue nodule abutting the expected location of the sigmoid cancer (5:114) -Conglomerate of soft tissue along the peritoneum in the left lower quadrant measuring 4.0 x 1.3 cm (5:89) -Peritoneal based soft tissue mass in the left midabdomen anteriorly measuring 2.9 x 1.5 cm (5:59) Pelvis: Trace pelvic ascites. Enlarged prostate. Bones/Soft Tissues: No osseous metastatic disease. IMPRESSION: CHEST: NO METASTATIC DISEASE IN THE CHEST. ABDOMEN AND PELVIS: MULTIPLE PERITONEAL SOFT TISSUE NODULES SUSPICIOUS FOR PERITONEAL CARCINOMATOSIS. MANY OF THESE ARE AMENABLE TO PERCUTANEOUS BIOPSY IF CLINICALLY INDICATED. ENLARGED PROSTATE, CORRELATE WITH PSA LEVEL. Last Putter Away: PSCB Transcribe Date/Time: May 24 2018 3:44P Dictated by : JOEL HOWELL MD This examination was interpreted and the report reviewed and electronically signed by: JOEL HOWELL MD on May 24 2018 4:02PM EST [id number] CT ABD/PEL W IVCON Observed: 05/22/2018 Status: F Source: [place] 12:03 PM [facility] REPOSITORY * * *Final Report* * * DATE OF EXAM: May 22 2018 12:03PM [facility] 0530 - CT ABD/PEL W IVCON / PROCEDURE REASON: Left lower quadrant abdominal mass * * * * Physician Interpretation * * * * EXAMINATION: CT CHEST WITH CONTRAST CT ABDOMEN AND PELVIS WITH CONTRAST HISTORY: Sigmoid colon cancer TECHNIQUE: Spiral CT acquisition following IV contrast. Contrast: IV: 150 mL of Omnipaque 300 Oral: 50 mL of 50ML Omnipaque [address] Radiation dose: Integrated Dose-length product (DLP) for this visit = 954 mGy*cm. CT Dose Reduction Employed: Automated exposure control(AEC) and iterative recon COMPARISON: CT abdomen/pelvis 12/12/2006 RESULT: Chest: Limitations: None. Lines, tubes, and devices: None. Lung parenchyma and pleura: No consolidation. No suspicious pulmonary nodule. No pleural effusion. Central airways are patent. Thoracic inlet, heart, and mediastinum: No lymphadenopathy in the axillary, mediastinal, or hilar regions. The thoracic aorta and main pulmonary artery are normal in caliber. The cardiac chambers are normal in size. No coronary artery atherosclerotic calcifications are noted, although the study is not optimized for coronary assessment. No pericardial effusion or thickening. Bones and soft tissues: No destructive bone lesion. Chest wall is unremarkable. Abdomen and pelvis: Liver: 1 cm hepatic dome cyst. No suspicious hepatic lesion. Biliary: No bile duct dilation. Gallbladder is unremarkable. Spleen: No mass. No splenomegaly. Pancreas: No mass or duct dilation. Adrenals: No mass. Kidneys: 1.5 cm left midpole cyst. No calculus or hydronephrosis. Vasculature: The celiac axis and SMA are patent. The portal vein and branches, splenic vein, SMV, and hepatic veins are patent. No abdominal aortic or iliac artery aneurysm. GI tract: There is focal thickening in the mid sigmoid colon with endoscopically placed clip in place, consistent with the known sigmoid colon cancer. Remainder of the large and small bowel is unremarkable. Appendix within normal limits. Lymph nodes: No pathologically enlarged abdominal or pelvic lymph nodes. Mesentery/Peritoneum: There are multiple peritoneal based soft tissue nodules, for example: -Partially calcified 1.8 x 1.0 cm soft tissue nodule abutting the expected location of the sigmoid cancer (5:114) -Conglomerate of soft tissue along the peritoneum in the left lower quadrant measuring 4.0 x 1.3 cm (5:89) -Peritoneal based soft tissue mass in the left midabdomen anteriorly measuring 2.9 x 1.5 cm (5:59) Pelvis: Trace pelvic ascites. Enlarged prostate. Bones/Soft Tissues: No osseous metastatic disease. IMPRESSION: CHEST: NO METASTATIC DISEASE IN THE CHEST. ABDOMEN AND PELVIS: MULTIPLE PERITONEAL SOFT TISSUE NODULES SUSPICIOUS FOR PERITONEAL CARCINOMATOSIS. MANY OF THESE ARE AMENABLE TO PERCUTANEOUS BIOPSY IF CLINICALLY INDICATED. ENLARGED PROSTATE, CORRELATE WITH PSA LEVEL. Last Putter Away: RODOLFO Transcribe Date/Time: May 24 2018 3:44P Dictated by : JOEL HOWELL MD This examination was interpreted and the report reviewed and electronically signed by: JOEL HOWELL MD on May 24 2018 4:02PM EST [id number] NURSING PROG Observed: 05/20/2018 Status: COMPLETED Source: [place] 11:26 AM [facility] REPOSITORY [facility] ID: [id number] Author: Aye SantiagoRnAbby Smart RN Service: (none) Author Type: Registered Nurse Type: Nursing Progress Note Filed: 05/20/2018 11:33 AM Note Text: Patient did not experience a fall prior to discharge. Patient did not experience a burn prior to discharge. Aye Smart RN NURSING PROG Observed: 05/20/2018 Status: COMPLETED Source: [place] 11:02 AM [facility] REPOSITORY [facility] ID: [id number] Author: Aye Smart RN Service: (none) Author Type: Registered Nurse Type: Nursing Progress Note Filed: 05/20/2018 11:34 AM Note Text: Back from x-ray. No complaints. Waiting for CT scan appt. Aye Smart RN PROGRESS Observed: 05/20/2018 Status: COMPLETED Source: [place] 11:01 AM [facility] REPOSITORY [facility] ID: [id number] Author: Artem Parekh (Rt) Service: (none) Author Type: Sweatband Shaper Type: Progress Notes Filed: 05/20/2018 11:02 AM Note Text: Radiology Service Progress Note PATIENT NAME: Amelia Avila DATE OF SERVICE: May 20, 2018 TIME: 10:45 AM PATIENT IDENTITY VERIFICATION COMPLETED USING TWO (2) METHODS: Patient confirmed name verbally and Date of . PATIENT GENDER DATA: Male PATIENT RELEVANT IMPLANT DATA REVIEWED: Not Applicable RADIOLOGY DEPARTMENT: General X-ray: Exam(s) Completed: Abdomen X-Ray Abdomen PERIPHERAL IV DATA: Not applicable SIGNED BY: RT Iglesia May 20, 2018 10:45 AM XR ABDOMEN 1V SUPINE Observed: 05/20/2018 Status: F Source: [place] 11:00 AM [facility] REPOSITORY * * *Final Report* * * DATE OF EXAM: May 20 2018 11:00AM [facility] [id number] - XR ABDOMEN 1V SUPINE / PROCEDURE REASON: multiple diagnoses * * * * Physician Interpretation * * * * Indication: Left lower quadrant abdominal mass. Tumor clip location. Comparison: None 2 supine x-rays of the abdomen are obtained. There is a non-obstructed bowel gas pattern. There is no hepatomegaly or splenomegaly. There are multiple phleboliths in the pelvis. There is a surgical clip midline in the pelvis overlying the sacrum at approximately S2. IMPRESSION: NO ACUTE ABDOMINAL PATHOLOGY VISUALIZED Last Putter Away: RODOLFO Transcribe Date/Time: May 21 2018 4:28P Dictated by : HU MAI MD This examination was interpreted and the report reviewed and electronically signed by: HU MAI MD on May 21 2018 4:30PM EST [id number] NURSING PROG Observed: 05/20/2018 Status: COMPLETED Source: [place] 10:46 AM [facility] REPOSITORY [facility] ID: [id number] Author: Aye (Rn) ANDRE Smrat Service: (none) Author Type: Registered Nurse Type: Nursing Progress Note Filed: 05/20/2018 10:47 AM Note Text: Taken to radiology per wheelchair for x-ray. Aye Smart RN COMP METABOLIC PANEL Collected: 05/20/2018 Status: F Source: [place] 10:29 AM [facility] REPOSITORY TYPE CODE TESTS RESULT OUT OF REFERENCE UNITS RANGE LAB TP 6.3-8.0 g/dL Protein, Total 6.3 LAB ALB 3.9-4.9 g/dL Albumin 4.2 LAB CA 8.5-10.2 mg/dL Calcium, Total 9.7 LAB TBIL 0.2-1.3 mg/dL Bilirubin, Total 0.6 LAB ALKP 38-113 U/L Alkaline Phosphatase 49 LAB AST 14-40 U/L AST 27 LAB GLU 74-99 mg/dL Glucose High 112 LAB BUN 9-24 mg/dL BUN 12 LAB CRET 0.73-1.22 mg/dL Creatinine 0.95 LAB NA 136-144 mmol/L Sodium 140 LAB K 3.7-5.1 mmol/L Potassium 4.3 LAB CL 97-105 mmol/L Chloride 102 LAB CO2 22-30 mmol/L CO2 29 LAB AGAP 9-18 mmol/L Anion Gap 9 LAB ALT 10-54 U/L ALT 27 LAB GFRAA eGFR- >60 Amer. LAB GFRNAA . eGFR-All Other Races >60 Result Comment: eGFR (Estimated GFR) Units of measure: mL/min/1.73 meters squared eGFR is derived from the reexpressed MDRD Study equation using the following parameters: serum creatinine, age, gender and race. The creatinine assay has been calibrated to be traceable to IDMS. An eGFR <60 mL/min/1.73m2 for >3 months is consistent with chronic kidney disease. Refer to KDOQI guidelines for clinical interpretation. In patients with unstable renal function, e.g. those with acute kidney injury, the eGFR may not accurately reflect actual GFR. CBC AND DIFFERENTIAL Collected: 05/20/2018 Status: F Source: [place] 10:28 AM [facility] [place] REPOSITORY TYPE CODE TESTS RESULT OUT OF REFERENCE UNITS RANGE LAB WBC 3.70-11.00 k/uL WBC 4.54 LAB RBC 4.20-6.00 m/uL RBC 5.07 LAB HGB 13.0-17.0 g/dL Hemoglobin 15.1 LAB HCT 39.0-51.0 % Hematocrit 46.7 LAB MCV 80.0-100.0 fL MCV 92.1 LAB MCH 26.0-34.0 pG MCH 29.8 LAB MCHC 30.5-36.0 g/dL MCHC 32.3 LAB RDWCV 11.5-15.0 % RDW-CV 13.1 LAB PLTCT 150-400 k/uL Low Platelet Count 145 LAB MPV 9.0-12.7 fL MPV 11.5 LAB ANEUT % Neut% 64.1 LAB AANEUT 1.45-7.50 k/uL Abs Neut 2.90 LAB ALYMP % Lymph% 24.7 LAB AALYMP 1.00-4.00 k/uL Abs Lymph 1.12 LAB AMONO % [place]% 9.9 LAB AAMONO <0.87 k/uL Abs [place] 0.45 LAB AEOS % Eosin% 0.9 LAB AAEOS <0.46 k/uL Abs Eosin 0.04 LAB ABASO % Baso% 0.4 LAB AABASO <0.11 k/uL Abs Baso <0.03 LAB AUNRBC 0 /100 WBC NRBCs 0.0 LAB ABNRBC <0.01 k/uL Absolute nRBC <0.01 LAB DTYP DTYPE Auto Diff Performed By: #### CBCDIF, CEA #### [facility] [address], [place] [address] CEA Collected: 05/20/2018 Status: F Source: [place] 10:28 AM [facility] REPOSITORY TYPE CODE TESTS RESULT OUT OF RANGE REFERENCE UNITS LAB CEA 0.0-2.9 ng/mL High CEA 5.4 Result Comment: Test analyzed by the jaeyos DxI method. Performed By: #### CBCDIF, CEA #### [facility] [address], [place] [address] NURSING PROG Observed: 05/20/2018 Status: COMPLETED Source: [place] 10:22 AM [facility] REPOSITORY [facility] ID: [id number] Author: Aye Smart RN Service: (none) Author Type: Registered Nurse Type: Nursing Progress Note Filed: 05/20/2018 10:22 AM Note Text: Lab here to draw blood. Aye Smart RN PT ED Observed: 05/20/2018 Status: COMPLETED Source: [place] 10:20 AM [facility] REPOSITORY [facility] ID: [id number] Author: Aye Smart RN Service: (none) Author Type: Registered Nurse Type: Patient Education Filed: 05/20/2018 10:28 AM Note Text: POST OP LEARNING RESPONSE INSTRUCTION PROVIDED TO: Patient and Spouse METHOD OF INSTRUCTION: Individual instruction Written instruction - handouts Verbal instruction PATIENT / FAMILY RESPONSE: Verbalizes understanding of: MEDICAL REGIMEN-Importance of following prescribed medical regimen POST-PROCEDURE INSTRUCTIONS-Correct actions to take to reduce post procedure complications WORSENING CONDITION-Signs and symptoms of a worsening condition that warrant a call to the physician FOLLOW-UP PLAN: Patient instructed to call with any further issues Follow up phone call. Contact information given. follow up appts and radiology tests SUPPLEMENTAL MATERIAL: Procedure discharge instructions REFERRAL (RECOMMENDATION): None Electronically Signed By: Aye Smart RN In Department: AMBULATORY SURGERY NURSING PROG Observed: 05/20/2018 Status: COMPLETED Source: [place] 10:05 AM [facility] REPOSITORY [facility] ID: [id number] Author: Aye Smart RN Service: (none) Author Type: Registered Nurse Type: Nursing Progress Note Filed: 05/20/2018 10:24 AM Note Text: Pt sitting up in bed tolerating snack and drink. Denies pain or nausea. remains at bedside. Abd soft and nondistended. No complaints. Aye Smart RN NURSING PROG Observed: 05/20/2018 Status: COMPLETED Source: [place] 10:00 AM [facility] REPOSITORY [facility] ID: [id number] Author: Aye Smart RN Service: (none) Author Type: Registered Nurse Type: Nursing Progress Note Filed: 05/20/2018 10:22 AM Note Text: Pt awake, but drowsy. at bedside. Dr. Colon in room and had extensive discussion with both patient and regarding colonoscopy results. Both verbalizing questions and appear to understand. Follow up appt in office to be scheduled as well as some radiology and lab tests. Aye Smart RN NURSING PROG Observed: 05/20/2018 Status: COMPLETED Source: [place] 9:44 AM [facility] REPOSITORY [facility] ID: [id number] Author: Denise Balderas RN Service: (none) Author Type: Registered Nurse Type: Nursing Progress Note Filed: 05/20/2018 9:45 AM Note Text: Patient did not experience a fall within the Intraoperative area. Patient did not experience a burn within the Intraoperative area. Denise Balderas RN NURSING PROG Observed: 05/20/2018 Status: COMPLETED Source: [place] 8:33 AM [facility] REPOSITORY [facility] ID: [id number] Author: Denise Balderas RN Service: (none) Author Type: Registered Nurse Type: Nursing Progress Note Filed: 05/20/2018 8:33 AM Note Text: Patient did not experience a fall within the Preoperative area. Patient did not experience a burn within the Preoperative area. Denise Balderas RN NURSING PROG Observed: 05/20/2018 Status: COMPLETED Source: [place] 8:33 AM [facility] REPOSITORY [facility] ID: [id number] Author: Denise Balderas RN Service: (none) Author Type: Registered Nurse Type: Nursing Progress Note Filed: 05/20/2018 8:33 AM Note Text: [facility] PRE-OP NURSING HAND OFF NOTE SBAR Hand off given to Denise Balderas RN. Hand off was communicated verbally and at the patient's bedside and all questions were answered. Denise Balderas RN PT ED Observed: 05/20/2018 Status: COMPLETED Source: [place] 7:59 AM [facility] REPOSITORY [facility] ID: [id number] Author: Denise SantiagoRn) ANDRE Balderas Service: (none) Author Type: Registered Nurse Type: Patient Education Filed: 05/20/2018 7:59 AM Note Text: PRE OP LEARNING ASSESSMENT PROCEDURE/SURGERY: GI PROCEDURES: Colonoscopy READINESS TO LEARN COGNITIVE ABILITY: Alert and oriented MOTIVATION TO LEARN: Eager Interested FAMILY SUPPORT: High - Very involved in pt care PATIENT LEARNS BEST BY: Individual Instruction Written Instruction - Hand-outs Verbal Instruction Multiple Methods FACTORS AFFECTING LEARNING: None PHYSICAL LIMITATIONS AFFECTING LEARNING: None Electronically Signed By: Denise Balderas RN In Department: AMBULATORY SURGERY HISTORY PHYSICAL Observed: 05/20/2018 Status: COMPLETED Source: [place] 7:46 AM [facility] REPOSITORY [facility] ID: [id number] Author: Stanislav Colon Service: General Surgery Author Type: Physician Type: HANDP Filed: 05/20/2018 7:46 AM Note Text: HISTORY AND PHYSICAL ? Amelia Avila 1965 ? REFERRING PHYSICIAN: Zechariah Lopez (Kerry), APR* ? CHIEF COMPLAINT: Consult (colonoscopy) ? HPI: The patient is a 52 year old male referred for endoscopy. Imed notes no history of colon complaints. He states he had one isolated episode of bright red rectal bleeding which he attributed to a hemorrhoid as it occurred after some constipation and straining. Denies any bleeding before or since that time. Denies any changes in bowel habits, abdominal pain or black tarry stools. He notes rare acid reflux which is relieved by [id number] antacids. ? Amelia has not undergone prior endoscopy. The patient is being seen by me today at the request of Zechariah Lopez CNP for my opinion and advice regarding screening colonoscopy. Patient's past medical history is significant for hyperlipidemia, chronic back pain. He denies any cardiac or pulmonary issues. Denies problems with sedation in the past. ? ? PAST?MEDICAL?HISTORY PAST MEDICAL HISTORY Diagnosis Date - Allergic rhinitis ? - DDD (degenerative disc disease), lumbar ? - Kidney stone ? - Prediabetes ? ? ? PAST?SURGICAL?HISTORY PAST SURGICAL HISTORY Procedure Laterality Date - AMPUTATION FINGER/THUMB ? ? ? accident as a child - KNEE SCOPE,DIAGNOSTIC ? 2013 ? Arthroscopy, knee - PAST SURGICAL HISTORY OF ? ? ? injections in back/nerve ablation - REPAIR OF NASAL SEPTUM ? 2002 ? ? ? CURRENT?MEDICATIONS ? Current Outpatient Prescriptions: tamsulosin ER (FLOMAX) 0.4 mg cap Take 1 capsule by mouth daily at bedtime. ? No current facility-administered medications for this visit. ? ALLERGIES: Patient has no known allergies. ? PERSONAL HISTORY: SOCIAL?HISTORY Social History Marital status: Spouse name: Years of education: Number of children: ? Social History Main Topics Smoking status: Former Smoker Packs/day: 0.50 Years: 10.00 Types: Cigarettes Smokeless tobacco: Never Used Comment: qit in 1996 Alcohol use: Yes 3.0 - 4.5 oz/week Glasses of Wine (5oz): 2 - 3 per week Drug use: No ? FAMILY HISTORY: FAMILY?HISTORY FAMILY HISTORY Problem Relation Age of Onset - Hypertension Mother ? - Cancer Father ? ? LUNG ? ? REVIEW OF SYMPTOMS: The review of systems data was entered by the nurse and reviewed by me ? Nursing Notes: Adele Acevedo RN 04/24/2018 4:17 PM Signed REVIEW OF SYSTEMS: General: The patient denies fatigue, denies weight loss, denies weight gain, denies feeling hot, and denies feelings of cold. Eyes: The patient denies glaucoma, denies eye injury/surgery, wears glasses or contacts. Ear/Nose/Throat: The patient denies allergies, denies hayfever, denies ear infections, and denies bloody noses. Cardiovascular: The patient denies chest pain, denies heart disease, denies high blood pressure,denies cardiac stent, denies prior heart attack, denies irregular heart beat, denies high cholesterol, denies poor circulation, denies heart failure, other cardiac issues, denies claudication, denies cold feet, denies peripheral arterial stent. Respiratory: The patient denies tuberculosis, denies pneumonia, denies frequent cough, denies pulmonary embolism, denies shortness of breath, and denies coughing up blood. Gastrointestinal: The patient denies difficulty swallowing, notes acid reflux, denies ulcers, denies vomiting, denies jaundice/hepatitis, denies gallbladder problems, denies black or tarry stools, denies hemorrhoids, denies bleeding from rectum, denies diverticulitis, denies constipation, denies diarrhea, denies loss of stool control, and denies hernias. Kidney/Bladder: The patient notes kidney stones, denies urine infections, and denies bloody urine. Skin: The patient denies a history of skin cancer, denies bleeding/changing moles, and denies a history of skin rash. Neurologic: The patient denies a history of epilepsy/convulsions, denies headaches, denies head/spinal injuries, and denies stroke/TIA. Psychiatric: The patient denies psychiatric medications, denies depression, and denies voices, denies substance abuse. Endocrine: The patient denies thyroid disorders, denies diabetes, and denies hormonal problems. Hematologic: The patient denies a history of bruising, denies bleeding, and denies anemia, denies blood clots. Infections: The patient denies a history of measles and mumps, denies rheumatic fever, and denies sexually transmitted diseases. Musculoskeletal: The patient denies back pain/injury, notes back problems, denies sciatica, NOTES knee/foot trouble, denies arthritis, or NOTES gout. ? ? When was patient's last Mammogram screening? N/A ? Last Colonoscopy: never ? Adele Acevedo RN I have confirmed and edited as necessary, the PFSH and ROS obtained by others. ? PHYSICAL EXAMINATION: ? General: The patient is 52 year old male, well nourished, well hydrated in no acute distress. The patient is oriented to time, place, and person. ? VITALS: Blood pressure 138/88, pulse 96, weight 99.4 kg (219 lb 3.2 oz). Body mass index is 27.4 kg/m?. ? HEENT: Normal cephalic, ataumatic, pupils are equally round, sclera are anicteric, mucous membranes are moist, oropharynx is clear. Neck has no masses, asymmetry or lymphadenopathy. ? Respiratory: Clear to auscultation and percussion. Normal respiratory excursion and pattern. ? Cardiac: Examination is regular rate and rhythm. ? Abdominal exam: Soft, nontender, with no palpable masses. No hepatosplenomegaly. No palpable hernias. ? Rectal exam: exam deferred ? Extremities: no clubbing, cyanosis or edema. No adenopathy. ? Other: ? LABORATORY VALUES: As Noted ? RADIOLOGIC STUDIES: As Noted ? ? Assessment IMPRESSION: encounter for screening colonoscopy ? PLAN: We will plan for screening colonoscopy. We discussed the risks and benefits of the planned endoscopy. I have informed the patient that complications can occur including failure to complete the endoscopy and perforation. The patient had the opportunity to ask questions concerning the planned endoscopy. My staff has also explained the procedure to the patient in understandable terms and has given the patient printed material concerning the procedure. The patient freely consents to surgery. ? I plan to use golytely bowel preparation for endoscopy ? Diagnoses: (Z12.11) Encounter for screening for malignant neoplasm of colon (primary encounter diagnosis) ? My findings have been communicated to Dr. Lopez via shared medical record. This note will be forwarded to Dr. Ara Pierce MD. Return to Clinic: The patient is instructed to follow-up with me 1 week post operatively. ? ? Sandy Ha PA-C SURGICAL PATHOLOGY Observed: 05/20/2018 Status: F Source: [place] 12:00 AM [facility] [place] REPOSITORY Specimen originated from [facility] Specimen #: [id number] Submitting Physician: STANISLAV COLON ([id number]) FINAL DIAGNOSIS 1. Cecal polyp, biopsy (A) - Tubular adenoma. 2. Proximal transverse colon polyp, biopsy (B) - Tubular adenoma. 3. Colon polyp at 50 cm, biopsy (C) - Tubular adenoma. 4. Colon mass at 40 cm, biopsy (D) - Invasive moderately differentiated adenocarcinoma. 5. Colon polyp at 20 cm, biopsy (E) - Tubular adenoma. JEL/dss 05/22/2018 Maureen Anderson M.D. (Electronic Signature) SPECIMEN SUBMITTED A: CECUM POLYP B: PROXIMAL TRANSVERSE COLON POLYP C: COLON, POLYP AT 50CM D: COLON, BIOPSY AT 40CM E: COLON, POLYP AT 20CM CLINICAL DATA A-C, E: HOT SNARE GROSS DESCRIPTION A. Received in formalin is one piece of poon, soft tissue measuring 0.2 x 0.2 x 0.2 cm. Totally submitted in one cassette. B. Received in formalin are four pieces of poon, soft tissue aggregating to 1.4 x 0.2 x 0.1 cm. Totally submitted in one cassette. C. Received in formalin is a poon polypoid segment of tissue measuring 0.5 x 0.4 x 0.3 cm. No stalk is noted. The line of resection is noted. Specimen is bisected. Totally submitted in one cassette. D. Received in formalin are six pieces of poon, soft tissue aggregating to 2.0 x 0.3 x 0.2 cm. Totally submitted in one cassette. E. Received in formalin are five pieces of poon, soft tissue aggregating to 1.2 x 0.2 x 0.2 cm. Totally submitted in one cassette. Gross examination performed at [facility], [address] [place] [address] 05/21/2018 9:57:38 AM Date of Report: 05/22/2018 Date of Procedure: 05/20/2018 Date of Receipt: 05/20/2018 Submitted by: STANISLAV COLON ([id number]) Location: [id number] Diagnostic interpretation performed at [facility], [address] [place] [address]. CNPTOUTRBRANDON Observed: 05/20/2018 Status: COMPLETED Source: [place] 12:00 AM [facility] REPOSITORY Patient Outreach (FAMPST) AMELIA AVILA ([id number]) 1965 M Date Time Provider Department 05/20/18 ARA PIERCE During your visit today, we recorded the following information about you: Allergies As of Date: 05/20/2018 (No Known Allergies) Date Reviewed: 05/20/2018 Reviewed by: Lisbeth Cisneros Ct - Fully Assessed Visit Diagnosis:Medication management [Z79.899] Order(s):HGB A1C [LEJTE4X] Order #: [id number] FUTURE Prescriptions as of 05/20/2018 Sig: ENTERIC CONTRAST (RADIOLOGY P* For CT CHESTABD/PEL W IVCON R* IV CONTRAST (RADIOLOGY PROCED* CT Chest ABD/PEL-Inject, intr* TAMSULOSIN 0.4 MG CAPSULE Take 1 capsule by mouth daily* Problem List As Of Date 05/20/2018 Noted Resolved ESOPHAGEAL REFLUX [K21.9] INVALID FOR* OTHER LUNG DISEASE NEC [J98.4] INVALID FOR* CALCULUS OF URETER [N20.1] INVALID FOR* Impaired Fasting Glucose [R73.01] INVALID FOR* DDD (Degenerative Disc Disease), Lumbar [M51.36]INVALID FOR* Prediabetes [R73.03] INVALID FOR*05/07/2016 Hyperlipidemia [E78.5] INVALID FOR* Chronic bilateral low back pain without sciatic*INVALID FOR* Spondylosis of lumbar region without myelopathy*INVALID FOR* Discogenic low back pain [M51.36] INVALID FOR* More... Annular tear of lumbar disc [M51.36] INVALID FOR* More... Encounter Status:Closed by [employer] PRODUSER on 06/19/18 HOSP Observed: 05/01/2018 Status: COMPLETED Source: [place] 12:00 AM [facility] [place] REPOSITORY Patient:Amelia Avila MRN: <[id number]> Height:6' 3(1.905 m) Weight:219 lb 2.2 oz (99.4 kg) Outpatient Medications as of 05/20/18: iv contrast (will be provided with radiology test) enteric contrast (will be provided with radiology test) tamsulosin ER (FLOMAX) 0.4 mg cap Admission/Clinic Administered Medications as of 05/20/18: lactated ringers infusion Problem List: Esophageal reflux [K21.9] Other diseases of lung, not elsewhere classified [J98.4] Calculus of ureter [N20.1] Impaired fasting glucose [R73.01] DDD (degenerative disc disease), lumbar [M51.36] Hyperlipidemia [E78.5] Chronic bilateral low back pain without sciatica [M54.5, G89.29] Spondylosis of lumbar region without myelopathy or radiculopathy [M47.816] Discogenic low back pain [M51.36] Annular tear of lumbar disc [M51.36] Allergies: No Known Allergies Date Verified:05/20/18 Lab Values No results within the last 30 days for the following basenames: K,HCT Progress Notes ([facility]): Benjamin Caruso 04/24/2018 4:53 PM Signed Patient needs to look at schedule and call Benjamin Caruso 05/08/2018 9:49 AM Signed Shayne Caruso Progress Notes ([facility]): Adele Acevedo RN 04/24/2018 4:17 PM Signed REVIEW OF SYSTEMS: General: The patient denies fatigue, denies weight loss, denies weight gain, denies feeling hot, and denies feelings of cold. Eyes: The patient denies glaucoma, denies eye injury/surgery, wears glasses or contacts. Ear/Nose/Throat: The patient denies allergies, denies hayfever, denies ear infections, and denies bloody noses. Cardiovascular: The patient denies chest pain, denies heart disease, denies high blood pressure,denies cardiac stent, denies prior heart attack, denies irregular heart beat, denies high cholesterol, denies poor circulation, denies heart failure, other cardiac issues, denies claudication, denies cold feet, denies peripheral arterial stent. Respiratory: The patient denies tuberculosis, denies pneumonia, denies frequent cough, denies pulmonary embolism, denies shortness of breath, and denies coughing up blood. Gastrointestinal: The patient denies difficulty swallowing, notes acid reflux, denies ulcers, denies vomiting, denies jaundice/hepatitis, denies gallbladder problems, denies black or tarry stools, denies hemorrhoids, denies bleeding from rectum, denies diverticulitis, denies constipation, denies diarrhea, denies loss of stool control, and denies hernias. Kidney/Bladder: The patient notes kidney stones, denies urine infections, and denies bloody urine. Skin: The patient denies a history of skin cancer, denies bleeding/changing moles, and denies a history of skin rash. Neurologic: The patient denies a history of epilepsy/convulsions, denies headaches, denies head/spinal injuries, and denies stroke/TIA. Psychiatric: The patient denies psychiatric medications, denies depression, and denies voices, denies substance abuse. Endocrine: The patient denies thyroid disorders, denies diabetes, and denies hormonal problems. Hematologic: The patient denies a history of bruising, denies bleeding, and denies anemia, denies blood clots. Infections: The patient denies a history of measles and mumps, denies rheumatic fever, and denies sexually transmitted diseases. Musculoskeletal: The patient denies back pain/injury, notes back problems, denies sciatica, NOTES knee/foot trouble, denies arthritis, or NOTES gout. When was patient's last Mammogram screening? N/A Last Colonoscopy: never Adele Ha PA-C 04/29/2018 10:31 PM Signed HISTORY AND PHYSICAL [facility] 1965 REFERRING PHYSICIAN: Zechariah Lopez (Kerry), APR* CHIEF COMPLAINT: Consult (colonoscopy) HPI: The patient is a 52 year old male referred for endoscopy. Imed notes no history of colon complaints. He states he had one isolated episode of bright red rectal bleeding which he attributed to a hemorrhoid as it occurred after some constipation and straining. Denies any bleeding before or since that time. Denies any changes in bowel habits, abdominal pain or black tarry stools. He notes rare acid reflux which is relieved by [id number] antacids. [facility] has not undergone prior endoscopy. The patient is being seen by me today at the request of Zechariah Lopez CNP for my opinion and advice regarding screening colonoscopy. Patient's past medical history is significant for hyperlipidemia, chronic back pain. He denies any cardiac or pulmonary issues. Denies problems with sedation in the past. PAST MEDICAL HISTORY Diagnosis Date - Allergic rhinitis - DDD (degenerative disc disease), lumbar - Kidney stone - Prediabetes PAST SURGICAL HISTORY Procedure Laterality Date - AMPUTATION FINGER/THUMB accident as a child - KNEE SCOPE,DIAGNOSTIC 2014 Arthroscopy, knee - PAST SURGICAL HISTORY OF injections in back/nerve ablation - REPAIR OF NASAL SEPTUM 2002 Current Outpatient Prescriptions: tamsulosin ER (FLOMAX) 0.4 mg cap Take 1 capsule by mouth daily at bedtime. No current facility-administered medications for this visit. ALLERGIES: Patient has no known allergies. PERSONAL HISTORY: Social History Marital status: Spouse name: Years of education: Number of children: Social History Main Topics Smoking status: Former Smoker Packs/day: 0.50 Years: 10.00 Types: Cigarettes Smokeless tobacco: Never Used Comment: qit in 1996 Alcohol use: Yes 3.0 - 4.5 oz/week Glasses of Wine (5oz): 2 - 3 per week Drug use: No FAMILY HISTORY: FAMILY HISTORY Problem Relation Age of Onset - Hypertension Mother - Cancer Father LUNG REVIEW OF SYMPTOMS: The review of systems data was entered by the nurse and reviewed by mo Nursing Notes: Adele Acevedo RN 04/24/2018 4:17 PM Signed REVIEW OF SYSTEMS: General: The patient denies fatigue, denies weight loss, denies weight gain, denies feeling hot, and denies feelings of cold. Eyes: The patient denies glaucoma, denies eye injury/surgery, wears glasses or contacts. Ear/Nose/Throat: The patient denies allergies, denies hayfever, denies ear infections, and denies bloody noses. Cardiovascular: The patient denies chest pain, denies heart disease, denies high blood pressure,denies cardiac stent, denies prior heart attack, denies irregular heart beat, denies high cholesterol, denies poor circulation, denies heart failure, other cardiac issues, denies claudication, denies cold feet, denies peripheral arterial stent. Respiratory: The patient denies tuberculosis, denies pneumonia, denies frequent cough, denies pulmonary embolism, denies shortness of breath, and denies coughing up blood. Gastrointestinal: The patient denies difficulty swallowing, notes acid reflux, denies ulcers, denies vomiting, denies jaundice/hepatitis, denies gallbladder problems, denies black or tarry stools, denies hemorrhoids, denies bleeding from rectum, denies diverticulitis, denies constipation, denies diarrhea, denies loss of stool control, and denies hernias. Kidney/Bladder: The patient notes kidney stones, denies urine infections, and denies bloody urine. Skin: The patient denies a history of skin cancer, denies bleeding/changing moles, and denies a history of skin rash. Neurologic: The patient denies a history of epilepsy/convulsions, denies headaches, denies head/spinal injuries, and denies stroke/TIA. Psychiatric: The patient denies psychiatric medications, denies depression, and denies voices, denies substance abuse. Endocrine: The patient denies thyroid disorders, denies diabetes, and denies hormonal problems. Hematologic: The patient denies a history of bruising, denies bleeding, and denies anemia, denies blood clots. Infections: The patient denies a history of measles and mumps, denies rheumatic fever, and denies sexually transmitted diseases. Musculoskeletal: The patient denies back pain/injury, notes back problems, denies sciatica, NOTES knee/foot trouble, denies arthritis, or NOTES gout. When was patient's last Mammogram screening? N/A Last Colonoscopy: never Adele Acevedo RN I have confirmed and edited as necessary, the PFSH and ROS obtained by others. PHYSICAL EXAMINATION: General: The patient is 52 year old male, well nourished, well hydrated in no acute distress. The patient is oriented to time, place, and person. VITALS: Blood pressure 138/88, pulse 96, weight 99.4 kg (219 lb 3.2 oz). Body mass index is 27.4 kg/m?. HEENT: Normal cephalic, ataumatic, pupils are equally round, sclera are anicteric, mucous membranes are moist, oropharynx is clear. Neck has no masses, asymmetry or lymphadenopathy. Respiratory: Clear to auscultation and percussion. Normal respiratory excursion and pattern. Cardiac: Examination is regular rate and rhythm. Abdominal exam: Soft, nontender, with no palpable masses. No hepatosplenomegaly. No palpable hernias. Rectal exam: exam deferred Extremities: no clubbing, cyanosis or edema. No adenopathy. Other: LABORATORY VALUES: As Noted RADIOLOGIC STUDIES: As Noted Assessment IMPRESSION: encounter for screening colonoscopy PLAN: We will plan for screening colonoscopy. We discussed the risks and benefits of the planned endoscopy. I have informed the patient that complications can occur including failure to complete the endoscopy and perforation. The patient had the opportunity to ask questions concerning the planned endoscopy. My staff has also explained the procedure to the patient in understandable terms and has given the patient printed material concerning the procedure. The patient freely consents to surgery. I plan to use golytely bowel preparation for endoscopy Diagnoses: (Z12.11) Encounter for screening for malignant neoplasm of colon (primary encounter diagnosis) My findings have been communicated to Dr. Lopez via shared medical record. This note will be forwarded to Dr. Ara Pierce MD. Return to Clinic: The patient is instructed to follow-up with me 1 week post operatively. Sandy Ha PA-C PROGRESS Observed: 04/29/2018 Status: COMPLETED Source: [place] 5:50 PM [facility] REPOSITORY HNO ID: [id number] Author: Sandy aH (Pa) Service: (none) Author Type: Physician Field Service Consultant Type: Progress Notes Filed: 04/29/2018 10:31 PM Note Text: HISTORY AND PHYSICAL [facility] 1965 REFERRING PHYSICIAN: Zechariah Lopez (Kerry), APR* CHIEF COMPLAINT: Consult (colonoscopy) HPI: The patient is a 52 year old male referred for endoscopy. Imed notes no history of colon complaints. He states he had one isolated episode of bright red rectal bleeding which he attributed to a hemorrhoid as it occurred after some constipation and straining. Denies any bleeding before or since that time. Denies any changes in bowel habits, abdominal pain or black tarry stools. He notes rare acid reflux which is relieved by [id number] antacids. [facility] has not undergone prior endoscopy. The patient is being seen by me today at the request of Zechariah Lopez CNP for my opinion and advice regarding screening colonoscopy. Patient's past medical history is significant for hyperlipidemia, chronic back pain. He denies any cardiac or pulmonary issues. Denies problems with sedation in the past. PAST MEDICAL HISTORY Diagnosis Date - Allergic rhinitis - DDD (degenerative disc disease), lumbar - Kidney stone - Prediabetes PAST SURGICAL HISTORY Procedure Laterality Date - AMPUTATION FINGER/THUMB accident as a child - KNEE SCOPE,DIAGNOSTIC 2013 Arthroscopy, knee - PAST SURGICAL HISTORY OF injections in back/nerve ablation - REPAIR OF NASAL SEPTUM 2002 Current Outpatient Prescriptions: tamsulosin ER (FLOMAX) 0.4 mg cap Take 1 capsule by mouth daily at bedtime. No current facility-administered medications for this visit. ALLERGIES: Patient has no known allergies. PERSONAL HISTORY: Social History Marital status: Spouse name: Years of education: Number of children: Social History Main Topics Smoking status: Former Smoker Packs/day: 0.50 Years: 10.00 Types: Cigarettes Smokeless tobacco: Never Used Comment: qit in 1996 Alcohol use: Yes 3.0 - 4.5 oz/week Glasses of Wine (5oz): 2 - 3 per week Drug use: No FAMILY HISTORY: FAMILY HISTORY Problem Relation Age of Onset - Hypertension Mother - Cancer Father LUNG REVIEW OF SYMPTOMS: The review of systems data was entered by the nurse and reviewed by mo Nursing Notes: Adele Acevedo RN 04/24/2018 4:17 PM Signed REVIEW OF SYSTEMS: General: The patient denies fatigue, denies weight loss, denies weight gain, denies feeling hot, and denies feelings of cold. Eyes: The patient denies glaucoma, denies eye injury/surgery, wears glasses or contacts. Ear/Nose/Throat: The patient denies allergies, denies hayfever, denies ear infections, and denies bloody noses. Cardiovascular: The patient denies chest pain, denies heart disease, denies high blood pressure,denies cardiac stent, denies prior heart attack, denies irregular heart beat, denies high cholesterol, denies poor circulation, denies heart failure, other cardiac issues, denies claudication, denies cold feet, denies peripheral arterial stent. Respiratory: The patient denies tuberculosis, denies pneumonia, denies frequent cough, denies pulmonary embolism, denies shortness of breath, and denies coughing up blood. Gastrointestinal: The patient denies difficulty swallowing, notes acid reflux, denies ulcers, denies vomiting, denies jaundice/hepatitis, denies gallbladder problems, denies black or tarry stools, denies hemorrhoids, denies bleeding from rectum, denies diverticulitis, denies constipation, denies diarrhea, denies loss of stool control, and denies hernias. Kidney/Bladder: The patient notes kidney stones, denies urine infections, and denies bloody urine. Skin: The patient denies a history of skin cancer, denies bleeding/changing moles, and denies a history of skin rash. Neurologic: The patient denies a history of epilepsy/convulsions, denies headaches, denies head/spinal injuries, and denies stroke/TIA. Psychiatric: The patient denies psychiatric medications, denies depression, and denies voices, denies substance abuse. Endocrine: The patient denies thyroid disorders, denies diabetes, and denies hormonal problems. Hematologic: The patient denies a history of bruising, denies bleeding, and denies anemia, denies blood clots. Infections: The patient denies a history of measles and mumps, denies rheumatic fever, and denies sexually transmitted diseases. Musculoskeletal: The patient denies back pain/injury, notes back problems, denies sciatica, NOTES knee/foot trouble, denies arthritis, or NOTES gout. When was patient's last Mammogram screening? N/A Last Colonoscopy: never Adele Acevedo RN I have confirmed and edited as necessary, the PFSH and ROS obtained by others. PHYSICAL EXAMINATION: General: The patient is 52 year old male, well nourished, well hydrated in no acute distress. The patient is oriented to time, place, and person. VITALS: Blood pressure 138/88, pulse 96, weight 99.4 kg (219 lb 3.2 oz). Body mass index is 27.4 kg/m?. HEENT: Normal cephalic, ataumatic, pupils are equally round, sclera are anicteric, mucous membranes are moist, oropharynx is clear. Neck has no masses, asymmetry or lymphadenopathy. Respiratory: Clear to auscultation and percussion. Normal respiratory excursion and pattern. Cardiac: Examination is regular rate and rhythm. Abdominal exam: Soft, nontender, with no palpable masses. No hepatosplenomegaly. No palpable hernias. Rectal exam: exam deferred Extremities: no clubbing, cyanosis or edema. No adenopathy. Other: LABORATORY VALUES: As Noted RADIOLOGIC STUDIES: As Noted Assessment IMPRESSION: encounter for screening colonoscopy PLAN: We will plan for screening colonoscopy. We discussed the risks and benefits of the planned endoscopy. I have informed the patient that complications can occur including failure to complete the endoscopy and perforation. The patient had the opportunity to ask questions concerning the planned endoscopy. My staff has also explained the procedure to the patient in understandable terms and has given the patient printed material concerning the procedure. The patient freely consents to surgery. I plan to use golytely bowel preparation for endoscopy Diagnoses: (Z12.11) Encounter for screening for malignant neoplasm of colon (primary encounter diagnosis) My findings have been communicated to Dr. Lopez via shared medical record. This note will be forwarded to Dr. Ara Pierce MD. Return to Clinic: The patient is instructed to follow-up with me 1 week post operatively. JOSSELINE Marion Observed: 04/24/2018 Status: COMPLETED Source: [place] 4:00 PM [facility] REPOSITORY Office Visit (GENSWS) AMELIA AVILA ([id number]) 1965 M Date Time Provider Department 04/24/18 4:00 PM SANDY HA) GENBOOMS During your visit today, we recorded the following information about you: Pulse Blood pressure Weight 96/minute 138/88 99.4 kg Adele Acevedo RN 04/24/2018 4:17 PM Signed REVIEW OF SYSTEMS: General: The patient denies fatigue, denies weight loss, denies weight gain, denies feeling hot, and denies feelings of cold. Eyes: The patient denies glaucoma, denies eye injury/surgery, wears glasses or contacts. Ear/Nose/Throat: The patient denies allergies, denies hayfever, denies ear infections, and denies bloody noses. Cardiovascular: The patient denies chest pain, denies heart disease, denies high blood pressure,denies cardiac stent, denies prior heart attack, denies irregular heart beat, denies high cholesterol, denies poor circulation, denies heart failure, other cardiac issues, denies claudication, denies cold feet, denies peripheral arterial stent. Respiratory: The patient denies tuberculosis, denies pneumonia, denies frequent cough, denies pulmonary embolism, denies shortness of breath, and denies coughing up blood. Gastrointestinal: The patient denies difficulty swallowing, notes acid reflux, denies ulcers, denies vomiting, denies jaundice/hepatitis, denies gallbladder problems, denies black or tarry stools, denies hemorrhoids, denies bleeding from rectum, denies diverticulitis, denies constipation, denies diarrhea, denies loss of stool control, and denies hernias. Kidney/Bladder: The patient notes kidney stones, denies urine infections, and denies bloody urine. Skin: The patient denies a history of skin cancer, denies bleeding/changing moles, and denies a history of skin rash. Neurologic: The patient denies a history of epilepsy/convulsions, denies headaches, denies head/spinal injuries, and denies stroke/TIA. Psychiatric: The patient denies psychiatric medications, denies depression, and denies voices, denies substance abuse. Endocrine: The patient denies thyroid disorders, denies diabetes, and denies hormonal problems. Hematologic: The patient denies a history of bruising, denies bleeding, and denies anemia, denies blood clots. Infections: The patient denies a history of measles and mumps, denies rheumatic fever, and denies sexually transmitted diseases. Musculoskeletal: The patient denies back pain/injury, notes back problems, denies sciatica, NOTES knee/foot trouble, denies arthritis, or NOTES gout. When was patient's last Mammogram screening? N/A Last Colonoscopy: never Adele Ha PA-C 04/29/2018 10:31 PM Signed HISTORY AND PHYSICAL [facility] 1965 REFERRING PHYSICIAN: Zechariah Lopez ([facility]), APR* CHIEF COMPLAINT: Consult (colonoscopy) HPI: The patient is a 52 year old male referred for endoscopy. Imed notes no history of colon complaints. He states he had one isolated episode of bright red rectal bleeding which he attributed to a hemorrhoid as it occurred after some constipation and straining. Denies any bleeding before or since that time. Denies any changes in bowel habits, abdominal pain or black tarry stools. He notes rare acid reflux which is relieved by [id number] antacids. [facility] has not undergone prior endoscopy. The patient is being seen by me today at the request of Zechariah Lopez CNP for my opinion and advice regarding screening colonoscopy. Patient's past medical history is significant for hyperlipidemia, chronic back pain. He denies any cardiac or pulmonary issues. Denies problems with sedation in the past. PAST MEDICAL HISTORY Diagnosis Date - Allergic rhinitis - DDD (degenerative disc disease), lumbar - Kidney stone - Prediabetes PAST SURGICAL HISTORY Procedure Laterality Date - AMPUTATION FINGER/THUMB accident as a child - KNEE SCOPE,DIAGNOSTIC 2014 Arthroscopy, knee - PAST SURGICAL HISTORY OF injections in back/nerve ablation - REPAIR OF NASAL SEPTUM 2002 Current Outpatient Prescriptions: tamsulosin ER (FLOMAX) 0.4 mg cap Take 1 capsule by mouth daily at bedtime. No current facility-administered medications for this visit. ALLERGIES: Patient has no known allergies. PERSONAL HISTORY: Social History Marital status: Spouse name: Years of education: Number of children: Social History Main Topics Smoking status: Former Smoker Packs/day: 0.50 Years: 10.00 Types: Cigarettes Smokeless tobacco: Never Used Comment: qit in 1996 Alcohol use: Yes 3.0 - 4.5 oz/week Glasses of Wine (5oz): 2 - 3 per week Drug use: No FAMILY HISTORY: FAMILY HISTORY Problem Relation Age of Onset - Hypertension Mother - Cancer Father LUNG REVIEW OF SYMPTOMS: The review of systems data was entered by the nurse and reviewed by me Nursing Notes: Adele Acevedo RN 04/24/2018 4:17 PM Signed REVIEW OF SYSTEMS: General: The patient denies fatigue, denies weight loss, denies weight gain, denies feeling hot, and denies feelings of cold. Eyes: The patient denies glaucoma, denies eye injury/surgery, wears glasses or contacts. Ear/Nose/Throat: The patient denies allergies, denies hayfever, denies ear infections, and denies bloody noses. Cardiovascular: The patient denies chest pain, denies heart disease, denies high blood pressure,denies cardiac stent, denies prior heart attack, denies irregular heart beat, denies high cholesterol, denies poor circulation, denies heart failure, other cardiac issues, denies claudication, denies cold feet, denies peripheral arterial stent. Respiratory: The patient denies tuberculosis, denies pneumonia, denies frequent cough, denies pulmonary embolism, denies shortness of breath, and denies coughing up blood. Gastrointestinal: The patient denies difficulty swallowing, notes acid reflux, denies ulcers, denies vomiting, denies jaundice/hepatitis, denies gallbladder problems, denies black or tarry stools, denies hemorrhoids, denies bleeding from rectum, denies diverticulitis, denies constipation, denies diarrhea, denies loss of stool control, and denies hernias. Kidney/Bladder: The patient notes kidney stones, denies urine infections, and denies bloody urine. Skin: The patient denies a history of skin cancer, denies bleeding/changing moles, and denies a history of skin rash. Neurologic: The patient denies a history of epilepsy/convulsions, denies headaches, denies head/spinal injuries, and denies stroke/TIA. Psychiatric: The patient denies psychiatric medications, denies depression, and denies voices, denies substance abuse. Endocrine: The patient denies thyroid disorders, denies diabetes, and denies hormonal problems. Hematologic: The patient denies a history of bruising, denies bleeding, and denies anemia, denies blood clots. Infections: The patient denies a history of measles and mumps, denies rheumatic fever, and denies sexually transmitted diseases. Musculoskeletal: The patient denies back pain/injury, notes back problems, denies sciatica, NOTES knee/foot trouble, denies arthritis, or NOTES gout. When was patient's last Mammogram screening? N/A Last Colonoscopy: never Adele Acevedo RN I have confirmed and edited as necessary, the PFSH and ROS obtained by others. PHYSICAL EXAMINATION: General: The patient is 52 year old male, well nourished, well hydrated in no acute distress. The patient is oriented to time, place, and person. VITALS: Blood pressure 138/88, pulse 96, weight 99.4 kg (219 lb 3.2 oz). Body mass index is 27.4 kg/m?. HEENT: Normal cephalic, ataumatic, pupils are equally round, sclera are anicteric, mucous membranes are moist, oropharynx is clear. Neck has no masses, asymmetry or lymphadenopathy. Respiratory: Clear to auscultation and percussion. Normal respiratory excursion and pattern. Cardiac: Examination is regular rate and rhythm. Abdominal exam: Soft, nontender, with no palpable masses. No hepatosplenomegaly. No palpable hernias. Rectal exam: exam deferred Extremities: no clubbing, cyanosis or edema. No adenopathy. Other: LABORATORY VALUES: As Noted RADIOLOGIC STUDIES: As Noted Assessment IMPRESSION: encounter for screening colonoscopy PLAN: We will plan for screening colonoscopy. We discussed the risks and benefits of the planned endoscopy. I have informed the patient that complications can occur including failure to complete the endoscopy and perforation. The patient had the opportunity to ask questions concerning the planned endoscopy. My staff has also explained the procedure to the patient in understandable terms and has given the patient printed material concerning the procedure. The patient freely consents to surgery. I plan to use golytely bowel preparation for endoscopy Diagnoses: (Z12.11) Encounter for screening for malignant neoplasm of colon (primary encounter diagnosis) My findings have been communicated to Dr. Lopez via shared medical record. This note will be forwarded to Dr. Ara Pierce MD. Return to Clinic: The patient is instructed to follow-up with me 1 week post operatively. Sandy Ha PA-C Referring Provider: ZECHARIAH LOPEZ ([facility]) [[id number]] Allergies As of Date: 04/24/2018 (No Known Allergies) Date Reviewed: 04/24/2018 Reviewed by: Adele Acevedo RN - Fully Assessed Reason for Visit: Consult [173] Cmt: colonoscopy Primary Visit Diagnosis:Encounter for screening for malignant neoplasm of colon [Z12.11] Order(s):[] peg 3350-Electrolytes (GOLYTELY) 236-22.74-6.74 -5.86 gram suspensionTake 4,000 mL by mouth one time only for 1 dose.Disp: 1 BottleRfl: 0 COLONOSCOPY SCRN NOT HIGH RISK [[id number]] Order #: [id number] FUTURE Prescriptions as of 04/24/2018 Sig: TAMSULOSIN 0.4 MG CAPSULE Take 1 capsule by mouth daily* PEG 3350-ELECTROLYTES 236 GRA* Take 4,000 mL by mouth one ti* Problem List As Of Date 04/24/2018 Noted Resolved ESOPHAGEAL REFLUX [K21.9] INVALID FOR* OTHER LUNG DISEASE NEC [J98.4] INVALID FOR* CALCULUS OF URETER [N20.1] INVALID FOR* Impaired Fasting Glucose [R73.01] INVALID FOR* DDD (Degenerative Disc Disease), Lumbar [M51.36]INVALID FOR* Prediabetes [R73.03] INVALID FOR*05/07/2016 Hyperlipidemia [E78.5] INVALID FOR* Chronic bilateral low back pain without sciatic*INVALID FOR* Spondylosis of lumbar region without myelopathy*INVALID FOR* Discogenic low back pain [M51.36] INVALID FOR* More... Annular tear of lumbar disc [M51.36] INVALID FOR* More... Visit Notes: >> Adele Acevedo RN [facility] Apr 24, 2018 4:15 PM Status: Signed REVIEW OF SYSTEMS: General: The patient denies fatigue, denies weight loss, denies weight gain, denies feeling hot, and denies feelings of cold. Eyes: The patient denies glaucoma, denies eye injury/surgery, wears glasses or contacts. Ear/Nose/Throat: The patient denies allergies, denies hayfever, denies ear infections, and denies bloody noses. Cardiovascular: The patient denies chest pain, denies heart disease, denies high blood pressure,denies cardiac stent, denies prior heart attack, denies irregular heart beat, denies high cholesterol, denies poor circulation, denies heart failure, other cardiac issues, denies claudication, denies cold feet, denies peripheral arterial stent. Respiratory: The patient denies tuberculosis, denies pneumonia, denies frequent cough, denies pulmonary embolism, denies shortness of breath, and denies coughing up blood. Gastrointestinal: The patient denies difficulty swallowing, notes acid reflux, denies ulcers, denies vomiting, denies jaundice/hepatitis, denies gallbladder problems, denies black or tarry stools, denies hemorrhoids, denies bleeding from rectum, denies diverticulitis, denies constipation, denies diarrhea, denies loss of stool control, and denies hernias. Kidney/Bladder: The patient notes kidney stones, denies urine infections, and denies bloody urine. Skin: The patient denies a history of skin cancer, denies bleeding/changing moles, and denies a history of skin rash. Neurologic: The patient denies a history of epilepsy/convulsions, denies headaches, denies head/spinal injuries, and denies stroke/TIA. Psychiatric: The patient denies psychiatric medications, denies depression, and denies voices, denies substance abuse. Endocrine: The patient denies thyroid disorders, denies diabetes, and denies hormonal problems. Hematologic: The patient denies a history of bruising, denies bleeding, and denies anemia, denies blood clots. Infections: The patient denies a history of measles and mumps, denies rheumatic fever, and denies sexually transmitted diseases. Musculoskeletal: The patient denies back pain/injury, notes back problems, denies sciatica, NOTES knee/foot trouble, denies arthritis, or NOTES gout. When was patient's last Mammogram screening? N/A Last Colonoscopy: never Adele Acevedo RN Prescriptions ordered this encounter Disp Refills Start End PEG 3350-ELECTROLYTES 236 GRAM-22.74* 1 Willem* 0 04/24/2018 04/24/2018 Route: ORAL Sig: Take 4,000 mL by mouth one time only for 1 dose. Encounter Status:Closed by SANDY HA PA-C on 04/29/18 PROGRESS Observed: 04/21/2018 Status: COMPLETED Source: [place] 3:05 PM [facility] REPOSITORY O ID: [id number] Author: Zechariah Cervantes) Jose Service: (none) Author Type: Nurse Practitioner Type: Progress Notes Filed: 04/21/2018 3:31 PM Note Text: Chief Complaint Patient presents with: urine issues HPI Amelia Avila is a 52 year old male who presents here today for Above Complaints. Patient presents today office for evaluation of urinary symptoms. States that he is experiencing intermittent slow stream. Does experience nocturia nightly. At minimum once a night, on some occasions, will have multiple trips to the restaurants. No blood in his urine. States that he has urinary frequency, but admits that he does drink lots of water. No problems with starting stream. Does believe that he is emptying his bladder. No fevers or chills. Does have a history of kidney stones. UA in today's office was normal. Does state that two days ago, he noticed a small amount of red color in his stool. Has never had this occur. Has had normal bowel movements since this occurrence without any blood. Does admit to having hemorrhoids in the past. Does admit to some constipation most recently. Has never had a colonoscopy in the past. requesting to be sent for colonoscopy. He denies any current nausea, vomiting, abdominal pain, weakness, chest pain, shortness of breath. Past medical history, appointments, medications, allergies reviewed. Previous Medical History PAST MEDICAL HISTORY Diagnosis Date - Allergic rhinitis - DDD (degenerative disc disease), lumbar - Prediabetes Previous Surgical History PAST SURGICAL HISTORY Procedure Laterality Date - AMPUTATION FINGER/THUMB accident as a child - KNEE SCOPE,DIAGNOSTIC 2014 Arthroscopy, knee - REPAIR OF NASAL SEPTUM 2002 Family History FAMILY HISTORY Problem Relation Age of Onset - Hypertension Mother - Cancer Father LUNG Patient Allergies ALLERGIES No Known Allergies Current Medications Current Outpatient Prescriptions on File Prior to Visit: meloxicam (MOBIC) 15 mg tablet Take 1 tablet by mouth once daily. Take with food. methocarbamol (ROBAXIN) 750 mg tablet Take 1 tablet by mouth three times daily. No current facility-administered medications on file prior to visit. Social History Social History Marital status: Spouse name: Years of education: Number of children: Social History Main Topics Smoking status: Former Smoker Packs/day: 0.50 Years: 10.00 Types: Cigarettes Smokeless tobacco: Never Used Comment: qit in 1996 Alcohol use: Yes 3.0 - 4.5 oz/week Glasses of Wine (5oz): 2 - 3 per week Drug use: No REVIEW OF SYSTEMS: as above ? Reviewed relevant PMHx, PSHx, Social Hx, current medications and allergies. EXAM: BP 123/76 Pulse 101 Temp 36.3 ?C (97.4 ?F) (Tympanic) Wt 99.8 kg (220 lb) BMI 27.50 kg/m? General Appearance: Well appearing, alert, in no acute distress, well-hydrated, well nourished.. Lungs: Lungs clear to auscultation. No wheezing, rhonchi, rales. Heart: RRR without murmur, gallop, or rubs. No ectopy. Rectal: Rectal negative. Prostate palpation revealed slightly enlarged, non-tender prostate, no nodules. Health Maintenance List ONE PNEUMOVAX PRIOR TO AGE 64 due on 1983 HEPATITIS C SCREENING due on 2008 DTAP,TDAP,TD(1 - Tdap) due on 04/26/2010 COLORECTAL CANCER SCREENING,SEE MODIFIER due on 2014 DIABETES SCREEN due on 02/23/2017 INFLUENZA(1) due on 02/22/2018 LIPID SCREEN due on 02/23/2019 Data reviewed Component Latest Ref Rng AND Units 07/05/2012 02/23/2014 Triglyceride 30 - 149 mg/dL 202 (H) 165 (H) Cholesterol, Total 100 - 199 mg/dL 192 169 HDL Cholesterol >45 mg/dL 46 45 (L) VLDL Cholesterol 6 - 40 mg/dL 40 33 LDL Cholesterol 60 - 129 mg/dL 106 91 Fasting Time hrs FAST FASTING TC:HDL Ratio 1.00 - 5.00 4.17 3.76 LDL:HDL Ratio 0.50 - 3.55 2.30 2.02 Non HDL Cholesterol 90 - 159 mg/dL 146 124 Glucose 65 - 100 mg/dL 103 (H) 103 (H) ALT 5 - 50 U/L 19 Component Results Component Value Range AND Units Status Performing Lab GLUCOSE UA (POCT) Negative Negative mg/dL Final [facility] BILIRUBIN UA (POCT) Negative Negative Final [facility] KETONE UA (POCT) Negative Negative mg/dL Final [facility] SPECIFIC GRAVITY UA (POCT) 1.020 1.005 - 1.030 Final [facility] HEMOGLOBIN/BLOOD UA ?(POCT) Negative Negative Final [facility] PH UA (POCT) 6.0 4.5 - 8.0 Final [facility] PROTEIN UA (POCT) Negative Negative mg/dL Final [facility] UROBILINOGEN UA (POCT) 0.2 Normal E.U./dL Final [facility] NITRITE UA (POCT) Negative Negative Final [facility] LEUKOCYTES UA (POCT) Negative Negative Final [facility] COLOR UA (POCT) Yellow Final [facility] CLARITY UA (POCT) Clear ASSESSMENT/PLAN: 1. Weak urinary stream - ICD9: 788.62, ICD10: R39.12 (primary diagnosis) - physical exam showed a mildly enlarged prostate. UA was normal in the office today. We will start him on tamsulosin and follow- up in 5-6 weeks to see if he has improvement in his symptoms. If not improving will refer to urology. - UA DIP B/O - TAMSULOSIN 0.4 MG CAPSULE 2. Screening for colon cancer - ICD9: V76.51, ICD10: Z12.11 - more than likely red color of stool the other day was related to a hemorrhoid. I did not palpate any hemorrhoids on my digital rectal exam. We will set him up for colonoscopy for screening for colon cancer as he is requested. - CONSULT TO GENERAL SURGERY follow-up in 5-6 weeks, sooner if symptoms worsen. Zechariah Lopez APRN.CNP CNOV Observed: 04/21/2018 Status: COMPLETED Source: [place] 3:00 PM [facility] REPOSITORY Office Visit (FAMPWS) AMELIA AVILA ([id number]) 1965 M Date Time Provider Department 04/21/18 3:00 PM ZECHARIAH LOPEZ ([facility]) FAMPWS During your visit today, we recorded the following information about you: Temperature Pulse Blood pressure Weight 97.4 degrees 101/minute 123/76 99.8 kg Zechariah Lopez APRN.CNP 04/21/2018 3:31 PM Signed Chief Complaint Patient presents with: urine issues HPI Amelia Avila is a 52 year old male who presents here today for Above Complaints. Patient presents today office for evaluation of urinary symptoms. States that he is experiencing intermittent slow stream. Does experience nocturia nightly. At minimum once a night, on some occasions, will have multiple trips to the restaurants. No blood in his urine. States that he has urinary frequency, but admits that he does drink lots of water. No problems with starting stream. Does believe that he is emptying his bladder. No fevers or chills. Does have a history of kidney stones. UA in today's office was normal. Does state that two days ago, he noticed a small amount of red color in his stool. Has never had this occur. Has had normal bowel movements since this occurrence without any blood. Does admit to having hemorrhoids in the past. Does admit to some constipation most recently. Has never had a colonoscopy in the past. requesting to be sent for colonoscopy. He denies any current nausea, vomiting, abdominal pain, weakness, chest pain, shortness of breath. Past medical history, appointments, medications, allergies reviewed. Previous Medical History PAST MEDICAL HISTORY Diagnosis Date - Allergic rhinitis - DDD (degenerative disc disease), lumbar - Prediabetes Previous Surgical History PAST SURGICAL HISTORY Procedure Laterality Date - AMPUTATION FINGER/THUMB accident as a child - KNEE SCOPE,DIAGNOSTIC 2013 Arthroscopy, knee - REPAIR OF NASAL SEPTUM 2003 Family History FAMILY HISTORY Problem Relation Age of Onset - Hypertension Mother - Cancer Father LUNG Patient Allergies ALLERGIES No Known Allergies Current Medications Current Outpatient Prescriptions on File Prior to Visit: meloxicam (MOBIC) 15 mg tablet Take 1 tablet by mouth once daily. Take with food. methocarbamol (ROBAXIN) 750 mg tablet Take 1 tablet by mouth three times daily. No current facility-administered medications on file prior to visit. Social History Social History Marital status: Spouse name: Years of education: Number of children: Social History Main Topics Smoking status: Former Smoker Packs/day: 0.50 Years: 10.00 Types: Cigarettes Smokeless tobacco: Never Used Comment: latia in 1996 Alcohol use: Yes 3.0 - 4.5 oz/week Glasses of Wine (5oz): 2 - 3 per week Drug use: No REVIEW OF SYSTEMS: as above ? Reviewed relevant PMHx, PSHx, Social Hx, current medications and allergies. EXAM: BP 123/76 Pulse 101 Temp 36.3 ?C (97.4 ?F) (Tympanic) Wt 99.8 kg (220 lb) BMI 27.50 kg/m? General Appearance: Well appearing, alert, in no acute distress, well-hydrated, well nourished.. Lungs: Lungs clear to auscultation. No wheezing, rhonchi, rales. Heart: RRR without murmur, gallop, or rubs. No ectopy. Rectal: Rectal negative. Prostate palpation revealed slightly enlarged, non-tender prostate, no nodules. Health Maintenance List ONE PNEUMOVAX PRIOR TO AGE 64 due on 1983 HEPATITIS C SCREENING due on 2008 DTAP,TDAP,TD(1 - Tdap) due on 04/26/2010 COLORECTAL CANCER SCREENING,SEE MODIFIER due on 2014 DIABETES SCREEN due on 02/23/2017 INFLUENZA(1) due on 02/22/2018 LIPID SCREEN due on 02/23/2019 Data reviewed Component Latest Ref Rng AND Units 07/05/2012 02/23/2014 Triglyceride 30 - 149 mg/dL 202 (H) 165 (H) Cholesterol, Total 100 - 199 mg/dL 192 169 HDL Cholesterol >45 mg/dL 46 45 (L) VLDL Cholesterol 6 - 40 mg/dL 40 33 LDL Cholesterol 60 - 129 mg/dL 106 91 Fasting Time hrs FAST FASTING TC:HDL Ratio 1.00 - 5.00 4.17 3.76 LDL:HDL Ratio 0.50 - 3.55 2.30 2.02 Non HDL Cholesterol 90 - 159 mg/dL 146 124 Glucose 65 - 100 mg/dL 103 (H) 103 (H) ALT 5 - 50 U/L 19 Component Results Component Value Range AND Units Status Performing Lab GLUCOSE UA (POCT) Negative Negative mg/dL Final [facility] BILIRUBIN UA (POCT) Negative Negative Final [facility] KETONE UA (POCT) Negative Negative mg/dL Final [facility] SPECIFIC GRAVITY UA (POCT) 1.020 1.005 - 1.030 Final [facility] HEMOGLOBIN/BLOOD UA ?(POCT) Negative Negative Final [facility] PH UA (POCT) 6.0 4.5 - 8.0 Final [facility] PROTEIN UA (POCT) Negative Negative mg/dL Final [facility] UROBILINOGEN UA (POCT) 0.2 Normal E.U./dL Final [facility] NITRITE UA (POCT) Negative Negative Final [facility] LEUKOCYTES UA (POCT) Negative Negative Final [facility] COLOR UA (POCT) Yellow Final [facility] CLARITY UA (POCT) Clear ASSESSMENT/PLAN: 1. Weak urinary stream - ICD9: 788.62, ICD10: R39.12 (primary diagnosis) - physical exam showed a mildly enlarged prostate. UA was normal in the office today. We will start him on tamsulosin and follow- up in 5-6 weeks to see if he has improvement in his symptoms. If not improving will refer to urology. - UA DIP B/O - TAMSULOSIN 0.4 MG CAPSULE 2. Screening for colon cancer - ICD9: V76.51, ICD10: Z12.11 - more than likely red color of stool the other day was related to a hemorrhoid. I did not palpate any hemorrhoids on my digital rectal exam. We will set him up for colonoscopy for screening for colon cancer as he is requested. - CONSULT TO GENERAL SURGERY follow-up in 5-6 weeks, sooner if symptoms worsen. Zechariah Lopez APRN.KERRY Referring Provider: SELF [[id number]] Allergies As of Date: 04/21/2018 (No Known Allergies) Date Reviewed: 04/21/2018 Reviewed by: Zechariah SantiagoRefrigeration Systems InstallerAbby Lopez - Fully Assessed Reason for Visit: urine issues [Other] Primary Visit Diagnosis:Weak urinary stream [R39.12] Other Visit Diagnosis:Screening for colon cancer [Z12.11] Order(s):UA DIP B/O [[id number]] Order #: [id number] UA DIP, URINE (POC) [[id number]] Order #: [id number]. #:[id number] CONSULT TO GENERAL SURGERY [9021] Order #: [id number]: 1 tamsulosin ER (FLOMAX) 0.4 mg capTake 1 capsule by mouth daily at bedtime.Disp: 30 capsuleRfl: 1 Prescriptions as of 04/21/2018 Sig: TAMSULOSIN 0.4 MG CAPSULE Take 1 capsule by mouth daily* Problem List As Of Date 04/21/2018 Noted Resolved ESOPHAGEAL REFLUX [K21.9] INVALID FOR* OTHER LUNG DISEASE NEC [J98.4] INVALID FOR* CALCULUS OF URETER [N20.1] INVALID FOR* Impaired Fasting Glucose [R73.01] INVALID FOR* DDD (Degenerative Disc Disease), Lumbar [M51.36]INVALID FOR* Prediabetes [R73.03] INVALID FOR*05/07/2016 Hyperlipidemia [E78.5] INVALID FOR* Chronic bilateral low back pain without sciatic*INVALID FOR* Spondylosis of lumbar region without myelopathy*INVALID FOR* Discogenic low back pain [M51.36] INVALID FOR* More... Annular tear of lumbar disc [M51.36] INVALID FOR* More... Prescriptions ordered this encounter Disp Refills Start End TAMSULOSIN 0.4 MG CAPSULE 30 c* 1 04/21/2018 Route: ORAL Sig: Take 1 capsule by mouth daily at bedtime. 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 Disc: Discontinued by Patient cyclobenzaprine (FLEXERIL) 10 mg tab* 21 t* 0 05/28/2017 04/21/2018 Route: ORAL Sig: Take 1 tablet by mouth three times daily as needed for Muscle Spasm. Disc: Discontinued by Patient IBUPROFEN ORAL 04/21/2018 Class: Historical Med Route: ORAL Sig: Take by mouth as needed. Disc: Discontinued by Patient methocarbamol (ROBAXIN) 750 mg tablet 90 t* 1 12/18/2017 04/21/2018 Route: ORAL Sig: Take 1 tablet by mouth three times daily. Disc: Discontinued by Patient meloxicam (MOBIC) 15 mg tablet 30 t* 1 12/18/2017 04/21/2018 Route: ORAL Sig: Take 1 tablet by mouth once daily. Take with food. Disc: Discontinued by Patient Disposition: Return in about 6 weeks (around 06/02/2018) for BPH follow up. Follow-up and Disposition History Recorded Encounter Status:Closed by ZECHARIAH LOPEZ CNP on 04/21/18 PT ED Observed: 04/01/2018 Status: COMPLETED Source: [place] 11:55 AM [facility] REPOSITORY HNO ID: [id number] Author: Myriam SantiagoRn) ANDRE Velasquez Service: Nursing Author Type: Registered Nurse Type: Patient Education Filed: 04/01/2018 11:56 AM Note Text: POST OP LEARNING RESPONSE INSTRUCTION PROVIDED TO: Patient METHOD OF INSTRUCTION: PATIENT / FAMILY RESPONSE: Verbalizes understanding of: POST-OPERATIVE INSTRUCTIONS-Correct actions to take to reduce postoperative complications FOLLOW-UP PLAN: Complete - No need for follow-up SUPPLEMENTAL MATERIAL: None REFERRAL (RECOMMENDATION): None Electronically Signed By: Myriam Velasquez RN I OPERATIVE NO Observed: 04/01/2018 Status: COMPLETED Source: [place] 11:37 AM [facility] REPOSITORY HNO ID: [id number] Author: Dutch Lowery Service: Pain Management Author Type: Physician Type: Operative Report Filed: 04/01/2018 11:38 AM Note Text: PATIENT NAME: Amelia Avila SERVICE DATE: 04/01/2018 PREOPERATIVE DIAGNOSIS(ES) Lumbar spondylosis without myelopathy Degeneration of lumbar intervertebral disc Lumbar facet arthropathy POSTOPERATIVE DIAGNOSIS(ES): same OPERATION: Right L4,5,S1 Lumbar Facet Medial Branch Nerve RFA under fluoroscopy. ? ANESTHESIA: versed 4mg, fentanyl 100mcg IV ? INDICATIONS: The patient had positive diagnostic facet medial branch nerve blocks. The pain overall has improved by greater than 60% and the patient reports an increase in physical activity. Recommend RFA at L4-5 and L5-S1. Proceed with the right side today. The risks and benefits of the procedure were discussed. Specifically, the risks of bleeding, infection, inadvertent dural puncture, spinal heaches, vasovagal reaction, epidural hematoma, partial or permanent nerve injury were covered. The potential side effects of medications used in procedures including increase in lumbar pain, headaches, facial redness or warmth (flushing), anxiety or mood swings, sleeplessness, fever, high blood sugar, brief reduction in immunity were discussed. The patient expressed understanding of potential risks and wishes to proceed with the procedure. ? PROCEDURE: RIGHT C4,5,S1 FACET MEDIAL BRANCH NERVE RADIOFREQUENCY NEUROTOMY ? DESCRIPTION OF PROCEDURE: The patient was brought to the fluoroscopy suite. IV access was obtained prior to the procedure. The patient was positioned prone on the fluoroscopy table. Continuous hemodynamic monitoring was initiated including blood pressure and pulse oximetry. IV sedation was administered incrementally to allow the patient to remain comfortable and conversant throughout the procedure. The area of the posterior lumbar area was prepped povidone-iodine three times and draped into a sterile field. Fluoroscopy was used to identify the location of the left side L4-5 and L5-S1 medial branch nerves respectively. Skin anesthesia was achieved using 3 cc of Lidocaine 0.5% over the injection sites. A 20 gauge, 100mm (10mm active tip) curved RF needle was slowly inserted at each level using AP, lateral and oblique fluoroscopic imaging. Negative aspiration for blood or CSF was confirmed. Sensory stimulation at 50Hz below 0.5V was achieved at every level. Motor stimulation at 2Hz up to 1.5V did not cause any radicular symptoms at any level. Each level was anesthetized with 1.5 cc of lidocaine 1%. Radiofrequency lesioning was performed for 90 seconds at 80 degrees at each level. At each level, 1ml of 0.25% Ropivicaine with 5 mg of Kenalog was injected. The needles were removed and bleeding was nil. A sterile dressing was applied. Amelia Avila was taken to the Post-block Recovery Area for further observation. ? EBL: nil Start time: 11:20 AM End time: 11:35 AM I was present the entire time and personally performed the procedure. SIGNATURE: Dutch Lowery MD DATE: April 01, 2018 TIME: 11:37 AM XR FLUOROSCOPY Observed: 04/01/2018 Status: F Source: [place] 11:33 AM [facility] OTHER CAMPUS REPOSITORY * * *Final Report* * * DATE OF EXAM: Apr 01 2018 11:33AM [facility] 5513 - XR FLUOROSCOPY / PROCEDURE REASON: RIGHT L4-L5, L5-S1 FACET NERVE RFA FOR PAIN * * * * Physician Interpretation * * * * INDICATION: Pain management TECHNIQUE: 3 submitted fluoroscopic spot images Fluoroscopic Radiation Summary: Plane A, Air Kerma: 11.6 mGy Plane B, Air Kerma: 0.0 mGy Dose Area Product (DAP): 1382.7 mGy*cmS2 Fluoro time: 0:30 min:sec FINDINGS/ IMPRESSION: 3 submitted fluoroscopic spot images demonstrate multiple needles directed at the labeled right lower lumbar spine/lumbosacral junction. Refer to the procedure note for details regarding this procedure. Last Putter Away: PSCB Transcribe Date/Time: Apr 01 2018 11:59A Dictated by : DIANE PORTER MD This examination was interpreted and the report reviewed and electronically signed by: DIANE PORTER MD on Apr 01 2018 11:59AM EST [id number] HISTORY PHYSICAL Observed: 04/01/2018 Status: COMPLETED Source: [place] 11:11 AM [facility] OTHER CAMPUS REPOSITORY O ID: [id number] Author: Dutch Lowery Service: Pain Management Author Type: Physician Type: HANDP Filed: 04/01/2018 11:11 AM Note Text: HISTORY AND PHYSICAL EXAMINATION PATIENT NAME: Amelia Avila DATE of SERVICE: 04/01/2018 Amelia Avila is here for the pain mangement procedure. The patient presents with persistent pain complaints. Amelia Avila denies any interval changes or new pain complaints or focal neurologic deficits. PAST MEDICAL HISTORY Diagnosis Date - Allergic rhinitis - DDD (degenerative disc disease), lumbar - Prediabetes PAST SURGICAL HISTORY Procedure Laterality Date - AMPUTATION FINGER/THUMB accident as a child - KNEE SCOPE,DIAGNOSTIC 2014 Arthroscopy, knee - REPAIR OF NASAL SEPTUM 2002 Social History Marital status: Spouse name: Years of education: Number of children: Social History Main Topics Smoking status: Former Smoker Packs/day: 0.50 Years: 10.00 Types: Cigarettes Smokeless tobacco: Never Used Comment: qit in 1996 Alcohol use: Yes 3.0 - 4.5 oz/week Glasses of Wine (5oz): 2 - 3 per week Drug use: No FAMILY HISTORY Problem Relation Age of Onset - Hypertension Mother - Cancer Father LUNG ALLERGIES No Known Allergies Current Facility-Administered Medications: NaCl 0.9% iv infusion 30 mL/hr INTRAVENOUS CONTINUOUS Physical Exam: Performed in conjunction with observation. The patient is alert and oriented x3. The patient is in no acute distress. Neck: Supple. The range of motion is intact. Lungs: clear CVR: RRR. Extremities: no reported edema or erythema. Examination indicates no changes Impression: Lumbar spondylosis Lumbar facet syndrome Plan: The informed consent has been obtained. The plan is to proceed with the procedure as planned. SIGNATURE: Dutch Lowery MD DATE: April 01, 2018 TIME: 11:11 AM PT ED Observed: 04/01/2018 Status: COMPLETED Source: [place] 10:20 AM [facility] REPOSITORY HNO ID: [id number] Author: Carmel SantiagoRn) ANDRE Magana Service: Nursing Author Type: Registered Nurse Type: Patient Education Filed: 04/01/2018 10:21 AM Note Text: PRE OP LEARNING ASSESSMENT PROCEDURE/SURGERY: PAIN MANAGEMENT: READINESS TO LEARN COGNITIVE ABILITY: Alert and oriented MOTIVATION TO LEARN: Eager FAMILY SUPPORT: High - Very involved in pt care PATIENT LEARNS BEST BY: Verbal Instruction FACTORS AFFECTING LEARNING: None PHYSICAL LIMITATIONS AFFECTING LEARNING: None Electronically Signed By: Carmel Magana RN In Department: [facility] PT ED Observed: 03/18/2018 Status: COMPLETED Source: [place] 11:55 AM [facility] REPOSITORY HNO ID: [id number] Author: Noemi Torres RN Service: Nursing Author Type: Registered Nurse Type: Patient Education Filed: 03/18/2018 11:56 AM Note Text: POST OP LEARNING RESPONSE INSTRUCTION PROVIDED TO: Patient METHOD OF INSTRUCTION: Written instruction - handouts Verbal instruction PATIENT / FAMILY RESPONSE: Verbalizes understanding of: INFECTION MANAGEMENT-Signs and symptoms of an infection and importance of contacting the physician POST-OPERATIVE INSTRUCTIONS-Correct actions to take to reduce postoperative complications PATIENT SAFETY PRINCIPLES SYMPTOM MANAGEMENT-Correct actions to take to manage symptoms associated with his/her disease/illness WORSENING CONDITION-Signs and symptoms of a worsening condition that warrant a call to the physician WOUND CARE-Correct procedure to perform wound care FOLLOW-UP PLAN: Patient instructed to call with any further issues Contact information given. SUPPLEMENTAL MATERIAL: None REFERRAL (RECOMMENDATION): None Electronically Signed By: Noemi Buca, RN In Department: [facility] XR FLUOROSCOPY Observed: 03/18/2018 Status: F Source: [place] 11:48 AM [facility] OTHER CAMPUS REPOSITORY * * *Final Report* * * DATE OF EXAM: Mar 18 2018 11:48AM [facility] [id number] - XR FLUOROSCOPY / PROCEDURE REASON: LEFT L4-L5, L5-S1 FACET NERVE RFA FOR PAIN * * * * Physician Interpretation * * * * INDICATION: LEFT L4-L5, L5-S1 FACET NERVE RFA FOR PAIN TECHNIQUE: Fluoroscopy with 5 views of the lower lumbar spine Fluoroscopic Radiation Summary: Plane A, Air Kerma: 12.1 mGy Dose Area Product (DAP): 1629.5 mGy*cmS2 Fluoro time: 0:38 min:sec FINDINGS/ IMPRESSION: [place] project toward the lowest 3 facet joints on the left. Please refer to the performing LIP's report. Last Putter Away: RODOLFO Transcribe Date/Time: Mar 18 2018 12:29P Dictated by : MAUREEN ESCALANTE MD This examination was interpreted and the report reviewed and electronically signed by: MAUREEN ESCALANTE MD on Mar 18 2018 12:29PM EST [id number] OPERATIVE NO Observed: 03/18/2018 Status: COMPLETED Source: [place] 11:45 AM [facility] REPOSITORY HNO ID: [id number] Author: Dutch Lowery Service: Pain Management Author Type: Physician Type: Operative Report Filed: 03/18/2018 11:47 AM Note Text: PATIENT NAME: Amelia Avila SERVICE DATE: 03/18/2018 PREOPERATIVE DIAGNOSIS(ES) Lumbar spondylosis without myelopathy Degeneration of lumbar intervertebral disc Lumbar facet arthropathy POSTOPERATIVE DIAGNOSIS(ES): same OPERATION: Left L4,5,S1 Lumbar Facet Medial Branch Nerve RFA under fluoroscopy. ANESTHESIA: versed 4mg, fentanyl 100mcg IV INDICATIONS: The patient had positive diagnostic facet medial branch nerve blocks. The pain overall has improved by greater than 60% and the patient reports an increase in physical activity. Recommend RFA at L4-5 and L5-S1. Proceed with the left side today. The risks and benefits of the procedure were discussed. Specifically, the risks of bleeding, infection, inadvertent dural puncture, spinal heaches, vasovagal reaction, epidural hematoma, partial or permanent nerve injury were covered. The potential side effects of medications used in procedures including increase in lumbar pain, headaches, facial redness or warmth (flushing), anxiety or mood swings, sleeplessness, fever, high blood sugar, brief reduction in immunity were discussed. The patient expressed understanding of potential risks and wishes to proceed with the procedure. PROCEDURE: LEFT C4,5,S1 FACET MEDIAL BRANCH NERVE RADIOFREQUENCY NEUROTOMY DESCRIPTION OF PROCEDURE: The patient was brought to the fluoroscopy suite. IV access was obtained prior to the procedure. The patient was positioned prone on the fluoroscopy table. Continuous hemodynamic monitoring was initiated including blood pressure and pulse oximetry. IV sedation was administered incrementally to allow the patient to remain comfortable and conversant throughout the procedure. The area of the posterior lumbar area was prepped povidone-iodine three times and draped into a sterile field. Fluoroscopy was used to identify the location of the left side L4-5 and L5-S1 medial branch nerves respectively. Skin anesthesia was achieved using 3 cc of Lidocaine 0.5% over the injection sites. A 20 gauge, 100mm (10mm active tip) curved RF needle was slowly inserted at each level using AP, lateral and oblique fluoroscopic imaging. Negative aspiration for blood or CSF was confirmed. Sensory stimulation at 50Hz below 0.5V was achieved at every level. Motor stimulation at 2Hz up to 1.5V did not cause any radicular symptoms at any level. Each level was anesthetized with 1.5 cc of lidocaine 1%. Radiofrequency lesioning was performed for 90 seconds at 80 degrees at each level. At each level, 1ml of 0.25% Marcaine with 5 mg of Kenalog was injected. The needles were removed and bleeding was nil. A sterile dressing was applied. Amelia Avila was taken to the Post-block Recovery Area for further observation. EBL: nil Start time: 11:31 AM End time: 11:45 AM I was present the entire time and personally performed the procedure. SIGNATURE: Dutch Lowery MD DATE: March 18, 2018 TIME: 11:46 AM HISTORY PHYSICAL Observed: 03/18/2018 Status: COMPLETED Source: [place] 11:20 AM [facility] REPOSITORY O ID: [id number] Author: Dutch Lowery Service: Pain Management Author Type: Physician Type: HANDP Filed: 03/18/2018 11:20 AM Note Text: HISTORY AND PHYSICAL EXAMINATION PATIENT NAME: Amelia Avila DATE of SERVICE: 03/18/2018 Amelia Avila is here for the pain mangement procedure. The patient presents with persistent pain complaints. Amelia Avila denies any interval changes or new pain complaints or focal neurologic deficits. PAST MEDICAL HISTORY Diagnosis Date - Allergic rhinitis - DDD (degenerative disc disease), lumbar - Prediabetes PAST SURGICAL HISTORY Procedure Laterality Date - AMPUTATION FINGER/THUMB accident as a child - KNEE SCOPE,DIAGNOSTIC 2013 Arthroscopy, knee - REPAIR OF NASAL SEPTUM 2002 Social History Marital status: Spouse name: Years of education: Number of children: Social History Main Topics Smoking status: Former Smoker Packs/day: 0.50 Years: 10.00 Types: Cigarettes Smokeless tobacco: Never Used Comment: qit in 1996 Alcohol use: Yes 3.0 - 4.5 oz/week Glasses of Wine (5oz): 2 - 3 per week Drug use: No FAMILY HISTORY Problem Relation Age of Onset - Hypertension Mother - Cancer Father LUNG ALLERGIES No Known Allergies Current Facility-Administered Medications: NaCl 0.9% iv infusion 30 mL/hr INTRAVENOUS CONTINUOUS Physical Exam: Performed in conjunction with observation. The patient is alert and oriented x3. The patient is in no acute distress. Neck: Supple. The range of motion is intact. Lungs: clear CVR: RRR. Extremities: no reported edema or erythema. Examination indicates no changes Impression: Lumbar facet arthropathy Plan: The informed consent has been obtained. The plan is to proceed with the procedure as planned. SIGNATURE: Dutch Lowery MD DATE: March 18, 2018 TIME: 11:20 AM PT ED Observed: 03/18/2018 Status: COMPLETED Source: [place] 10:45 AM [facility] [place] REPOSITORY O ID: [id number] Author: Annie (Andre) ANDRE Jacques Service: Nursing Author Type: Registered Nurse Type: Patient Education Filed: 03/18/2018 12:58 PM Note Text: PRE OP LEARNING ASSESSMENT PROCEDURE/SURGERY: PAIN MANAGEMENT: RFA READINESS TO LEARN COGNITIVE ABILITY: Alert and oriented MOTIVATION TO LEARN: Interested FAMILY SUPPORT: High - Very involved in pt care PATIENT LEARNS BEST BY: Individual Instruction FACTORS AFFECTING LEARNING: None PHYSICAL LIMITATIONS AFFECTING LEARNING: None Electronically Signed By: Annie Jacques RN In Department: [facility] Observed: 02/18/2018 Status: COMPLETED Source: [place] 12:00 AM [facility] [place] RE[facility]IT[facility] Patient:Amelia Avila MRN: <[id number]> Height:6' 3(1.905 m) Weight:220 lb (99.791 kg) Outpatient Medications as of 03/18/18: meloxicam (MOBIC) 15 mg tablet methocarbamol (ROBAXIN) 750 mg tablet IBUPROFEN ORAL cyclobenzaprine (FLEXERIL) 10 mg tablet COMPOUNDED PRESCRIPTION Admission/Clinic Administered Medications as of 03/18/18: NaCl 0.9% iv infusion Problem List: Esophageal reflux [K21.9] Other diseases of lung, not elsewhere classified [J98.4] Calculus of ureter [N20.1] Impaired fasting glucose [R73.01] DDD (degenerative disc disease), lumbar [M51.36] Hyperlipidemia [E78.5] Chronic bilateral low back pain without sciatica [M54.5, G89.29] Spondylosis of lumbar region without myelopathy or radiculopathy [M47.816] Discogenic low back pain [M51.36] Annular tear of lumbar disc [M51.36] Allergies: No Known Allergies Date Verified:03/18/18 Lab Values No results within the last 30 days for the following basenames: K,HCT No progress notes entered within the past 30 days HOSP Observed: 02/18/2018 Status: COMPLETED Source: [place] 12:00 AM [facility] OTHER [facility] REPOSITORY Patient:Amelia Avila MRN: <[id number]> Height:6' 3(1.905 m) Weight:No patient weight recorded within the last 30 days. Outpatient Medications as of 04/01/18: meloxicam (MOBIC) 15 mg tablet methocarbamol (ROBAXIN) 750 mg tablet IBUPROFEN ORAL cyclobenzaprine (FLEXERIL) 10 mg tablet COMPOUNDED PRESCRIPTION Admission/Clinic Administered Medications as of 04/01/18: NaCl 0.9% iv infusion Problem List: Esophageal reflux [K21.9] Other diseases of lung, not elsewhere classified [J98.4] Calculus of ureter [N20.1] Impaired fasting glucose [R73.01] DDD (degenerative disc disease), lumbar [M51.36] Hyperlipidemia [E78.5] Chronic bilateral low back pain without sciatica [M54.5, G89.29] Spondylosis of lumbar region without myelopathy or radiculopathy [M47.816] Discogenic low back pain [M51.36] Annular tear of lumbar disc [M51.36] Allergies: No Known Allergies Date Verified:04/01/18 Lab Values No results within the last 30 days for the following basenames: K,HCT No progress notes entered within the past 30 days [facility] Observed: 02/10/2018 Status: COMPLETED Source: [place] 12:00 AM [facility] REPOSITORY Nurse Visit (PNMDNA) AMELIA AVILA ([id number]) 1965 M Date Time Provider Department 02/10/18 [facility] PNMDNA During your visit today, we recorded the following information about you: Kizzy Brit 02/10/2018 2:18 PM Signed Patient arrived at office to discuss insurance appeal. Patient stated when he said his pain was relieved by 50%, he meant at that time. His pain was relieved by more like 80-90% in the beginning and then came down, at follow up it was then 50%. He was unhappy with how insurance takes such a subjective question to determine approval for procedures that help with his pain. Allergies As of Date: 02/10/2018 (No Known Allergies) Date Reviewed: 12/18/2017 Reviewed by: Bernie Osborne Ma - Fully Assessed Primary Visit Diagnosis:DDD (degenerative disc disease), lumbar [M51.36] Prescriptions as of 02/10/2018 Sig: MELOXICAM 15 MG TABLET Take 1 tablet by mouth once d* METHOCARBAMOL 750 MG TABLET Take 1 tablet by mouth three * IBUPROFEN ORAL Take by mouth as needed. 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 Problem List As Of Date 02/10/2018 Noted Resolved ESOPHAGEAL REFLUX [K21.9] INVALID FOR* OTHER LUNG DISEASE NEC [J98.4] INVALID FOR* CALCULUS OF URETER [N20.1] INVALID FOR* Impaired Fasting Glucose [R73.01] INVALID FOR* DDD (Degenerative Disc Disease), Lumbar [M51.36]INVALID FOR* Prediabetes [R73.03] INVALID FOR*05/07/2016 Hyperlipidemia [E78.5] INVALID FOR* Chronic bilateral low back pain without sciatic*INVALID FOR* Spondylosis of lumbar region without myelopathy*INVALID FOR* Discogenic low back pain [M51.36] INVALID FOR* More... Annular tear of lumbar disc [M51.36] INVALID FOR* More... Visit Notes: >> Kizzy Perea Mon Feb 10, 2018 1:57 PM Status: Signed Patient arrived at office to discuss insurance appeal. Patient stated when he said his pain was relieved by 50%, he meant at that time. His pain was relieved by more like 80-90% in the beginning and then came down, at follow up it was then 50%. He was unhappy with how insurance takes such a subjective question to determine approval for procedures that help with his pain. Encounter Status:Closed by [facility]: 02/10/2018 Status: COMPLETED Source: [place] 12:00 AM [facility] REPOSITORY Telephone (PNMDNA) AMELIA AVILA ([id number]) 1965 M Date Time Provider Department 02/10/18 [facility] During your visit today, we recorded the following information about you: Kizzy Perea 02/10/2018 3:17 PM Signed Faxed appeal for injection to [facility] [place]. Kizzy Perea 02/18/2018 3:27 PM Signed Appeal for [id number] and [id number] has been approved for 02/18/18-08/21/18 Called patient, he is scheduling Left RFA 03/18/18 and Right RFA 04/01/18 Allergies As of Date: 02/10/2018 (No Known Allergies) Date Reviewed: 12/18/2017 Reviewed by: Bernie Osborne Ma - Fully Assessed Reason for Visit: appeal [Other] Prescriptions as of 02/10/2018 Sig: MELOXICAM 15 MG TABLET Take 1 tablet by mouth once d* METHOCARBAMOL 750 MG TABLET Take 1 tablet by mouth three * IBUPROFEN ORAL Take by mouth as needed. 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 Problem List As Of Date 02/10/2018 Noted Resolved ESOPHAGEAL REFLUX [K21.9] INVALID FOR* OTHER LUNG DISEASE NEC [J98.4] INVALID FOR* CALCULUS OF URETER [N20.1] INVALID FOR* Impaired Fasting Glucose [R73.01] INVALID FOR* DDD (Degenerative Disc Disease), Lumbar [M51.36]INVALID FOR* Prediabetes [R73.03] INVALID FOR*05/07/2016 Hyperlipidemia [E78.5] INVALID FOR* Chronic bilateral low back pain without sciatic*INVALID FOR* Spondylosis of lumbar region without myelopathy*INVALID FOR* Discogenic low back pain [M51.36] INVALID FOR* More... Annular tear of lumbar disc [M51.36] INVALID FOR* More... Encounter Status:Closed by KIZZY PEREA on 02/10/18 [facility] Observed: 01/27/2018 Status: COMPLETED Source: [place] 12:00 AM [facility] REPOSITORY Telephone (ANUPAMMDNA) AMELIA AVILA ([id number]) 1965 M Date Time Provider Department 01/27/18 [facility] During your visit today, we recorded the following information about you: Kizzy Perea 01/27/2018 1:09 PM Signed Contacted patient, his pre auth was denied for his injection and he is to come in and give written consent to appeal decision. Patient will need to come in or contact insurance and appeal with them. Injections will be canceled until appeal has been filed and decision has been made. Kizzy Perea 02/03/2018 2:32 PM Signed Called patient and LVM to contact office or to come in and sign for us to file appeal. Marce Perez RN 02/07/2018 11:06 AM Signed Patient calls to advise he will be able to come in this afternoon to sign paper work. Patient also asks if he could get a letter from Dr Benjamin jorge: the benefits patient has had from treatment to help with the insurance appeal. Please advise. Patient is requesting a return call from our office on his cell phone. Verbal permission given to leave a detailed voice mail. Marce Perea 02/07/2018 11:46 AM Signed Called patient and LVM explaining paperwork is ready to sign at front desk attendant and I will file the appeal with all proper paperwork and office notes to try and get injections approved. Waiting on signature. Allergies As of Date: 01/27/2018 (No Known Allergies) Date Reviewed: 12/18/2017 Reviewed by: Bernie Osborne Ma - Fully Assessed Reason for Visit: Injections [199] Prescriptions as of 01/27/2018 Sig: MELOXICAM 15 MG TABLET Take 1 tablet by mouth once d* METHOCARBAMOL 750 MG TABLET Take 1 tablet by mouth three * IBUPROFEN ORAL Take by mouth as needed. 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 Problem List As Of Date 01/27/2018 Noted Resolved ESOPHAGEAL REFLUX [K21.9] INVALID FOR* OTHER LUNG DISEASE NEC [J98.4] INVALID FOR* CALCULUS OF URETER [N20.1] INVALID FOR* Impaired Fasting Glucose [R73.01] INVALID FOR* DDD (Degenerative Disc Disease), Lumbar [M51.36]INVALID FOR* Prediabetes [R73.03] INVALID FOR*05/07/2016 Hyperlipidemia [E78.5] INVALID FOR* Chronic bilateral low back pain without sciatic*INVALID FOR* Spondylosis of lumbar region without myelopathy*INVALID FOR* Discogenic low back pain [M51.36] INVALID FOR* More... Annular tear of lumbar disc [M51.36] INVALID FOR* More... Encounter Status:Closed by KIZZY PEREA on 01/27/18 PROGRESS Observed: 12/18/2017 Status: COMPLETED Source: [place] 1:13 PM [facility] REPOSITORY HNO ID: [id number] Author: Almaz Santos Service: (none) Author Type: Nurse Practitioner Type: Progress Notes Filed: 12/18/2017 2:41 PM Note Text: SUBJECTIVE: Amelia Avila presents to [facility] Department for a followup appointment for low back pain. Since the last visit, Amelia Avila states the pain has been stable. Current pain intensity is 4 on a scale of 0-10. Pain located in Back area and does not radiate. Pain described as aching The patient reports leg pain. Symptoms interfere with sitting and driving. Pain is exacerbated by sitting and forward flexion. Pain is mitigated by medications, walking, laying down and standing. The patient is overall improved with the injections by 50%. REVIEW OF SYSTEMS: Constitutional: (-) Fever (-) Night Sweats (-) Weight Gain (-) Weight Loss (-) Fatigue Cardiovascular: (-) Chest Pain (-) Palpitations (-) Lightheadedness (-) Swelling of Ankles (-) Hx Heart Surgery Respiratory: (-) Shortness of Breath (-) Cough (-) Wheezing (-) Snoring Gastrointestinal: (-) Incontinence (-) Abdominal Pain (-) Diarrhea (-) Constipation (-) Nausea/Vomiting (-) Heart Burn Endocrine: (-) Thyroid Disorder (-) Diabetes Hematologic: (-) Prolonged Bleeding (-) Easy Bruising Genitourinary: (-) Incontinence (-) Frequency (-) Urinary Urgency Skin: (-) Rashes (-) Itching (-) Other Lesions Neurologic: (-) Headache (-) Double Vision (-) Confusion (-) Paralysis Psychiatric: (-) Depression (-) Anxiety (-) Delusions (-) Hallucinations (-) Personal History of Alcohol or Substance Abuse (-) Family History of Alcohol or Substance Abuse OBJECTIVE: Pulse 55 Ht 6' 3 (1.91m) Wt 220 lb (99.8kg) SpO2 97% BMI 27.50 kg/(m2). PHYSICAL EXAMINATION: General appearance: Well appearing, in no acute distress, alert Skin: Skin color, texture, turgor normal, no rashes or lesions Neck: No pain to palpation over the cervical paraspinous muscles. No pain with neck flexion, extension, or lateral flexion Cardiovascular: Regular rate Lungs: Normal respiratory rate and rhythm Abdomen: Abdomen soft and non-tender. Back: Intact range of motion with pain reproduction in bilateral facet loading Spine: Reports Tenderness on palpation: Lumbar/Pelvic axial Extremities: No deformities, edema, or skin discoloration. Good capillary refill. Musculoskeletal: Bilateral upper and lower extremity strength is normal and symmetric. No atrophy or tone abnormalities are noted. Neuro: No loss of sensation is noted. Station and Gait: Normal stance, normal gait. Motor: Exhibits full strength in all four extremities. Trigger points: none. ASSESSMENT: Assessment : Pt reports axial lower back pain He had L4,5,S1 Facet injections x2 in 07/2017 and 10/2017 with 50% improvement and would like to proceed with RFA He is active and loves to golf at least once a week. H eis taking mobic and robaxin as needed for flare ups Encounter Diagnosis ICD-10-CM 1. Spondylosis of lumbar region without myelopathy or radiculopathy M47.816 DSTR NROLYTC AGNT PARVERTEB FCT SNGL LMBR/SACRAL DSTR NROLYTC AGNT PARVERTEB FCT ADDL LMBR/SACRAL 2. Chronic bilateral low back pain without sciatica M54.5 DSTR NROLYTC AGNT PARVERTEB FCT SNGL LMBR/SACRAL G89.29 DSTR NROLYTC AGNT PARVERTEB FCT ADDL LMBR/SACRAL 3. DDD (degenerative disc disease), lumbar M51.36 DSTR NROLYTC AGNT PARVERTEB FCT SNGL LMBR/SACRAL DSTR NROLYTC AGNT PARVERTEB FCT ADDL LMBR/SACRAL 4. Discogenic low back pain M51.36 5. Annular tear of lumbar disc M51.36 OARRS website checked and validated. All prescriptions have been APPROPRIATELY filled. No suspicious activity was identified.- 12/18/2017 by Bernie Osborne Ma Narcotic Agreement reviewed and signed?: N/A on December 18, 2017 The pain panel was N/A PLAN: 1) Ordered LEFT L4,5,S1 RFA and then RIGHT 2) Continue to stay active and perform HEP on a daily basis 3) RTC 3 months The above plan and management options were discussed at length with patient. Patient is in agreement with the above and verbalized understanding. Almaz Santos APRN, CNP December 18, 2017 [place] Observed: 12/18/2017 Status: COMPLETED Source: [place] 12:30 PM [facility] REPOSITORY Office Visit (PNMDNA) AMELIA AVILA ([id number]) 1965 M Date Time Provider Department 12/18/17 12:30 PM ALMAZ SANTOS (KERRY) PNMALINA During your visit today, we recorded the following information about you: Pulse Weight Height 55/minute 99.8 kg 1.905 m Almaz Santos APRN.KERRY 12/18/2017 2:41 PM Signed SUBJECTIVE: Amelia Avila presents to [facility] Pain Management Department for a followup appointment for low back pain. Since the last visit, Amelia Avila states the pain has been stable. Current pain intensity is 4 on a scale of 0-10. Pain located in Back area and does not radiate. Pain described as aching The patient reports leg pain. Symptoms interfere with sitting and driving. Pain is exacerbated by sitting and forward flexion. Pain is mitigated by medications, walking, laying down and standing. The patient is overall improved with the injections by 50%. REVIEW OF SYSTEMS: Constitutional: (-) Fever (-) Night Sweats (-) Weight Gain (-) Weight Loss (-) Fatigue Cardiovascular: (-) Chest Pain (-) Palpitations (-) Lightheadedness (-) Swelling of Ankles (-) Hx Heart Surgery Respiratory: (-) Shortness of Breath (-) Cough (-) Wheezing (-) Snoring Gastrointestinal: (-) Incontinence (-) Abdominal Pain (-) Diarrhea (-) Constipation (-) Nausea/Vomiting (-) Heart Burn Endocrine: (-) Thyroid Disorder (-) Diabetes Hematologic: (-) Prolonged Bleeding (-) Easy Bruising Genitourinary: (-) Incontinence (-) Frequency (-) Urinary Urgency Skin: (-) Rashes (-) Itching (-) Other Lesions Neurologic: (-) Headache (-) Double Vision (-) Confusion (-) Paralysis Psychiatric: (-) Depression (-) Anxiety (-) Delusions (-) Hallucinations (-) Personal History of Alcohol or Substance Abuse (-) Family History of Alcohol or Substance Abuse OBJECTIVE: Pulse 55 Ht 6' 3 (1.91m) Wt 220 lb (99.8kg) SpO2 97% BMI 27.50 kg/(m2). PHYSICAL EXAMINATION: General appearance: Well appearing, in no acute distress, alert Skin: Skin color, texture, turgor normal, no rashes or lesions Neck: No pain to palpation over the cervical paraspinous muscles. No pain with neck flexion, extension, or lateral flexion Cardiovascular: Regular rate Lungs: Normal respiratory rate and rhythm Abdomen: Abdomen soft and non-tender. Back: Intact range of motion with pain reproduction in bilateral facet loading Spine: Reports Tenderness on palpation: Lumbar/Pelvic axial Extremities: No deformities, edema, or skin discoloration. Good capillary refill. Musculoskeletal: Bilateral upper and lower extremity strength is normal and symmetric. No atrophy or tone abnormalities are noted. Neuro: No loss of sensation is noted. Station and Gait: Normal stance, normal gait. Motor: Exhibits full strength in all four extremities. Trigger points: none. ASSESSMENT: Assessment : Pt reports axial lower back pain He had L4,5,S1 Facet injections x2 in 07/2017 and 10/2017 with 50% improvement and would like to proceed with RFA He is active and loves to golf at least once a week. H eis taking mobic and robaxin as needed for flare ups Encounter Diagnosis ICD-10-CM 1. Spondylosis of lumbar region without myelopathy or radiculopathy M47.816 DSTR NROLYTC AGNT PARVERTEB FCT SNGL LMBR/SACRAL DSTR NROLYTC AGNT PARVERTEB FCT ADDL LMBR/SACRAL 2. Chronic bilateral low back pain without sciatica M54.5 DSTR NROLYTC AGNT PARVERTEB FCT SNGL LMBR/SACRAL G89.29 DSTR NROLYTC AGNT PARVERTEB FCT ADDL LMBR/SACRAL 3. DDD (degenerative disc disease), lumbar M51.36 DSTR NROLYTC AGNT PARVERTEB FCT SNGL LMBR/SACRAL DSTR NROLYTC AGNT PARVERTEB FCT ADDL LMBR/SACRAL 4. Discogenic low back pain M51.36 5. Annular tear of lumbar disc M51.36 OARRS website checked and validated. All prescriptions have been APPROPRIATELY filled. No suspicious activity was identified.- 12/18/2017 by Bernie Osborne Ma Narcotic Agreement reviewed and signed?: N/A on December 18, 2017 The pain panel was N/A PLAN: 1) Ordered LEFT L4,5,S1 RFA and then RIGHT 2) Continue to stay active and perform HEP on a daily basis 3) RTC 3 months The above plan and management options were discussed at length with patient. Patient is in agreement with the above and verbalized understanding. Almaz Santos APRN, KERRY December 18, 2017 Referring Provider: ISAURA LOZANO ([facility]) [[id number]] Allergies As of Date: 12/18/2017 (No Known Allergies) Date Reviewed: 12/18/2017 Reviewed by: Bernie Osborne Ma - Fully Assessed Reason for Visit: Low Back Pain [126] Primary Visit Diagnosis:Spondylosis of lumbar region without myelopathy or radiculopathy [M47.816] Other Visit Diagnoses:Chronic bilateral low back pain without sciatica [M54.5, G89.29] DDD (degenerative disc disease), lumbar [M51.36] Discogenic low back pain [M51.36] Annular tear of lumbar disc [M51.36] [facility] [[id number]] Order #: [id number] [facility] PARVERTEB T ADDL LMBR/SACRAL [[id number]] Order #: [id number] meloxicam (MOBIC) 15 mg tabletTake 1 tablet by mouth once daily. Take with food.Disp: 30 tabletRfl: 1 methocarbamol (ROBAXIN) 750 mg tabletTake 1 tablet by mouth three times daily.Disp: 90 tabletRfl: 1 Prescriptions as of 12/18/2017 Sig: MELOXICAM 15 MG TABLET Take 1 tablet by mouth once d* IBUPROFEN ORAL Take by mouth as needed. 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 Problem List As Of Date 12/18/2017 Noted Resolved ESOPHAGEAL REFLUX [K21.9] INVALID FOR* OTHER LUNG DISEASE NEC [J98.4] INVALID FOR* CALCULUS OF URETER [N20.1] INVALID FOR* Impaired Fasting Glucose [R73.01] INVALID FOR* DDD (Degenerative Disc Disease), Lumbar [M51.36]INVALID FOR* Prediabetes [R73.03] INVALID FOR*05/07/2016 Hyperlipidemia [E78.5] INVALID FOR* Chronic bilateral low back pain without sciatic*INVALID FOR* Spondylosis of lumbar region without myelopathy*INVALID FOR* Discogenic low back pain [M51.36] INVALID FOR* More... Annular tear of lumbar disc [M51.36] INVALID FOR* More... Prescriptions ordered this encounter Disp Refills Start End MELOXICAM 15 MG TABLET 30 t* 1 12/18/2017 01/17/2018 Route: ORAL Sig: Take 1 tablet by mouth once daily. Take with food. METHOCARBAMOL 750 MG TABLET 90 t* 1 12/18/2017 01/17/2018 Route: ORAL Sig: Take 1 tablet by mouth three times daily. Medications Discontinued During This Encounter meloxicam (MOBIC) 15 mg tablet 30 t* 1 07/22/2017 12/18/2017 Route: ORAL Sig: Take 1 tablet by mouth once daily. Disc: Reason for discontinue is not on file. meloxicam (MOBIC) 15 mg tablet 30 t* 1 06/03/2017 12/18/2017 Route: ORAL Sig: Take 1 tablet by mouth once daily. Take with food. Disc: Reason for discontinue is not on file. methocarbamol (ROBAXIN) 750 mg tablet 90 t* 0 07/22/2017 12/18/2017 Route: ORAL Sig: Take 1 tablet by mouth three times daily. Disc: Reason for discontinue is not on file. Encounter Status:Closed by ALMAZ SANTOS on 12/18/17 PT ED Observed: 10/29/2017 Status: COMPLETED Source: [place] 11:30 AM [facility] OTHER CAMPUS REPOSITORY HNO ID: [id number] Author: Nilo Noble (Rn), RN Service: Nursing Author Type: Registered Nurse Type: Patient Education Filed: 10/29/2017 11:30 AM Note Text: POST OP LEARNING RESPONSE INSTRUCTION PROVIDED TO: Patient METHOD OF INSTRUCTION: Teach Back . Individual instruction Written instruction - handouts Verbal instruction PATIENT / FAMILY RESPONSE: Verbalizes understanding of: POST-PROCEDURE INSTRUCTIONS-Correct actions to take to reduce post procedure complications FOLLOW-UP PLAN: Complete - No need for follow-up Patient instructed to call with any further issues SUPPLEMENTAL MATERIAL: None REFERRAL (RECOMMENDATION): None Electronically Signed By: Nilo Noble RN In Department: [facility] XR FLUOROSCOPY Observed: 10/29/2017 Status: F Source: [place] 11:14 AM [facility] REPOSITORY * * *Final Report* * * DATE OF EXAM: Oct 29 2017 11:14AM MDR [id number] - XR FLUOROSCOPY / PROCEDURE REASON: BILATERAL L4-L5, L5-S1 FACET BLOCK FOR PAIN * * * * Physician Interpretation * * * * EXAMINATION: Portable images obtained in operating room: HISTORY: BILATERAL L4-L5, L5-S1 FACET BLOCK FOR PAIN FLUOROSCOPY TIME: 0:33 minutes. RESULTS/ IMPRESSION: Intra-operative fluoroscopy was provided. Four images of lumbosacral spine were submitted. One PA view demonstrates tips of 3 needles overlying right, and 3 needles overlying left side of lower lumbar spine at two levels bilaterally and at lumbosacral junction bilaterally. Additional images demonstrate needles overlying same levels bilaterally [facility] Transcribe Date/Time: Oct 29 2017 2:42P Dictated by : STERLING QUINONES MD This examination was interpreted and the report reviewed and electronically signed by: STERLING QUINONES MD on Oct 29 2017 2:43PM EST [id number] OPERATIVE NO Observed: 10/29/2017 Status: COMPLETED Source: [place] 11:00 AM [facility] REPOSITORY HNO ID: [id number] Author: Dutch Lowery Service: Pain Management Author Type: Physician Type: Operative Report Filed: 10/29/2017 11:10 AM Note Text: PATIENT NAME: Amelia Avila SERVICE DATE: 10/29/2017 PROCEDURE NOTE PREOPERATIVE DIAGNOSIS(ES): Lumbar degenerative disc disease. Lumbar spondylosis. Lumbar facet arthropathy POSTOPERATIVE DIAGNOSIS(ES): Same OPERATION: Bilateral L4-5, L5-S1 facet Lumbar Facet Medial Branch Nerve Blockunder fluoroscopy. ? ANESTHESIA: Versed 4 mg IV ? INDICATIONS: Amelia Avila presents for facet joint injection. The pain is persistent. Amelia Avila denies any new neurological or pain complaints. The patient has spondylosis at lower lumbar segments with predominant changes at L4-5 and L5-S1 levels. As discussed in the office and confirmed today, the plan is to proceed with lumbar facet joint injection. The risks and benefits of the procedure were discussed. Specifically, the risks of bleeding, infection, inadvertent dural puncture, spinal heaches, vasovagal reaction, epidural hematoma, partial or permanent nerve injury were covered. The potential side effects of medications used in procedures including increase in lumbar pain, headaches, facial redness or warmth (flushing), anxiety or mood swings, sleeplessness, fever, high blood sugar, brief reduction in immunity were discussed. The patient expressed understanding of potential risks and wishes to proceed with the procedure. ? OPERATIVE PROCEDURE: The patient was brought to the OR. The patient was positioned prone on the fluoroscopy table. Continuous hemodynamic monitoring was initiated including blood pressure, EKG, and pulse oximetry. IV sedation was administered incrementally to allow the patient to remain comfortable and conversant throughout the procedure. The area of the lumbar spine was prepped povidone-iodine three times and draped into a sterile field. Fluoroscopy was rotated to right oblique projection to identify the location of the L4-5 and L5-S1 medial branch nerves at the junctions of the superior articular process and the transverse processes of L4, L5, and the sacral ala respectively. Skin anesthesia was achieved using 10 cc of marcaine 0.25% over the injection sites. A 22 gauge, 3 1/2 spinal needle was slowly inserted at each level using AP, lateral and oblique fluoroscopic imaging. Negative aspiration for blood or CSF was confirmed. The fluoroscopy was then rotated to the contralateral side and the needle placement sites were identified. Same technique was used to place the needles on the contralateral side. There were total of 6 needle placements. A total of 6ml of a medication mixture of 5mg of Kenalog per 1ml of Marcaine 0.25% was injected. A total of 6 sites were injected in equal and divided doses. The needles were removed and bleeding was nil. A sterile dressing was applied. The patient tolerated the procedure well. The patient was taken to the recovery room in stable condition. EBL: nil Start time: 11:03 AM End time: 11:10 AM I was present the entire time and personally performed the procedure. SIGNATURE: Dutch Lowery MD DATE: October 29, 2017 TIME: 11:10 AM HISTORY PHYSICAL Observed: 10/29/2017 Status: COMPLETED Source: [place] 10:53 AM [facility] REPOSITORY HNO ID: [id number] Author: Dutch Lowery Service: Pain Management Author Type: Physician Type: HANDP Filed: 10/29/2017 10:54 AM Note Text: HISTORY AND PHYSICAL EXAMINATION PATIENT NAME: Amelia Avila DATE of SERVICE: 10/29/2017 Amelia Avila is here for the pain mangement procedure. The patient presents with persistent pain complaints. Amelia Avila denies any interval changes or new pain complaints or focal neurologic deficits. PAST MEDICAL HISTORY Diagnosis Date - Allergic rhinitis - DDD (degenerative disc disease), lumbar - Prediabetes PAST SURGICAL HISTORY Procedure Laterality Date - AMPUTATION FINGER/THUMB accident as a child - KNEE SCOPE,DIAGNOSTIC 2014 Arthroscopy, knee - REPAIR OF NASAL SEPTUM 2002 Social History Marital status: Spouse name: Years of education: Number of children: Social History Main Topics Smoking status: Former Smoker Packs/day: 0.50 Years: 10.00 Types: Cigarettes Smokeless tobacco: Never Used Comment: qit in 1996 Alcohol use: Yes 3.0 - 4.5 oz/week Glasses of Wine (5oz): 2 - 3 per week Drug use: No FAMILY HISTORY Problem Relation Age of Onset - Hypertension Mother - Cancer Father LUNG ALLERGIES No Known Allergies Current Facility-Administered Medications: NaCl 0.9% iv infusion 30 mL/hr INTRAVENOUS CONTINUOUS Physical Exam: Performed in conjunction with observation. The patient is alert and oriented x3. The patient is in no acute distress. Neck: Supple. The range of motion is intact. Lungs: clear CVR: RRR. Extremities: no reported edema or erythema. Examination indicates no changes Impression: Lumbar DDD Lumbar facet arthropathy Plan: The informed consent has been obtained. The plan is to proceed with the procedure as planned. SIGNATURE: Dutch Lowery MD DATE: October 29, 2017 TIME: 10:53 AM NURSING PROG Observed: 10/29/2017 Status: COMPLETED Source: [place] 10:09 AM [facility] REPOSITORY HNO ID: [id number] Author: Noemi Torres (Rn), RN Service: Nursing Author Type: Registered Nurse Type: Nursing Progress Note Filed: 10/29/2017 10:09 AM Note Text: Nursing Progress Note Patient Name: Amelia Avila Patient Location: [facility] Surgery pt ready for OR, call light in reach, called to bedside, to take valuables and glasses This note was completed by: Noemi Torres RN PT ED Observed: 10/29/2017 Status: COMPLETED Source: [place] 9:55 AM [facility] OTHER CAMPUS REPOSITORY HNO ID: [id number] Author: Noemi Torres (Rn), RN Service: Nursing Author Type: Registered Nurse Type: Patient Education Filed: 10/29/2017 9:56 AM Note Text: PRE OP LEARNING ASSESSMENT PROCEDURE/SURGERY: SURGERY: Hugh lumbar injection READINESS TO LEARN COGNITIVE ABILITY: Alert and oriented MOTIVATION TO LEARN: Interested FAMILY SUPPORT: High - Very involved in pt care PATIENT LEARNS BEST BY: Written Instruction - Hand-outs Verbal Instruction FACTORS AFFECTING LEARNING: None PHYSICAL LIMITATIONS AFFECTING LEARNING: None Electronically Signed By: Noemi Torres RN In Department: [facility] SUR[facility]ERY PROGRESS Observed: 10/18/2017 Status: COMPLETED Source: [place] 1:19 PM [facility] REPOSITORY HNO ID: [id number] Author: Dutch Lowery Service: (none) Author Type: Physician Type: Progress Notes Filed: 10/18/2017 3:57 PM Note Text: [facility] NOTE DATE: October 18, 2017 Chief Complaint: chronic lower back SUBJECTIVE: Mr. Avila [facility] office for a follow up appointment regarding chronic lower back pain. He states that since the last visit symptoms have been stable. The pain is located in the back region lumbar region and radiates down the posterior leg. The pain is described as soreness and tight band and is rated as 4 on a scale of 0-10. The patient Reports tingling. Symptoms interfere with physical activity, sitting and lifting. The pain is exacerbated by sitting, standing and lifting. The pain is mitigated by lying down, heat and injections. The patient is overall improved with the injections by 50%. He is currently receiving medications through the [facility]. He is not having difficulty with his [facility] medications. The medications are partially effective. The patient states the last dose of . Mobic was taken at October 18, 2017. REVIEW OF SYSTEMS: Constitutional: (-) Fever (-) Night Sweats (-) Weight Gain (-) Weight Loss (-) Fatigue Cardiovascular: (-) Chest Pain (-) Palpitations (-) Lightheadedness (-) Swelling of Ankles (-) Hx Heart Surgery Respiratory: (-) Shortness of Breath (-) Cough (-) Wheezing (-) Snoring Gastrointestinal: (-) Incontinence (-) Abdominal Pain (-) Diarrhea (-) Constipation (-) Nausea/Vomiting (-) Heart Burn Endocrine: (-) Thyroid Disorder (-) Diabetes Hematologic: (-) Prolonged Bleeding (-) Easy Bruising Genitourinary: (-) Incontinence (-) Frequency (-) Urinary Urgency Skin: (-) Rashes (-) Itching (-) Other Lesions Neurologic: (-) Headache (-) Double Vision (-) Confusion (-) Paralysis Psychiatric: (-) Depression (-) Anxiety (-) Delusions (-) Hallucinations (-) Personal History of Alcohol or Substance Abuse (-) Family History of Alcohol or Substance Abuse PAST MEDICAL HISTORY Diagnosis Date - Allergic rhinitis - DDD (degenerative disc disease), lumbar - Prediabetes PAST SURGICAL HISTORY Procedure Laterality Date - AMPUTATION FINGER/THUMB accident as a child - KNEE SCOPE,DIAGNOSTIC 2013 Arthroscopy, knee - REPAIR OF NASAL SEPTUM 2002 ALLERGIES No Known Allergies Current Outpatient Prescriptions: IBUPROFEN ORAL Take by mouth as needed. meloxicam (MOBIC) 15 mg tablet Take 1 tablet by mouth once daily. Take with food. cyclobenzaprine (FLEXERIL) 10 mg tablet Take 1 tablet by mouth three times daily as needed for Muscle Spasm. 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 No current facility-administered medications for this visit. I have reviewed the nurses notes and I am aware of the family/social history. Since the last evaluation the medical history has not changed. PHYSICAL EXAMINATION: Vitals: Pulse 59 Ht 6' 3.5 (1.92m) Wt 222 lb 9.6 oz (101.0kg) SpO2 98% BMI 27.45 kg/(m2). Performed in conjunction with observation. The patient is alert and oriented x3. The patient is in no acute distress. Station and Gait: Normal stance, normal gait. Lungs: normal respiratory rate and rhythm. Cardiovascular: regular rate. Neck: Supple. The range of motion is intact. Back: Range of motion of the trunk was generally intact. Spine: Paraspinal tenderness over the L5-S1 level. Positive facet loading with extension and axial loading. Extremities: no reported edema or erythema. Motor: Exhibits full strength in all four extremities. ASSESSMENT: Encounter Diagnosis ICD-10-CM 1. Spondylosis of lumbar region without myelopathy or radiculopathy M47.816 NJX DX/THER AGT PVRT FACET JT LMBR/SAC 1 LEVEL 2. Chronic bilateral low back pain without sciatica M54.5 NJX DX/THER AGT PVRT FACET JT LMBR/SAC 1 LEVEL G89.29 3. DDD (degenerative disc disease), lumbar M51.36 NJX DX/THER AGT PVRT FACET JT LMBR/SAC 1 LEVEL OARRS website checked and validated. All prescriptions have been APPROPRIATELY filled. No suspicious activity was identified.- 10/18/2017 by Carlene Canada Ma Narcotic Agreement reviewed and signed?: N/A on October 18, 2017 Urine Panel: No results found for: UQCANN, UQBNZL, WJI5YMO, UQAMPH, UQMAMP, UQBUPRE, UQNORBUP, UQMTHD, UQEDDP, UQTRAM, UQDTRM, UQFNTL, UQNFTL, UQCODE, UQMORP, UQDCDN, UQHCOD, UQOXYC, UQHMOR, UQOXYM, UQCREA, UQPH, UQSPGR, UQOXID, UQSPQ The pain panel was N/A PLAN: Prior available imaging studies were reviewed. Findings were discussed. Injection history was reviewed. Medication use and compliance were reviewed. 1. The patient states a greater than 60% improvement with first set of facet injections. The pain has recurred. Recommend this proceed with a second injection at bilateral L4 5 and L5-S1 facet joints. 2. No medications selected for refill. 3. Interventional procedure options discussed. Bilateral L4 5 and L5-S1 facet joint injection with fluoroscopy. Discussed RFA option 4. Encouraged regular home exercise program. 5) F/U in 2 months The treatment plan was discussed with the patient during the office visit and they verbalized an understanding of it. Dutch Lowery MD cc: Dr. Ara Pierce MD cc: Isaura Lozano APRN.ALTERATIONS MANAGER [address] [facility] [place] [address] Fax: Results of consultation to be transmitted via electronic medical record for those providers who practice within [facility] or with access to [employer] via MD Connect, or via letter. GISSELLE Observed: 10/18/2017 Status: COMPLETED Source: [place] 1:10 PM [facility] REPOSITORY Office Visit (PNMDNA) AMELIA AVILA ([id number]) 1965 M Date Time Provider Department 10/18/17 1:10 PM DUTCH LOWERY During your visit today, we recorded the following information about you: Pulse Weight Height 59/minute 101 kg 1.918 m Dutch Lowery MD 10/18/2017 3:57 PM Signed [facility] NOTE DATE: October 18, 2017 Chief Complaint: chronic lower back SUBJECTIVE: Mr. Avila [facility] office for a follow up appointment regarding chronic lower back pain. He states that since the last visit symptoms have been stable. The pain is located in the back region lumbar region and radiates down the posterior leg. The pain is described as soreness and tight band and is rated as 4 on a scale of 0-10. The patient Reports tingling. Symptoms interfere with physical activity, sitting and lifting. The pain is exacerbated by sitting, standing and lifting. The pain is mitigated by lying down, heat and injections. The patient is overall improved with the injections by 50%. He is currently receiving medications through the [facility]. He is not having difficulty with his [facility] medications. The medications are partially effective. The patient states the last dose of . Mobic was taken at October 18, 2017. REVIEW OF SYSTEMS: Constitutional: (-) Fever (-) Night Sweats (-) Weight Gain (-) Weight Loss (-) Fatigue Cardiovascular: (-) Chest Pain (-) Palpitations (-) Lightheadedness (-) Swelling of Ankles (-) Hx Heart Surgery Respiratory: (-) Shortness of Breath (-) Cough (-) Wheezing (-) Snoring Gastrointestinal: (-) Incontinence (-) Abdominal Pain (-) Diarrhea (-) Constipation (-) Nausea/Vomiting (-) Heart Burn Endocrine: (-) Thyroid Disorder (-) Diabetes Hematologic: (-) Prolonged Bleeding (-) Easy Bruising Genitourinary: (-) Incontinence (-) Frequency (-) Urinary Urgency Skin: (-) Rashes (-) Itching (-) Other Lesions Neurologic: (-) Headache (-) Double Vision (-) Confusion (-) Paralysis Psychiatric: (-) Depression (-) Anxiety (-) Delusions (-) Hallucinations (-) Personal History of Alcohol or Substance Abuse (-) Family History of Alcohol or Substance Abuse PAST MEDICAL HISTORY Diagnosis Date - Allergic rhinitis - DDD (degenerative disc disease), lumbar - Prediabetes PAST SURGICAL HISTORY Procedure Laterality Date - AMPUTATION FINGER/THUMB accident as a child - KNEE SCOPE,DIAGNOSTIC 2014 Arthroscopy, knee - REPAIR OF NASAL SEPTUM 2003 ALLERGIES No Known Allergies Current Outpatient Prescriptions: IBUPROFEN ORAL Take by mouth as needed. meloxicam (MOBIC) 15 mg tablet Take 1 tablet by mouth once daily. Take with food. cyclobenzaprine (FLEXERIL) 10 mg tablet Take 1 tablet by mouth three times daily as needed for Muscle Spasm. 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 No current facility-administered medications for this visit. I have reviewed the nurses notes and I am aware of the family/social history. Since the last evaluation the medical history has not changed. PHYSICAL EXAMINATION: Vitals: Pulse 59 Ht 6' 3.5ANDquot; (1.92m) Wt 222 lb 9.6 oz (101.0kg) SpO2 98% BMI 27.45 kg/(m2). Performed in conjunction with observation. The patient is alert and oriented x3. The patient is in no acute distress. Station and Gait: Normal stance, normal gait. Lungs: normal respiratory rate and rhythm. Cardiovascular: regular rate. Neck: Supple. The range of motion is intact. Back: Range of motion of the trunk was generally intact. Spine: Paraspinal tenderness over the L5-S1 level. Positive facet loading with extension and axial loading. Extremities: no reported edema or erythema. Motor: Exhibits full strength in all four extremities. ASSESSMENT: Encounter Diagnosis ICD-10-CM 1. Spondylosis of lumbar region without myelopathy or radiculopathy M47.816 NJX DX/THER AGT PVRT FACET JT LMBR/SAC 1 LEVEL 2. Chronic bilateral low back pain without sciatica M54.5 NJX DX/THER AGT PVRT FACET JT LMBR/SAC 1 LEVEL G89.29 3. DDD (degenerative disc disease), lumbar M51.36 NJX DX/THER AGT PVRT FACET JT LMBR/SAC 1 LEVEL OARRS website checked and validated. All prescriptions have been APPROPRIATELY filled. No suspicious activity was identified.- 10/18/2017 by Carlene Canada Ma Narcotic Agreement reviewed and signed?: N/A on October 18, 2017 Urine Panel: No results found for: UQCANN, UQBNZL, YYC2SQC, UQAMPH, UQMAMP, UQBUPRE, UQNORBUP, UQMTHD, UQEDDP, UQTRAM, UQDTRM, UQFNTL, UQNFTL, UQCODE, UQMORP, UQDCDN, UQHCOD, UQOXYC, UQHMOR, UQOXYM, UQCREA, UQPH, UQSPGR, UQOXID, UQSPQ The pain panel was N/A PLAN: Prior available imaging studies were reviewed. Findings were discussed. Injection history was reviewed. Medication use and compliance were reviewed. 1. The patient states a greater than 60% improvement with first set of facet injections. The pain has recurred. Recommend this proceed with a second injection at bilateral L4 5 and L5-S1 facet joints. 2. No medications selected for refill. 3. Interventional procedure options discussed. Bilateral L4 5 and L5-S1 facet joint injection with fluoroscopy. Discussed RFA option 4. Encouraged regular home exercise program. 5) F/U in 2 months The treatment plan was discussed with the patient during the office visit and they verbalized an understanding of it. Dutch Lowery MD cc: Dr. Ara Pierce MD cc: Isaura Lozano APRN.ALTERATIONS MANAGER [address] [facility] [place] [address] Fax: Results of consultation to be transmitted via electronic medical record for those providers who practice within [facility] or with access to [employer] via MD Connect, or via letter. Referring Provider: ISAURA LOZANO (ALTERATIONS MANAGER) [[id number]] Allergies As of Date: 10/18/2017 (No Known Allergies) Date Reviewed: 10/18/2017 Reviewed by: Carlene Canada Ma - Fully Assessed Reason for Visit: Established Patient [175] Cmt: f/u back pain Primary Visit Diagnosis:Spondylosis of lumbar region without myelopathy or radiculopathy [M47.816] Other Visit Diagnoses:Chronic bilateral low back pain without sciatica [M54.5, G89.29] DDD (degenerative disc disease), lumbar [M51.36] Order(s):NJX DX/THER AGT PVRT FACET JT LMBR/SAC 1 LEVEL [[id number]] Order #: [id number] Prescriptions as of 10/18/2017 Sig: IBUPROFEN ORAL Take by mouth as needed. 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 Problem List As Of Date 10/18/2017 Noted Resolved ESOPHAGEAL REFLUX [K21.9] INVALID FOR* OTHER LUNG DISEASE NEC [J98.4] INVALID FOR* CALCULUS OF URETER [N20.1] INVALID FOR* Impaired Fasting Glucose [R73.01] INVALID FOR* DDD (Degenerative Disc Disease), Lumbar [M51.36]INVALID FOR* Prediabetes [R73.03] INVALID FOR*05/07/2016 Hyperlipidemia [E78.5] INVALID FOR* Chronic bilateral low back pain without sciatic*INVALID FOR* Spondylosis of lumbar region without myelopathy*INVALID FOR* Discogenic low back pain [M51.36] INVALID FOR* More... Annular tear of lumbar disc [M51.36] INVALID FOR* More... Encounter Status:Closed by DUTCH LOWERY MD on 10/18/17 HOSP Observed: 10/18/2017 Status: COMPLETED Source: [place] 12:00 AM [facility] OTHER CAMPUS REPOSITORY Patient:Amelia Avila MRN: <[id number]> Height:6' 3(1.905 m) Weight:222 lb (100.699 kg) Outpatient Medications as of 10/29/17: IBUPROFEN ORAL meloxicam (MOBIC) 15 mg tablet cyclobenzaprine (FLEXERIL) 10 mg tablet COMPOUNDED PRESCRIPTION Admission/Clinic Administered Medications as of 10/29/17: NaCl 0.9% iv infusion Problem List: Esophageal reflux [K21.9] Other diseases of lung, not elsewhere classified [J98.4] Calculus of ureter [N20.1] Impaired fasting glucose [R73.01] DDD (degenerative disc disease), lumbar [M51.36] Hyperlipidemia [E78.5] Chronic bilateral low back pain without sciatica [M54.5, G89.29] Spondylosis of lumbar region without myelopathy or radiculopathy [M47.816] Discogenic low back pain [M51.36] Annular tear of lumbar disc [M51.36] Allergies: No Known Allergies Date Verified:10/29/17 Lab Values No results within the last 30 days for the following basenames: K,HCT Progress Notes ([facility]): Dutch Lowery 10/18/2017 3:57 PM Signed [facility] NOTE DATE: October 18, 2017 Chief Complaint: chronic lower back SUBJECTIVE: Mr. Avila [facility] to the [facility] ([facility]) office for a follow up appointment regarding chronic lower back pain. He states that since the last visit symptoms have been stable. The pain is located in the back region lumbar region and radiates down the posterior leg. The pain is described as soreness and tight band and is rated as 4 on a scale of 0-10. The patient Reports tingling. Symptoms interfere with physical activity, sitting and lifting. The pain is exacerbated by sitting, standing and lifting. The pain is mitigated by lying down, heat and injections. The patient is overall improved with the injections by 50%. He is currently receiving medications through the [facility]. He is not having difficulty with his [facility] medications. The medications are partially effective. The patient states the last dose of . Mobic was taken at October 18, 2017. REVIEW OF SYSTEMS: Constitutional: (-) Fever (-) Night Sweats (-) Weight Gain (-) Weight Loss (-) Fatigue Cardiovascular: (-) Chest Pain (-) Palpitations (-) Lightheadedness (-) Swelling of Ankles (-) Hx Heart Surgery Respiratory: (-) Shortness of Breath (-) Cough (-) Wheezing (-) Snoring Gastrointestinal: (-) Incontinence (-) Abdominal Pain (-) Diarrhea (-) Constipation (-) Nausea/Vomiting (-) Heart Burn Endocrine: (-) Thyroid Disorder (-) Diabetes Hematologic: (-) Prolonged Bleeding (-) Easy Bruising Genitourinary: (-) Incontinence (-) Frequency (-) Urinary Urgency Skin: (-) Rashes (-) Itching (-) Other Lesions Neurologic: (-) Headache (-) Double Vision (-) Confusion (-) Paralysis Psychiatric: (-) Depression (-) Anxiety (-) Delusions (-) Hallucinations (-) Personal History of Alcohol or Substance Abuse (-) Family History of Alcohol or Substance Abuse PAST MEDICAL HISTORY Diagnosis Date - Allergic rhinitis - DDD (degenerative disc disease), lumbar - Prediabetes PAST SURGICAL HISTORY Procedure Laterality Date - AMPUTATION FINGER/THUMB accident as a child - KNEE SCOPE,DIAGNOSTIC 2013 Arthroscopy, knee - REPAIR OF NASAL SEPTUM 2002 ALLERGIES No Known Allergies Current Outpatient Prescriptions: IBUPROFEN ORAL Take by mouth as needed. meloxicam (MOBIC) 15 mg tablet Take 1 tablet by mouth once daily. Take with food. cyclobenzaprine (FLEXERIL) 10 mg tablet Take 1 tablet by mouth three times daily as needed for Muscle Spasm. 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 No current facility-administered medications for this visit. I have reviewed the nurses notes and I am aware of the family/social history. Since the last evaluation the medical history has not changed. PHYSICAL EXAMINATION: Vitals: Pulse 59 Ht 6' 3.5 (1.92m) Wt 222 lb 9.6 oz (101.0kg) SpO2 98% BMI 27.45 kg/(m2). Performed in conjunction with observation. The patient is alert and oriented x3. The patient is in no acute distress. Station and Gait: Normal stance, normal gait. Lungs: normal respiratory rate and rhythm. Cardiovascular: regular rate. Neck: Supple. The range of motion is intact. Back: Range of motion of the trunk was generally intact. Spine: Paraspinal tenderness over the L5-S1 level. Positive facet loading with extension and axial loading. Extremities: no reported edema or erythema. Motor: Exhibits full strength in all four extremities. ASSESSMENT: Encounter Diagnosis ICD-10-CM 1. Spondylosis of lumbar region without myelopathy or radiculopathy M47.816 NJX DX/THER AGT PVRT FACET JT LMBR/SAC 1 LEVEL 2. Chronic bilateral low back pain without sciatica M54.5 NJX DX/THER AGT PVRT FACET JT LMBR/SAC 1 LEVEL G89.29 3. DDD (degenerative disc disease), lumbar M51.36 NJX DX/THER AGT PVRT FACET JT LMBR/SAC 1 LEVEL OARRS website checked and validated. All prescriptions have been APPROPRIATELY filled. No suspicious activity was identified.- 10/18/2017 by Carlene Canada Ma Narcotic Agreement reviewed and signed?: N/A on October 18, 2017 Urine Panel: No results found for: UQCANN, UQBNZL, [id number], UQAMPH, UQMAMP, UQBUPRE, UQNORBUP, UQMTHD, UQEDDP, UQTRAM, UQDTRM, UQFNTL, UQNFTL, UQCODE, UQMORP, UQDCDN, UQHCOD, UQOXYC, UQHMOR, UQOXYM, UQCREA, UQPH, UQSPGR, UQOXID, UQSPQ The pain panel was N/A PLAN: Prior available imaging studies were reviewed. Findings were discussed. Injection history was reviewed. Medication use and compliance were reviewed. 1. The patient states a greater than 60% improvement with first set of facet injections. The pain has recurred. Recommend this proceed with a second injection at bilateral L4 5 and L5-S1 facet joints. 2. No medications selected for refill. 3. Interventional procedure options discussed. Bilateral L4 5 and L5-S1 facet joint injection with fluoroscopy. Discussed RFA option 4. Encouraged regular home exercise program. 5) F/U in 2 months The treatment plan was discussed with the patient during the office visit and they verbalized an understanding of it. Dutch Lowery MD cc: Dr. Ara Pierce MD cc: Isaura Lozano APRN.ALTERATIONS MANAGER [address] [facility] [place] [address] Fax: Results of consultation to be transmitted via electronic medical record for those providers who practice within [facility] or with access to [employer] via MD Connect, or via letter. Previous Version XR FOOT 3V AP/LAT/OBL Observed: 09/07/2017 Status: F Source: [facility] 1:18 PM [facility] REPOSITORY * * *Final Report* * * DATE OF EXAM: Sep 07 2017 1:18PM WOX [id number] - XR FOOT 3V AP/LAT/OBL RT / PROCEDURE REASON: Pain in right toe(s) * * * * Physician Interpretation * * * * RIGHT FOOT RADIOGRAPHS History: Right foot pain. Pain in right toe(s) Comparison: 06/05/2016 Technique: AP, oblique, and lateral radiographs. Three views. Result: No acute fracture or dislocation. Joint spaces and alignment are maintained. Soft tissue swelling about the midfoot and forefoot. IMPRESSION: No acute osseous abnormality. Soft tissue swelling. Last Putter Away: PSCB Transcribe Date/Time: Sep 07 2017 1:26P Dictated by : SENG MONTERROSO MD This examination was interpreted and the report reviewed and electronically signed by: SENG MONTERROSO MD on Sep 07 2017 1:27PM EST [id number] Observed: 09/07/2017 Status: COMPLETED Source: [place] 1:11 PM [facility] REPOSITORY HNO ID: [id number] Author: Giselle Davis Service: (none) Author Type: (none) Type: Progress Notes Filed: 09/07/2017 1:19 PM Note Text: Radiology Service Progress Note PATIENT NAME: Amelia Avila DATE OF SERVICE: September 07, 2017 TIME: 1:11 PM PATIENT IDENTITY VERIFICATION COMPLETED USING TWO (2) METHODS: Patient confirmed name verbally and Date of . PATIENT GENDER DATA: Male PATIENT RELEVANT IMPLANT DATA REVIEWED: Not Applicable RADIOLOGY DEPARTMENT: General X-ray: Exam(s) Completed: Lower Extremity X-Ray(s): Foot, Right and Wt. Bearing: PERIPHERAL IV DATA: Not applicable SIGNED BY: Giselle Davis September 07, 2017 1:11 PM PROGRESS Observed: 09/07/2017 Status: COMPLETED Source: [place] 1:07 PM [facility] REPOSITORY HNO ID: [id number] Author: Isaura Valiente Service: (none) Author Type: Nurse Practitioner Type: Progress Notes Filed: 09/07/2017 1:39 PM Note Text: Subjective The history is provided by the patient. No assistant speech language pathologist was used. HPI Amelia Avila is a 52 year old male who presents today for CC of right great toe pain. This started 2 days ago, and has worsened overnight. He is also having redness and swelling, pain with moving the joint. Symptoms are worsened by nothing He has tried no treatment or medication Risk factors h/o of kidney stone, not sure of type. PMH kidney stone BP 138/82 Pulse 64 Temp 36.4 ?C (97.6 ?F) (Tympanic) Resp 16 Wt 100.9 kg (222 lb 6.4 oz) BMI 27.8 kg/m2 ALLERGIES No Known Allergies ACTIVE PROBLEM LIST Esophageal Reflux Other Diseases of Lung, Not Elsewhere Classified Calculus of Ureter Impaired Fasting Glucose Ddd (Degenerative Disc Disease), Lumbar Hyperlipidemia Chronic Bilateral Low Back Pain Without Sciatica Spondylosis of Lumbar Region Without Myelopathy Or Radiculopathy Discogenic Low Back Pain Annular Tear of Lumbar Disc Family History Problem Relation Age of Onset - Hypertension Mother - Cancer Father LUNG Social History Marital status: Spouse name: Years of education: Number of children: Social History Main Topics Smoking status: Former Smoker Packs/day: 0.50 Years: 10.00 Types: Cigarettes Smokeless status: Never Used Comment: qit in 1996 Alcohol use: Yes 3.0 - 4.5 oz/week 2 - 3 Glasses of Wine (5oz) per week Drug use: No Review of Systems Constitutional: Negative. Negative for chills, fever and malaise/fatigue. HENT: Negative for congestion, ear pain, sinus pain and sore throat. Respiratory: Negative for cough, sputum production, shortness of breath and wheezing. Cardiovascular: Negative for chest pain. Musculoskeletal: Positive for joint pain (right great toe). Negative for myalgias. Skin: Negative for rash. Neurological: Negative for tingling and headaches. Objective Physical Exam Constitutional: He is oriented to person, place, and time and well-developed, well-nourished, and in no distress. No distress. HENT: Head: Normocephalic and atraumatic. Left Ear: Tympanic membrane, external ear and ear canal normal. Mouth/Throat: Uvula is midline, oropharynx is clear and moist and mucous membranes are normal. Eyes: Conjunctivae and EOM are normal. Pupils are equal, round, and reactive to light. Neck: Normal range of motion. Neck supple. Cardiovascular: Normal rate, regular rhythm and normal heart sounds. Pulmonary/Chest: Effort normal and breath sounds normal. No respiratory distress. Musculoskeletal: Right foot: There is decreased range of motion (distal metatarsal), tenderness, bony tenderness and swelling. There is normal capillary refill, no crepitus, no deformity and no laceration. Feet: Lymphadenopathy: Head (right side): No submental, no submandibular, no tonsillar, no preauricular and no posterior auricular adenopathy present. Head (left side): No submental, no submandibular, no tonsillar, no preauricular and no posterior auricular adenopathy present. He has no cervical adenopathy. Right cervical: No posterior cervical adenopathy present. Left cervical: No posterior cervical adenopathy present. Right: No supraclavicular adenopathy present. Left: No supraclavicular adenopathy present. Neurological: He is alert and oriented to person, place, and time. Skin: Skin is warm and dry. Psychiatric: Affect normal. Nursing note and vitals reviewed. ASSESSMENT/PLAN: 1. Great toe pain, right - ICD9: 729.5, ICD10: M79.674 Appears to be gout Will treat with prednisone - medrol dose pack take as directed Monitor for worsening redness, red streaking or fever - to ER if occurs Follow up with Dr. Pierce for further treatment. - XR FOOT GENERAL 3V AP/LAT/OBL RT - interpreted by Seng Monterroso MD Result: No acute fracture or dislocation. Joint spaces and alignment are maintained. Soft tissue swelling about the midfoot and forefoot. IMPRESSION: No acute osseous abnormality. Soft tissue swelling. Diagnosis and treatment plan were discussed and questions were answered to the patient's satisfaction. Pt acknowledged understanding of concepts and follow up plan. Specific signs and symptoms that would indicate the need for higher level of care were discussed in detail warranting prompt ER evaluation. Isaura Valiente CNP CNOV Observed: 09/07/2017 Status: COMPLETED Source: [place] 12:15 PM [facility] REPOSITORY Office Visit ([facility]) AMELIA AVILA ([id number]) 1965 M Date Time Provider Department 09/07/17 12:15 PM ISAURA VALIENTE (KERRY) [facility] During your visit today, we recorded the following information about you: Temperature Pulse Respiration Blood pressure 97.6 degrees 64/minute 16/minute 138/82 Weight 100.9 kg Isaura Valiente CNP 09/07/2017 1:39 PM Signed Subjective The history is provided by the patient. No assistant speech language pathologist was used. HPI Amelia Avila is a 52 year old male who presents today for CC of right great toe pain. This started 2 days ago, and has worsened overnight. He is also having redness and swelling, pain with moving the joint. Symptoms are worsened by nothing He has tried no treatment or medication Risk factors h/o of kidney stone, not sure of type. PMH kidney stone BP 138/82 Pulse 64 Temp 36.4 ?C (97.6 ?F) (Tympanic) Resp 16 Wt 100.9 kg (222 lb 6.4 oz) BMI 27.8 kg/m2 ALLERGIES No Known Allergies ACTIVE PROBLEM LIST Esophageal Reflux Other Diseases of Lung, Not Elsewhere Classified Calculus of Ureter Impaired Fasting Glucose Ddd (Degenerative Disc Disease), Lumbar Hyperlipidemia Chronic Bilateral Low Back Pain Without Sciatica Spondylosis of Lumbar Region Without Myelopathy Or Radiculopathy Discogenic Low Back Pain Annular Tear of Lumbar Disc Family History Problem Relation Age of Onset - Hypertension Mother - Cancer Father LUNG Social History Marital status: Spouse name: Years of education: Number of children: Social History Main Topics Smoking status: Former Smoker Packs/day: 0.50 Years: 10.00 Types: Cigarettes Smokeless status: Never Used Comment: qit in 1996 Alcohol use: Yes 3.0 - 4.5 oz/week 2 - 3 Glasses of Wine (5oz) per week Drug use: No Review of Systems Constitutional: Negative. Negative for chills, fever and malaise/fatigue. HENT: Negative for congestion, ear pain, sinus pain and sore throat. Respiratory: Negative for cough, sputum production, shortness of breath and wheezing. Cardiovascular: Negative for chest pain. Musculoskeletal: Positive for joint pain (right great toe). Negative for myalgias. Skin: Negative for rash. Neurological: Negative for tingling and headaches. Objective Physical Exam Constitutional: He is oriented to person, place, and time and well-developed, well-nourished, and in no distress. No distress. HENT: Head: Normocephalic and atraumatic. Left Ear: Tympanic membrane, external ear and ear canal normal. Mouth/Throat: Uvula is midline, oropharynx is clear and moist and mucous membranes are normal. Eyes: Conjunctivae and EOM are normal. Pupils are equal, round, and reactive to light. Neck: Normal range of motion. Neck supple. Cardiovascular: Normal rate, regular rhythm and normal heart sounds. Pulmonary/Chest: Effort normal and breath sounds normal. No respiratory distress. Musculoskeletal: Right foot: There is decreased range of motion (distal metatarsal), tenderness, bony tenderness and swelling. There is normal capillary refill, no crepitus, no deformity and no laceration. Feet: Lymphadenopathy: Head (right side): No submental, no submandibular, no tonsillar, no preauricular and no posterior auricular adenopathy present. Head (left side): No submental, no submandibular, no tonsillar, no preauricular and no posterior auricular adenopathy present. He has no cervical adenopathy. Right cervical: No posterior cervical adenopathy present. Left cervical: No posterior cervical adenopathy present. Right: No supraclavicular adenopathy present. Left: No supraclavicular adenopathy present. Neurological: He is alert and oriented to person, place, and time. Skin: Skin is warm and dry. Psychiatric: Affect normal. Nursing note and vitals reviewed. ASSESSMENT/PLAN: 1. Great toe pain, right - ICD9: 729.5, ICD10: M79.674 Appears to be gout Will treat with prednisone - medrol dose pack take as directed Monitor for worsening redness, red streaking or fever - to ER if occurs Follow up with Dr. Pierce for further treatment. - XR FOOT GENERAL 3V AP/LAT/OBL RT - interpreted by Seng Monterroso MD Result: No acute fracture or dislocation. Joint spaces and alignment are maintained. Soft tissue swelling about the midfoot and forefoot. IMPRESSION: No acute osseous abnormality. Soft tissue swelling. Diagnosis and treatment plan were discussed and questions were answered to the patient's satisfaction. Pt acknowledged understanding of concepts and follow up plan. Specific signs and symptoms that would indicate the need for higher level of care were discussed in detail warranting prompt ER evaluation. Isaura Valiente KERRY Valiente CNP 09/07/2017 1:41 PM Addendum ASSESSMENT/PLAN: 1. Great toe pain, right - ICD9: 729.5, ICD10: M79.674 Appears to be gout Will treat with prednisone - medrol dose pack take as directed Monitor for worsening redness Follow up with Dr. Pierce for further treatment. - XR FOOT GENERAL 3V AP/LAT/OBL RT - no fractures Gout is a form of arthritis which can occur as sudden, severe attacks of pain, with redness and tenderness in the joints of the body. Too much uric acid in the blood (hyperuricemia), is one cause of gout. Uric acid is a waste product formed from the breakdown of purines. It is helpful to lower your uric acid level through your diet as well as by taking your prescribed medication. Foods high in primes which should be avoided include: Organ meats: such as liver, brain, kidneys, heart, and sweetbreads Game meats: goose, partridge, duck Gravy, broth, bouilloin, and consomme Mincemeat Seafood such as lynch, sardines, anchovies, scallops, mussels, mackerel, caviar and demetrius (fish eggs) Yeast extracts such as: Marmite, Vegemite, Moncada's and Avila's yeast. In addition to avoiding the above named foods, other aspects of your diet should also be considered. Increase Your Fluid Consumption - Fluids aid in the removal of uric acid from the body. Drink approximately 8-10 eight ounce glasses of water or other non-caloric fluid per day. Weight Control - Maintain a healthy weight. Obesity is associated with gout and may contribute to the onset of the disease. If you are overweight make strong efforts to decrease the amount of food you consume. Excess weight puts additional stress on your joints and increases the risk of hyperuricemia and gout. Avoid low carbohydrate type diets because they are high in protein and fat which can increase the amount of uric acid in the blood. Avoid or Limit Alcohol - Drinking too much alcohol increases the risk of hyperuremia because it interferes with the removal or uric acid from the body. Moderate Protein Intake - Smaller amounts of purines are found in all types of meat, fish and poultry products. It is generally recommended that meat, fish, and poultry be limited to no more than 6-8 ounces per day. Isaura Valiente CNP 09/07/2017 1:40 PM Signed Addended by: ISAURA VALIENTE CNP on: 09/07/2017 01:40 PM Modules accepted: Orders Referring Provider: SELF [[id number]] Allergies As of Date: 09/07/2017 (No Known Allergies) Date Reviewed: 09/07/2017 Reviewed by: Isaura (Kerry) Steffanie - Fully Assessed Reason for Visit: right big toe pain [Other] Cmt: x 2 days Primary Visit Diagnosis:Great toe pain, right [M79.674] Order(s):XR FOOT GENERAL 3V AP/LAT/OBL RT [[id number]] Order #: [id number] #:[id number] methylPREDNISolone (MEDROL, MAGDALENA,) 4 mg Dose-PackFollow dosing instructions, take with food.Disp: 1 PackageRfl: 0 Prescriptions as of 09/07/2017 Sig: IBUPROFEN ORAL Take by mouth as needed. 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 Problem List As Of Date 09/07/2017 Noted Resolved ESOPHAGEAL REFLUX [K21.9] INVALID FOR* OTHER LUNG DISEASE NEC [J98.4] INVALID FOR* CALCULUS OF URETER [N20.1] INVALID FOR* Impaired Fasting Glucose [R73.01] INVALID FOR* DDD (Degenerative Disc Disease), Lumbar [M51.36]INVALID FOR* Prediabetes [R73.03] INVALID FOR*05/07/2016 Hyperlipidemia [E78.5] INVALID FOR* Chronic bilateral low back pain without sciatic*INVALID FOR* Spondylosis of lumbar region without myelopathy*INVALID FOR* Discogenic low back pain [M51.36] INVALID FOR* More... Annular tear of lumbar disc [M51.36] INVALID FOR* More... Other instructions from your clinician: ASSESSMENT/PLAN: 1. Great toe pain, right - ICD9: 729.5, ICD10: M79.674 Appears to be gout Will treat with prednisone - medrol dose pack take as directed Monitor for worsening redness Follow up with Dr. Pierce for further treatment. - XR FOOT GENERAL 3V AP/LAT/OBL RT - no fractures Gout is a form of arthritis which can occur as sudden, severe attacks of pain, with redness and tenderness in the joints of the body. Too much uric acid in the blood (hyperuricemia), is one cause of gout. Uric acid is a waste product formed from the breakdown of purines. It is helpful to lower your uric acid level through your diet as well as by taking your prescribed medication. Foods high in primes which should be avoided include: Organ meats: such as liver, brain, kidneys, heart, and sweetbreads Game meats: goose, partridge, duck Gravy, broth, bouilloin, and consomme Mincemeat Seafood such as lynch, sardines, anchovies, scallops, mussels, mackerel, caviar and demetrius (fish eggs) Yeast extracts such as: Marmite, Vegemite, Moncada's and Avila's yeast. In addition to avoiding the above named foods, other aspects of your diet should also be considered. Increase Your Fluid Consumption - Fluids aid in the removal of uric acid from the body. Drink approximately 8-10 eight ounce glasses of water or other non-caloric fluid per day. Weight Control - Maintain a healthy weight. Obesity is associated with gout and may contribute to the onset of the disease. If you are overweight make strong efforts to decrease the amount of food you consume. Excess weight puts additional stress on your joints and increases the risk of hyperuricemia and gout. Avoid low carbohydrate type diets because they are high in protein and fat which can increase the amount of uric acid in the blood. Avoid or Limit Alcohol - Drinking too much alcohol increases the risk of hyperuremia because it interferes with the removal or uric acid from the body. Moderate Protein Intake - Smaller amounts of purines are found in all types of meat, fish and poultry products. It is generally recommended that meat, fish, and poultry be limited to no more than 6-8 ounces per day. Prescriptions ordered this encounter Disp Refills Start End METHYLPREDNISOLONE 4 MG TABLETS IN A* 1 Pa* 0 09/07/2017 09/13/2017 Sig: Follow dosing instructions, take with food. Encounter Status:Closed by ISAURA VALIENTE CNP on 09/07/17 PT ED Observed: 08/01/2017 Status: COMPLETED Source: [place] 9:17 AM [facility] REPOSITORY HNO ID: [id number] Author: Rachid (Rn) ANDRE Fregoso Service: Nursing Author Type: Registered Nurse Type: Patient Education Filed: 08/01/2017 9:18 AM Note Text: POST OP LEARNING RESPONSE INSTRUCTION PROVIDED TO: Patient and family member METHOD OF INSTRUCTION: Written instruction - handouts PATIENT / FAMILY RESPONSE: Verbalizes understanding of: discharge instructions FOLLOW-UP PLAN: Recommend - Recommend continued instruction and follow up as directed SUPPLEMENTAL MATERIAL: None REFERRAL (RECOMMENDATION): None Electronically Signed By: Rachid Fregoso RN In Department: [facility] XR FLUOROSCOPY Observed: 08/01/2017 Status: F Source: [place] 8:56 AM [facility] REPOSITORY * * *Final Report* * * DATE OF EXAM: Aug 01 2017 8:56AM MDR [id number] - XR FLUOROSCOPY / PROCEDURE REASON: BILATERAL L4-L5, L5-S1 FACET JOINT BLOCK FOR PAIN * * * * Physician Interpretation * * * * CLINICAL: Intraoperative injection TECHNIQUE: Fluoroscopic imaging was utilized by the proceduralist. Interpreting radiologist was not present during the procedure. Fluoroscopic Radiation Summary: Plane A, Air Kerma: 4.2 mGy Dose Area Product (DAP): 506.5 mGy*cmS2 Fluoro time: 0:19 min:sec FINDINGS: 4 Camera views are presented. Images demonstrate injection needles at the L4, L5 and S1 facet levels bilaterally.. There is no obvious interval complication. Please refer to procedural report. IMPRESSION: Findings as detailed above. Last Putter Away: PSCB Transcribe Date/Time: Aug 01 2017 5:24P Dictated by : STEVAN ROSA MD This examination was interpreted and the report reviewed and electronically signed by: STEVAN ROSA MD on Aug 01 2017 5:25PM EST [id number] OPERATIVE NO Observed: 08/01/2017 Status: COMPLETED Source: [place] 8:51 AM [facility] REPOSITORY HNO ID: [id number] Author: Dutch Lowery Service: Pain Management Author Type: Physician Type: Operative Report Filed: 08/01/2017 8:51 AM Note Text: PATIENT NAME: Amelia Avila SERVICE DATE: 08/01/2017 PROCEDURE NOTE PREOPERATIVE DIAGNOSIS(ES): Lumbar degenerative disc disease. Lumbar spondylosis. Lumbar facet arthropathy POSTOPERATIVE DIAGNOSIS(ES): Same OPERATION: Bilateral L4-5, L5-S1 facet Lumbar Facet Medial Branch Nerve Blockunder fluoroscopy. ANESTHESIA: Versed 4 mg IV INDICATIONS: Amelia Avila presents for facet joint injection. The pain is persistent. Amelia Avila denies any new neurological or pain complaints. The patient has spondylosis at lower lumbar segments with predominant changes at L4-5 and L5-S1 levels. As discussed in the office and confirmed today, the plan is to proceed with lumbar facet joint injection. The risks and benefits of the procedure were discussed. Specifically, the risks of bleeding, infection, inadvertent dural puncture, spinal heaches, vasovagal reaction, epidural hematoma, partial or permanent nerve injury were covered. The potential side effects of medications used in procedures including increase in lumbar pain, headaches, facial redness or warmth (flushing), anxiety or mood swings, sleeplessness, fever, high blood sugar, brief reduction in immunity were discussed. The patient expressed understanding of potential risks and wishes to proceed with the procedure. OPERATIVE PROCEDURE: The patient was brought to the OR. The patient was positioned prone on the fluoroscopy table. Continuous hemodynamic monitoring was initiated including blood pressure, EKG, and pulse oximetry. IV sedation was administered incrementally to allow the patient to remain comfortable and conversant throughout the procedure. The area of the lumbar spine was prepped povidone-iodine three times and draped into a sterile field. Fluoroscopy was rotated to right oblique projection to identify the location of the L4-5 and L5-S1 medial branch nerves at the junctions of the superior articular process and the transverse processes of L4, L5, and the sacral ala respectively. Skin anesthesia was achieved using 10 cc of marcaine 0.25% over the injection sites. A 22 gauge, 3 1/2 spinal needle was slowly inserted at each level using AP, lateral and oblique fluoroscopic imaging. Negative aspiration for blood or CSF was confirmed. The fluoroscopy was then rotated to the contralateral side and the needle placement sites were identified. Same technique was used to place the needles on the contralateral side. There were total of 6 needle placements. A total of 6ml of a medication mixture of 5mg of Kenalog per 1ml of Marcaine 0.25% was injected. A total of 6 sites were injected in equal and divided doses. The needles were removed and bleeding was nil. A sterile dressing was applied. The patient tolerated the procedure well. The patient was taken to the recovery room in stable condition. EBL: nil Start time: 8:43 AM End time: 8:50 AM I was present the entire time and personally performed the procedure. SIGNATURE: Dutch Lowery MD DATE: August 01, 2017 TIME: 8:51 AM HISTORY PHYSICAL Observed: 08/01/2017 Status: COMPLETED Source: [place] 7:43 AM [facility] REPOSITORY O ID: [id number] Author: Dutch Lowery Service: Pain Management Author Type: Physician Type: HANDP Filed: 08/01/2017 7:43 AM Note Text: HISTORY AND PHYSICAL EXAMINATION PATIENT NAME: Amelia Avila DATE of SERVICE: 08/01/2017 Amelia Avila is here for the pain mangement procedure. The patient presents with persistent pain complaints. Amelia Avila denies any interval changes or new pain complaints or focal neurologic deficits. PAST MEDICAL HISTORY Diagnosis Date - Allergic rhinitis - DDD (degenerative disc disease), lumbar - Prediabetes PAST SURGICAL HISTORY Procedure Laterality Date - AMPUTATION FINGER/THUMB accident as a child - KNEE SCOPE,DIAGNOSTIC 2013 Arthroscopy, knee - REPAIR OF NASAL SEPTUM 2002 Social History Marital status: Spouse name: Years of education: Number of children: Social History Main Topics Smoking status: Former Smoker Packs/day: 0.50 Years: 10.00 Types: Cigarettes Smokeless status: Never Used Comment: qit in 1996 Alcohol use: Yes 3.0 - 4.5 oz/week 2 - 3 Glasses of Wine (5oz) per week Drug use: No FAMILY HISTORY Problem Relation Age of Onset - Hypertension Mother - Cancer Father LUNG ALLERGIES No Known Allergies Current Facility-Administered Medications: NaCl 0.9% iv infusion 30 mL/hr INTRAVENOUS CONTINUOUS Physical Exam: Performed in conjunction with observation. The patient is alert and oriented x3. The patient is in no acute distress. Neck: Supple. The range of motion is intact. Lungs: clear CVR: RRR. Extremities: no reported edema or erythema. Examination indicates no changes Impression: Lumbar spondylosis Plan: The informed consent has been obtained. The plan is to proceed with the procedure as planned. SIGNATURE: Dutch Lowery MD DATE: August 01, 2017 TIME: 7:43 AM PT ED Observed: 08/01/2017 Status: COMPLETED Source: [place] 7:35 AM [facility] REPOSITORY HNO ID: [id number] Author: Noemi SantiagoRn) ANDRE Torres Service: Nursing Author Type: Registered Nurse Type: Patient Education Filed: 08/01/2017 7:36 AM Note Text: PRE OP LEARNING ASSESSMENT PROCEDURE/SURGERY: SURGERY: HUGH Facet lumbar injection READINESS TO LEARN COGNITIVE ABILITY: Alert and oriented MOTIVATION TO LEARN: Eager FAMILY SUPPORT: High - Very involved in pt care PATIENT LEARNS BEST BY: Written Instruction - Hand-outs Verbal Instruction FACTORS AFFECTING LEARNING: None PHYSICAL LIMITATIONS AFFECTING LEARNING: None Electronically Signed By: Noemi Torres RN In Department: [facility] NURSING PROG Observed: 08/01/2017 Status: COMPLETED Source: [place] 7:31 AM [facility] REPOSITORY HNO ID: [id number] Author: Noemi Banks) ANDRE Torres Service: Nursing Author Type: Registered Nurse Type: Nursing Progress Note Filed: 08/01/2017 7:32 AM Note Text: Nursing Progress Note Patient Name: Amelia Avila Patient Location: [facility] pt ready for OR, call light jn reach, called to bedside This note was completed by: Noemi Torres RN CNOV Observed: 07/22/2017 Status: COMPLETED Source: [place] 12:40 PM [facility] REPOSITORY Office Visit (PNMDNA) AMELIA AVILA ([id number]) 1965 M Date Time Provider Department 07/22/17 12:40 PM [facility] During your visit today, we recorded the following information about you: Pulse Weight Height 74/minute 103.1 kg 1.905 m Dutch Lowery MD 07/22/2017 2:00 PM Signed 07/22/2017 [facility] CHIEF COMPLAINT: Low back pain HPI: Amelia Avila is a 51 year old male who presents to [facility] at the [place] [facility] today at the kind request of CNP. Isaura Lozano, A copy of this office note is being sent to the requesting physician through via electronic medical record. His pain is located in the low back and is described as mild, radiating and tingling. He states that the pain began 10+ years ago and is not related to injury or event. The patient states that the onset was gradual. Symptoms have been stable. The pain radiates to left lower extremity along posterior aspect to the level of toes. The pain level is at 4/10 and is intermittent. It is exacerbated by sitting, standing and lifting. It is mitigated/relieved by lying down and heat. 80% pain in spine vs 20% pain in arms/legs. 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 Mobic was taken at July 22, 2017. Physical Therapy: He has had physical therapy for his current symptoms. This was completed 1 years ago. The therapy provided a notable amount of relief. Spinal Injections: He has not gotten prior spinal injections. None. Other: Chiropractice care: Brace type: Back brace Massage Therapy Current Outpatient Prescriptions: meloxicam (MOBIC) 15 mg tablet Take 1 tablet by mouth once daily. Take with food. cyclobenzaprine (FLEXERIL) 10 mg tablet Take 1 tablet by mouth three times daily as needed for Muscle Spasm. cefADROxil (DURICEF) 500 mg capsule Take 1 capsule by mouth twice daily. 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 No current facility-administered medications for this visit. Allergies: Review of patient's allergies indicates no known allergies. PAST MEDICAL HISTORY Diagnosis Date - Allergic rhinitis - DDD (degenerative disc disease), lumbar - Prediabetes PAST SURGICAL HISTORY Procedure Laterality Date - AMPUTATION FINGER/THUMB accident as a child - KNEE SCOPE,DIAGNOSTIC 2013 Arthroscopy, knee - REPAIR OF NASAL SEPTUM 2003 Social History Marital status: Spouse name: Years of education: Number of children: Social History Main Topics Smoking status: Former Smoker Packs/day: 0.50 Years: 10.00 Types: Cigarettes Smokeless status: Never Used Comment: latia in 1996 Alcohol use: Yes 3.0 - 4.5 oz/week 2 - 3 Glasses of Wine (5oz) per week Drug use: No FAMILY HISTORY Problem Relation Age of Onset - Hypertension Mother - Cancer Father LUNG REVIEW OF SYSTEMS: Constitutional: (-) Fever (-) Night Sweats (-) Weight Gain (-) Weight Loss (-) Fatigue Cardiovascular: (-) Chest Pain (-) Palpitations (-) Lightheadedness (-) Swelling of Ankles (-) Hx Heart Surgery Respiratory: (-) Shortness of Breath (-) Cough (-) Wheezing (-) Snoring Gastrointestinal: (-) Incontinence (-) Abdominal Pain (-) Diarrhea (-) Constipation (-) Nausea/Vomiting (-) Heart Burn Endocrine: (-) Thyroid Disorder (-) Diabetes Hematologic: (-) Prolonged Bleeding (-) Easy Bruising Genitourinary: (-) Incontinence (-) Frequency (-) Urinary Urgency Skin: (-) Rashes (-) Itching (-) Other Lesions Neurologic: (-) Headache (-) Double Vision (-) Confusion (-) Paralysis (-) Vertigo (-) Syncope Psychiatric: (-) Depression (-) Anxiety (-) Delusions (-) Hallucinations (-) Suicidal Thoughts Carlene [place] OARRS Report reviewed: Yes Narcotic Agreement reviewed and signed?: N/A Baseline Urine Toxicology obtained: N/A Urine Panel: No results found for: UQCANN, UQBNZL, YKL6IPO, UQAMPH, UQMAMP, UQBUPRE, UQNORBUP, UQMTHD, UQEDDP, UQTRAM, UQDTRM, UQFNTL, UQNFTL, UQCODE, UQMORP, UQDCDN, UQHCOD, UQOXYC, UQHMOR, UQOXYM, UQCREA, UQPH, UQSPGR, UQOXID, UQSPQ The pain panel was N/A OBJECTIVE: PHYSICAL EXAMINATION: Pulse 74, height 190.5 cm (6' 3ANDquot;), weight 103.1 kg (227 lb 3.2 oz), SpO2 99 %. PHYSICAL EXAMINATION: GENERAL: Well appearing, in no acute distress PSYCH: Mood and affect is appropriate. Awake, alert, and oriented x 3 SKIN: Skin color, texture, turgor normal, no rashes or lesions HEENT: Normocephalic, atraumatic. CV: RRR, There are no significant varicosities and no pedal edema RESP: normal respiratory motion, normal breath sounds. GI: Abdomen soft and non-tender. MS: Bilateral upper and lower extremity strength is normal and symmetric. No atrophy or tone abnormalities are noted. LUMBAR: Lumbar curve was normal. On palpation, tenderness was present over paravertebral facets L4-S1. Palpation of the sciatic notch was negative for tenderness. Facet loading was positive, with extension. Lumbar range of motion was intact. Palpation and examination of the L and R iliac crests revealed normal alignment. SLR: SLR variable sitting - negative SI joint: No tenderness over the bilateral SI Joints. Extremities: Peripheral joint ROM is full and pain free without obvious instability or laxity in all four extremities. No edema or skin discolorations noted. Ambulation: walks independently, unassisted Gait: Normal NEUR: Bilateral upper and lower extremity coordination and muscle stretch reflexes are physiologic and symmetric. No loss of sensation is noted. IMAGING STUDIES: No new imaging studies were reviewed during this office visit. ASSESSMENT AND PLAN: Diagnosis: Encounter Diagnosis ICD-10-CM 1. Spondylosis of lumbar region without myelopathy or radiculopathy M47.816 2. DDD (degenerative disc disease), lumbar M51.36 3. Discogenic low back pain M51.36 4. Annular tear of lumbar disc M51.36 Discussion: A discussion was entertained regarding chronic opioid therapy as it relates to chronic benign pain. 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 .Mr. Avila understands that his pain may not be entirely relieved by the use of medications alone. Other factors that may contribute to chronic pain were discussed including smoking, obesity, and a sedentary lifestyle. Plan: 1) MRI reviewed. Findings discussed. 2) continue with meloxicam. Has tried Flexeril without benefit. He was placed on medrol dose magdalena. Trial of Robaxin. 3) recommend a trial of lumbar facet injection at L4-5 and L5-S1. 4) We discussed with the patient potential secondary side effects of medication prescribed and the medications are to be taken as instructed. 5) The patient was counseled regarding the importance of routine exercise.. 6) RTC 2 months I have discussed and confirmed the above treatment plan with the patient. and I have reviewed the nurses notes and I am aware of the family/social history. Dutch Lowery MD July 22, 2017 cc: Isaura Lozano CNP [address] [facility] [place] [phone] Fax: Results of consultation to be transmitted via electronic medical record for those providers who practice within [facility] or with access to [employer] via MD Connect, or via letter. 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 Primary Visit Diagnosis:Spondylosis of lumbar region without myelopathy or radiculopathy [M47.816] Other Visit Diagnoses:DDD (degenerative disc disease), lumbar [M51.36] Discogenic low back pain [M51.36] Annular tear of lumbar disc [M51.36] Order(s):methocarbamol (ROBAXIN) 750 mg tabletTake 1 tablet by mouth three times daily.Disp: 90 tabletRfl: 0 meloxicam (MOBIC) 15 mg tabletTake 1 tablet by mouth once daily.Disp: 30 tabletRfl: 1 NJX DX/THER AGT PVRT FACET JT LMBR/SAC 1 LEVEL [[id number]] Order #: [id number] SURGICAL REQUEST - ELECTIVE [[id number]] Order #: [id number]: 1 Prescriptions as of 07/22/2017 Sig: MELOXICAM 15 MG TABLET Take 1 tablet by mouth once d* METHOCARBAMOL 750 MG TABLET Take 1 tablet by mouth three * MELOXICAM 15 MG TABLET Take 1 tablet by mouth once d* CYCLOBENZAPRINE 10 MG TABLET Take 1 tablet by mouth three * CEFADROXIL 500 MG CAPSULE Take 1 capsule by mouth twice* * COMPOUNDED PRESCRIPTION 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 Medication notes this encounter CYCLOBENZAPRINE 10 MG TABLET >> Carlene Juan Francisco Sales 07/22/2017 12:58 PM >> CARLENE CANADA MA Jul 22, 2017 12:58 PM Not taking Problem List As Of Date 07/22/2017 Noted Resolved ESOPHAGEAL REFLUX [K21.9] INVALID FOR* OTHER LUNG DISEASE NEC [J98.4] INVALID FOR* CALCULUS OF URETER [N20.1] INVALID FOR* Impaired Fasting Glucose [R73.01] INVALID FOR* DDD (Degenerative Disc Disease), Lumbar [M51.36]INVALID FOR* Prediabetes [R73.03] INVALID FOR*05/07/2016 Hyperlipidemia [E78.5] INVALID FOR* Chronic bilateral low back pain without sciatic*INVALID FOR* Spondylosis of lumbar region without myelopathy*INVALID FOR* Discogenic low back pain [M51.36] INVALID FOR* More... Annular tear of lumbar disc [M51.36] INVALID FOR* More... Prescriptions ordered this encounter Disp Refills Start End METHOCARBAMOL 750 MG TABLET 90 t* 0 07/22/2017 08/21/2017 Route: ORAL Sig: Take 1 tablet by mouth three times daily. MELOXICAM 15 MG TABLET 30 t* 1 07/22/2017 08/21/2017 Route: ORAL Sig: Take 1 tablet by mouth once daily. Encounter Status:Closed by DUTCH LOWERY MD on 07/22/17 PROGRESS Observed: 07/22/2017 Status: COMPLETED Source: [place] 12:31 PM [facility] REPOSITORY HNO ID: [id number] Author: Dutch Lowery Service: (none) Author Type: Physician Type: Progress Notes Filed: 07/22/2017 2:00 PM Note Text: 07/22/2017 [facility] CHIEF COMPLAINT: Low back pain HPI: Amelia Avila is a 51 year old male who presents to [facility] at the [facility] Building today at the kind request of CNP. Isaura Lozano, A copy of this office note is being sent to the requesting physician through via electronic medical record. His pain is located in the low back and is described as mild, radiating and tingling. He states that the pain began 10+ years ago and is not related to injury or event. The patient states that the onset was gradual. Symptoms have been stable. The pain radiates to left lower extremity along posterior aspect to the level of toes. The pain level is at 4/10 and is intermittent. It is exacerbated by sitting, standing and lifting. It is mitigated/relieved by lying down and heat. 80% pain in spine vs 20% pain in arms/legs. 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 Mobic was taken at July 22, 2017. Physical Therapy: He has had physical therapy for his current symptoms. This was completed 1 years ago. The therapy provided a notable amount of relief. Spinal Injections: He has not gotten prior spinal injections. None. Other: Chiropractice care: Brace type: Back brace Massage Therapy Current Outpatient Prescriptions: meloxicam (MOBIC) 15 mg tablet Take 1 tablet by mouth once daily. Take with food. cyclobenzaprine (FLEXERIL) 10 mg tablet Take 1 tablet by mouth three times daily as needed for Muscle Spasm. cefADROxil (DURICEF) 500 mg capsule Take 1 capsule by mouth twice daily. 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 No current facility-administered medications for this visit. Allergies: Review of patient's allergies indicates no known allergies. PAST MEDICAL HISTORY Diagnosis Date - Allergic rhinitis - DDD (degenerative disc disease), lumbar - Prediabetes PAST SURGICAL HISTORY Procedure Laterality Date - AMPUTATION FINGER/THUMB accident as a child - KNEE SCOPE,DIAGNOSTIC 2014 Arthroscopy, knee - REPAIR OF NASAL SEPTUM 2002 Social History Marital status: Spouse name: Years of education: Number of children: Social History Main Topics Smoking status: Former Smoker Packs/day: 0.50 Years: 10.00 Types: Cigarettes Smokeless status: Never Used Comment: qilavon in 1996 Alcohol use: Yes 3.0 - 4.5 oz/week 2 - 3 Glasses of Wine (5oz) per week Drug use: No FAMILY HISTORY Problem Relation Age of Onset - Hypertension Mother - Cancer Father LUNG REVIEW OF SYSTEMS: Constitutional: (-) Fever (-) Night Sweats (-) Weight Gain (-) Weight Loss (-) Fatigue Cardiovascular: (-) Chest Pain (-) Palpitations (-) Lightheadedness (-) Swelling of Ankles (-) Hx Heart Surgery Respiratory: (-) Shortness of Breath (-) Cough (-) Wheezing (-) Snoring Gastrointestinal: (-) Incontinence (-) Abdominal Pain (-) Diarrhea (-) Constipation (-) Nausea/Vomiting (-) Heart Burn Endocrine: (-) Thyroid Disorder (-) Diabetes Hematologic: (-) Prolonged Bleeding (-) Easy Bruising Genitourinary: (-) Incontinence (-) Frequency (-) Urinary Urgency Skin: (-) Rashes (-) Itching (-) Other Lesions Neurologic: (-) Headache (-) Double Vision (-) Confusion (-) Paralysis (-) Vertigo (-) Syncope Psychiatric: (-) Depression (-) Anxiety (-) Delusions (-) Hallucinations (-) Suicidal Thoughts Carlene Canada Ma OARRS Report reviewed: Yes Narcotic Agreement reviewed and signed?: N/A Baseline Urine Toxicology obtained: N/A Urine Panel: No results found for: UQCANN, UQBNZL, ASU5EXK, UQAMPH, UQMAMP, UQBUPRE, UQNORBUP, UQMTHD, UQEDDP, UQTRAM, UQDTRM, UQFNTL, UQNFTL, UQCODE, UQMORP, UQDCDN, UQHCOD, UQOXYC, UQHMOR, UQOXYM, UQCREA, UQPH, UQSPGR, UQOXID, UQSPQ The pain panel was N/A OBJECTIVE: PHYSICAL EXAMINATION: Pulse 74, height 190.5 cm (6' 3), weight 103.1 kg (227 lb 3.2 oz), SpO2 99 %. PHYSICAL EXAMINATION: GENERAL: Well appearing, in no acute distress PSYCH: Mood and affect is appropriate. Awake, alert, and oriented x 3 SKIN: Skin color, texture, turgor normal, no rashes or lesions HEENT: Normocephalic, atraumatic. CV: RRR, There are no significant varicosities and no pedal edema RESP: normal respiratory motion, normal breath sounds. GI: Abdomen soft and non-tender. MS: Bilateral upper and lower extremity strength is normal and symmetric. No atrophy or tone abnormalities are noted. LUMBAR: Lumbar curve was normal. On palpation, tenderness was present over paravertebral facets L4-S1. Palpation of the sciatic notch was negative for tenderness. Facet loading was positive, with extension. Lumbar range of motion was intact. Palpation and examination of the L and R iliac crests revealed normal alignment. SLR: SLR variable sitting - negative SI joint: No tenderness over the bilateral SI Joints. Extremities: Peripheral joint ROM is full and pain free without obvious instability or laxity in all four extremities. No edema or skin discolorations noted. Ambulation: walks independently, unassisted Gait: Normal NEUR: Bilateral upper and lower extremity coordination and muscle stretch reflexes are physiologic and symmetric. No loss of sensation is noted. IMAGING STUDIES: No new imaging studies were reviewed during this office visit. ASSESSMENT AND PLAN: Diagnosis: Encounter Diagnosis ICD-10-CM 1. Spondylosis of lumbar region without myelopathy or radiculopathy M47.816 2. DDD (degenerative disc disease), lumbar M51.36 3. Discogenic low back pain M51.36 4. Annular tear of lumbar disc M51.36 Discussion: A discussion was entertained regarding chronic opioid therapy as it relates to chronic benign pain. 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 .Mr. Avila understands that his pain may not be entirely relieved by the use of medications alone. Other factors that may contribute to chronic pain were discussed including smoking, obesity, and a sedentary lifestyle. Plan: 1) MRI reviewed. Findings discussed. 2) continue with meloxicam. Has tried Flexeril without benefit. He was placed on medrol dose magdalena. Trial of Robaxin. 3) recommend a trial of lumbar facet injection at L4-5 and L5-S1. 4) We discussed with the patient potential secondary side effects of medication prescribed and the medications are to be taken as instructed. 5) The patient was counseled regarding the importance of routine exercise.. 6) RTC 2 months I have discussed and confirmed the above treatment plan with the patient. and I have reviewed the nurses notes and I am aware of the family/social history. Dutch Lowery MD July 22, 2017 cc: Isaura Older, ALTERATIONS MANAGER [phone] [facility] [place] [id number] Fax: Results of consultation to be transmitted via electronic medical record for those providers who practice within [facility] or with access to [facility] via MD Connect, or via letter. HOSP Observed: 07/22/2017 Status: COMPLETED Source: [place] 12:00 AM CLINIC OTHER CAMPUS REPOSITORY Patient:Amelia Avila MRN: <[id number]> Height:6' 3(1.905 m) Weight:227 lb (102.967 kg) Outpatient Medications as of 08/01/17: IBUPROFEN ORAL methocarbamol (ROBAXIN) 750 mg tablet meloxicam (MOBIC) 15 mg tablet meloxicam (MOBIC) 15 mg tablet cyclobenzaprine (FLEXERIL) 10 mg tablet COMPOUNDED PRESCRIPTION Admission/Clinic Administered Medications as of 08/01/17: NaCl 0.9% iv infusion Problem List: Esophageal reflux [K21.9] Other diseases of lung, not elsewhere classified [J98.4] Calculus of ureter [N20.1] Impaired fasting glucose [R73.01] DDD (degenerative disc disease), lumbar [M51.36] Hyperlipidemia [E78.5] Chronic bilateral low back pain without sciatica [M54.5, G89.29] Spondylosis of lumbar region without myelopathy or radiculopathy [M47.816] Discogenic low back pain [M51.36] Annular tear of lumbar disc [M51.36] Allergies: No Known Allergies Date Verified:08/01/17 Lab Values No results within the last 30 days for the following basenames: K,HCT Progress Notes ([facility]): Dutch Lowery MD 07/22/2017 2:00 PM Signed 07/22/2017 [facility] CHIEF COMPLAINT: Low back pain HPI: Amelia Avila is a 51 year old male who presents to [facility] at the [place] [facility] today at the kind request of CNP. Isaura Lozano, A copy of this office note is being sent to the requesting physician through via electronic medical record. His pain is located in the low back and is described as mild, radiating and tingling. He states that the pain began 10+ years ago and is not related to injury or event. The patient states that the onset was gradual. Symptoms have been stable. The pain radiates to left lower extremity along posterior aspect to the level of toes. The pain level is at 4/10 and is intermittent. It is exacerbated by sitting, standing and lifting. It is mitigated/relieved by lying down and heat. 80% pain in spine vs 20% pain in arms/legs. 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 Mobic was taken at July 22, 2017. Physical Therapy: He has had physical therapy for his current symptoms. This was completed 1 years ago. The therapy provided a notable amount of relief. Spinal Injections: He has not gotten prior spinal injections. None. Other: Chiropractice care: Brace type: Back brace Massage Therapy Current Outpatient Prescriptions: meloxicam (MOBIC) 15 mg tablet Take 1 tablet by mouth once daily. Take with food. cyclobenzaprine (FLEXERIL) 10 mg tablet Take 1 tablet by mouth three times daily as needed for Muscle Spasm. cefADROxil (DURICEF) 500 mg capsule Take 1 capsule by mouth twice daily. 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 No current facility-administered medications for this visit. Allergies: Review of patient's allergies indicates no known allergies. PAST MEDICAL HISTORY Diagnosis Date - Allergic rhinitis - DDD (degenerative disc disease), lumbar - Prediabetes PAST SURGICAL HISTORY Procedure Laterality Date - AMPUTATION FINGER/THUMB accident as a child - KNEE SCOPE,DIAGNOSTIC 2014 Arthroscopy, knee - REPAIR OF NASAL SEPTUM 2002 Social History Marital status: Spouse name: Years of education: Number of children: Social History Main Topics Smoking status: Former Smoker Packs/day: 0.50 Years: 10.00 Types: Cigarettes Smokeless status: Never Used Comment: qit in 1996 Alcohol use: Yes 3.0 - 4.5 oz/week 2 - 3 Glasses of Wine (5oz) per week Drug use: No FAMILY HISTORY Problem Relation Age of Onset - Hypertension Mother - Cancer Father LUNG REVIEW OF SYSTEMS: Constitutional: (-) Fever (-) Night Sweats (-) Weight Gain (-) Weight Loss (-) Fatigue Cardiovascular: (-) Chest Pain (-) Palpitations (-) Lightheadedness (-) Swelling of Ankles (-) Hx Heart Surgery Respiratory: (-) Shortness of Breath (-) Cough (-) Wheezing (-) Snoring Gastrointestinal: (-) Incontinence (-) Abdominal Pain (-) Diarrhea (-) Constipation (-) Nausea/Vomiting (-) Heart Burn Endocrine: (-) Thyroid Disorder (-) Diabetes Hematologic: (-) Prolonged Bleeding (-) Easy Bruising Genitourinary: (-) Incontinence (-) Frequency (-) Urinary Urgency Skin: (-) Rashes (-) Itching (-) Other Lesions Neurologic: (-) Headache (-) Double Vision (-) Confusion (-) Paralysis (-) Vertigo (-) Syncope Psychiatric: (-) Depression (-) Anxiety (-) Delusions (-) Hallucinations (-) Suicidal Thoughts Carlene Canada Ma OARRS Report reviewed: Yes Narcotic Agreement reviewed and signed?: N/A Baseline Urine Toxicology obtained: N/A Urine Panel: No results found for: UQCANN, UQBNZL, FNG3FJE, UQAMPH, UQMAMP, UQBUPRE, UQNORBUP, UQMTHD, UQEDDP, UQTRAM, UQDTRM, UQFNTL, UQNFTL, UQCODE, UQMORP, UQDCDN, UQHCOD, UQOXYC, UQHMOR, UQOXYM, UQCREA, UQPH, UQSPGR, UQOXID, UQSPQ The pain panel was N/A OBJECTIVE: PHYSICAL EXAMINATION: Pulse 74, height 190.5 cm (6' 3), weight 103.1 kg (227 lb 3.2 oz), SpO2 99 %. PHYSICAL EXAMINATION: GENERAL: Well appearing, in no acute distress PSYCH: Mood and affect is appropriate. Awake, alert, and oriented x 3 SKIN: Skin color, texture, turgor normal, no rashes or lesions HEENT: Normocephalic, atraumatic. CV: RRR, There are no significant varicosities and no pedal edema RESP: normal respiratory motion, normal breath sounds. GI: Abdomen soft and non-tender. MS: Bilateral upper and lower extremity strength is normal and symmetric. No atrophy or tone abnormalities are noted. LUMBAR: Lumbar curve was normal. On palpation, tenderness was present over paravertebral facets L4-S1. Palpation of the sciatic notch was negative for tenderness. Facet loading was positive, with extension. Lumbar range of motion was intact. Palpation and examination of the L and R iliac crests revealed normal alignment. SLR: SLR variable sitting - negative SI joint: No tenderness over the bilateral SI Joints. Extremities: Peripheral joint ROM is full and pain free without obvious instability or laxity in all four extremities. No edema or skin discolorations noted. Ambulation: walks independently, unassisted Gait: Normal NEUR: Bilateral upper and lower extremity coordination and muscle stretch reflexes are physiologic and symmetric. No loss of sensation is noted. IMAGING STUDIES: No new imaging studies were reviewed during this office visit. ASSESSMENT AND PLAN: Diagnosis: Encounter Diagnosis ICD-10-CM 1. Spondylosis of lumbar region without myelopathy or radiculopathy M47.816 2. DDD (degenerative disc disease), lumbar M51.36 3. Discogenic low back pain M51.36 4. Annular tear of lumbar disc M51.36 Discussion: A discussion was entertained regarding chronic opioid therapy as it relates to chronic benign pain. A group home use of opioids have generally not been effective in managing chronic benign pain, therefore I do not recommend it. .Mr. Avila understands that his pain may not be entirely relieved by the use of medications alone. Other factors that may contribute to chronic pain were discussed including smoking, obesity, and a sedentary lifestyle. Plan: 1) MRI reviewed. Findings discussed. 2) continue with meloxicam. Has tried Flexeril without benefit. He was placed on medrol dose magdalena. Trial of Robaxin. 3) recommend a trial of lumbar facet injection at L4-5 and L5-S1. 4) We discussed with the patient potential secondary side effects of medication prescribed and the medications are to be taken as instructed. 5) The patient was counseled regarding the importance of routine exercise.. 6) RTC 2 months I have discussed and confirmed the above treatment plan with the patient. and I have reviewed the nurses notes and I am aware of the family/social history. Dutch Lowery MD July 22, 2017 cc: Isaura Lozano, ALTERATIONS MANAGER [address] [facility] [place] [address] Fax: Results of consultation to be transmitted via electronic medical record for those providers who practice within [facility] or with access to [employer] via MD Connect, or via letter. Previous Version Carlene Canada Ma 07/22/2017 3:09 PM Signed Addended by: CARLENE CANADA MA on: 07/22/2017 03:09 PM Modules accepted: Orders ALLERGIES ALLERGIES DATE TYPE / CODE NAME / CODE REACTION SEVERITY SOURCE 06/16/2018 Drug No Known Unknown [facility] Allergy/416 Allergies/X23263 Hospital 895294(SNOM 0388(RXNORM) Repository ED CT) Drug NO KNOWN [facility] Class/72882 ALLERGIES Other [place] 1003(SNOMED Repository CT) ENCOUNTERS ENCOUNTERS ADMIT/DISCHARGE ACCOUNT ADMITTING ENCOUNTER LOCATION SOURCE NUMBER CLASS 07/17/2018/07/17/19 [id number] Ambulatory [address] Main [place] Repository 07/17/2018/07/17/[id number] [place] Repository 07/16/2018/07/17/[id number] Main [place] Repository 07/15/2018/07/16/19 [id number] Ambulatory [address] Main [place] Repository 07/09/2018/07/09/19 [id number] ISAIAH Ambulatory [address] Other [place] Repository 07/08/2018/07/09/19 [id number] Ambulatory [address] Main [place] Repository 07/08/2018/07/09/19 [id number] Ambulatory [address] Main [place] Repository 07/08/2018/07/09/19 [id number] Ambulatory [address] Main [place] Repository 06/30/2018/07/01/19 [id number] Ambulatory [address] Main [place] Repository 06/19/2018/06/23/20 [id number] Ambulatory [address] [place] Repository 06/16/2018/06/16/20 [id number] Emergency Les Gerber [address] [facility] ing:ED Repository 06/11/2018/06/14/20 [id number] Isaiah Inpatient Gerber Gerber [address] [place] Encounter [facility] ing:YR1Mhza: Repository [id number]: 1 06/03/2018/06/05/20 [id number] Ambulatory [address] Main [place] Repository 05/29/2018/05/29/20 [id number] MYRON LEIJA Ambulatory [address] Main [place] Repository 05/27/2018/05/28/20 [id number] Ambulatory [address] Main [place] Repository 05/22/2018/05/23/20 [id number] ISAIAH, Ambulatory [address] [place] Repository 05/22/2018/05/27/20 [id number] ISAIAH, Ambulatory [address] [place] Repository 05/22/2018/05/22/20 [id number] ISAIAH, Ambulatory [address] [place] Repository 05/20/2018/05/20/20 [id number] ISAIAH, Ambulatory [address] [place] Repository 05/20/2018/05/20/20 [id number] ISAIAH, Ambulatory [address] [place] Repository 05/20/2018/05/20/20 [id number] ISAIAH, Ambulatory [address] [place] Repository 04/24/2018/04/30/20 [id number] Ambulatory [address] [place] Repository 04/21/2018/04/22/20 [id number] Ambulatory [address] [place] Repository 04/01/2018/04/01/20 [id number] DUTCH LOWERY Ambulatory [address] Other [place] Repository 03/18/2018/03/18/20 [id number] DUTCH LOWERY Ambulatory [address] Other [place] Repository 12/18/2017/12/20/19 [id number] Ambulatory [address] Main [place] Repository 10/29/2017/10/30/19 [id number] DUTCH LOWERY Ambulatory [address] Other [place] Repository 10/18/2017/10/19/19 [id number] Ambulatory [address] Main [place] Repository 09/07/2017/09/08/19 [id number] Ambulatory [address] Main [place] Repository 09/07/2017/09/10/19 [id number] Ambulatory [address] Main [place] Repository 08/01/2017/08/01/19 [id number] DUTCH LOWERY Ambulatory [address] Other [place] Repository 07/22/2017/07/22/19 [id number] Ambulatory [address] Main [place] Repository PAYERS PAYERS ENCOUNTER GUARANTOR PAYER SUBSCRIBER SOURCE 06/16/2018 IMED E [id number] Primary IMED E DAMIDOB: Gerber [address] Insurance:CORESOURCEP [id number] [facility] [address] justino Number: [facility] [id number]: [id number] Repository Date:[id number] [address] () [address] [id number]: 06/16/2018 Secondary NOT GIVENUNK Les Insurance:SELF PAY [facility]: Effective Repository Date:2018-06-16 06/11/2018 IMED E [id number] Primary IMED E DAMIDOB[facility] Insurance:CORESOURCEP [id number] Community [address] neomonicadann Number: [facility] [address]Guh: [id number] Repository Date:[id number] [address] () [address] [id number]: 06/11/2018 Secondary NOT GIVENUNK Les Insurance:SELF PAY [facility]: Effective Repository Date:2018-05-20
== END 2018-06-14 11:25 | disposition home or self-care (01) | DRG 331 ==
LOC: ACINP 09:32 → MS2 15:11
PROVIDERS: Admitting Provider Surgery; Family Provider Family Medicine; PCP Family Medicine; Referring Provider Surgery; Visit Provider Surgery
PROC: 0DTN0ZZ Resection of Sigmoid Colon, Open Approach (ICD-10-PCS; CPT 44204; principal; 2018-06-11 07:05)
DX: C18.7 Malignant neoplasm of sigmoid colon (principal); Z87.891 Personal history of nicotine dependence
CPT/HCPCS: 36415; 80048; 80053; 82962; 85025; 85027; 88304; 88309; 88341; 88342; 97803; J7050; J7120; A4216; J2405

== ENCOUNTER 2018-06-16 09:53 | Emergency (ER) | payer OTHER, SELFPAY ==
[2018-06-11 06:27] VITALS: BMI 27.3
[2018-06-16 09:53] VITALS: BP 140/80; PULSE 73; RESP 18; TEMP 36.6; O2SAT 97; BMI 26.9
--- NOTE | 2018-06-16 09:57 | ED.RN ---
PT TAKEN TO ROOM 9. EKG CALLED FOR. TRIAGE COMPLETED WITH
--- NOTE | 2018-06-16 10:08 | CT_ITS ---
STUDY: CTA CHEST/THORAX REASON FOR EXAM: Male, 52 years old. Shortness of breath, chest pain. Recent surgery. RADIATION DOSAGE (If Supplied By Facility): CTDIvol = ( 16.57 ) mGy, DLP = ( 538.41 ) mGycm TECHNIQUE: The examination was performed with the intravenous administration of 100 ml of Isovue 370 contrast material. Post-processing of the angiographic images was performed, with multiplanar reformation. No 3D reconstruction. Individualized dose optimization techniques were used for this CT. COMPARISON: None. FINDINGS: Normal enhancement of the main pulmonary artery and right and left pulmonary arteries. Normal enhancement of the bilateral peripheral pulmonary arteries. There is no demonstrated pulmonary embolism. Normal thoracic aorta and visualized great vessels. There is no demonstrated aortic dissection. Normal heart and pericardium. Normal mediastinum. Normal hilar regions. Normal visualized trachea and bronchi. The lungs are well expanded. Ill-defined 4 mm nodular density seen in the anterolateral right upper lobe on series 2 image 118, series 601 image 78. 2-3 mm nodule seen in the superior margin of the right middle lobe abutting the minor fissure on series 2 image 103, series 601 image 82. The lungs are otherwise clear Normal pleura. Gas bubbles are seen in the deep subcutaneous tissues bordering the musculature of the bilateral lower anterolateral chest wall/upper abdomen. There are degenerative changes of upper and lower most thoracic spine. Rounded 9 mm low-density in the upper right lobe of the liver consistent with a cyst CT/CTA Chest W/WO Contrast IMPRESSION: 1. No demonstrated pulmonary embolism or arterial dissection. 2. Gas bubbles in the deep anterolateral subcutaneous tissues of the bilateral lower chest wall/upper abdomen, presumably reflecting expected postoperative findings. 3. A pair of sub 6 mm densities are seen in the right midlung, as noted. The lungs are otherwise clear. Per Fleischner guidelines, no specific radiographic follow-up is required. 4. Rounded 9 mm low density in the upper right lobe of liver is likely a cyst. This could be potentially confirmed with ultrasound. Electronically Signed: Tyree Martínez MD at 12:27 EST , Service support ,
--- NOTE | 2018-06-16 10:08 | EKG12_ITS ---
Test Reason : SOB CP Blood Pressure : / mmHG Vent. Rate : 067 BPM Atrial Rate : 067 BPM P-R Int : 178 ms QRS Dur : 088 ms QT Int : 368 ms P-R-T Axes : 043 048 005 degrees QTc Int : 388 ms Normal sinus rhythm Nonspecific T wave abnormality Abnormal ECG Confirmed by TALIA GALAVIZ ([id number]), communications editor ISA CARUSO ([id number] on 06/30/2018 1:50:51 PM Referred By: JAYDEN Confirmed By:TALIA GALAVIZ
[2018-06-16] MEDS: Mag Hydrox/Al Hydrox/Simeth 30 ML UDC PO (10:27)
[2018-06-16] MEDS: 0.9% Normal Saline 1,000 ML 150 ML IV (10:53)
[2018-06-16 11:02] LABS: Absolute Lymphocyte Count 0.67 X10^3/ul (0.83-4.51); Absolute Neutrophil Count 2.9 X10^3/uL (2.0-7.7); Eosinophil# 0.09 X10^3/uL; Eosinophils% 2.2 % (0-5); Hematocrit 39.9 % (40-54); Hemoglobin 13.5 g/dl (13.0-16.5); Lymphocyte # 0.67 X10^3/ul (4.0); Lymphocyte % 16.6 % (19-41); Mean Corp Hgb Conc 33.8 g/gl (32-36); Mean Corpuscular Volume 88.7 fL (80-94); Monocyte# 0.39 X10^3/uL; Monocyte% 9.7 % (0-10); Neutrophil # 2.88 X10^3/uL (2.7-7.7); Neutrophil % 71.5 % (47-70); Platelet Count 158 K/mm3 (150-450); RBC Distribution Width CV 12.8 % (11.6-14.6); RBC Distribution Width SD 41.6 fl (35.1-43.9)
[2018-06-16 11:10] LABS: POSITIVE COUNT NO; POSITIVE DIFFERENTIAL NO; POSITIVE MORPHOLOGY NO
[2018-06-16 11:22] LABS: ALB/GLOB Ratio 1.2 RATIO (0.9-2.4); AST(SGOT) 37 U/L (15-37); Alanine Aminotransfer ALT/SGPT 49 U/L (16-61); Albumin, Serum 3.5 g/dL (3.2-5.0); Alkaline Phosphatase 43 U/L (45-117); Anion Gap 8 (5-15); BUN 13 mg/dL (7-18); BUN/Creat Ratio 16.6 RATIO (10-20); Calcium,Total 8.5 mg/dL (8.5-10.1); Chloride 106 mmol/L (98-107); Creatinine, Serum 0.78 mg/dL (0.70-1.30); EST Glomerular Filtration Rate 110 mL/min (>60); Est Glom Filt Rate - Afr Amer 133 mL/min (>60); Globulin 2.9 g/dL (2.2-4.2); Glucose 113 mg/dL (74-106); Potassium 3.9 mmol/L (3.5-5.1); Protein, Total 6.4 g/dL (6.4-8.2); Sodium Level 141 mmol/L (136-145)
--- NOTE | 2018-06-16 12:44 | ED.VISSUMM ---
- ER Visit Summary Date of Service: 06/16/18 Chief Complaint: Shortness of breath History of Present Illness: The patient is a 52 M who had surgery last week for partial colectomy with Dr. Solis. Patient was discharged home. He states yesterday he ate normally for the first time. Has been moving his bowels. We will cup today he felt short of breath a tightness in his chest. Denies any palpitations. He denies any leg swelling. No history of DVT. Former smoker. He states that to him it seems may be that this is gastritis/indigestion. 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 Physical Examination: Afebrile vital signs stable Gen: Well-nourished well-developed Head: Normocephalic atraumatic Eyes: Perrl EOMI ENT: TMs clear no rhinorrhea moist mucous membranes Neck: Supple no lymphadenopathy no JVD nontender CVS: Regular rate rhythm no murmurs normal S1-S2 Respiratory: No distress clear to auscultation bilaterally chest nontender Abdomen: Soft healing surgical incisions nondistended normal bowel sounds no masses Back: Nontender Extremity: Nontender no edema Skin: Normal color no rash Neuro: alert orientated ?3 CN II-XII intact normal strength sensation reflexes gait cerebellar Psych: Normal affect normal mood Test Results: CBC CMP and troponin negative. EKG sinus rhythm with a rate of 67. CT Nancy of the chest was negative for pulmonary embolism or dissection. Noted nodule see radiology dictation Emergency Department Course and Treatment: Patient received IV fluids. He also received a GI cocktail which had resolution of his symptoms. I think this is most likely GERD related and with the slight expiratory wheeze heard he may have had a small amount of aspiration. His lung sounds are clear on repeat examination. I spoke with Dr. Solis who has come to the emergency department seeing the patient. Follow-up as scheduled. Impression: 1. Chest pain 2. Bronchospasm 3. GERD This note was generated with [employer] dictation software. It may contain incorrect words, spelling, and punctuation that were not noted in review of the chart prior to signing ED Disposition - Plan for ED Patient: Disposition: Home or Assisted Living Chief Complaint: Shortness of Breath Instructions: ED GERD Referrals: Francois Colon MD [STAFF PHYSICIAN] - Keep Brenda appointment Additional Instructions: I would recommend you starting your acid reducing medicine.
--- NOTE | 2018-06-16 12:47 | ED.DCSUM_ITS ---
- ER Visit Summary Date of Service: 06/16/18 Chief Complaint: Shortness of breath History of Present Illness: The patient is a 52 M who had surgery last week for partial colectomy with Dr. Solis. Patient was discharged home. He states yesterday he ate normally for the first time. Has been moving his bowels. We will cup today he felt short of breath a tightness in his chest. Denies any palpitations. He denies any leg swelling. No history of DVT. Former smoker. He states that to him it seems may be that this is gastritis/indigestion. 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 Physical Examination: Afebrile vital signs stable Gen: Well-nourished well-developed Head: Normocephalic atraumatic Eyes: Perrl EOMI ENT: TMs clear no rhinorrhea moist mucous membranes Neck: Supple no lymphadenopathy no JVD nontender CVS: Regular rate rhythm no murmurs normal S1-S2 Respiratory: No distress clear to auscultation bilaterally chest nontender Abdomen: Soft healing surgical incisions nondistended normal bowel sounds no masses Back: Nontender Extremity: Nontender no edema Skin: Normal color no rash Neuro: alert orientated ?3 CN II-XII intact normal strength sensation reflexes gait cerebellar Psych: Normal affect normal mood Test Results: CBC CMP and troponin negative. EKG sinus rhythm with a rate of 67. CT Nancy of the chest was negative for pulmonary embolism or dissection. Noted nodule see radiology dictation Emergency Department Course and Treatment: Patient received IV fluids. He also received a GI cocktail which had resolution of his symptoms. I think this is most likely GERD related and with the slight expiratory wheeze heard he may have had a small amount of aspiration. His lung sounds are clear on repeat examination. I spoke with Dr. Solis who has come to the emergency department seeing the patient. Follow-up as scheduled. Impression: 1. Chest pain 2. Bronchospasm 3. GERD This note was generated with [employer] dictation software. It may contain incorrect words, spelling, and punctuation that were not noted in review of the chart prior to signing ED Disposition - Plan for ED Patient: Disposition: Home or Assisted Living Chief Complaint: Shortness of Breath Instructions: ED GERD Referrals: Francois Colon MD [STAFF PHYSICIAN] - Keep Brenda appointment Additional Instructions: I would recommend you starting your acid reducing medicine.
[2018-06-16 13:06] VITALS: BP 127/62; PULSE 71; RESP 15; O2SAT 98
== END 2018-06-16 13:08 | disposition home or self-care (01) ==
PROVIDERS: Emergency Provider Emergency Medicine; Family Provider Family Medicine; PCP Family Medicine
DX: R07.9 Chest pain, unspecified (principal); J98.01 Acute bronchospasm; K21.9 Gastro-esophageal reflux disease without esophagitis; E11.9 Type 2 diabetes mellitus without complications; M51.36 Other intervertebral disc degeneration, lumbar region; Z87.891 Personal history of nicotine dependence; Z90.49 Acquired absence of other specified parts of digestive tract
CPT/HCPCS: 71275; 80053; 84484; 85025; 93005; 96360; 96361; 99283; J7030; Q9967; A4216

== ENCOUNTER 2018-08-04 04:44 | Emergency (ER) | payer OTHER, SELFPAY ==
[2018-08-04 04:45] VITALS: RESP 18; TEMP 36.6; O2SAT 98; BMI 25.8
[2018-08-04] MEDS: Phenazopyridine 95 MG Tablet 190 MG PO (05:51)
[2018-08-04 06:03] LABS: Mucous, Urine 0 SEEN /hpf (<or=2+); White Blood Cells 0 SEEN /hpf (0-5)
[2018-08-04 06:26] LABS: Color, Urine Yellow (Yellow); Glucose, Dipstick Normal (Normal); Ketone-Dipstick Negative (Negative); Leukocyte Esterase-Dipstick Negative /ul (Negative); Nitrite-Dipstick Negative (Negative); Occult Blood-Urine 150 /ul (Negative); Protein-Dipstick 15 mg/dl (Negative); Specific Gravity, Urine 1.025 (1.002-1.030); Urine Bilirubin Dipstick Negative (Negative); Urine Clarity Clear (Clear); Urine Urobilinogen Normal (Normal)
[2018-08-04 06:31] LABS: Bacteria RARE /hpf (None Seen)
[2018-08-04 06:32] LABS: Red Blood Cells-Urine 0-5 SEEN /hpf (0-5); Squamous Epithelial Cells - UA 0-5 SEEN /hpf (0-5)
--- NOTE | 2018-08-04 06:49 | ED.VISSUMM ---
- ER Visit Summary Date of Service: 08/04/18 Chief Complaint: Unable to void History of Present Illness: The patient is a 52 M who presents with difficulty voiding. He has not been able to void for about 8 hours. He is complaining of some suprapubic pressure. He is undergoing chemotherapy for colon cancer and his last treatment was 4 days ago. He states he does have problems with constipation after his treatments. He also had a prostate biopsy about a week and a half ago. No fevers. No vomiting. Physical Examination: Afebrile vitals unremarkable Moist mucous membranes Heart regular rate and rhythm Lungs are clear Abdomen soft Alert Test Results: Urinalysis shows 150 blood otherwise unremarkable Emergency Department Course and Treatment: Juarez catheter was placed with about 300 cc of light yellow urine out. He did have a lot of burning afterwards and was given Pyridium. On reevaluation he is improved. He will be discharged with a leg bag. He was advised to follow-up with his urologist. He understands to return for new or worsening symptoms. All questions answered at bedside. Treatment Plan: [] Disposition: Discharge Impression: Acute urinary retention This note was generated with [employer] dictation software. It may contain incorrect words, spelling, and punctuation that were not noted in review of the chart prior to signing ED Disposition - Plan for ED Patient: Referrals: Brayan Pierce MD [Primary Care Provider] -
--- NOTE | 2018-08-04 06:51 | ED.DEP ---
ED Disposition - Plan for ED Patient: Instructions: ED Retention Urinary Male Referrals: Brayan Pierce MD [Primary Care Provider] -
[2018-08-04 07:27] VITALS: BP 124/82; PULSE 72; RESP 18; O2SAT 99
== END 2018-08-04 07:29 | disposition home or self-care (01) ==
PROVIDERS: Emergency Provider Emergency Medicine; Family Provider Family Medicine; PCP Family Medicine
DX: N40.1 Benign prostatic hyperplasia with lower urinary tract symptoms (principal); R33.8 Other retention of urine; C18.9 Malignant neoplasm of colon, unspecified
CPT/HCPCS: 51702; 81001; 99284

== ENCOUNTER 2020-09-16 13:40 | Outpatient (RCR) | payer OTHER, SELFPAY | END 2020-11-29 23:59 | LOC: IMMUN 13:40 | PROVIDERS: PCP Family Medicine; Visit Provider Family Medicine | DX: Z23 Encounter for immunization (principal) | CPT/HCPCS: 0001A; 0002A; 91300 ==

== ENCOUNTER 2021-03-06 13:56 | Emergency (ER) | payer OTHER, SELFPAY ==
[2021-03-06 13:57] VITALS: BP 90/79; PULSE 113; RESP 18; TEMP 36.8; O2SAT 100; BMI 24.5
--- NOTE | 2021-03-06 14:49 | RAD_ITS ---
STUDY: X-RAY CHEST REASON FOR EXAM: Male, 55 years old. SOB TECHNIQUE: Single AP portable view of the chest. COMPARISON: None. FINDINGS: A left-sided amadou catheter seen with the tip at the junction of the superior vena cava and the right atrium. The lungs are clear and expanded. There is no demonstrated pleural abnormality. Normal size heart. Normal mediastinum and joaquin. Normal visualized pulmonary arteries. Normal visualized aortic arch and descending thoracic aorta. Normal visualized thoracic spine. Normal visualized ribs, clavicles, and shoulders. There is no demonstrated abnormality of the visualized soft tissue structures of the upper abdomen. RAD/Chest 1 View IMPRESSION: Normal x-ray examination of the chest. Electronically Signed: Seth Reyes MD at 15:12 EDT , Service support ,
--- NOTE | 2021-03-06 14:49 | EKG12_ITS ---
Test Reason : Blood Pressure : / mmHG Vent. Rate : 079 BPM Atrial Rate : 079 BPM P-R Int : 170 ms QRS Dur : 084 ms QT Int : 356 ms P-R-T Axes : 050 053 031 degrees QTc Int : 408 ms Normal sinus rhythm Normal ECG Confirmed by HELENA HERNANDEZ, ANSHUL ([id number]), purchasing expeditor GALE BOYER ([id number]) on 03/08/2021 10:24:55 AM Referred By: SEFERINO Confirmed By:ANSHUL MALIK MD
--- NOTE | 2021-03-06 15:55 | EX.ED.DYSGE1 ---
HPI History of Present Illness Chief Complaint: GI Bleed Narrative Narrative: Presenting noted blood in stools over the last couple days. No clots. History of stage IV colon cancer followed by Dr. Escalante. Restarted chemotherapy this past August every 2 weeks. His last treatment was a week ago Saturday with IV infusion. Denies fevers. Yesterday did report chills along with today. States felt little short of breath when he took a deep breath. Denies cough. Denies vomiting or diarrhea. He was told with his chemo treatment he would get constipated and has been diagnosed with fissures in the past. He is recently put on Metamucil. Prior 2 days ago his stools were hard however now soft with Metamucil. Last colonoscopy was 2 years ago. Initial diagnosed in 2018 that was stage III, he had partial colectomy with ostomy and now reversal. He has topical numbing medicines given by surgery Dr. Colon. Initial surgeon was Dr. Helms at [facility]. He was started on baby aspirin by his oncologist 2 weeks ago. Unclear why. Denies any cardiac stents or stroke history. Prior similar symptoms: Yes [facility] Medical History (Updated 03/06/21 @ 17:[address] Cayden Wilder DO) Colon cancer Home Medications tamsulosin 0.4 mg PO QHS 06/09/18 [History Last Taken Unknown] acetaminophen 1,000 mg PO Q6 tablet 06/14/18 [Rx Last Taken Unknown] docusate sodium [Colace] 100 mg PO DAILY PRN 08/04/18 [History Last Taken Unknown] Allergy/AdvReac Type Severity Reaction Status Date / Time ciprofloxacin Allergy Anaphylaxis Verified 03/06/21 14:03 Social History Smoking Status: Former smoker ROS ROS ED Constitutional Constitutional ED: Reports chills; Denies fever(s) or sweats Eyes Eyes: Denies change in vision ENT ENT ED: Denies dysphagia or sore throat Cardiovascular Cardiovascular: Denies chest pain, leg edema, palpitations or racing heartbeat Respiratory/Chest Respiratory/Chest: Denies cough, dyspnea or dyspnea on exertion Gastrointestinal Gastrointestinal: Reports other Details: Blood in stools. ; Denies abdominal pain, diarrhea, nausea or vomiting Genitourinary Genitourinary ED: Denies dysuria, hematuria or urinary frequency Musculoskeletal Musculoskeletal: Denies back pain, extremity pain or neck pain Integumentary Denies rash or wounds Neurologic Neurologic: Denies headache(s), paresthesias or weakness EXAM Physical Exam Const Vital Signs: 03/06/21 13:57 03/06/21 16:08 03/06/21 18:10 Temperature 98.3 F Temperature Source Temporal Pulse Rate 113 H 82 72 Respiratory Rate 18 18 13 Blood Pressure 90/79 107/81 H 120/80 Blood Pressure Mean 82 89 Pulse Ox 100 99 100 Oxygen Delivery Method Room Air Room Air Positive well nourished and well developed General Appearance ED: well developed and NAD HEENT Reports moist mucous membranes normocephalic and atraumatic Eyes PERRL, EOMs intact bilaterally and conjunctivae normal General Eye ED: Yes normal appearance of both eyes Neck no lymphadenopathy and supple General: Negative for tenderness Chest Wall Chest: Negative for tenderness Resp normal respiratory effort and normal air movement Effort and Inspection: symmetric chest movement; Negative for respiratory distress Cardio regular rate, regular rhythm and no murmurs Peripheral Pulses: pulses 2+ throughout GI normal to inspection, nondistended, normoactive bowel sounds and non-tender GI Narrative: Rectal noted brown stools, however there were multiple punctate lesions on both sides of the rectum scattered that was not actively bleeding. Palpation: Negative for guarding or rebound tenderness present Back/Spine no CVA tenderness and no thoracic nor lumbar tenderness Extremity normal to inspection General Extremety ED: Negative for edema or tenderness General Extremity: Negative for edema Neuro oriented x3 and no sensory deficits noted Sensorium / Orientation: awake and alert Skin no rashes or lesions noted and no wounds MDM MDM MDM Narrative Medical decision making narrative: Patient nontoxic nontender abdomen. Exam notes punctated rectal ulcers likely the source. Hemoglobin 14.1 white count 3.9. Absolute neutrophils 3.4. Chest x-ray negative. EKG nonspecific findings. Covid testing obtained due to chills also negative. Has no urinary symptoms no cough he is afebrile. I spoke with covering oncologist Dr. Caraballo, states the patient is not on Avastin he can stop the aspirin. He can follow-up with his surgeon Dr. Colon for outpatient colonoscopy. Discussed this with patient and spouse is treatment on Saturday was his typical chemo treatment, he was taken off Avastin for the treatment prior due to constipation. They are determining which treatment they are going to continue at this point. With him not being on it aspirin is held. He will call Dr. Colon for follow-up. Signs and symptom discussed return. All questions answered. Lab Data Attestation: I reviewed the patient's lab results. Labs: Laboratory Results - last 24 hr 03/06/21 03/06/21 03/06/21 15:35 15:35 15:35 WBC 3.9 L RBC 4.82 Hgb 14.1 Hct 43.5 MCV 90.2 MCH 29.3 MCHC 32.4 RDW Std Deviation 49.1 H RDW Coeff of Marito 14.9 H Plt Count 123 L MPV 11.2 Immature Gran % (Auto) 4.100 H Neut % (Auto) 86.9 H Lymph % (Auto) 5.1 L [place] % (Auto) 3.1 Eos % (Auto) 0.3 Baso % (Auto) 0.5 Absolute Neuts (auto) 3.4 Absolute Lymphs (auto) 0.20 L Nucleated RBC % 0 Differential Comment Diff Path Review May foll Platelet Estimate SLT DEC RBC Morphology NORM C+C Sodium 137 Potassium 3.5 Chloride 103 Carbon Dioxide 26.0 Anion Gap 8 BUN 23 H Creatinine 0.84 Estim Creat Clear Calc 117.36 Est GFR (MDRD) Af Amer 122 Est GFR (MDRD) Non-Af 101 BUN/Creatinine Ratio 27.5 H Glucose 141 H Calcium 8.8 Blood Type Cancelled Antibody Screen Cancelled Radiography Chest X-Ray - ED: 1 View, Read by ED Physician and Read by Radiologist Diagnostic Testing: Radiology Impression Chest X-Ray 03/06/21 14:49 IMPRESSION: Normal x-ray examination of the chest. Electronically Signed: Seth Reyes MD at 15:12 EDT , Service support , EKG Initial EKG: Attestation: I personally reviewed and interpreted this EKG as follows: Comments: Sinus rate of 79, no ST changes. Isolated T wave version in leads III. Nonspecific. Discharge Plan Triage Chief Complaint: GI Bleed ED Provider: Cayden Wilder Dx/Rx/DC Orders Clinical Impression: Rectal bleed, Rectal ulcer Instructions: ED Lower GI Bleeding (Stable) Prescriptions: No Action tamsulosin 0.4 MG capsule 0.4 mg PO QHS RF: 0 acetaminophen 500 MG tablet 1,000 mg PO Q6 RF: 0 docusate sodium [DOK] 100 MG capsule 100 mg PO DAILY PRN (Reason: Constipation) RF: 0 Primary Care Provider: Brayan Pierce Referrals: Brayna Pierce MD [Primary Care Provider] - Francois Colon MD [STAFF PHYSICIAN] - 3-5 Days Activity Restrictions/Additional Instructions: Punctate ulcers noted around the anus. Hold your aspirin. Monitor symptoms. Follow-up with Dr. Colon for outpatient evaluation Disposition Disposition: Home, Self Care Discharge Date/Time: 03/06/21 18:10
[2021-03-06 16:01] LABS: Absolute Neutrophil Count 3.4 X10^3/uL (2.0-7.7); Basophil# 0.02 X10^3/uL; Basophil% 0.5 % (0-1); Eosinophil# 0.01 X10^3/uL; Eosinophils% 0.3 % (0-5); Hematocrit 43.5 % (40-54); Hemoglobin 14.1 g/dL (13.0-16.5); Lymphocyte % 5.1 % (19-41); Mean Corp Hgb Conc 32.4 g/dL (32-36); Mean Corpuscular Hgb 29.3 pg (27.0-32.0); Mean Corpuscular Volume 90.2 fL (80-94); Mean Platelet Vol. 11.2 fl (6.2-12.0); Monocyte# 0.12 X10^3/uL; Monocyte% 3.1 % (0-10); NRBC Flagged by Analyzer 0 % (0-5); Neutrophil # 3.41 X10^3/uL (2.7-7.7); Neutrophil % 86.9 % (47-70); POSITIVE DIFFERENTIAL YES; POSITIVE MORPHOLOGY YES; Platelet Count 123 K/mm3 (150-450); RBC Distribution Width CV 14.9 % (11.6-14.6); RBC Distribution Width SD 49.1 fl (35.1-43.9); Red Blood Count 4.82 M/mm3 (4.6-6.2); White Blood Count 3.9 K/mm3 (4.4-11.0)
[2021-03-06] MEDS: 0.9% Normal Saline 1,000 ML 999 ML IV (16:06)
[2021-03-06 16:08] VITALS: BP 107/81; PULSE 82; RESP 18; O2SAT 99
[2021-03-06 16:13] LABS: Anion Gap 8 (5-15); BUN 23 mg/dL (7-18); BUN/Creat Ratio 27.5 RATIO (10-20); Calcium,Total 8.8 mg/dL (8.5-10.1); Chloride 103 mmol/L (98-107); Creatinine, Serum 0.84 mg/dL (0.70-1.30); EST Glomerular Filtration Rate 101 mL/min (>60); Est Glom Filt Rate - Afr Amer 122 mL/min (>60); Estimated Creatinine Clearance 117.36 ml/min; Glucose 141 mg/dL (74-106); Potassium 3.5 mmol/L (3.5-5.1); Sodium Level 137 mmol/L (136-145)
[2021-03-06 16:37] LABS: Differential Indicated SCAN CRITERIA MET
[2021-03-06 17:10] LABS: Platelet Estimate SLT DEC (ADEQ); Red Cell Morphology NORM C+C NORMAL (NORM C&C)
[2021-03-06 18:10] VITALS: BP 120/80; PULSE 72; RESP 13; O2SAT 100
[2021-03-07 13:02] LABS: Pathologist Review Reviewed
== END 2021-03-06 18:10 | disposition home or self-care (01) ==
PROVIDERS: Emergency Provider Emergency Medicine; PCP Family Medicine
DX: K62.6 Ulcer of anus and rectum (principal); K92.1 Melena; C18.9 Malignant neoplasm of colon, unspecified; Z90.49 Acquired absence of other specified parts of digestive tract; Z87.891 Personal history of nicotine dependence
CPT/HCPCS: 36591; 71045; 80048; 82274; 85025; 87426; 93005; 96360; 99282; J7030; A4216

== ENCOUNTER 2022-05-04 12:51 | Emergency (ER) | payer OTHER, SELFPAY ==
[2022-05-04 12:52] VITALS: BP 173/106; PULSE 65; RESP 18; TEMP 35.7; O2SAT 93; BMI 25.3
--- NOTE | 2022-05-04 13:18 | EDS_ITS ---
HPI History of Present Illness Chief Complaint: Chest Pain Onset/Context/Timing Onset: Today and Hours (1) Activity at onset: gradual Timing: Continuous Quality: Positive for Aching and Tightness Location: Substernal, Left Parasternal and Left Chest Worsened By: Nothing Relieved By: Nothing Associated Symptoms: Positive for Dyspnea and Acid Reflux; Negative for Nausea, Vomiting, Diaphoresis, Cough, Fever, Lightheadedness or Palpitations Narrative Narrative: Patient presents with chest pain that began approximate 1 hour prior to arrival. Patient states it came on gradually. Patient states it has been constant. Patient describes as a tightness and aching in his chest. Patient states it is over the substernal area and left chest. Patient states it radiates into his back. Patient denies any radiation into his neck. Patient states nothing makes it worse and nothing makes it better. Patient does admit to some reflux symptoms. Patient also admits to some mild shortness of breath when the pain began. Patient states his blood pressure has been elevated recently. Patient states he took an extra 10 mg dose of his lisinopril. CVD Risk Factors: Positive for Hypertension; Negative for Diabetes, Hypercholesterolemia, Family History 1' </=55 or Smoking PE Risk Factors: Positive for Cancer; Negative for Recent Travel/Surgery, Recent Immobilization, Prior DVT or PE or OCP + Smoking + >/=35 PFSH PFSH Medical History Colon cancer Colostomy skilled nursing Medications lisinopril 10 mg tablet 30 mg PO DAILY 05/04/22 [History Last Taken Unknown] Allergy/AdvReac Type Severity Reaction Status Date / Time ciprofloxacin Allergy Anaphylaxis Verified 05/04/22 12:52 Surgical History History of colostomy reversal Hx of appendectomy Social History Smoking Status: Former smoker ROS ROS ED Constitutional Constitutional ED: Denies chills or fever(s) Eyes Eyes: Denies blurry vision or change in vision ENT ENT ED: Denies rhinorrhea or sore throat Cardiovascular Cardiovascular: Reports chest pain; Denies palpitations Respiratory/Chest Respiratory/Chest: Reports dyspnea; Denies cough Gastrointestinal Gastrointestinal: Reports nausea; Denies abdominal pain or vomiting Genitourinary Genitourinary ED: Denies dysuria or hematuria Musculoskeletal Musculoskeletal: Reports back pain; Denies neck pain Integumentary Denies abscess or rash Neurologic Neurologic: Reports headache(s); Denies weakness Allergic/Immunologic Allergic/Immunologic ED: Denies mouth swelling or urticaria EXAM Physical Exam Const Vital Signs: 05/04/22 12:52 05/04/22 12:54 05/04/22 14:14 Temperature 96.3 F L Temperature Source Temporal Pulse Rate 65 61 Respiratory Rate 18 Respiratory Effort Normal Non-Labored Blood Pressure 173/106 H 146/99 H Blood Pressure Mean 128 114 Pulse Ox 93 100 Oxygen Delivery Method Room Air Room Air 05/04/22 15:16 Temperature Temperature Source Pulse Rate 57 L Respiratory Rate Respiratory Effort Blood Pressure 153/104 H Blood Pressure Mean 120 Pulse Ox Oxygen Delivery Method Positive well nourished and well developed General Appearance ED: well developed and NAD HEENT normocephalic and atraumatic Eyes PERRL and EOMs intact bilaterally Neck supple and no JVD Chest Wall palpation of chest normal Resp normal respiratory effort and clear to auscultation bilaterally Effort and Inspection: Negative for respiratory distress Cardio regular rate, regular rhythm and no murmurs GI normal to inspection, nondistended, normoactive bowel sounds, soft to palpation, non-tender and non-distended Extremity normal to inspection General Extremety ED: Negative for edema or tenderness General Extremity: Negative for edema Neuro oriented x3, CN's II-XII intact bilaterally and no sensory deficits noted Sensorium / Orientation: awake and alert Motor Exam: strength 5/5 throughout Psych mental status grossly normal Heart Score History: Moderately Suspicious ECG: Normal Age: >45 - <65 years Risk Factors: 1 or 2 Risk Factors Troponin: </= Normal Limit Score: 3 MDM MDM MDM Narrative Medical decision making narrative: EKG was obtained. On my interpretation, it showed a normal sinus rhythm with occasional PACs with a rate of 65. PA interval, QRS interval, and QTc intervals were all normal. [place] was normal. There are no acute ST or T wave changes. Portable 1 view chest x-ray was obtained. On my interpretation, lung randall are clear. There is normal cardiac silhouette. Bony thorax is normal. There is no acute process noted. Radiologist also interpreted the x-ray and agrees. CBC was within normal limits. Basic metabolic profile was within normal limits. Initial high-sensitivity troponin was normal at 10. D-dimer was elevated at 3.8. 2-hour repeat high-sensitivity troponin was normal at 8. Because of the elevated D-dimer, CTA of the chest was obtained. There is no evidence of pulmonary embolism. There are multiple new bilateral pulmonary nodules suspicious for metastasis. This was interpreted by the radiologist and reviewed by myself. Patient was advised of his findings. Patient states he has had a recent PET scan and is being followed closely by his oncologist. Patient has a HEART score of 3. Patient was advised that this is low risk for acute cardiac event. Patient was instructed to follow-up with his primary care physician in 5 to 7 days. Patient was instructed to return if worse in any way. Lab Data Attestation: I reviewed the patient's lab results. Labs: Laboratory Results - last 24 hr 05/04/22 05/04/22 05/04/22 12:56 12:56 12:56 WBC 5.6 RBC 4.76 Hgb 14.0 Hct 44.3 MCV 93.1 MCH 29.4 MCHC 31.6 L RDW Std Deviation 51.8 H RDW Coeff of Marito 15.1 H Plt Count 222 MPV 11.1 Immature Gran % (Auto) 0.700 Neut % (Auto) 58.8 Lymph % (Auto) 25.4 [place] % (Auto) 13.6 H Eos % (Auto) 1.1 Baso % (Auto) 0.4 Absolute Neuts (auto) 3.3 Absolute Lymphs (auto) 1.42 Nucleated RBC % 0 D-Dimer Quant (PE/DVT) 3.80 H* Sodium 141 Potassium 3.6 Chloride 104 Carbon Dioxide 29.0 Anion Gap 8 BUN 17 Creatinine 0.87 Estim Creat Clear Calc 111.97 Est GFR (MDRD) Af Amer 115 Est GFR (MDRD) Non-Af 95 BUN/Creatinine Ratio 19.5 Glucose 88 Calcium 9.9 Troponin I High Sens 10 05/04/22 15:40 WBC RBC Hgb Hct MCV MCH MCHC RDW Std Deviation RDW Coeff of Marito Plt Count MPV Immature Gran % (Auto) Neut % (Auto) Lymph % (Auto) [place] % (Auto) Eos % (Auto) Baso % (Auto) Absolute Neuts (auto) Absolute Lymphs (auto) Nucleated RBC % D-Dimer Quant (PE/DVT) Sodium Potassium Chloride Carbon Dioxide Anion Gap BUN Creatinine Estim Creat Clear Calc Est GFR (MDRD) Af Amer Est GFR (MDRD) Non-Af BUN/Creatinine Ratio Glucose Calcium Troponin I High Sens 8 Radiography Chest X-Ray - ED: 1 View, Read by ED Physician, Read by Radiologist and No Acute Disease Diagnostic Testing: Clinical Impression(s) from Imaging Studies Chest X-Ray 05/04/22 13:40 IMPRESSION: Normal x-ray examination of the chest. Electronically Signed: Seth Reyes MD at 13:54 EST , Chest CTA 05/04/22 14:28 IMPRESSION: 1. Stable hepatic hypodensity. 2. Partially visualized abdominal ascites. 3. No demonstrated pulmonary embolism or arterial dissection. 4. There is a left pleural effusion. 5. There are multiple new bilateral pulmonary nodules concerning for metastatic disease. Electronically Signed: Raudel Rodriguez MD at 16:21 EST , EKG Initial EKG: Attestation: I personally reviewed and interpreted this EKG as follows: Interpretation: Sinus Rhythm (With PACs with a rate of 65) and No Acute Injury Pattern Prior EKG tracings: available for review Prior: Unchanged (03/06/2021) Discharge Plan Triage Chief Complaint: Chest Pain ED Provider: Joaquin Salvador Dx/Rx/DC Orders Clinical Impression: Chest pain Instructions: ED Chest Pain, Uncertain Cause Prescriptions: No Action lisinopril 10 mg tablet 30 mg PO DAILY Label Comments: TAKE 3 TABLETS BY MOUTH ONCE DAILY Primary Care Provider: Brayan Pierce Referrals: Brayan Pierce MD [Primary Care Provider] - 5-7 Days Disposition Disposition: Home, Self Care Discharge Date/Time: 05/04/22 17:30
--- NOTE | 2022-05-04 13:23 | EKG12_ITS ---
Test Reason : CP Blood Pressure : / mmHG Vent. Rate : 065 BPM Atrial Rate : 065 BPM P-R Int : 154 ms QRS Dur : 084 ms QT Int : 406 ms P-R-T Axes : 035 055 022 degrees QTc Int : 422 ms Sinus rhythm with Premature atrial complexes Otherwise normal ECG Confirmed by HELENA HERNANDEZ, ANSHUL ([id number]), science editor GALE BOYER ([id number]) on 05/08/2022 11:33:02 AM Referred By: RASHID Confirmed By:ANSHUL MALIK MD
[2022-05-04 13:35] LABS: Absolute Lymphocyte Count 1.42 X10^3/uL (0.83-4.51); Absolute Neutrophil Count 3.3 X10^3/uL (2.0-7.7); Basophil# 0.02 X10^3/uL; Basophil% 0.4 % (0-1); Eosinophil# 0.06 X10^3/uL; Eosinophils% 1.1 % (0-5); Hematocrit 44.3 % (40-54); Lymphocyte # 1.42 X10^3/ul (0.83-4.51); Lymphocyte % 25.4 % (19-41); Mean Corp Hgb Conc 31.6 g/dL (32-36); Mean Corpuscular Hgb 29.4 pg (27.0-32.0); Mean Corpuscular Volume 93.1 fL (80-94); Mean Platelet Vol. 11.1 fl (6.2-12.0); Monocyte# 0.76 X10^3/uL; Monocyte% 13.6 % (0-10); NRBC Flagged by Analyzer 0 % (0-5); Neutrophil # 3.28 X10^3/uL (2.7-7.7); Neutrophil % 58.8 % (47-70); Platelet Count 222 K/mm3 (150-450); RBC Distribution Width CV 15.1 % (11.6-14.6); RBC Distribution Width SD 51.8 fl (35.1-43.9); Red Blood Count 4.76 M/mm3 (4.6-6.2); White Blood Count 5.6 K/mm3 (4.4-11.0)
[2022-05-04] MEDS: Aspirin 81 MG TAB.CHEW 324 MG PO (13:36)
--- NOTE | 2022-05-04 13:40 | RAD_ITS ---
STUDY: X-RAY CHEST REASON FOR EXAM: Male, 56 years old. Chest pain TECHNIQUE: Single AP portable view of the chest. COMPARISON: Comparison is made with prior study dated 03/06/2021. FINDINGS: A left-sided Port-A-Cath is seen with the tip at the junction of the superior vena cava and right atrium. EKG electrodes are seen. The lungs are clear and expanded. There is no demonstrated pleural abnormality. Normal size heart. Normal mediastinum and joaquin. Normal visualized pulmonary arteries. Normal visualized aortic arch and descending thoracic aorta. Normal visualized thoracic spine. Normal visualized ribs, clavicles, and shoulders. There is no demonstrated abnormality of the visualized soft tissue structures of the upper abdomen. RAD/Chest 1 View (Portable) IMPRESSION: Normal x-ray examination of the chest. Electronically Signed: Seth Reyes MD at 13:54 EST ,
[2022-05-04 14:03] LABS: Anion Gap 8 (5-15); BUN 17 mg/dL (7-18); BUN/Creat Ratio 19.5 RATIO (10-20); Calcium,Total 9.9 mg/dL (8.5-10.1); Chloride 104 mmol/L (98-107); Creatinine, Serum 0.87 mg/dL (0.70-1.30); EST Glomerular Filtration Rate 95 mL/min (>60); Est Glom Filt Rate - Afr Amer 115 mL/min (>60); Estimated Creatinine Clearance 111.97 ml/min; Glucose 88 mg/dL (74-106); Potassium 3.6 mmol/L (3.5-5.1); Sodium Level 141 mmol/L (136-145); Troponin-I HS (w/2H Reflex) 10 pg/mL (3.0-78.0)
[2022-05-04 14:14] VITALS: BP 146/99; PULSE 61; O2SAT 100
--- NOTE | 2022-05-04 14:28 | CT_ITS ---
EXAM: CT ANGIOGRAPHY CHEST WITHOUT AND WITH INTRAVENOUS CONTRAST CLINICAL INDICATION: Elevated D-dimer chest pain short of breath TECHNIQUE: Helically acquired angiography images were obtained of the chest without and with intravenous contrast. This CT exam was performed using one or more of the following dose reduction techniques: automated exposure control, adjustment of the mA and/or kV according to patient size, and/or use of iterative reconstruction technique. This report was created using [employer] report generation technology. MIP reconstructed images were created and reviewed. CONTRAST: IV 100mL Isovue-370 RADIATION DOSE: CTDIvol = 12.53 mGy, DLP = 474.65 mGy-cm COMPARISON: Jun 16 2018 11:35am FINDINGS: PULMONARY ARTERIES: No demonstrated pulmonary embolism or arterial dissection. AORTA: There is atherosclerotic calcification of the aortic arch with tortuosity and elongation of the aortic arch and descending thoracic aorta. Normal in caliber. No evidence of dissection. GREAT VESSELS OF AORTIC ARCH: Unremarkable. Normal in caliber. No evidence of dissection. LUNGS AND PLEURAL SPACES: There is a left pleural effusion. New right lower lobe nodules measuring around 3 mm. New right middle nodule is visualized. There are several other right middle lobe nodules with the largest measures 6 mm. Series 2 image 86. New right upper lobe nodule. This measures 4.7 mm. Series 2 image 179. New left lower lobe nodule measures 3 mm. There are several other 3 mm left lower lobe nodules. Multiple nodules in the left upper lobe. These measure around 3 mm. Series 2 image 120. No pneumothorax. HEART: There are calcifications of the coronary arteries. No pericardial effusion. No signs of right heart strain, ratio of right ventricle to left ventricle measures less than 1. MEDIASTINUM: Unremarkable. No mediastinal or hilar adenopathy. Esophagus is unremarkable. No hiatal hernia. THYROID: Unremarkable. No thyroid lesions. BONES/JOINTS: There are degenerative changes of the shoulders. There are multi-level degenerative changes of the thoracic spine. No suspicious lytic or blastic abnormality. LIVER: Stable hepatic hypodensity. INTRAPERITONEAL SPACE: Partially visualized abdominal ascites. TUBES, LINES AND DEVICES: There is a left Port-A-Cath and/or mediport in place. The tip is in the superior vena cava. CT/CTA Chest W/WO Contrast IMPRESSION: 1. Stable hepatic hypodensity. 2. Partially visualized abdominal ascites. 3. No demonstrated pulmonary embolism or arterial dissection. 4. There is a left pleural effusion. 5. There are multiple new bilateral pulmonary nodules concerning for metastatic disease. Electronically Signed: Raudel Rodriguez MD at 16:21 EST ,
[2022-05-04 15:16] VITALS: BP 153/104; PULSE 57
[2022-05-04 15:31] LABS: Reflex Troponin-HS? (from REC) Y
[2022-05-04 16:43] LABS: Troponin-I HS 8 pg/mL (3.0-78.0)
== END 2022-05-04 17:30 | disposition home or self-care (01) ==
PROVIDERS: Emergency Provider Emergency Medicine; PCP Family Medicine; Visit Provider Emergency Medicine
DX: R07.9 Chest pain, unspecified (principal); I10 Essential (primary) hypertension; R06.02 Shortness of breath; R11.0 Nausea; R51.9 Headache, unspecified; Z87.891 Personal history of nicotine dependence
CPT/HCPCS: 71045; 71275; 80048; 84484; 85025; 85379; 93005; 99285; Q9967

== ENCOUNTER 2023-12-29 12:03 | Emergency (ER) | payer OTHER, SELFPAY ==
[2023-12-29 12:03] VITALS: BP 95/71; PULSE 94; RESP 17; TEMP 35.9; O2SAT 94; BMI 19.8
--- NOTE | 2023-12-29 12:11 | EX.ED.DYSGE1 ---
HPI History of Present Illness Chief Complaint: Lower Extremity Injury Detail of Chief Complaint: Atraumatic swelling left lower extremity Informant: patient Onset/Context/Timing Onset: Days Context: Sudden Onset Timing: Continuous Quality: Swelling and discoloration left lower extremity Location: Left leg Current Severity: Moderate Maximum Severity: Moderate Worsened by: Nothing Relieved by: Nothing Associated Symptoms Associated Symptoms: No complaint of chest pain, dyspnea, dyspnea on exertion or prior history o Narrative Narrative: Patient is a 58-year-old male. He has stage IV colon cancer. He is on chemotherapy. He receives therapy every Saturday. His next dose is Saturday. He was on a clinical trial prior to this chemo medicine. That medication had an associated risk of blood clots. Patient is unable to access his records from [facility]. Will attempt to obtain records through [employer]. Will obtain BMP to assess renal function. He will need an outpatient venous duplex study He states his oncologist is Dr. Dutch Escalante. Prior similar symptoms: Yes Recent Illness/Hospitalization: Yes PFSH PFSH Medical History Colon cancer Colostomy skilled nursing Medications ?Medication ?Instructions ?Recorded ?Last Taken ?Type lisinopril 10 mg tablet 30 mg PO DAILY 05/04/22 Unknown History apixaban 5 mg tablet (Eliquis) 5 mg PO .once #2 tabs 12/29/23 Unknown Rx Allergy/AdvReac Type Severity Reaction Status Date / Time ciprofloxacin Allergy Anaphylaxis Verified 05/04/22 12:52 Surgical History History of colostomy reversal Hx of appendectomy Social History Smoking Status: Former smoker ROS ROS ED Constitutional Constitutional ED: Denies chills, fever(s), subjective, sweats or weight loss Cardiovascular Cardiovascular: Denies chest pain, orthopnea, palpitations or paroxysmal nocturnal dyspnea Respiratory/Chest Respiratory/Chest: Denies cough, dyspnea, dyspnea on exertion, orthopnea or paroxysmal nocturnal dyspnea Gastrointestinal Gastrointestinal: Reports other Details: Patient does have a colostomy. ; Denies abdominal pain, nausea or vomiting Genitourinary Genitourinary ED: Reports other Details: Patient has bilateral nephrostomy tubes Integumentary Denies rash Hematologic/Lymphatic Hematologic/Lymphatic: Reports systems reviewed and no addt'l complaints, except as documented EXAM Physical Exam Const Vital Signs: 12/29/23 12:03 Temperature 96.7 F L Temperature Source Temporal Pulse Rate 94 Respiratory Rate 17 Blood Pressure 95/71 Blood Pressure Mean 79 Pulse Ox 94 Oxygen Delivery Method Room Air Positive well developed and cachectic General Appearance ED: well developed, cachectic and NAD; Negative for pallor Nutritional Appearance: cachectic HEENT HEENT Narrative: HEENT is grossly unremarkable other than temporal wasting. Eyes PERRL and EOMs intact bilaterally General Eye ED: Yes scleral icterus Resp normal respiratory effort Cardio regular rate and regular rhythm Narrative: There is no inguinal lymphadenopathy on the left. Back/Spine Back/Spine Narrative: Bilateral nephrostomy tubes noted. Extremity Negative for normal to inspection Extremity Narrative: Patient has swelling with slight discoloration of the left lower extremity which involve the leg predominantly. There is some slight venous vein distention. There is no palpable cords or tenderness on the distribution deep venous system. General Extremety ED: Yes edema General Extremity: edema Neuro oriented x3 and CN's II-XII intact bilaterally Sensorium / Orientation: alert Psych mental status grossly normal Skin no rashes or lesions noted, no wounds and skin turgor normal General Skin Exam: Negative for pallor MDM MDM MDM Narrative Medical decision making narrative: Differential diagnosis includes unilateral lymphadenopathy due to metastatic colon cancer causing obstruction, DVT, decreased mobility. Will obtain BMP to assess renal function. He will need an outpatient venous duplex study since not available at this time, Saturday History & Record Review Additional record(s) reviewed:: Prior labs (Creatinine on December 26 was 0.9 with an estimated GFR of 96. Therefore will give dose of Eliquis in the department and order for outpatient venous duplex study) Discharge Plan Triage Chief Complaint: Lower Extremity Injury ED Provider: Christian Stout Dx/Rx/DC Orders Clinical Impression: Lymphedema of left leg, Hx of colon cancer, stage IV Instructions: ED Peripheral Edema, Unilateral Prescriptions: New Eliquis 5 mg tablet 5 mg PO .once Qty: 2 0RF Rx Instructions: Take dose after midnight No Action lisinopril 10 mg tablet 30 mg PO DAILY Patient Comments: TAKE 3 TABLETS BY MOUTH ONCE DAILY Other Ambulatory Orders: Venous Duplex US, Unilateral (Stat) Facility: [facility] - Location: [facility] Ordered By: Dr. Christian Stout Primary Care Provider: Brayan Pierce Referrals: Brayan Pierce MD [Primary Care Provider] - Print Language: Portuguese Disposition Disposition: Home, Self Care
[2023-12-29] MEDS: APIXABAN 5 MG TABLET 10 MG PO (12:49)
== END 2023-12-29 12:52 | disposition home or self-care (01) ==
LOC: ED 12:39
PROVIDERS: Emergency Provider Emergency Medicine; PCP Family Medicine; Visit Provider Emergency Medicine
DX: I89.0 Lymphedema, not elsewhere classified (principal); Z93.3 Colostomy status; C18.9 Malignant neoplasm of colon, unspecified; Z87.891 Personal history of nicotine dependence; Z79.899 Other long term (current) drug therapy; Z79.01 Long term (current) use of anticoagulants
CPT/HCPCS: 99282

== ENCOUNTER → 2023-12-30 | Outpatient (CLI) | payer OTHER, SELFPAY ==
--- NOTE | 2023-12-30 14:08 | VDLE_ITS ---
Reason For Study: LLE Swelling RIGHT LEFT FV is compressible, spontaneous, phasic, GSV is normal. competent and demonstrates normal CFV is compressible, spontaneous, phasic, augmentation. competent, and demonstrates normal Procedure augmentation. This is a venous duplex using B-mode, color FV is compressible, spontaneous, phasic, flow and spectral Doppler. competent and demonstrates normal Exam performed in department. augmentation. The exam was diagnostic. POP V is compressible, spontaneous, phasic, A preliminary report was called and/or faxed competent and demonstrates normal to Dr Pierce office. augmentation. T/P Trunk is compressible. PTV is compressible. LT PerV is compressible. VL/Venous Duplex US, Unilateral Interpretation Summary Deep veins of the left lower extremity are patent and compressible segmentally. There is no evidence of left lower extremity deep vein thrombosis. The left great saphenous vein nika ears patent and compressible segmentally. Ordering Physician: Christian Stout Referring Physician: MD Kari Brayan Performed By: Kenneth Young RVT
== END | disposition home or self-care (01) ==
LOC: CVS 14:05
PROVIDERS: PCP Family Medicine; Visit Provider Emergency Medicine
DX: M79.89 Other specified soft tissue disorders (principal); R22.42 Localized swelling, mass and lump, left lower limb
CPT/HCPCS: 93971

== ENCOUNTER 2024-01-28 14:11 | Inpatient (IN) | payer OTHER, SELFPAY ==
[2024-01-28] VITALS (20 sets, daily range): BP systolic 111–177; BP diastolic 77–135; PULSE 61–121; RESP 12–19; TEMP 36.2–37.3; O2SAT 97–100; BMI 20.2; BMI 20.3
--- NOTE | 2024-01-28 14:30 | RAD_ITS ---
STUDY: X-RAY - ABDOMEN/PELVIS REASON FOR EXAM: Male, 58 years old. NG Insertion TECHNIQUE: Single AP view of the abdomen / pelvis. COMPARISON: None. FINDINGS: Mild bibasilar atelectasis. A left-sided Port-A-Cath is seen with the tip in the right atrium. The tip of the nasogastric tube is in the first portion of the duodenum. There is a moderate amount of colonic fecal material. Findings suggestive of bilateral nephrostomy tubes. Normal soft tissue structures. Normal visualized osseous structures. RAD/Abdomen Single View (Portable) IMPRESSION: The tip of the nasogastric tube is in the first portion of the duodenum. Bibasilar atelectasis. Electronically Signed: Seth Reyes MD at 15:04 EDT ,
--- NOTE | 2024-01-28 14:31 | EKG12_ITS ---
Test Reason : ANGIO EDEMA Blood Pressure : / mmHG Vent. Rate : 122 BPM Atrial Rate : 122 BPM P-R Int : 112 ms QRS Dur : 080 ms QT Int : 422 ms P-R-T Axes : 000 059 085 degrees QTc Int : 601 ms Critical Test Result: Long QTc Sinus tachycardia Nonspecific T wave abnormality Abnormal ECG Confirmed by Karlos Crespo ([id number]), editor producer BRETT ENRIQUEZ ([id number]) on 01/30/2024 9:22:35 AM Referred By: Confirmed By:Karlos Crespo
[2024-01-28] MEDS: 0.9% Normal Saline (1000mL) 1,000 ML 150 ML IV ×2 (14:38→17:45)
[2024-01-28] MEDS: Etomidate 20 MG/10 ML Vial IV (14:38)
[2024-01-28] MEDS: Rocuronium Bromide 50 MG/5 ML Vial 85 MG IV (14:40)
[2024-01-28 14:43] LABS: Absolute Lymphocyte Count 0.48 X10^3/uL (0.83-4.51); Absolute Neutrophil Count 5.7 X10^3/uL (2.0-7.7); Hematocrit 41.5 % (40-54); Lymphocyte # 0.48 X10^3/ul (0.83-4.51); Lymphocyte % 7.6 % (19-41); Mean Corp Hgb Conc 31.3 g/dL (32-36); Mean Corpuscular Hgb 25.6 pg (27.0-32.0); Mean Corpuscular Volume 81.9 fL (80-94); Mean Platelet Vol. 10.3 fl (6.2-12.0); Monocyte# 0.09 X10^3/uL; Monocyte% 1.4 % (0-10); NRBC Flagged by Analyzer 0 % (0-5); Neutrophil # 5.73 X10^3/uL (2.7-7.7); Neutrophil % 90.5 % (47-70); POSITIVE DIFFERENTIAL YES; Platelet Count 322 K/mm3 (150-450); RBC Distribution Width CV 16.7 % (11.6-14.6); RBC Distribution Width SD 49.5 fl (35.1-43.9); Red Blood Count 5.07 M/mm3 (4.6-6.2); White Blood Count 6.3 K/mm3 (4.4-11.0)
[2024-01-28] MEDS: Propofol 10MG/Ml 1,000 MG/100 ML Bottle 4.4 MG CONT INF (14:45)
--- NOTE | 2024-01-28 14:45 | RAD_ITS ---
STUDY: X-RAY CHEST REASON FOR EXAM: Male, 58 years old. Intubation TECHNIQUE: Single AP portable view of the chest. COMPARISON: Comparison is made with prior study dated May 04, 2022. FINDINGS: An endotracheal tube is in situ. The tip is at 5.1 cm proximal to the olga. A left-sided Port-A-Cath is seen with the tip in the right atrium. Increased markings at the lung bases suggestive of bibasilar atelectasis. Questionable 1.4 cm nodule in the right infrahilar region. There is no demonstrated pleural abnormality. Normal size heart. Normal mediastinum and joaquin. Normal visualized pulmonary arteries. Normal visualized aortic arch and descending thoracic aorta. Normal visualized thoracic spine. Normal visualized ribs, clavicles, and shoulders. A nasogastric tube is seen with the tip in the stomach. There is evidence of a PEG tube. RAD/Chest 1 View (Portable) IMPRESSION: Bibasilar atelectasis. The tip of the endotracheal tube is at 5.1 cm proximal to the olga. Questionable 1.4 cm nodule in the right infrahilar region. Electronically Signed: Seth Reyes MD at 15:05 EDT ,
--- NOTE | 2024-01-28 14:49 | VDLE_ITS ---
Reason For Study: Left leg swelling Procedure LEFT This is a venous duplex using B-mode, color GSV is normal. flow and spectral Doppler. CFV is compressible, spontaneous, phasic, Exam performed in department. competent, and demonstrates normal A preliminary report was called and/or faxed augmentation. to Cinthya RN. FV is compressible, spontaneous, phasic, competent and demonstrates normal augmentation. POP V is compressible, spontaneous, phasic, competent and demonstrates normal augmentation. T/P Trunk is compressible. PTV is compressible. LT PerV is compressible. VL/Venous Duplex US, Unilateral Interpretation Summary Deep veins of the left lower extremity are patent and compressible segmentally. There is no evidence of left lower extremity deep vein thrombosis. The left great saphenous vein nika ears patent and compressible segmentally. Ordering Physician: Christian Stout Referring Physician: MD Kari Brayan Performed By: Ayse Juan RVT
--- NOTE | 2024-01-28 14:50 | ED.RN ---
Pt restless, intermittently pulling at tubes and wires, unable to redirect.
[2024-01-28 14:57] LABS: ALB/GLOB Ratio 0.6 RATIO (0.9-2.4); AST(SGOT) 17 U/L (15-37); Alanine Aminotransfer ALT/SGPT 8 U/L (16-61); Albumin, Serum 2.9 g/dL (3.2-5.0); Alkaline Phosphatase 76 U/L (45-117); Anion Gap 10 (5-15); BUN 30 mg/dL (7-18); BUN/Creat Ratio 22.9 RATIO (10-20); Calcium,Total 9.6 mg/dL (8.5-10.1); Chloride 104 mmol/L (98-107); Creatinine, Serum 1.31 mg/dL (0.70-1.30); EST Glomerular Filtration Rate 59 mL/min (>60); Est Glom Filt Rate - Afr Amer 72 mL/min (>60); Estimated Creatinine Clearance 62.91 ml/min; Globulin 4.6 g/dL (2.2-4.2); Glucose 159 mg/dL (74-106); Potassium 4.4 mmol/L (3.5-5.1); Protein, Total 7.5 g/dL (6.4-8.2); Sodium Level 134 mmol/L (136-145)
--- NOTE | 2024-01-28 15:01 | EX.ED.DYSGE1 ---
HPI History of Present Illness Chief Complaint: Allergic Reaction Detail of Chief Complaint: Swelling of lips tongue with change in voice that started 30 minutes prior Informant: patient and spouse/S.O. Onset/Context/Timing Onset: Hours (0.5) Context: Sudden Onset Timing: Continuous Quality: Angioedema Location: Oral cavity Current Severity: Moderate Maximum Severity: Moderate Worsened by: Patient on lisinopril Relieved by: Nothing Associated Symptoms Associated Symptoms: Dysphonia Narrative Narrative: patient is a history of stage IV colon cancer under the care of Dr. Rosario. He is on a chemo medication that does increase likelihood of clot. He is no longer on Eliquis. He was seen by me approximate month ago and evaluated for DVT. At that time he was on Eliquis and venous duplex study was negative. Patient presumes this is due to the prednisone he was placed on for rash on his face. Patient denies fever, chills night sweats. Patient denies cardiac or respiratory symptoms. Patient denies GI symptoms. Patient does make urine. He has a right and left nephrostomy tube. informed me that the left nephrostomy tube stitch broke and plan was to have this changed on Saturday at [facility]. Prior similar symptoms: No Recent Illness/Hospitalization: Yes [facility] Medical History Colostomy care Colon cancer Home Medications ?Medication ?Instructions ?Recorded ?Last Taken ?Type lisinopril 10 mg tablet 30 mg PO DAILY 05/04/22 Unknown History fruquintinib 5 mg capsule 5 mg PO DAILY CANCER 01/28/24 Unknown History (Fruzaqla) hydromorphone 4 mg tablet 4 mg PO Q2H PRN PAIN 01/28/24 Unknown History megestrol 400 mg/10 mL (40 mg/mL) 800 mg PO DAILY LOSS OF 01/28/24 Unknown History oral suspension APPETITE/WEIGHT LOSS methylcellulose (laxative) 500 mg 500 mg PO DAILY CONSTIPATION 01/28/24 Unknown History tablet (Citrucel) morphine 60 mg tablet,extended 120 mg PO Q12H PAIN 01/28/24 Unknown History release prednisone 20 mg tablet See Taper PO DAILY STEROID 01/28/24 Unknown History prochlorperazine maleate 10 mg 10 mg PO Q6H PRN NAUSEA 01/28/24 Unknown History tablet sennosides 8.6 mg-docusate sodium 1 tab-cap PO 4X/DAY PRN 01/28/24 Unknown History 50 mg tablet (Stool CONSTIPATION Softener-Laxative) Allergy/AdvReac Type Severity Reaction Status Date / Time ciprofloxacin Allergy Anaphylaxis Verified 01/28/24 14:14 Surgical History History of colostomy reversal Hx of appendectomy Social History (Updated 01/28/24 @ 15:[address] Christian Stout MD) household members: spouse and children Smoking Status: Former smoker ROS ROS ED Constitutional Constitutional ED: Denies chills, fever(s), subjective, sweats or weight loss Eyes Eyes: Denies blurry vision or change in vision ENT ENT ED: Reports other Details: Swelling of lips, tongue and throat with change in voice ; Denies ear pain, rhinorrhea or sore throat Cardiovascular Cardiovascular: Denies chest pain or palpitations Respiratory/Chest Respiratory/Chest: Denies cough, dyspnea or dyspnea on exertion Gastrointestinal Gastrointestinal: Denies abdominal pain, nausea or vomiting Genitourinary Genitourinary ED: Denies dysuria, hematuria or urinary frequency Musculoskeletal Musculoskeletal: Denies arthralgias or myalgias Integumentary Reports rash Neurologic Neurologic: Denies headache(s) or weakness Endocrine Endocrinology: Denies cold intolerance or heat intolerance Hematologic/Lymphatic Hematologic/Lymphatic: Reports systems reviewed and no addt'l complaints, except as documented EXAM Physical Exam Const Vital Signs: 01/28/24 14:15 01/28/24 14:34 Temperature 97.1 F L Temperature Source Temporal Pulse Rate 78 88 Respiratory Rate 18 16 Blood Pressure 111/77 149/95 H Blood Pressure Mean 88 113 Pulse Ox 97 97 Oxygen Delivery Method Room Air Room Air Positive well nourished and well developed General Appearance ED: well developed and NAD; Negative for pallor HEENT Reports dry mucous membranes HEENT Narrative: Patient has swelling of the lips, tongue Mallampati score 3 Negative for trauma Mouth ED: Yes dry mucous membranes Mouth: dry mucous membranes Eyes PERRL and EOMs intact bilaterally General Eye ED: Yes pale conjunctiva; Negative for scleral icterus Neck no lymphadenopathy, supple and no JVD Neck Narrative: Trachea is midline. There is no inspiratory expiratory stridor. Chest Wall inspection of chest normal and palpation of chest normal Resp normal respiratory effort and clear to auscultation bilaterally Auscultation: Negative for rales, rhonchi or wheezes Cardio regular rate, regular rhythm, S1 normal heart sound, S2 normal heart sound and no murmurs GI non-tender, non-distended and no masses; Negative for hepatosplenomegaly Palpation: soft Narrative: Right and left nephrostomy tube. Back/Spine no CVA tenderness Thoracic Spine / Upper Back: Negative for thoracic spinal tenderness Lumbar Spine / Lower Back: Negative for lumbar spinal tenderness Extremity Negative for normal to inspection Extremity Narrative: Patient has swelling and firmness and tenderness of the left lower extremity. There is a marked difference compared to the right. Neuro oriented x3 and CN's II-XII intact bilaterally Sensorium / Orientation: alert Psych mental status grossly normal Skin No no rashes or lesions noted Skin Narrative: Patient has a erythematous pruritic rash around his mouth. General Skin Exam: Negative for jaundice or pallor MDM MDM MDM Narrative Medical decision making narrative: Patient has angioedema and all likely due to lisinopril. This is not an allergic reaction. Patient and were informed of this. Patient's symptom started 30 minutes prior to presentation. In light of the rapid onset with change in voice and Mallampati 3 recommended intubation. Respiratory was contacted. Difficult airway cart was in the room. Patient received 20 mg of etomidate. There was slight difficulty passing the glide scope past the base of the tongue. Once the glide scope did pass the base of the tongue I was able to see the epiglottis and cords which appeared normal. To facilitate relaxation and the fact that I am able to see the epiglottis and vocal cords easily patient was given rocuronium 85 mg. Endotracheal tube was placed first attempt. There was appropriate breath sounds bilaterally. There is appropriate color change on the capnometer. Chest x-ray was obtained which reveals proper position of the endotracheal tube. KUB was obtained which reveals proper position of the orogastric tube. The orogastric tube was placed by me because nurse was unable to pass because of the angioedema. A Juarez was placed for accurate I's and O's and she still makes urine. Venous duplex study was obtained to evaluate for DVT left lower extremity. Dr. Dutch Escalante was contacted by the hospitalist prior to me contacting him. Therefore there was no need for me to personally speak with him. was informed that he is intubated and went relatively well. She was told he may be on a ventilator for 24 to 48 hours. Lab Data Attestation: I reviewed the patient's lab results. Lab results narrative: CBC is unremarkable. Basic metabolic panel was a glucose of 159 with a normal CO2 and anion gap. BUN to creatinine ratio is elevated. Estimated GFR is 59. Albumin is slightly low with a normal calcium. Labs: Laboratory Results - last 24 hr 01/28/24 14:35 WBC 6.3 RBC 5.07 Hgb 13.0 Hct 41.5 MCV 81.9 MCH 25.6 L MCHC 31.3 L RDW Std Deviation 49.5 H RDW Coeff of Marito 16.7 H Plt Count 322 MPV 10.3 Immature Gran % (Auto) 0.500 Neut % (Auto) 90.5 H Lymph % (Auto) 7.6 L [place] % (Auto) 1.4 Eos % (Auto) 0.0 Baso % (Auto) 0.0 Absolute Neuts (auto) 5.7 Absolute Lymphs (auto) 0.48 L Nucleated RBC % 0 Sodium 134 L Potassium 4.4 Chloride 104 Carbon Dioxide 20.0 L Anion Gap 10 BUN 30 H Creatinine 1.31 H Estim Creat Clear Calc 62.91 Est GFR (MDRD) Af Amer 72 Est GFR (MDRD) Non-Af 59 L BUN/Creatinine Ratio 22.9 H Glucose 159 H Calcium 9.6 Total Bilirubin 0.50 AST 17 ALT 8 L Alkaline Phosphatase 76 Total Protein 7.5 Albumin 2.9 L Globulin 4.6 H Albumin/Globulin Ratio 0.6 L ABG Data Interpretation: ABG was ordered to be obtained 1 hour after vent. Radiography Chest X-Ray - ED: 1 View (Intimately reviewed interpreted by me as negative for any acute pulmonary process. Intracutaneously is several centimeters above the olga.) and Read by ED Physician (KUB independent reviewed interpreted by me. OG is in proper position.) Diagnostic Testing: Clinical Impression(s) from Imaging Studies KUB X-Ray 01/28/24 14:30 IMPRESSION: The tip of the nasogastric tube is in the first portion of the duodenum. Bibasilar atelectasis. Electronically Signed: Seth Reyes MD at 15:04 EDT , EKG Initial EKG: Attestation: I personally reviewed and interpreted this EKG as follows: Interpretation: Sinus Tachycardia (Rate is 122 ms. NE interval is 112 ms. QRS durations 80 ms. QT C is 600 mL seconds. This is prolonged. [place] is normal. There is no ossific changes noted. Is no acute ischemic changes noted.) Comments: Patient should not receive any medication that may prolong QT. Treatment and Re-Evaluation :: Patient is resting comfortably on a propofol drip. He is in soft wrist restraints. Procedures Intubations Intubation Method: orotracheal Intubation Verification: Positive color change and Bilateral breath sounds confirmed Intubation Complications: no complications Other Procedures Procedure(s): Placement of orogastric tube since nursing staff was unable to. Critical Care Time Critical Care Time: Yes Critical care time (excluding procedures): 30-74 minutes (33), Including time spent: (History, physical, documentation, review of prior records, independent rotation of imaging and laboratory results,), Discussing w/Patient &/or Family/Refrigeration Supervisor (Per patient and spouse prior to intubation and spouse after intubation.), Discussing w/Consultants, Arranging Admission or Transfer and Performing Direct Patient Care at Bedside (Direct care for angioedema due to PERLA inhibitor) Discharge Plan Dx/Rx/DC Orders Clinical Impression: PERLA inhibitor-aggravated angioedema, Hydronephrosis due to obstruction of ureter, History of colon cancer, stage IV, Acute prerenal azotemia, Prolonged Q-T interval on ECG Disposition Disposition: [facility]
[2024-01-28 16:17] LABS: Base Excess -6 mmol/L (-2 to +2); Bicarbonate 19.3 mmol/L (22-26); Blood Gas Specimen Type ART; Mode AC; O2 Delivery Device ET Tube; PEEP 5; PO2 137 mmHG (75-100); RR 12; SITE R Brach; SO2 99 % (95-99); Total Carbon Dioxide 20 mmol/L; pCO2 31.8 mmHg (35-45); pH 7.39 (7.35-7.45)
--- NOTE | 2024-01-28 17:15 | HP.PCM.HOS_ITS ---
HPI - General General Date of Admission: 01/28/24 Date of Service: 01/28/24 Chief Complaint: Change in voice, lip swelling, tongue swelling HPI Narrative SHENA AVILA, is a 58 M who presents to the emergency room at [facility] after being brought in by family members with complaints of swelling of the tongue and lips today, itchy eyes, and change in voice. Patient had been placed on prednisone recently and his sister was concerned he might be having a reaction from the prednisone. He had been taking prednisone for a rash on his face. Patient has a history of metastatic colon cancer and is being treated, he does have bilateral nephrostomy tubes due to ureteral obstruction. Evaluation in the ER revealed the patient's voice to be somewhat muffled, ER physician could not fully see the back of his throat, the emergency room physician felt that the patient was having angioedema from his use of lisinopril. I talked to the patient briefly and then the ER physician intubated the patient for airway protection in the ER. Patient's labs revealed a normal CBC, chemistry panel showed an elevated creatinine at 1.31 and BUN was elevated at 30. Glucose was 150. Patient is currently undergoing treatment for metastatic colon cancer and is on Fruquintinib, I talked briefly with his oncologist Dr. Escalante, he stated that hypercoagulability and hypertension were the 2 main side effects from the medication. On examination, patient did have left leg edema, he had been seen earlier in December in the ER and underwent a venous duplex which was negative for clots, this was repeated today and there was no evidence of VTE on the scan. Patient will be admitted to ICU, I have placed him on IV Decadron and IV Benadryl. REPLACED BY [facility] Medical History Colostomy care Colon cancer Home Medications ?Medication ?Instructions ?Recorded ?Last Taken ?Type lisinopril 10 mg tablet 30 mg PO DAILY 05/04/22 Unknown History fruquintinib 5 mg capsule 5 mg PO DAILY CANCER 01/28/24 Unknown History (Fruzaqla) hydromorphone 4 mg tablet 4 mg PO Q2H PRN PAIN 01/28/24 Unknown History megestrol 400 mg/10 mL (40 mg/mL) 800 mg PO DAILY LOSS OF 01/28/24 Unknown History oral suspension APPETITE/WEIGHT LOSS methylcellulose (laxative) 500 mg 500 mg PO DAILY CONSTIPATION 01/28/24 Unknown History tablet (Citrucel) morphine 60 mg tablet,extended 120 mg PO Q12H PAIN 01/28/24 Unknown History release prednisone 20 mg tablet See Taper PO DAILY STEROID 01/28/24 Unknown History prochlorperazine maleate 10 mg 10 mg PO Q6H PRN NAUSEA 01/28/24 Unknown History tablet sennosides 8.6 mg-docusate sodium 1 tab-cap PO 4X/DAY PRN 01/28/24 Unknown History 50 mg tablet (Stool CONSTIPATION Softener-Laxative) Allergy/AdvReac Type Severity Reaction Status Date / Time ciprofloxacin Allergy Anaphylaxis Verified 01/28/24 14:14 Surgical History History of colostomy reversal Hx of appendectomy Social History (Updated 01/28/24 @ 15:[address] Christian Stout MD) household members: spouse and children Smoking Status: Former smoker ROS ROS Narrative Review of systems unobtainable except for information obtained from family members due to patient being intubated Vital Signs Vital Signs Vital Signs: 01/28/24 14:15 01/28/24 14:34 01/28/24 14:40 Temperature 97.1 F L Temperature Source Temporal Pulse Rate 78 88 Respiratory Rate 18 16 Respiratory Effort Normal Non-Labored Respiratory Depth Normal Respiratory Pattern Normal Blood Pressure 111/77 149/95 H Blood Pressure Mean 88 113 Pulse Ox 97 97 Oxygen Delivery Method Room Air Room Air Fraction of Inspired Oxygen (FIO2) 01/28/24 14:40 01/28/24 15:01 01/28/24 15:30 Temperature Temperature Source Pulse Rate 90 121 H 76 Respiratory Rate 12 13 13 Respiratory Effort Respiratory Depth Respiratory Pattern Normal Blood Pressure 177/135 H 139/101 H Blood Pressure Mean 149 113 Pulse Ox 100 100 100 Oxygen Delivery Method Mechanical Ventilator Mechanical Ventilator Fraction of Inspired Oxygen (FIO2) 40 01/28/24 16:00 01/28/24 16:11 01/28/24 16:30 Temperature 98.2 F Temperature Source Pulse Rate 68 66 65 Respiratory Rate 14 12 12 Respiratory Effort Respiratory Depth Respiratory Pattern Blood Pressure 131/92 H 124/93 H 126/97 H Blood Pressure Mean 105 103 106 Pulse Ox 98 100 100 Oxygen Delivery Method Mechanical Ventilator Mechanical Ventilator Fraction of Inspired Oxygen (FIO2) 01/28/24 16:48 01/28/24 16:49 Temperature Temperature Source Pulse Rate 67 Respiratory Rate 18 Respiratory Effort Respiratory Depth Respiratory Pattern Normal Blood Pressure Blood Pressure Mean Pulse Ox 100 Oxygen Delivery Method Fraction of Inspired Oxygen (FIO2) 24 24 Weight Weight: 73.255 kg Body Mass Index (BMI) 20.2 Physical Exam Const Constitutional Narrative: Patient appears cachectic, he is sedated and on the ventilator at the time my exam General Appearance: well kempt and well developed HEENT normocephalic, head/scalp atraumatic and moist oral mucous membranes Eyes PERRL and conjunctivae normal Neck no JVD, thyroid normal and no carotid bruits General: trachea midline Resp normal respiratory effort, no retractions, no use of accessory muscles and clear to auscultation bilaterally Resp Narrative: Patient is sedated and on the ventilator Auscultation: Negative for rales, rhonchi or wheezes Cardio regular rate, regular rhythm, S1 normal heart sound, S2 normal heart sound, no murmurs, no rub and no gallops GI normal to inspection, nondistended, normoactive bowel sounds, soft to palpation and non-distended Extremity Extremity Narrative: Patient has generalized edema of his left leg on examination Skin Skin Narrative: Patient has bilateral nephrostomy tubes Neuro Neuro Narrative: Patient is sedated and on the ventilator Psych Psych Narrative: Patient is sedated and on the ventilator Results Lab / Micro Data 01/28/24 14:35 01/28/24 14:35 Labs: Laboratory Results - last 24 hr 01/28/24 14:35: WBC 6.3, RBC 5.07, Hgb 13.0, Hct 41.5, MCV 81.9, MCH 25.6 L, M CHC 31.3 L, RDW Std Deviation 49.5 H, RDW Coeff of Marito 16.7 H, Plt Count 322, MPV 10.3, Immature Gran % (Auto) 0.500, Neut % (Auto) 90.5 H, Lymph % (Auto) 7.6 L, [place] % (Auto) 1.4, Eos % (Auto) 0.0, Baso % (Auto) 0.0, Absolute Neuts (auto) 5.7, Absolute Lymphs (auto) 0.48 L, Nucleated RBC % 0, Sodium 134 L, Potassium 4.4, Chloride 104, Carbon Dioxide 20.0 L, Anion Gap 10, BUN 30 H, Creatinine 1.31 H, Estim Creat Clear Calc 62.91, Est GFR (MDRD) Af Amer 72, Est GFR (MDRD) Non-Af 59 L, BUN/Creatinine Ratio 22.9 H, Glucose 159 H, Calcium 9.6, Total Bilirubin 0.50, AST 17, ALT 8 L, Alkaline Phosphatase 76, Total Protein 7.5, A lbumin 2.9 L, Globulin 4.6 H, Albumin/Globulin Ratio 0.6 L ABG Data ABG results: ABG 01/28/24 16:13 Specimen Type ART Sample Site R Brach pH 7.39 Bicarbonate Actual 19.3 L Total CO2 20 Base Excess -6 L O2 Saturation 99 O2 % 40.0 ABG pCO2 31.8 L ABG pO2 137 H Respiration Rate 12 O2 Delivery Device ET Tube Vent Mode AC Tidal Volume 450.0 POC PEEP 5 Imaging Radiology Impression KUB X-Ray 01/28/24 14:30 IMPRESSION: The tip of the nasogastric tube is in the first portion of the duodenum. Bibasilar atelectasis. Electronically Signed: Seth Reyes MD at 15:04 EDT , Chest X-Ray 01/28/24 14:45 IMPRESSION: Bibasilar atelectasis. The tip of the endotracheal tube is at 5.1 cm proximal to the olga. Questionable 1.4 cm nodule in the right infrahilar region. Electronically Signed: Seth Reyes MD at 15:05 EDT , Venous Doppler Study 01/28/24 14:49 Interpretation Summary Deep veins of the left lower extremity are patent and compressible segmentally. There is no evidence of left lower extremity deep vein thrombosis. The left great saphenous vein appears patent and compressible segmentally. Ordering Physician: Christian Stout Referring Physician: MD Kari Brayan Performed By: Ayse Juan, RVT Assessment & Plan Assessment/Plan (1) PERLA inhibitor-aggravated angioedema: PLAN: Plan #1Angioedema secondary to PERLA inhibitor usage with impending airway compromise- again patient was intubated in the emergency room, he will be transferred to the ICU, I placed him on IV Decadron and IV Benadryl, patient will be seen by tele- ICU #2 metastatic colon cancer-complicates care, medical course, recovery, and prognosis #3 swelling of the left leg-VTE was ruled out, etiology unclear #4 hypertension-patient will be placed on Apresoline as needed #5 bilateral ureteral obstruction secondary to colon cancer-patient has [address], the one on the left side has a broken stitch, he was scheduled this Saturday to get the 1 on the left replaced because of the broken stitch, this may need to be done here while he is in the hospital, patient does produce urine. Total clinical time spent by myself addressing the patient's medical issues, reviewing all of his data, and collaborating with patient's care team: 55 minutes Charges/Coding Visit Charges Inpatient E&M: 20052 Init Hosp L2
[2024-01-28] MEDS: fentaNYL drip 100 ML 2.5 MCG CONT INF (17:46)
[2024-01-28] MEDS: 0.9% Normal Saline (1000mL) 1,000 ML 100 ML IV (18:05)
--- NOTE | 2024-01-28 18:14 | CON.PCM.CC_ITS ---
HPI Consult Data Date of Consult: 01/28/24 HPI Narrative HPI Narrative: 58 yo male with hx of Colon Ca(on biologics), HTN admitted with angioedema 2/2 perla inhibitor. Patient seen in ED and concern for ability to protect airway so electively intubated. STarted on steroids + H1/H2 blockade. [facility] Medical History Colostomy care Colon cancer Home Medications ?Medication ?Instructions ?Recorded ?Last Taken ?Type lisinopril 10 mg tablet 30 mg PO DAILY 05/04/22 Unknown History fruquintinib 5 mg capsule 5 mg PO DAILY CANCER 01/28/24 Unknown History (Fruzaqla) hydromorphone 4 mg tablet 4 mg PO Q2H PRN PAIN 01/28/24 Unknown History megestrol 400 mg/10 mL (40 mg/mL) 800 mg PO DAILY LOSS OF 01/28/24 Unknown History oral suspension APPETITE/WEIGHT LOSS methylcellulose (laxative) 500 mg 500 mg PO DAILY CONSTIPATION 01/28/24 Unknown History tablet (Citrucel) morphine 60 mg tablet,extended 120 mg PO Q12H PAIN 01/28/24 Unknown History release prednisone 20 mg tablet See Taper PO DAILY STEROID 01/28/24 Unknown History prochlorperazine maleate 10 mg 10 mg PO Q6H PRN NAUSEA 01/28/24 Unknown History tablet sennosides 8.6 mg-docusate sodium 1 tab-cap PO 4X/DAY PRN 01/28/24 Unknown History 50 mg tablet (Stool CONSTIPATION Softener-Laxative) Allergy/AdvReac Type Severity Reaction Status Date / Time ciprofloxacin Allergy Anaphylaxis Verified 01/28/24 14:14 Surgical History History of colostomy reversal Hx of appendectomy Social History (Updated 01/28/24 @ 15:[address] Christian Stout MD) household members: spouse and children Smoking Status: Former smoker ROS ROS Narrative as per HPI. Pt sedated Objective Data Objective Data Vital Signs: Vital Signs Last response 3 Temperature 36.8 C 01/28/24 16:11 Temperature Source Temporal 01/28/24 14:15 Pulse Rate 70 01/28/24 17:15 Respiratory Rate 19 H 01/28/24 17:15 Respiratory Effort Normal, Non-Labored 01/28/24 14:40 Respiratory Depth Normal 01/28/24 14:40 Respiratory Pattern Normal 01/28/24 17:15 Blood Pressure 126/97 H 01/28/24 16:30 Blood Pressure Mean 106 01/28/24 16:30 Pulse Ox 100 01/28/24 17:15 Oxygen Delivery Method Mechanical Ventilator 01/28/24 16:30 Fraction of Inspired Oxygen (FIO2) 24 01/28/24 17:15 I&O: I&O Last 24 Hours 3 01/27/24 01/28/24 01/28/24 23:59 11:59 23:59 Intake Total 489.83 / 489.83 Balance 489.83 / 489.83 I&O: Total Stay 3 01/28/24 14:11 thru 01/28/24 17:45 Intake Total 489.83 Balance 489.83 Current Meds Ordered / Administered: Current meds ordered / Administered 3 Generic Name Dose Route Start Last Admin Trade Name Freq PRN Reason Stop Dose Admin Dexamethasone Sodium Phosphate 4 mg 01/28/24 18:00 Dexamethasone 4 Mg/Ml Vial IV Q6 ROSALIE Diphenhydramine HCl 12.5 mg 01/28/24 17:15 Diphenhydramine 50 Mg/Ml Syringe IV Q6H [facility] Enoxaparin Sodium 40 mg 01/29/24 10:00 Enoxaparin 40 Mg/0.4 Ml Syringe SC DAILY [facility] Heparin Sodium (Beef Lung) 50 units 01/28/24 17:17 Heparin Pf Lock 10 Units/Ml 50 Units/5 Ml Syringe IV UD PRN Port-a-Cath (VAD)Heparin Flush Hydralazine HCl 5 mg 01/28/24 17:35 Hydralazine 20 Mg/Ml Vial IV Q4H PRN PRN BLOOD PRESSURE Protocol Propofol 1,000 mg in 100 mls @ 4.395 mls/hr 01/28/24 14:30 01/28/24 17:30 Diprivan CONT INF 20 mcg/kg/min .Q12H ROSALIE 8.8 mls/hr Titration Protocol 10 MCG/KG/MIN Sodium Chloride 1,000 mls @ 100 mls/hr 01/28/24 16:56 IV .Q10H [facility] Fentanyl 100 mls @ 2.5 mls/hr 01/28/24 17:25 01/28/24 17:46 CONT INF 25 mcg/hr UD ROSALIE 2.5 mls/hr Administration Protocol 25 MCG/HR Famotidine 20 mg/ Sodium 10 mls @ 300 mls/hr 01/28/24 22:00 Chloride IV Q12 ROSALIE Morphine Sulfate 2 - 4 mg 01/28/24 16:56 Morphine 2 Mg/Ml Syringe IV Q3H PRN PRN Pain Score 6-10 Ondansetron HCl 4 mg 01/28/24 16:56 Ondansetron 4 Mg/2 Ml Vial IV Q8H PRN PRN NAUSEA/VOMITING Sodium Chloride 10 - 40 ml 01/28/24 17:17 0.9 % Nacl (Sterile) Posiflush 10 Ml IV UD PRN Port access or dressing change Sodium Chloride 10 - 40 ml 01/28/24 17:17 0.9% Saline Lock 10 Ml Syringe IV UD PRN Port-a-Cath (VAD) Flush Sodium Chloride 10 - 40 ml 01/28/24 17:17 0.9% Saline Lock 10 Ml Syringe IV UD PRN SALINE FLUSH Physical Exam Narrative intubated , sedated pupils:= ETT in place, tongue not protruding. Lips normal size CV: RRR Chest: CTA B Abd: soft, nt Ext: no c/e/c Lab / Micro Data 01/28/24 14:35 01/28/24 14:35 Labs: Laboratory Results - last 24 hr 01/28/24 14:35: WBC 6.3, RBC 5.07, Hgb 13.0, Hct 41.5, MCV 81.9, MCH 25.6 L, M CHC 31.3 L, RDW Std Deviation 49.5 H, RDW Coeff of Marito 16.7 H, Plt Count 322, MPV 10.3, Immature Gran % (Auto) 0.500, Neut % (Auto) 90.5 H, Lymph % (Auto) 7.6 L, [place] % (Auto) 1.4, Eos % (Auto) 0.0, Baso % (Auto) 0.0, Absolute Neuts (auto) 5.7, Absolute Lymphs (auto) 0.48 L, Nucleated RBC % 0, Sodium 134 L, Potassium 4.4, Chloride 104, Carbon Dioxide 20.0 L, Anion Gap 10, BUN 30 H, Creatinine 1.31 H, Estim Creat Clear Calc 62.91, Est GFR (MDRD) Af Amer 72, Est GFR (MDRD) Non-Af 59 L, BUN/Creatinine Ratio 22.9 H, Glucose 159 H, Calcium 9.6, Total Bilirubin 0.50, AST 17, ALT 8 L, Alkaline Phosphatase 76, Total Protein 7.5, A lbumin 2.9 L, Globulin 4.6 H, Albumin/Globulin Ratio 0.6 L ABG Data ABG results: ABG 01/28/24 16:13 Specimen Type ART Sample Site R Brach pH 7.39 Bicarbonate Actual 19.3 L Total CO2 20 Base Excess -6 L O2 Saturation 99 O2 % 40.0 ABG pCO2 31.8 L ABG pO2 137 H Respiration Rate 12 O2 Delivery Device ET Tube Vent Mode AC Tidal Volume 450.0 POC PEEP 5 Imaging Radiology Impression KUB X-Ray 01/28/24 14:30 IMPRESSION: The tip of the nasogastric tube is in the first portion of the duodenum. Bibasilar atelectasis. Electronically Signed: Seth Reyes MD at 15:04 EDT , Chest X-Ray 01/28/24 14:45 IMPRESSION: Bibasilar atelectasis. The tip of the endotracheal tube is at 5.1 cm proximal to the olga. Questionable 1.4 cm nodule in the right infrahilar region. Electronically Signed: Seth Reyes MD at 15:05 EDT , Venous Doppler Study 01/28/24 14:49 Interpretation Summary Deep veins of the left lower extremity are patent and compressible segmentally. There is no evidence of left lower extremity deep vein thrombosis. The left great saphenous vein appears patent and compressible segmentally. Ordering Physician: Christian Stout Referring Physician: MD Kari Brayan Performed By: Ayse Juan RVT Assessment and Plan . Assessment and plan: A/P: 1. Angioedema:2/2 PERLA. Continue steroids/H1/A6kphbiwrr. 2.Resp Failure:acute/hypoxemic.2/2 angioedema. Vent check made. Will eval for weaning in am 3. MIRNA: ?. Unclear as to baseline Cr. Continue IVFs 4. FEN: IVFs 5. PX: Lovenox/Pepcid. Critical Care Time:60 minutes The entirety of this encounter was done via Telemedicine
[2024-01-28] MEDS: DiphenhydrAMINE 50 MG/ML Syringe 12.5 MG IV ×2 (18:25→22:14)
[2024-01-28] MEDS: dexAMETHasone 4 MG/ML Vial IV ×3 (18:25→22:11)
[2024-01-28 20:07] LABS: CPK Total, Creatine Kinase 50 U/L (39-308); Triglycerides 77 mg/dL
[2024-01-28] MEDS: Famotidine 200 MG/20 ML MDV 20 MG in 0.9% Normal Saline (Pres. free 8 ML 300 MG IV (22:12)
[2024-01-28] MEDS: Chlorhexidine 15 ML PO (22:15)
[2024-01-29] VITALS (30 sets, daily range): BP systolic 107–148; BP diastolic 76–96; PULSE 51–86; RESP 12–22; TEMP 37.1–38.1; O2SAT 94–100; BMI 20.2
[2024-01-29] MEDS: Propofol 10MG/Ml 1,000 MG/100 ML Bottle 8.8 MG CONT INF (00:58)
[2024-01-29] MEDS: 0.9% Normal Saline (1000mL) 1,000 ML 100 ML IV ×2 (00:58→12:08)
[2024-01-29 04:04] LABS: Absolute Lymphocyte Count 0.46 X10^3/uL (0.83-4.51); Absolute Neutrophil Count 5.3 X10^3/uL (2.0-7.7); Basophil# 0.01 X10^3/uL; Basophil% 0.2 % (0-1); Hematocrit 34.4 % (40-54); Hemoglobin 10.7 g/dL (13.0-16.5); Lymphocyte # 0.46 X10^3/ul (0.83-4.51); Lymphocyte % 7.5 % (19-41); Mean Corp Hgb Conc 31.1 g/dL (32-36); Mean Corpuscular Hgb 25.9 pg (27.0-32.0); Mean Corpuscular Volume 83.3 fL (80-94); Mean Platelet Vol. 10.6 fl (6.2-12.0); Monocyte# 0.34 X10^3/uL; Monocyte% 5.5 % (0-10); NRBC Flagged by Analyzer 0 % (0-5); Neutrophil % 86.3 % (47-70); POSITIVE DIFFERENTIAL YES; Platelet Count 251 K/mm3 (150-450); RBC Distribution Width CV 16.6 % (11.6-14.6); RBC Distribution Width SD 50.1 fl (35.1-43.9); Red Blood Count 4.13 M/mm3 (4.6-6.2); White Blood Count 6.1 K/mm3 (4.4-11.0)
[2024-01-29 04:26] LABS: Anion Gap 7 (5-15); BUN 29 mg/dL (7-18); BUN/Creat Ratio 30.6 RATIO (10-20); Calcium,Total 8.9 mg/dL (8.5-10.1); Chloride 106 mmol/L (98-107); Creatinine, Serum 0.95 mg/dL (0.70-1.30); EST Glomerular Filtration Rate 86 mL/min (>60); Est Glom Filt Rate - Afr Amer 104 mL/min (>60); Estimated Creatinine Clearance 87.99 ml/min; Glucose 111 mg/dL (74-106); Potassium 4.6 mmol/L (3.5-5.1); Sodium Level 136 mmol/L (136-145)
[2024-01-29] MEDS: fentaNYL drip 100 ML 10 MCG CONT INF (05:39)
[2024-01-29] MEDS: DiphenhydrAMINE 50 MG/ML Syringe 12.5 MG IV ×3 (05:39→21:04)
[2024-01-29] MEDS: dexAMETHasone 4 MG/ML Vial IV ×2 (05:40→11:14)
[2024-01-29] MEDS: 0.9 % NaCl (Sterile) Posiflush 10 mL IV ×2 (05:40→21:05)
[2024-01-29 07:15] LABS: Allen Test Positive; Base Excess -4 mmol/L (-2 to +2); Bicarbonate 20.6 mmol/L (22-26); Blood Gas Specimen Type ART; Mode AC; O2 Delivery Device Adult Vent; PEEP 5; PO2 90 mmHG (75-100); RR 12; SITE L Radial; SO2 97 % (95-99); Total Carbon Dioxide 22 mmol/L; pCO2 31.1 mmHg (35-45); pH 7.43 (7.35-7.45)
[2024-01-29] MEDS: TITRATION PARAMETER CHANGE 1 EACH IV (09:00)
[2024-01-29] MEDS: Enoxaparin 40 MG/0.4 ML Syringe SC (11:11)
[2024-01-29] MEDS: Famotidine 200 MG/20 ML MDV 20 MG in 0.9% Normal Saline (Pres. free 8 ML 300 MG IV (11:12)
[2024-01-29] MEDS: Chlorhexidine 15 ML PO (11:12)
[2024-01-29] MEDS: 0.9% Saline Lock 10 ML Syringe IV (11:13)
--- NOTE | 2024-01-29 13:07 | PN.CC_ITS ---
Objective Data Objective Data Vital Signs: Vital Signs Last response 3 Temperature 37.4 C H 01/29/24 12:00 Temperature Source Core 01/29/24 12:00 Pulse Rate 73 01/29/24 12:00 Pulse Strength Weak (1+) 01/29/24 10:00 Respiratory Rate 17 01/29/24 12:00 Respiratory Effort Mechanically Ventilated 01/29/24 10:00 Respiratory Depth Normal 01/29/24 03:34 Respiratory Pattern Normal 01/29/24 10:02 Blood Pressure 148/91 H 01/29/24 12:00 Blood Pressure Mean 110 01/29/24 12:00 Blood Pressure Source Monitor 01/29/24 12:00 Blood Pressure Position Semi-Fowlers 01/29/24 12:00 Blood Pressure Location Left Arm 01/29/24 12:00 Pulse Ox 100 01/29/24 12:00 Oxygen Delivery Method Mechanical Ventilator 01/29/24 12:00 Fraction of Inspired Oxygen (FIO2) 24 01/29/24 12:00 I&O: I&O Last 24 Hours 3 01/28/24 01/29/24 01/29/24 23:59 11:59 23:59 Intake Total 857.58 / 871.38 1870.08 / 1870.08 Output Total 850 / 850 550 / 1050 500 / 1050 Balance 7.58 / 21.38 1320.08 / 820.08 -500 / 820.08 I&O: Total Stay 3 01/28/24 14:11 thru 01/29/24 12:00 Intake Total 2727.66 Output Total 1900 Balance 827.66 Current Meds Ordered / Administered: Current meds ordered / Administered 3 Generic Name Dose Route Start Last Admin Trade Name Ajq PRN Reason Stop Dose Admin Chlorhexidine Gluconate 1 each 01/29/24 10:00 01/29/24 11:13 Chlorhexidine Gluc 2% Cloth 1 Each [place] TOPICAL Not Given DAILY [facility] Chlorhexidine Gluconate 15 ml 01/28/24 22:00 01/29/24 11:12 Chlorhexidine 15 Ml PO 15 ml BID ROSALIE Administration Dexamethasone Sodium Phosphate 2 mg 01/29/24 22:00 Dexamethasone 4 Mg/Ml Vial IV Q12 ROSALIE Diphenhydramine HCl 12.5 mg 01/29/24 22:00 Diphenhydramine 50 Mg/Ml Syringe IV Q12 ROSALIE Enoxaparin Sodium 40 mg 01/29/24 10:00 01/29/24 11:11 Enoxaparin 40 Mg/0.4 Ml Syringe SC 40 mg DAILY ROSALIE Administration Heparin Sodium (Beef Lung) 50 units 01/28/24 17:17 Heparin Pf Lock 10 Units/Ml 50 Units/5 Ml Syringe IV UD PRN Port-a-Cath (VAD)Heparin Flush Hydralazine HCl 5 mg 01/28/24 17:35 Hydralazine 20 Mg/Ml Vial IV Q4H PRN PRN BLOOD PRESSURE Protocol Fentanyl 100 mls @ 2.5 mls/hr 01/28/24 17:25 01/29/24 09:15 CONT INF 50 mcg/hr UD ROSALIE 5 mls/hr Titration Protocol 25 MCG/HR Morphine Sulfate 2 - 4 mg 01/28/24 16:56 Morphine 2 Mg/Ml Syringe IV Q3H PRN PRN Pain Score 6-10 Ondansetron HCl 4 mg 01/28/24 16:56 Ondansetron 4 Mg/2 Ml Vial IV Q8H PRN PRN NAUSEA/VOMITING Sodium Chloride 10 - 40 ml 01/28/24 17:17 01/29/24 05:40 0.9 % Nacl (Sterile) Posiflush 10 Ml IV 10 ml UD PRN Administration Port access or dressing change Sodium Chloride 10 - 40 ml 01/28/24 17:17 01/29/24 11:13 0.9% Saline Lock 10 Ml Syringe IV 20 ml UD PRN Administration Port-a-Cath (VAD) Flush Sodium Chloride 10 - 40 ml 01/28/24 17:17 0.9% Saline Lock 10 Ml Syringe IV UD PRN SALINE FLUSH Lab / Micro Data 01/29/24 03:50 01/29/24 03:50 Labs: Laboratory Results - last 24 hr 01/28/24 14:35: WBC 6.3, RBC 5.07, Hgb 13.0, Hct 41.5, MCV 81.9, MCH 25.6 L, M CHC 31.3 L, RDW Std Deviation 49.5 H, RDW Coeff of Marito 16.7 H, Plt Count 322, MPV 10.3, Immature Gran % (Auto) 0.500, Neut % (Auto) 90.5 H, Lymph % (Auto) 7.6 L, [place] % (Auto) 1.4, Eos % (Auto) 0.0, Baso % (Auto) 0.0, Absolute Neuts (auto) 5.7, Absolute Lymphs (auto) 0.48 L, Nucleated RBC % 0, Sodium 134 L, Potassium 4.4, Chloride 104, Carbon Dioxide 20.0 L, Anion Gap 10, BUN 30 H, Creatinine 1.31 H, Estim Creat Clear Calc 62.91, Est GFR (MDRD) Af Amer 72, Est GFR (MDRD) Non-Af 59 L, BUN/Creatinine Ratio 22.9 H, Glucose 159 H, Calcium 9.6, Total Bilirubin 0.50, AST 17, ALT 8 L, Alkaline Phosphatase 76, Total Creatine Kinase 50, Total Protein 7.5, Albumin 2.9 L, Globulin 4.6 H, Albumin/Globulin Ratio 0.6 L, Triglycerides 77 01/29/24 03:50: WBC 6.1, RBC 4.13 L, Hgb 10.7 L, Hct 34.4 L, MCV 83.3, MCH 25.9 L, MCHC 31.1 L, RDW Std Deviation 50.1 H, RDW Coeff of Marito 16.6 H, Plt Count 251, MPV 10.6, Immature Gran % (Auto) 0.500, Neut % (Auto) 86.3 H, Lymph % (Auto) 7.5 L, [place] % (Auto) 5.5, Eos % (Auto) 0.0, Baso % (Auto) 0.2, Absolute Neuts (auto) 5.3, Absolute Lymphs (auto) 0.46 L, Nucleated RBC % 0, Sodium 136, Potassium 4.6, Chloride 106, Carbon Dioxide 23.0, Anion Gap 7, BUN 29 H, Creatinine 0.95, Estim Creat Clear Calc 87.99, Est GFR (MDRD) Af Amer 104, Est GFR (MDRD) Non-Af 86, BUN/Creatinine Ratio 30.6 H, Glucose 111 H, Calcium 8.9 Micro: Microbiology 01/28/24 14:50 Sputum, Induced/Lukens Gram Stain - Final 01/28/24 14:50 Sputum, Induced/Lukens Respiratory Culture - Final ABG Data ABG results: ABG 01/28/24 01/29/24 16:13 07:11 Specimen Type ART ART Sample Site R Brach L Radial pH 7.39 7.43 Bicarbonate Actual 19.3 L 20.6 L Total CO2 20 22 Base Excess -6 L -4 L O2 Saturation 99 97 O2 % 40.0 21.0 ABG pCO2 31.8 L 31.1 L ABG pO2 137 H 90 [place] Test Positive Respiration Rate 12 12 O2 Delivery Device ET Tube Adult Vent Vent Mode AC AC Tidal Volume 450.0 450.0 POC PEEP 5 5 Imaging Radiology Impression KUB X-Ray 01/28/24 14:30 IMPRESSION: The tip of the nasogastric tube is in the first portion of the duodenum. Bibasilar atelectasis. Electronically Signed: Seth Reyes MD at 15:04 EDT , Chest X-Ray 01/28/24 14:45 IMPRESSION: Bibasilar atelectasis. The tip of the endotracheal tube is at 5.1 cm proximal to the olga. Questionable 1.4 cm nodule in the right infrahilar region. Electronically Signed: Seth Reyes MD at 15:05 EDT , Venous Doppler Study 01/28/24 14:49 Interpretation Summary Deep veins of the left lower extremity are patent and compressible segmentally. There is no evidence of left lower extremity deep vein thrombosis. The left great saphenous vein appears patent and compressible segmentally. Ordering Physician: Christian Stout Referring Physician: MD Kari Brayan Performed By: Ayse Juan RVT Assessment and Plan . Assessment and plan: A/P: 1. Angioedema:2/2 PERLA. Continue steroids/H1/H2xnnuenrv. Wean steroids and dose of benadryl. Transition to oral when tolerating po. 2.Resp Failure:acute/hypoxemic.2/2 angioedema. Good cuff leak. Extubated to NC. No stridor or airway issues post extubation. 3. MIRNA: ?. Unclear as to baseline Cr. Cr better. Stop IVFs 4. FEN: Stop IVFs. 5. PX: Lovenox/Pepcid. Will sign off. Call with questions. Critical Care Time:50 minutes The entirety of this encounter was done via Telemedicine Physical Exam Narrative awake, intubated pupils:= o/p: ETT present Cuff deflated/audible leak. Lips swollen CV: RRR Chest: CTA B Abd:soft, nt Ext: no c/c/e
--- NOTE | 2024-01-29 15:52 | PN_ITS ---
Subjective Subjective Patient seen and examined. He was intubated but was alert and oriented and able to nod his head or shake his head in response to questions. He denied being in pain. He was admitted with angioedema thought to be due to lisinopril and was electively intubated to protect his airway. He was on minimal vent settings and was extubated per critical care later in the day. At the time I saw him he was still intubated. He was hemodynamically stable. Objective Data Objective Data Vital Signs: Vital Signs Temp Pulse Resp BP Pulse Ox O2 Del Method O2 Flow Rate 99.4 F H 59 L 20 H 129/79 H 100 Room Air 2 01/29/24 12:00 01/29/24 15:00 01/29/24 15:00 01/29/24 15:00 01/29/24 15:00 01/29/24 15:00 01/29/24 12:00 FiO2 24 01/29/24 12:00 Oxygen Flow Rate (L/min) 2 Oxygen Delivery Method Room Air Weight: 162 lb 7.691 oz Body Mass Index (BMI) 20.2 Intake & Output: Intake and Output for Last 24 Hours 01/27/24 01/28/24 01/29/24 23:59 23:59 23:59 Intake Total 857.58 / 871.38 2070.50 / 2070.50 Output Total 850 / 850 1050 / 1050 Balance 7.58 / 21.38 1020.50 / 1020.50 Lab / Micro Data 01/29/24 03:50 01/29/24 03:50 Labs: Laboratory Results - last 24 hr 01/28/24 14:35: Total Creatine Kinase 50, Triglycerides 77 01/29/24 03:50: WBC 6.1, RBC 4.13 L, Hgb 10.7 L, Hct 34.4 L, MCV 83.3, MCH 25.9 L, MCHC 31.1 L, RDW Std Deviation 50.1 H, RDW Coeff of Marito 16.6 H, Plt Count 251, MPV 10.6, Immature Gran % (Auto) 0.500, Neut % (Auto) 86.3 H, Lymph % (Auto) 7.5 L, Franklin % (Auto) 5.5, Eos % (Auto) 0.0, Baso % (Auto) 0.2, Absolute Neuts (auto) 5.3, Absolute Lymphs (auto) 0.46 L, Nucleated RBC % 0, Sodium 136, Potassium 4.6, Chloride 106, Carbon Dioxide 23.0, Anion Gap 7, BUN 29 H, Creatinine 0.95, Estim Creat Clear Calc 87.99, Est GFR (MDRD) Af Amer 104, Est GFR (MDRD) Non-Af 86, BUN/Creatinine Ratio 30.6 H, Glucose 111 H, Calcium 8.9 Micro: Microbiology 01/28/24 14:50 Sputum, Induced/Lukens Gram Stain - Final 01/28/24 14:50 Sputum, Induced/Lukens Respiratory Culture - Final ABG Data ABG results: ABG 01/28/24 01/29/24 16:13 07:11 Specimen Type ART ART Sample Site R Brach L Radial pH 7.39 7.43 Bicarbonate Actual 19.3 L 20.6 L Total CO2 20 22 Base Excess -6 L -4 L O2 Saturation 99 97 O2 % 40.0 21.0 ABG pCO2 31.8 L 31.1 L ABG pO2 137 H 90 Cortez Test Positive Respiration Rate 12 12 O2 Delivery Device ET Tube Adult Vent Vent Mode AC AC Tidal Volume 450.0 450.0 POC PEEP 5 5 Radiography Diagnostic Testing: Radiology Impression Venous Doppler Study 01/28/24 14:49 Interpretation Summary Deep veins of the left lower extremity are patent and compressible segmentally. There is no evidence of left lower extremity deep vein thrombosis. The left great saphenous vein appears patent and compressible segmentally. Ordering Physician: Christian Stout Referring Physician: MD Kari Brayan Performed By: Ayse Juan RVT Physical Exam Const alert, oriented x3 and no apparent distress Constitutional Narrative: intubated, not sedated. General Appearance: cooperative and well developed HEENT normocephalic, head/scalp atraumatic, moist oral mucous membranes and oropharynx normal HEENT Narrative: Had some mild swelling of his lips. Eyes PERRL and EOMs intact bilaterally Neck no lymphadenopathy and supple Lymph Lymphatic: no lymphadenopathy noted and no lymphedema noted Resp Resp Narrative: Diminished breath sounds bibasilarly. Patient intubated and on minimal vent settings. Cardio regular rate, regular rhythm, S1 normal heart sound, S2 normal heart sound and no murmurs GI normal to inspection, nondistended, normoactive bowel sounds, soft to palpation, non-tender and non-distended Extremity normal capillary refill, no clubbing, cyanosis or edema and no calf tenderness Skin General Skin Exam: no breakdown Neuro CN's II-XII intact bilaterally, no focal motor deficits, no sensory deficits noted and deep tendon reflexes 2+ bilaterally Motor Exam: general weakness Psych Appearance: appropriate Assessment & Plan Assessment/Plan (1) PERLA inhibitor-aggravated angioedema: PLAN: Plan #Angioedema * patient admitted with a complaint of lip and tongue swelling, and was electively intubated in the ED * patient was on minimal vent settings at time of my review this morning * he was extubated per critical care to oxygen by nasal canula * breathing treatment with bronchodilators. * on IV decadron and benadryl * #Metastatic colon cancer: to follow up with colonoscopy on outpatient basis. #Hypertension: on IV hydralazine prn. #Bilateral ureteral obstruction * due to colon cancer * has [address] Was due to get the left one replaced on Saturday because of a broken stitch * DVT prophylaxis: lovenox Charges/Coding Visit Charges Inpatient E&M: 61558 [facility] H[facility] L3
[2024-01-29] MEDS: HYDROmorphone 2 MG TABLET 4 MG PO (18:04)
[2024-01-29] MEDS: [UNRECOGNIZED DRUG - OTHER] PO (19:28)
[2024-01-29] MEDS: morphine SR 15 MG Tablet 120 MG PO (19:56)
[2024-01-29] MEDS: dexAMETHasone 4 MG/ML Vial 2 MG IV (21:04)
[2024-01-30] VITALS (16 sets, daily range): BP systolic 101–137; BP diastolic 62–85; PULSE 43–67; RESP 15–21; TEMP 37.1–38.1; O2SAT 95–100; BMI 19.5
[2024-01-30] MEDS: HYDROmorphone 2 MG TABLET 4 MG PO ×3 (00:59→12:52)
[2024-01-30 05:11] LABS: Absolute Lymphocyte Count 0.74 X10^3/uL (0.83-4.51); Absolute Neutrophil Count 4.5 X10^3/uL (2.0-7.7); Basophil# 0.01 X10^3/uL; Basophil% 0.2 % (0-1); Hematocrit 30.5 % (40-54); Hemoglobin 9.5 g/dL (13.0-16.5); Lymphocyte # 0.74 X10^3/ul (0.83-4.51); Lymphocyte % 12.7 % (19-41); Mean Corp Hgb Conc 31.1 g/dL (32-36); Mean Corpuscular Hgb 25.6 pg (27.0-32.0); Mean Corpuscular Volume 82.2 fL (80-94); Mean Platelet Vol. 11.1 fl (6.2-12.0); Monocyte# 0.59 X10^3/uL; Monocyte% 10.1 % (0-10); NRBC Flagged by Analyzer 0 % (0-5); Neutrophil # 4.47 X10^3/uL (2.7-7.7); Neutrophil % 76.7 % (47-70); Platelet Count 195 K/mm3 (150-450); RBC Distribution Width CV 16.3 % (11.6-14.6); RBC Distribution Width SD 48.9 fl (35.1-43.9); Red Blood Count 3.71 M/mm3 (4.6-6.2); White Blood Count 5.8 K/mm3 (4.4-11.0)
[2024-01-30 05:37] LABS: Anion Gap 5 (5-15); BUN 28 mg/dL (7-18); BUN/Creat Ratio 30.7 RATIO (10-20); Calcium,Total 8.7 mg/dL (8.5-10.1); Chloride 105 mmol/L (98-107); Creatinine, Serum 0.91 mg/dL (0.70-1.30); EST Glomerular Filtration Rate 90 mL/min (>60); Est Glom Filt Rate - Afr Amer 109 mL/min (>60); Glucose 93 mg/dL (74-106); Potassium 4.2 mmol/L (3.5-5.1); Sodium Level 135 mmol/L (136-145)
[2024-01-30] MEDS: 0.9% Saline Lock 10 ML Syringe IV (07:24)
--- NOTE | 2024-01-30 09:30 | CASEMGMT ---
RN CM ROOM SERVICE WAITER CM to room to meet with patient for initial transition planning/care coordination assessment. SARAH MERCADO introduced self and role at [facility]. Pt voices understanding and consents to assessment at this time. Pt resting in bed in no distress at this time. Pt is A/O at this time and answers all questions appropriately. Care providers, pharmacy, and demographics verified/updated at this time. Strata: 2 PCP: Dr Pierce Specialists: Dr Escalante-oncology, Dr Colon-GI, Dr High-nurse coordinator @ [facility]. Palliative: Pt states is active w/Palliative Care in [place]. E-mail sent to [facility] to notify them of pt's admission to [facility]. [facility] Insurance: [employer] Prescription Benefit: Yes Living Will/HPOA: Pt does not currently have LW/HCPOA and declines info at this time. Pt made aware that he can contact as an out-pt and make appt in the future if he decides he would like to talk with someone about this or would like to utilize [facility] social work for advanced directive completion. LNOK: and 2 sons, ages 21 & 16. Living Arrangements: Lives with and 2 sons in a 2-story home. 3 steps to enter. Has bedroom and bathroom upstairs, has 1/2 bath on main floor. Denies difficulty w/stairs. Independent w/ADL's. manages pt's colostomy. Transportation: Pt and both drive. DME/HHC: Denies using any DME and denies needs. HHC/SNF: No hx of SNF. Has had [facility] in the past after getting colostomy. Has also went to Out-pt therapy in the past after having knee surgery. Pt denies need for HHC or OP therapy. He states he has been OOB and feels steady on his feet and denies weakness. Pt wishes to return home and states has no concerns with going home at time of discharge. CM to follow for any further discharge planning/needs. Pt voices no further concerns/needs at this time. Plan: Home with spousal support. Sony URIAS RN, CM
[2024-01-30] MEDS: DiphenhydrAMINE 50 MG/ML Syringe 12.5 MG IV (09:38)
[2024-01-30] MEDS: Senna/Docusate Sodium 1 Tablet PO (09:39)
[2024-01-30] MEDS: morphine SR 15 MG Tablet 120 MG PO (09:39)
[2024-01-30] MEDS: Enoxaparin 40 MG/0.4 ML Syringe SC (09:40)
[2024-01-30] MEDS: dexAMETHasone 4 MG/ML Vial 2 MG IV (09:40)
[2024-01-30] MEDS: 0.9 % NaCl (Sterile) Posiflush 10 mL IV ×2 (09:41→11:52)
--- NOTE | 2024-01-30 10:04 | PCM.DC.SUM ---
Providers Date of Admission: 01/28/24 Date of Discharge: 01/30/24 Primary Care Physician: Dr. Brayan Pierce MD Reason For Visit: ANGIOEDEMA Diagnosis Discharge Diagnosis (1) PERLA inhibitor-aggravated angioedema: Status: Acute Code(s): T78.3XXA - Angioneurotic edema, initial encounter; T46.4X5A - Adverse effect of nogvjhzirqn-ybfvdpqyzy-tkrhdm inhibitors, initial encounter Plan #Angioedema patient admitted with a complaint of lip and tongue swelling, and was electively intubated in the ED patient was on minimal vent settings at time of my review this morning he was extubated per critical care to oxygen by nasal canula breathing treatment with bronchodilators. on IV decadron and benadryl #Metastatic colon cancer: to follow up with colonoscopy on outpatient basis. #Hypertension: on IV hydralazine prn. #Bilateral ureteral obstruction due to colon cancer has [address]. Was due to get the left one replaced on Saturday because of a broken stitch DVT prophylaxis: lovenox Medications at Discharge Home Medications fruquintinib 5 mg capsule (Fruzaqla) 5 mg PO DAILY CANCER 01/28/24 hydromorphone 4 mg tablet 4 mg PO Q2H PRN PAIN 01/28/24 megestrol 400 mg/10 mL (40 mg/mL) oral suspension 800 mg PO DAILY LOSS OF APPETITE/WEIGHT LOSS 01/28/24 methylcellulose (laxative) 500 mg tablet (Citrucel) 500 mg PO DAILY CONSTIPATION 01/28/24 morphine 60 mg tablet,extended release 120 mg PO Q12H PAIN 01/28/24 prednisone 20 mg tablet See Taper PO DAILY STEROID 01/28/24 prochlorperazine maleate 10 mg tablet 10 mg PO Q6H PRN NAUSEA 01/28/24 sennosides 8.6 mg-docusate sodium 50 mg tablet (Stool Softener-Laxative) 1 tab-cap PO 4X/DAY PRN CONSTIPATION 01/28/24 Hospital Course Operations None Procedures None Summary of Care Provided Minutes Spent on Discharge: 55 Hospital Course: Patient is a 58-year-old male with a past medical history as outlined which includes colon cancer who was admitted through the ED on 01/28/2024 with a complaint of swelling of the tongue and lips as well as itchy eyes and change in voice. He had been placed on prednisone recently and family was concerned he may have been having a reaction to the prednisone he was taking for a rash on his face. When he came into the ED was found to have a muffled voice in the back of his throat could not be visualized so he was electively intubated to protect his airway. Patient was on lisinopril and was told that he was having angioedema due to lisinopril. He was therefore admitted to the ICU and managed for angioedema due to lisinopril. Critical care was consulted. Patient was successfully extubated on 01/29/2024. Lisinopril was discontinued. He remained stable after extubation and was weaned down to room air. He was also placed on Benadryl and steroids and the swelling of his mouth and throat went down and subsequently resolved. He remained stable and was discharged home on 01/30/2024. He was counseled never to take lisinopril or any PERLA-I/ARB. He is to follow-up with his primary care doctor and oncologist within 1 to 2 weeks. Patient seen and examined prior to discharge. He felt well and had no complaints. He had an uneventful night. Review of systems otherwise negative. Labs and vitals reviewed. Home medication reviewed and reconciled. Physical Exam Const alert, oriented x3 and no apparent distress General Appearance: cooperative, comfortable, well kempt and well developed Orientation / Consciousness: awake HEENT normocephalic, head/scalp atraumatic, hearing grossly normal bilaterally, moist oral mucous membranes and oropharynx normal Mouth: oral and palatal mucosa normal Eyes PERRL, EOMs intact bilaterally and conjunctivae normal Neck no lymphadenopathy, supple, no JVD, thyroid normal and no carotid bruits General: trachea midline Lymph Lymphatic: no lymphadenopathy noted and no lymphedema noted Resp normal respiratory effort, no retractions, no use of accessory muscles and clear to auscultation bilaterally Auscultation: Negative for rales, rhonchi or wheezes Cardio regular rate, regular rhythm, S1 normal heart sound, S2 normal heart sound, no murmurs, no rub and no gallops GI normal to inspection, nondistended, normoactive bowel sounds, soft to palpation, non-tender and non-distended GI Narrative: Has colostomy bag in place Extremity normal capillary refill, no clubbing, cyanosis or edema and no calf tenderness Extremity Narrative: Patient has generalized edema of his left leg which is chronic Skin Skin Narrative: Patient has bilateral nephrostomy tubes General Skin Exam: no breakdown Neuro oriented x3, CN's II-XII intact bilaterally, moves all extremities, no focal motor deficits, no sensory deficits noted and deep tendon reflexes 2+ bilaterally Sensorium / Orientation: awake and alert Motor Exam: general weakness Psych Appearance: appropriate Weight / BMI Weight Weight: 156 lb 11.979 oz Body Mass Index (BMI) 19.5 ABG / Lab / Microbiology Data 01/30/24 05:02 01/30/24 05:02 Laboratory: Laboratory Results - last 24 hr 01/30/24 05:02: WBC 5.8, RBC 3.71 L, Hgb 9.5 L, Hct 30.5 L, MCV 82.2, MCH 25.6 L, MCHC 31.1 L, RDW Std Deviation 48.9 H, RDW Coeff of Marito 16.3 H, Plt Count 195, MPV 11.1, Immature Gran % (Auto) 0.300, Neut % (Auto) 76.7 H, Lymph % (Auto) 12.7 L, Lyon % (Auto) 10.1 H, Eos % (Auto) 0.0, Baso % (Auto) 0.2, Absolute Neuts (auto) 4.5, Absolute Lymphs (auto) 0.74 L, Nucleated RBC % 0, Sodium 135 L, Potassium 4.2, Chloride 105, Carbon Dioxide 25.0, Anion Gap 5, BUN 28 H, Creatinine 0.91, Estim Creat Clear Calc 87.90, Est GFR (MDRD) Af Amer 109, Est GFR (MDRD) Non-Af 90, BUN/Creatinine Ratio 30.7 H, Glucose 93, Calcium 8.7 Microbiology: Microbiology 01/28/24 14:50 Sputum, Induced/Lukens Gram Stain - Final 01/28/24 14:50 Sputum, Induced/Lukens Respiratory Culture - Final D/C Instructions Discharge Diet: Low fat / Low cholesterol Discharge Activity: Return to Normal Activity Weight Bearing Status: Weight bearing as tolerated Call your doctor if you observe: Fever of 101 or Higher, Shortness of breath, Dizziness, Swelling in the ankles and Chest pain Meaningful Use Info Meaningful Use Meaningful Use Diagnoses (Choose all that apply): None applicable Ischemic Stroke Statin Dosing Therapy Reference: STATIN DOSE THERAPY REFERENCE: * Patients > 75 years receive moderate or high dose statin therapy. * Patients 75 years or YOUNGER should receive HIGH intensity statin dose unless contraindicated. You will be required to document reason for non-treatment if statin daily dose does not meet guidelines. HIGH DOSE STATIN THERAPY DAILY Atorvastatin > than or = to 40 mg Rosuvastatin > than or = to 20 mg Amlodipine + Atorvastatin > than or = to 2.5/40 mg Ezetimibe + Simvastatin 10/80 mg Simvastatin 80mg Discharge Plan Admission Admit Date/Time: 01/28/24 14:36 Primary Reason for Your Visit: angioedema due to lisinopri Attending Provider: Elisha Abrams Primary Care Provider: Brayan Pierce Consulting Providers: Brayan Davis Instructions Patient Instructions: Angioedema Urticaria Ch, ED Angioedema Discharge Orders/Prescriptions Prescriptions: Continued prednisone 20 mg tablet See Taper PO DAILY Taper: Prednisone Taper 60 mg WITH BREAKFAST for 3 Days 50 mg WITH BREAKFAST for 3 Days 40 mg WITH BREAKFAST for 3 Days 30 mg WITH BREAKFAST for 3 Days 20 mg WITH BREAKFAST for 3 Days 10 mg WITH BREAKFAST for 3 Days sennosides-docusate sodium [Stool Softener-Laxative] 8.6-50 mg tablet 1 tab-cap PO 4X/DAY PRN morphine 60 mg tablet extended release 120 mg PO Q12H Fruzaqla 5 mg capsule 5 mg PO DAILY Rx Instructions: take 1 capsule by mouth daily for 21 days followed by 7 days off therapy prochlorperazine maleate 10 mg tablet 10 mg PO Q6H PRN (Reason: NAUSEA ) hydromorphone 4 mg tablet 4 mg PO Q2H PRN (Reason: PAIN ) megestrol 400 mg/10 mL (40 mg/mL) suspension 800 mg PO DAILY Citrucel 500 mg tablet 500 mg PO DAILY Discontinued lisinopril 10 mg tablet 30 mg PO DAILY Patient Comments: TAKE 3 TABLETS BY MOUTH ONCE DAILY Referrals / Follow Up: Baryan Pierce MD [Primary Care Provider] - Disposition Disposition (needs filled in before D/C Order can be placed): Home, Self Care Charges/Coding Visit Charges Inpatient E&M: 58709 Disch Hosp >30min
== END 2024-01-30 13:14 | disposition home or self-care (01) | DRG 915 ==
LOC: ED 15:13 → ICU 15:34
PROVIDERS: Admitting Provider Internal Medicine; Emergency Provider Emergency Medicine; PCP Family Medicine; Visit Provider Student in an Organized Health Care Education/Training Program
DX: T78.3XXA Angioneurotic edema, initial encounter (principal); J96.01 Acute respiratory failure with hypoxia; N13.1 Hydronephrosis with ureteral stricture, not elsewhere classified; C18.9 Malignant neoplasm of colon, unspecified; N13.5 Crossing vessel and stricture of ureter without hydronephrosis; I10 Essential (primary) hypertension; Z93.3 Colostomy status; Z87.891 Personal history of nicotine dependence; T46.4X5A Adverse effect of angiotensin-converting-enzyme inhibitors, initial encounter
CPT/HCPCS: 31500; 31720; 36600; 51702; 71045; 74018; 80048; 80053; 82550; 82803; 84478; 85025; 87070; 87205; 93005; 93971; 94002; 94003; 94660; 94668; 94762; 97162; 97802; 99252; 99285; J7030; A4216; G0463; J3490

== ENCOUNTER 2024-02-29 16:46 | Emergency (ER) | payer OTHER, SELFPAY ==
[2024-02-29] VITALS (8 sets, daily range): BP systolic 133–143; BP diastolic 75–101; PULSE 70–92; RESP 13–18; TEMP 36.3–37; O2SAT 96–100; BMI 21.0
--- NOTE | 2024-02-29 17:37 | CT_ITS ---
STUDY: CTA CHEST REASON FOR EXAM: Male, 58 years old. dyspnea RADIATION DOSAGE (If Supplied By Facility): CTDIvol = ( 10.27 ) mGy, DLP = ( 384.23 ) mGycm TECHNIQUE: The examination was performed with the intravenous administration of IV 100mL Isovue-370. Post-processing of the angiographic images was performed, with multiplanar reformation and 3D reconstruction. Individualized dose optimization techniques were used for this CT. COMPARISON: None. FINDINGS: Normal enhancement of the main pulmonary artery and right and left pulmonary arteries. Normal enhancement of the bilateral peripheral pulmonary arteries. There is no demonstrated pulmonary embolism. Normal thoracic aorta and visualized great vessels. There is no demonstrated aortic dissection. Normal heart and pericardium. Normal mediastinum. Normal hilar regions. Normal visualized trachea and bronchi. The lungs are well expanded. There are multiple scattered noncalcified nodules bilaterally likely representing metastatic disease there are large bilateral pleural effusions with compressive atelectasis of the bilateral lower and upper lobes. Normal chest wall structures. Normal osseous structures. Multiple solid nodules within the liver consistent with metastatic disease CT/CTA Chest W/WO Contrast IMPRESSION: Large bilateral pleural effusions with compressive atelectasis in both the upper and lower lobes bilaterally Multiple lung metastasis and hepatic metastasis. No evidence for pulmonary embolus Electronically Signed: Jimbo Elise MD at 19:44 EDT ,
[2024-02-29 18:02] LABS: Absolute Lymphocyte Count 0.83 X10^3/uL (0.83-4.51); Absolute Neutrophil Count 5.9 X10^3/uL (2.0-7.7); Basophil# 0.02 X10^3/uL; Basophil% 0.3 % (0-1); Eosinophil# 0.02 X10^3/uL; Eosinophils% 0.3 % (0-5); Hematocrit 34.1 % (40-54); Hemoglobin 10.7 g/dL (13.0-16.5); Lymphocyte # 0.83 X10^3/ul (0.83-4.51); Mean Corp Hgb Conc 31.4 g/dL (32-36); Mean Corpuscular Hgb 25.7 pg (27.0-32.0); Mean Corpuscular Volume 81.8 fL (80-94); Mean Platelet Vol. 10.1 fl (6.2-12.0); Monocyte# 0.71 X10^3/uL; Monocyte% 9.4 % (0-10); NRBC Flagged by Analyzer 0 % (0-5); Neutrophil % 78.5 % (47-70); Platelet Count 302 K/mm3 (150-450); RBC Distribution Width CV 16.4 % (11.6-14.6); RBC Distribution Width SD 49.1 fl (35.1-43.9); Red Blood Count 4.17 M/mm3 (4.6-6.2); White Blood Count 7.5 K/mm3 (4.4-11.0)
--- NOTE | 2024-02-29 18:04 | EKG12_ITS ---
Test Reason : AR Blood Pressure : / mmHG Vent. Rate : 083 BPM Atrial Rate : 083 BPM P-R Int : 160 ms QRS Dur : 080 ms QT Int : 332 ms P-R-T Axes : 057 050 036 degrees QTc Int : 390 ms Normal sinus rhythm Normal ECG Confirmed by ANSHUL MALIK MD ([id number]), magazine editor BRETT ENRIQUEZ ([id number]) on 03/02/2024 6:43:43 AM Referred By: BEAU Confirmed By:ANSHUL MALIK MD
[2024-02-29 18:37] LABS: ALB/GLOB Ratio 0.6 RATIO (0.9-2.4); AST(SGOT) 25 U/L (15-37); Alanine Aminotransfer ALT/SGPT 13 U/L (16-61); Albumin, Serum 2.2 g/dL (3.2-5.0); Alkaline Phosphatase 74 U/L (45-117); Anion Gap 7 (5-15); BUN 23 mg/dL (7-18); BUN/Creat Ratio 21.1 RATIO (10-20); Calcium,Total 8.5 mg/dL (8.5-10.1); Chloride 106 mmol/L (98-107); Creatinine, Serum 1.09 mg/dL (0.70-1.30); EST Glomerular Filtration Rate 74 mL/min (>60); Est Glom Filt Rate - Afr Amer 89 mL/min (>60); Estimated Creatinine Clearance 76.89 ml/min; Glucose 118 mg/dL (74-106); Potassium 3.4 mmol/L (3.5-5.1); Protein, Total 6.2 g/dL (6.4-8.2); Sodium Level 136 mmol/L (136-145); Troponin-I HS 6 pg/mL (3.0-78.0)
[2024-02-29 18:44] LABS: BNP,B-Type NATRIURETIC PEPTIDE 109.9 pg/mL (0-100)
--- NOTE | 2024-02-29 20:22 | EX.ED.DYSGE1 ---
HPI History of Present Illness Chief Complaint: Edema Narrative Narrative: 58-year-old male past medical history of colon cancer metastatic to lungs presents with increasing shortness of breath. He states that for months he has had unilateral leg swelling for which his oncologist Dr. Dutch Escalante is to give him a prescription compression stocking. He presents at the recommendation of the on-call oncologist because of increasing shortness of breath and dyspnea. Patient relates history that about a week ago he had bilateral pleural effusions and they drained his right lung of 900 mL of fluid. A few days ago, he had the left one drained and they took off 400 mL. He presents with increasing shortness of breath but denies any fevers or chills. No cough. There is concern that he is at risk for pulmonary embolism. He is currently on immunotherapy. [facility] Medical History Prolonged Q-T interval on ECG Acute prerenal azotemia History of colon cancer, stage IV PERLA inhibitor-aggravated angioedema Hydronephrosis due to obstruction of ureter Colostomy care Colon cancer Home Medications ?Medication ?Instructions ?Recorded ?Last Taken ?Type fruquintinib 5 mg capsule 5 mg PO DAILY CANCER 01/28/24 Unknown History (Fruzaqla) hydromorphone 4 mg tablet 4 mg PO Q2H PRN PAIN 01/28/24 Unknown History megestrol 400 mg/10 mL (40 mg/mL) 800 mg PO DAILY LOSS OF 01/28/24 Unknown History oral suspension APPETITE/WEIGHT LOSS methylcellulose (laxative) 500 mg 500 mg PO DAILY CONSTIPATION 01/28/24 Unknown History tablet (Citrucel) morphine 60 mg tablet,extended 120 mg PO Q12H PAIN 01/28/24 Unknown History release prednisone 20 mg tablet See Taper PO DAILY STEROID 01/28/24 Unknown History prochlorperazine maleate 10 mg 10 mg PO Q6H PRN NAUSEA 01/28/24 Unknown History tablet sennosides 8.6 mg-docusate sodium 1 tab-cap PO 4X/DAY PRN 01/28/24 Unknown History 50 mg tablet (Stool CONSTIPATION Softener-Laxative) Allergy/AdvReac Type Severity Reaction Status Date / Time PERLA Inhibitors Allergy Severe Angioedema Verified 02/29/24 16:46 lisinopril Allergy Unknown Angioedema Verified 02/29/24 16:46 ciprofloxacin Allergy Anaphylaxis Verified 02/29/24 16:46 ondansetron (From Zofran) AdvReac Mild FR[place] Verified 02/29/24 16:46 Surgical History History of colostomy reversal Hx of appendectomy Social History household members: spouse and children Smoking Status: Former smoker ROS ROS ED ROS Narrative Constitutional: No fever, no chills. HEENT: No sore throat. No neck pain. No loss of vision. No rhinorrhea. Cardiovascular: No chest pain. No palpitations. Unilateral left leg swelling x 1 to 2 months Respiratory: No cough, positive increasing shortness of breath. Abdominal: No abdominal pain. No nausea. No vomiting. Genitourinary: No dysuria. No hematuria. Musculoskeletal: No myalgias. No arthralgias. Neurologic: No headaches. No dizziness. No lightheadedness. Skin: No rash. No change in color. EXAM Physical Exam Narrative Exam Narrative: Afebrile. Vital signs noted. Nontoxic-appearing. Regular rate and rhythm. Lungs are clear to auscultation bilaterally but he has decreased breath sounds at the bilateral bases at least a quarter of the way up the lung. Abdomen is soft nontender with normoactive bowel sounds. There is unilateral swelling of the left lower extremity but he appears neurovascular intact distally. Neurological examination shows him to be awake, alert, and oriented. Const Vital Signs: 02/29/24 16:46 02/29/24 16:49 02/29/24 17:46 Temperature 97.4 F L 98.6 F Temperature Source Temporal Oral Pulse Rate 92 79 Respiratory Rate 16 18 Blood Pressure 133/97 H 140/101 H Blood Pressure Mean 109 114 Pulse Ox 100 98 100 Oxygen Delivery Method Room Air Room Air Room Air 02/29/24 17:49 02/29/24 18:00 02/29/24 19:00 Temperature 97.6 F L 97.6 F L 97.6 F L Temperature Source Temporal Temporal Temporal Pulse Rate 77 71 76 Respiratory Rate 13 16 18 Blood Pressure 141/99 H 141/101 H 143/76 H Blood Pressure Mean 113 114 98 Pulse Ox 100 98 99 Oxygen Delivery Method Room Air Room Air MDM MDM MDM Narrative Medical decision making narrative: Differential diagnosis includes but not limited to reaccumulation of pleural exudate, pulmonary embolism, pneumonia, or pneumothorax. History and physical does not necessarily support pneumonia or pneumothorax. Comprehensive workup was pursued. EKG was obtained and interpreted by myself independently as normal sinus rhythm at 83 bpm without ectopy or acute ST changes. No STEMI. I reviewed his laboratory work and he has a normal white count of 7.5, hemoglobin 10.7 with hematocrit 34.1, platelet count normal at 302. He was concerned about his creatinine because he states that he has had an increase slightly but on review his BUN is 23 and his creatinine is normal at 1.09. Potassium slightly low at 3.4 which I think is nonspecific, glucose appropriately elevated at 118 with a normal anion gap of 7 so I doubt diabetic ketoacidosis. High-sensitivity troponin is 6. This has been ongoing for greater than 6 hours so I do not feel he requires serial enzymes. CTA of the chest does reveal no evidence of pulmonary embolism, but he has lung metastases and large bilateral pleural effusions. Upon repeat examination, his pulse ox is 99% on room air. He is not hypoxic. In discussion with the patient and his , I feel he can be discharged to follow-up with Dr. Escalante. They are comfortable with discharge. He was told to return with fever, hypoxia, increasing shortness of breath, new or worsening symptoms. Disposition is discharged home in stable condition. History & Record Review Discussion w/independent historian: Patient and Family Lab Data Attestation: I reviewed the patient's lab results. Labs: Laboratory Results - last 24 hr 02/29/24 17:25 WBC 7.5 RBC 4.17 L Hgb 10.7 L Hct 34.1 L MCV 81.8 MCH 25.7 L MCHC 31.4 L RDW Std Deviation 49.1 H RDW Coeff of Marito 16.4 H Plt Count 302 MPV 10.1 Immature Gran % (Auto) 0.500 Neut % (Auto) 78.5 H Lymph % (Auto) 11.0 L [place] % (Auto) 9.4 Eos % (Auto) 0.3 Baso % (Auto) 0.3 Absolute Neuts (auto) 5.9 Absolute Lymphs (auto) 0.83 Nucleated RBC % 0 Sodium 136 Potassium 3.4 L Chloride 106 Carbon Dioxide 23.0 Anion Gap 7 BUN 23 H Creatinine 1.09 Estim Creat Clear Calc 76.89 Est GFR (MDRD) Af Amer 89 Est GFR (MDRD) Non-Af 74 BUN/Creatinine Ratio 21.1 H Glucose 118 H Calcium 8.5 Total Bilirubin 0.20 AST 25 ALT 13 L Alkaline Phosphatase 74 Troponin I High Sens 6 B-Natriuretic Peptide 109.9 H Total Protein 6.2 L Albumin 2.2 L Globulin 4.0 Albumin/Globulin Ratio 0.6 L Radiography Diagnostic Testing: Clinical Impression(s) from Imaging Studies Chest CTA 02/29/24 17:37 IMPRESSION: Large bilateral pleural effusions with compressive atelectasis in both the upper and lower lobes bilaterally Multiple lung metastasis and hepatic metastasis. No evidence for pulmonary embolus Electronically Signed: Jimbo Elise MD at 19:44 EDT , Discharge Plan Triage Chief Complaint: Edema ED Provider: Rafi Luna Dx/Rx/DC Orders Clinical Impression: Colon carcinoma metastatic to lung, Bilateral pleural effusion, SOB (shortness of breath) Instructions: ED Dyspnea, ED Peripheral Edema, Unilateral, ED Pleural Effusion Prescriptions: No Action prednisone 20 mg tablet See Taper PO DAILY Taper: Prednisone Taper 60 mg WITH BREAKFAST for 3 Days 50 mg WITH BREAKFAST for 3 Days 40 mg WITH BREAKFAST for 3 Days 30 mg WITH BREAKFAST for 3 Days 20 mg WITH BREAKFAST for 3 Days 10 mg WITH BREAKFAST for 3 Days sennosides-docusate sodium [Stool Softener-Laxative] 8.6-50 mg tablet 1 tab-cap PO 4X/DAY PRN morphine 60 mg tablet extended release 120 mg PO Q12H Fruzaqla 5 mg capsule 5 mg PO DAILY Rx Instructions: take 1 capsule by mouth daily for 21 days followed by 7 days off therapy prochlorperazine maleate 10 mg tablet 10 mg PO Q6H PRN (Reason: NAUSEA ) hydromorphone 4 mg tablet 4 mg PO Q2H PRN (Reason: PAIN ) megestrol 400 mg/10 mL (40 mg/mL) suspension 800 mg PO DAILY Citrucel 500 mg tablet 500 mg PO DAILY Primary Care Provider: Brayan Pierce Referrals: Brayan Pierce MD [Primary Care Provider] - Dutch Escalante DO [Med Staff - Active Staff] - 2 Days Activity Restrictions/Additional Instructions: Follow-up with Dr. Escalante in 2 days. Return to the emergency department with hypoxia/pulse ox consistently lower than 90% on room air, increasing dyspnea, fever, new or worsening symptoms. Print Language: American Disposition Disposition: Home, Self Care
== END 2024-02-29 21:17 | disposition home or self-care (01) ==
PROVIDERS: Emergency Provider Emergency Medicine; PCP Family Medicine; Visit Provider Emergency Medicine
DX: R06.02 Shortness of breath (principal); C78.00 Secondary malignant neoplasm of unspecified lung; C78.7 Secondary malignant neoplasm of liver and intrahepatic bile duct; C18.9 Malignant neoplasm of colon, unspecified; Z87.891 Personal history of nicotine dependence; J90 Pleural effusion, not elsewhere classified; R60.0 Localized edema
CPT/HCPCS: 36591; 71275; 80053; 83880; 84484; 85025; 93005; 99283; Q9967; A4216

== ENCOUNTER 2024-03-27 11:06 | Inpatient (IN) | payer OTHER, SELFPAY ==
[2024-03-27] VITALS (14 sets, daily range): BP systolic 86–111; BP diastolic 64–78; PULSE 65–87; RESP 11–19; TEMP 35.8–37.1; O2SAT 94–100; BMI 21.1; BMI 19.5
--- NOTE | 2024-03-27 12:01 | RAD_ITS ---
STUDY: X-RAY CHEST REASON FOR EXAM: Male, 58 years old. Sob . Chest pain with deep breath. TECHNIQUE: Single AP portable view of the chest. COMPARISON: Comparison is made with prior study dated January 28, 2024. FINDINGS: A left-sided Port-A-Cath is seen with the tip in the right atrium. EKG electrodes are seen. Drainage tubes are seen in the epigastric region. Tiny nodules are seen in both lungs. Metastatic deposits should be ruled out. There is no demonstrated pleural abnormality. Normal size heart. Normal mediastinum and joaquin. Normal visualized pulmonary arteries. Normal visualized aortic arch and descending thoracic aorta. There are diffuse degenerative changes of the visualized thoracic spine. Normal visualized ribs, clavicles, and shoulders. There is no demonstrated abnormality of the visualized soft tissue structures of the upper abdomen. RAD/Chest 1 View (Portable) IMPRESSION: Multiple tiny bilateral pulmonary nodules. Metastatic disease should be ruled out. Drainage catheter is seen in the upper abdomen as described. Electronically Signed: Seth Reyes MD at 14:17 EDT ,
--- NOTE | 2024-03-27 12:01 | EKG12_ITS ---
Test Reason : Blood Pressure : / mmHG Vent. Rate : 078 BPM Atrial Rate : 078 BPM P-R Int : 156 ms QRS Dur : 078 ms QT Int : 370 ms P-R-T Axes : 075 087 051 degrees QTc Int : 421 ms Normal sinus rhythm Normal ECG Confirmed by ANSHUL MALIK MD ([id number]), editor city BRETT ENRIQUEZ ([id number]) on 03/31/2024 10:13:26 AM Referred By: Confirmed By:ANSHUL MALIK MD
--- NOTE | 2024-03-27 12:02 | ED.VIS.DYS ---
HPI History of Present Illness Chief Complaint: Shortness of Breath Informant: patient and spouse/S.O. Narrative Narrative: 58-year-old male brought by his for shortness of breath. He has metastatic colon cancer and according to the history he had pleural effusions that were tapped and tested shown to be malignant, about a week ago he had bilateral chest tubes placed to be used as drains, the has been trained to use these and drain the fluid at home daily. She states for the past week has had dyspnea with any little movement or activity that has been worsening despite taking the fluid out. No chest pain. He has abdominal pain that the patient states is no different than what he has been experiencing with the cancer. He had bilateral nephrostomy tubes exchanged 2 days ago, since then has had very little colostomy output but he has had no nausea or vomiting. He is taking morphine for the pain. He has a chronically edematous left lower leg that was negative for a blood clot when it was studied at [facility] as an outpatient, and several weeks ago because of this and the dyspnea he also had a CTA according to the 's description that was negative for pulmonary embolus. He is not on any anticoagulation for any reason. She states they have palliative care involved, they have talked to hospice, she states she does not know what the prognosis is but that she wants him to be around as long as hospital and wants to keep him home. She has help at home including to sons, 1 of which is coming in from [id number] [facility] Medical History Prolonged Q-T interval on ECG Acute prerenal azotemia History of colon cancer, stage IV PERLA inhibitor-aggravated angioedema Hydronephrosis due to obstruction of ureter Colostomy care Colon cancer Home Medications ?Medication ?Instructions ?Recorded ?Last Taken ?Type hydromorphone 4 mg tablet 4 mg PO Q2H PRN PAIN 01/28/24 Unknown History megestrol 400 mg/10 mL (40 mg/mL) 800 mg PO DAILY LOSS OF 01/28/24 Unknown History oral suspension APPETITE/WEIGHT LOSS methylcellulose (laxative) 500 mg 1,000 mg PO DAILY CONSTIPATION 01/28/24 Unknown History tablet (Citrucel) morphine 60 mg tablet,extended 120 mg PO Q12H PAIN 01/28/24 Unknown History release prochlorperazine maleate 10 mg 10 mg PO Q6H PRN NAUSEA 01/28/24 Unknown History tablet sennosides 8.6 mg-docusate sodium 5 tab-cap PO DAILY CONSTIPATION 01/28/24 Unknown History 50 mg tablet (Stool Softener-Laxative) amlodipine 5 mg tablet 10 mg PO DAILY 03/27/24 Unknown History famotidine 20 mg tablet (Acid 20 mg PO DAILY PRN gastric reflux 03/27/24 Unknown History Controller) lidocaine-prilocaine 2.5 %-2.5 % 2.5 g topical DAILY PRIOR TO PORT 03/27/24 Unknown History topical cream ACCESS metoprolol tartrate 25 mg tablet 25 mg PO BID 03/27/24 Unknown History Allergy/AdvReac Type Severity Reaction Status Date / Time PERLA Inhibitors Allergy Severe Angioedema Verified 03/27/24 11:11 lisinopril Allergy Unknown Angioedema Verified 03/27/24 11:11 ciprofloxacin Allergy Anaphylaxis Verified 03/27/24 11:11 ondansetron (From Zofran) AdvReac Mild [place] Verified 03/27/24 11:11 Surgical History History of colostomy reversal Hx of appendectomy Social History household members: spouse and children Smoking Status: Former smoker ROS ROS ED Constitutional Constitutional ED: Reports weakness; Denies chills or fever(s) Eyes Eyes: Denies change in vision or diplopia ENT ENT ED: Denies rhinorrhea or sore throat Cardiovascular Cardiovascular: Denies chest pain or palpitations Respiratory/Chest Respiratory/Chest: Reports dyspnea and dyspnea on exertion; Denies cough Gastrointestinal Gastrointestinal: Reports abdominal pain; Denies diarrhea, hematochezia, melena, nausea or vomiting Genitourinary Genitourinary ED: Denies dysuria or hematuria Musculoskeletal Musculoskeletal: Denies back pain or neck pain Integumentary Denies abscess or rash Neurologic Neurologic: Denies headache(s), paresthesias or weakness Psychiatric Psychiatric: Denies anxiety or suicidal thoughts EXAM Physical Exam Const Vital Signs: 03/27/24 11:07 03/27/24 11:10 03/27/24 11:26 Temperature 96.9 F L 96.9 F L Temperature Source Oral Oral Pulse Rate 86 87 Respiratory Rate 17 17 Respiratory Effort Normal Respiratory Depth Normal Respiratory Pattern Normal Blood Pressure 89/64 L 89/64 L Blood Pressure Mean 72 72 Pulse Ox 99 100 Oxygen Delivery Method Room Air Room Air Room Air 03/27/24 12:10 03/27/24 12:46 03/27/24 13:00 Temperature 96.9 F L 97.0 F L Temperature Source Oral Oral Pulse Rate 87 72 Respiratory Rate 17 16 Respiratory Effort Respiratory Depth Respiratory Pattern Blood Pressure 86/71 L 87/72 L Blood Pressure Mean 76 77 Pulse Ox 97 97 96 Oxygen Delivery Method Room Air Room Air Room Air 03/27/24 14:00 03/27/24 15:00 03/27/24 16:00 Temperature 97.1 F L 97.7 F L 98.4 F Temperature Source Axillary Axillary Oral Pulse Rate 71 74 77 Respiratory Rate 16 16 12 Respiratory Effort Respiratory Depth Respiratory Pattern Blood Pressure 93/71 97/75 109/78 Blood Pressure Mean 78 82 88 Pulse Ox 94 97 98 Oxygen Delivery Method Room Air Room Air Room Air 03/27/24 17:00 03/27/24 18:00 03/27/24 19:00 Temperature 98.7 F 98.7 F 97.6 F L Temperature Source Oral Oral Oral Pulse Rate 65 78 81 Respiratory Rate 16 19 H 16 Respiratory Effort Respiratory Depth Respiratory Pattern Blood Pressure 97/71 92/70 100/74 Blood Pressure Mean 79 77 82 Pulse Ox 98 98 99 Oxygen Delivery Method Room Air Room Air Room Air Positive well nourished, well developed and cachectic General Appearance ED: well developed, cachectic and NAD Nutritional Appearance: cachectic HEENT Reports moist mucous membranes normocephalic and atraumatic Eyes PERRL and EOMs intact bilaterally Neck full ROM and supple Chest Wall Chest Narrative: Bilateral anterior lower chest pleural drains with bandages on them, sites benign Resp normal respiratory effort Resp Narrative: Diminished at the bases no respiratory distress breathing easily and conversing in full sentences Cardio regular rate, regular rhythm and no murmurs Rate: Negative for tachycardic GI non-distended GI Narrative: Mild diffuse tenderness. No distention. Left sided colostomy benign no specific tenderness or hernia around it, there is small amount of nonbloody nonmelanotic formed stool in the colostomy. Auscultation: normoactive bowel sounds Palpation: soft Narrative: There is yellow urine in both nephrostomy tubes and bags with a little urine output. There is a small soft blood clot in the tubing of the right nephrostomy. Back/Spine no CVA tenderness Back/Spine Narrative: Bilateral nephrostomy tubes, sites benign no tenderness. Able to sit up without pain or difficulty. General Back: other FROM Extremity normal to inspection General Extremety ED: Yes edema; Negative for pulses abnormal or tenderness General Extremity: edema left lower extremity moderate; Negative for pulses abnormal Neuro oriented x3, CN's II-XII intact bilaterally and no sensory deficits noted Sensorium / Orientation: awake and alert Motor Exam: strength 5/5 throughout Skin no rashes or lesions noted and no wounds MDM MDM MDM Narrative Medical decision making narrative: I discussed with Dr. Escalante the patient's oncologist. He did undergo a clinical trial, his last chemotherapy drug was stopped about 3 weeks ago due to it not working and he is getting ready to start another 1. Differential here includes pulmonary embolus, pleural fluid collections that are loculated and the tubes may not be draining everything, pneumonia, less likely pneumothorax. According Dr. Escalante the patient does not have a large tumor burden in his chest; the pleural fluid was taking up much more space than his 1.7 cm mass. Given this, we contemplated that performing another CTA would be most reasonable, to rule out pulmonary embolus and evaluate for loculations and other pathology. I started with labs and a stat portable 1 view chest x-ray, on my interpretation it shows minimal pleural effusions, no pneumothorax or pneumonia, and the mediastinum appears narrow along with good placement of bilateral thoracostomies. I do see some small nodules, but there is nothing here grossly that explains his dyspnea. His labs however show significant acute renal failure which is new. The last labs I have are from about a month ago showing a creatinine around 1. He also has acute hyperkalemia without any EKG changes of that. For these reasons since his EGFR still low, I am not able to safely perform CT angiography right now. Patient is not having any pain to suggest hydronephrosis/obstructive uropathy with his nephrostomies in place, that have been draining according to the . He does not have bags or bulbs attached to any of his 4 drains so not able to clearly discern clinically if they are patent but I assume so since they have recently all been used for drainage. Discussed with Dr. Escalante. It is Saturday he is not on-call for the weekend so will not be able to see the patient if he went to [facility] which I offered to the patient and family. They are comfortable staying here at this hospital. Discussed with hospitalist Dr. Gonzalez. Understandably, since we do not have urology coverage today or this weekend, he requests that we obtain an renal ultrasound to rule out hydronephrosis or problem with the nephrostomy prior to admitting here. This was obtained and I reviewed the images and report which I agree with, it is showing mild right hydronephrosis without an obstructing stone, there is a nonobstructing single stone, and no hydronephrosis on the left. Given this, hospitalist spoke with patient, who agrees to be transferred to [facility] since we do not have the capacity with IR or urology to care for him if he needs manipulation of his nephrostomy. He has a physicians at [facility] who know him and have cared for him but the hospitalist there declined him since they do not have urology coverage at this time and because he recently was at [facility] so they recommend that he go there. Discussed with Dr. Jaramillo at [facility] who agrees and accepts the patient. Since there have been many delays and dispositioning this patient I am going to give him a dose of Kayexalate to keep his hyperkalemia from getting worse. Also giving him IV fluids. Lab Data Attestation: I reviewed the patient's lab results. Labs: Laboratory Results - last 24 hr 03/27/24 12:20 WBC 14.0 H RBC 4.72 Hgb 12.2 L Hct 39.4 L MCV 83.5 MCH 25.8 L MCHC 31.0 L RDW Std Deviation 53.2 H RDW Coeff of Marito 17.5 H Plt Count 316 MPV 10.4 Immature Gran % (Auto) 0.600 Neut % (Auto) 88.0 H Lymph % (Auto) 3.1 L [place] % (Auto) 8.2 Eos % (Auto) 0.0 Baso % (Auto) 0.1 Absolute Neuts (auto) 12.3 H Absolute Lymphs (auto) 0.43 L Nucleated RBC % 0 Sodium 131 L Potassium 5.5 H Chloride 101 Carbon Dioxide 18.0 L Anion Gap 12 BUN 66 H Creatinine 4.23 H Estim Creat Clear Calc 19.84 Est GFR (MDRD) Af Amer 19 L Est GFR (MDRD) Non-Af 15 L BUN/Creatinine Ratio 15.6 Glucose 113 H Calcium 9.6 Troponin I High Sens 6 B-Natriuretic Peptide 60.5 Radiography Diagnostic Testing: Clinical Impression(s) from Imaging Studies Chest X-Ray 03/27/24 12:01 IMPRESSION: Multiple tiny bilateral pulmonary nodules. Metastatic disease should be ruled out. Drainage catheter is seen in the upper abdomen as described. Electronically Signed: Seth Reyes MD at 14:17 EDT , Renal Ultrasound 03/27/24 17:04 IMPRESSION: Mild right hydronephrosis with no obstructing stone or mass seen. Nonobstructing 6 mm stone in the right kidney. Electronically Signed: Eliceo Tracy MD at 18:17 EDT , Rhythm Strip Rhythm Strip: Sinus Rhythm Rate: 80 Ectopy: None EKG Initial EKG: Attestation: I personally reviewed and interpreted this EKG as follows: Interpretation: Sinus Rhythm and No Acute Injury Pattern Comments: nml EKG Management Discussion w/another healthcare provider: Hospitalist and [employer] (oncology Dr. Escalante) Discharge Plan Triage Chief Complaint: Shortness of Breath ED Provider: Nacho Suarez Dx/Rx/DC Orders Clinical Impression: Acute renal failure (ARF), Hyperkalemia, diminished renal excretion, H/O colon cancer, stage IV, Bilateral pleural effusion, Hydronephrosis of right kidney Prescriptions: No Action amlodipine 5 mg tablet 10 mg PO DAILY metoprolol tartrate 25 mg tablet 25 mg PO BID famotidine [Acid Controller] 20 mg tablet 20 mg PO DAILY PRN (Reason: gastric reflux) lidocaine-prilocaine 2.5-2.5 % cream 2.5 g topical DAILY sennosides-docusate sodium [Stool Softener-Laxative] 8.6-50 mg tablet 5 tab-cap PO DAILY morphine 60 mg tablet extended release 120 mg PO Q12H prochlorperazine maleate 10 mg tablet 10 mg PO Q6H PRN (Reason: NAUSEA ) hydromorphone 4 mg tablet 4 mg PO Q2H PRN (Reason: PAIN ) megestrol 400 mg/10 mL (40 mg/mL) suspension 800 mg PO DAILY Citrucel 500 mg tablet 1,000 mg PO DAILY Primary Care Provider: Brayan Pierce Referrals: Brayan Pierce MD [Primary Care Provider] - Print Language: Albanian
[2024-03-27 12:45] LABS: Absolute Lymphocyte Count 0.43 X10^3/uL (0.83-4.51); Absolute Neutrophil Count 12.3 X10^3/uL (2.0-7.7); Basophil# 0.02 X10^3/uL; Basophil% 0.1 % (0-1); Hematocrit 39.4 % (40-54); Hemoglobin 12.2 g/dL (13.0-16.5); Lymphocyte # 0.43 X10^3/ul (0.83-4.51); Lymphocyte % 3.1 % (19-41); Mean Corpuscular Hgb 25.8 pg (27.0-32.0); Mean Corpuscular Volume 83.5 fL (80-94); Mean Platelet Vol. 10.4 fl (6.2-12.0); Monocyte# 1.14 X10^3/uL; Monocyte% 8.2 % (0-10); NRBC Flagged by Analyzer 0 % (0-5); Neutrophil # 12.28 X10^3/uL (2.7-7.7); POSITIVE DIFFERENTIAL YES; Platelet Count 316 K/mm3 (150-450); RBC Distribution Width CV 17.5 % (11.6-14.6); RBC Distribution Width SD 53.2 fl (35.1-43.9); Red Blood Count 4.72 M/mm3 (4.6-6.2)
[2024-03-27 13:04] LABS: BNP,B-Type NATRIURETIC PEPTIDE 60.5 pg/mL (0-100)
[2024-03-27 13:07] LABS: Anion Gap 12 (5-15); BUN 66 mg/dL (7-18); BUN/Creat Ratio 15.6 RATIO (10-20); Calcium,Total 9.6 mg/dL (8.5-10.1); Chloride 101 mmol/L (98-107); Creatinine, Serum 4.23 mg/dL (0.70-1.30); EST Glomerular Filtration Rate 15 mL/min (>60); Est Glom Filt Rate - Afr Amer 19 mL/min (>60); Estimated Creatinine Clearance 19.84 ml/min; Glucose 113 mg/dL (74-106); Potassium 5.5 mmol/L (3.5-5.1); Sodium Level 131 mmol/L (136-145); Troponin-I HS 6 pg/mL (3.0-78.0)
--- NOTE | 2024-03-27 17:04 | US_ITS ---
INDICATION: ARF, bilat nephrostomies EXAMINATION: Ultrasound US Kidney(s) complete (eg, kidneys and bladder) TECHNIQUE: Maldonado scale and color doppler images were obtained of the kidneys. COMPARISON: None. FINDINGS: RIGHT KIDNEY: Measures 11.5 cm in length.. There is mild hydronephrosis. There is a nonobstructing 6 mm shadowing stone in the midpole. Otherwise no focal lesion or perinephric collection is demonstrated. LEFT KIDNEY: Measures 12.5 cm in length.. There is no hydronephrosis. No shadowing calculus, focal lesion or perinephric collection is demonstrated. URINARY BLADDER: No acute abnormality. US/Kidney and Bladder IMPRESSION: Mild right hydronephrosis with no obstructing stone or mass seen. Nonobstructing 6 mm stone in the right kidney. Electronically Signed: Eliceo Tracy MD at 18:17 EDT ,
--- NOTE | 2024-03-27 18:45 | PCM.HOSP.N ---
Hospitalist Note Was seen at the urge of the ER physician. Patient has long history of CA colon with bilateral ureteric obstruction requiring bilateral hydro nephrostomy tube. Patient came to ER with shortness of breath. Patient also had bilateral pulmonary catheter but this time chest x-ray looks expanded. Chest x-ray evaluate as described below Renal ultrasound was done which shows mild right hydronephrosis with no obstructing stone or mass. On the right nephrostomy tube patient has urine output about 20 to 30 mL in more than 18 hours. On left side, patient has urine output about 100 mL in last 18 hours. There is no hydronephrosis. Bilateral right and left kidney size is within normal limit. Urinary bladder no acute abnormality. Patient came to ED with MIRNA with creatinine 4.23, BUN 66 with BUN/creatinine ratio 15.6. Prior to that his creatinine was normal. K5.5. Currently we do not have IR coverage for handling nephrostomy tubes. I talked to the patient's and son in the room. About 2 days ago, his left nephrostomy was fixed with flush of clot in [facility]. Patient looks hemodynamically stable with blood pressure 92/70 which is his baseline. Though he had blood pressure around 140s during hospital course last time. Patient does not looks shock Advise IV fluid resuscitation to ED physician and he said he will try to arrange ambulance to transfer to the [facility] ER. Patient's also agreed to take him in car. Laboratory Results 03/27/24 12:20: WBC 14.0 H, RBC 4.72, Hgb 12.2 L, Hct 39.4 L, MCV 83.5, MCH 25.8 L, MCHC 31.0 L, RDW Std Deviation 53.2 H, RDW Coeff of Marito 17.5 H, Plt Count 316, MPV 10.4, Immature Gran % (Auto) 0.600, Neut % (Auto) 88.0 H, Lymph % (Auto) 3.1 L, Slope % (Auto) 8.2, Eos % (Auto) 0.0, Baso % (Auto) 0.1, Absolute Neuts (auto) 12.3 H, Absolute Lymphs (auto) 0.43 L, Nucleated RBC % 0, Sodium 131 L, Potassium 5.5 H, Chloride 101, Carbon Dioxide 18.0 L, Anion Gap 12, BUN 66 H, Creatinine 4.23 H, Estim Creat Clear Calc 19.84, Est GFR (MDRD) Af Amer 19 L, Est GFR (MDRD) Non-Af 15 L, BUN/Creatinine Ratio 15.6, Glucose 113 H, Calcium 9.6, Troponin I High Sens 6, B-Natriuretic Peptide 60.5 Clinical Impression(s) from Imaging Studies Chest X-Ray 03/27/24 12:01 IMPRESSION: Multiple tiny bilateral pulmonary nodules. Metastatic disease should be ruled out. Drainage catheter is seen in the upper abdomen as described. Electronically Signed: Seth Reyes MD at 14:17 EDT , Renal Ultrasound 03/27/24 17:04 IMPRESSION: Mild right hydronephrosis with no obstructing stone or mass seen. Nonobstructing 6 mm stone in the right kidney. Electronically Signed: Eliceo Tracy MD at 18:17 EDT ,
[2024-03-27] MEDS: Sodium Polystyrene Sulfonate 15 GM/60 ML UDC PO (20:44)
[2024-03-27] MEDS: 0.9% Normal Saline (1000mL) 1,000 ML 150 ML IV (20:44)
--- NOTE | 2024-03-27 21:04 | ED.RN ---
I CALLED [facility] TRANSFER LINE FOR BED ASSIGNMENT [facility] TOLD ME NO BED TONIGHT, HOPEFULLY THIS WEEKEND (03/28, 03/29)
--- NOTE | 2024-03-27 22:32 | PCM.HP.STD ---
HPI - General General Date of Admission: 03/27/24 Date of Service: 03/27/24 Chief Complaint: Dyspnea, decreased UOP from nephrostomy tubes. HPI Narrative The patient is a 58 y/o M w/ PMHx: HTN secondary to CA medication side effects per Oncology report, Chronic pain syndrome, Chronic normocytic anemia/AOCD, Severe protein calorie malnutrition, Colon Cancer stage IV, most recent discharge 01/30/2024 following evaluation and treatment for PERLA inhibitor associated angioedema who presents to the [facility] ED on 03/27/2024 with primary complaint of dyspnea with history of ongoing issues with pleural effusions noted to be malignant with bilateral chest tubes placed as drains which drains daily however unfortunately last week he has been more dyspneic which is worse with exertion with ongoing chronic generalized abdominal pain with bilateral nephrostomy tube exchange on Saturday of week of presentation and since then decreased appetite, decreased output from his colostomy tube with nausea without emesis in addition to reported clots being pulled out of his left nephrostomy tube with decreased nephrostomy tube output prompting eventual ED evaluation to be cautious. Workup in the ED included T96.9, heart rate 86, BP 89/64, respiratory rate 17, 99% on room air with most recent repeat vitals T97.5, heart rate 84, BP 102/76, respiratory rate 11, 98% on room air, CBC with WC 14, human 12.2, MCV 83.5, platelet 316 with left shift and lymphopenia, BMP with sodium sodium 131, potassium 5.5, chloride 101, carbon oxide 18, anion gap 12, BUN/creatinine for 66/4.23, GFR 15, glucose 113, troponin 6, BNP 60.5, chest x-ray with multiple tiny bilateral pulmonary nodules, drainage catheter seen in the upper abdomen, findings consistent with metastatic disease, renal ultrasound with mild right hydronephrosis with no obstructing stone or mass, nonobstructing 6 mm stone in the right kidney. In the ED patient ministered maintenance IV fluids and Kayexalate 15 g p.o. x 1. [facility] Medical History Chronic anemia Chronic pain GERD (gastroesophageal reflux disease) HTN (hypertension) History of colon cancer, stage IV PERLA inhibitor-aggravated angioedema Hydronephrosis due to obstruction of ureter Home Medications ?Medication ?Instructions ?Recorded ?Last Taken ?Type hydromorphone 4 mg tablet 4 mg PO Q2H PRN PAIN 01/28/24 Unknown History megestrol 400 mg/10 mL (40 mg/mL) 800 mg PO DAILY LOSS OF 01/28/24 Unknown History oral suspension APPETITE/WEIGHT LOSS methylcellulose (laxative) 500 mg 1,000 mg PO DAILY CONSTIPATION 01/28/24 Unknown History tablet (Citrucel) morphine 60 mg tablet,extended 120 mg PO Q12H PAIN 01/28/24 Unknown History release prochlorperazine maleate 10 mg 10 mg PO Q6H PRN NAUSEA 01/28/24 Unknown History tablet sennosides 8.6 mg-docusate sodium 5 tab-cap PO DAILY CONSTIPATION 01/28/24 Unknown History 50 mg tablet (Stool Softener-Laxative) amlodipine 5 mg tablet 10 mg PO DAILY 03/27/24 Unknown History famotidine 20 mg tablet (Acid 20 mg PO DAILY PRN gastric reflux 03/27/24 Unknown History Controller) lidocaine-prilocaine 2.5 %-2.5 % 2.5 g topical DAILY PRIOR TO PORT 03/27/24 Unknown History topical cream ACCESS metoprolol tartrate 25 mg tablet 25 mg PO BID 03/27/24 Unknown History Allergy/AdvReac Type Severity Reaction Status Date / Time PERLA Inhibitors Allergy Severe Angioedema Verified 03/27/24 11:11 lisinopril Allergy Unknown Angioedema Verified 03/27/24 11:11 ciprofloxacin Allergy Anaphylaxis Verified 03/27/24 11:11 ondansetron (From Zofran) AdvReac Mild [place] Verified 03/27/24 11:11 Family History Mother Hypertension Father Lung cancer Surgical History History of nasal septoplasty History of arthroscopic knee surgery Hx of surgical amputation of finger History of colostomy reversal Hx of appendectomy Social History household members: spouse and children Smoking Status: Former smoker how long ago did patient quit smoking: Smoked 1/2 ppd x 10 years, quit 1996. alcohol intake: current alcohol intake frequency: a few times a week substance use type: does not use ROS ROS Narrative Admission Review of Systems: CONSTITUTIONAL: No weight loss, fever, chills, + weakness or fatigue. HEENT: Eyes: No visual loss, blurred vision, double vision or yellow sclerae. Ears, Nose, Throat: No hearing loss, sneezing, congestion, runny nose or sore throat. SKIN: No rash or itching, lesions, wounds. CARDIOVASCULAR: No chest pain, chest pressure or chest discomfort, palpitations, edema, orthopnea, syncopal events. RESPIRATORY: + Dyspnea worse with exertion. No marked cough or sputum, wheezing, hemoptysis. GASTROINTESTINAL: + anorexia, nausea without, vomiting, decreased ostomy output, chronic abdominal pain unchanged. No melena, BRBPR. GENITOURINARY: + Decreased nephrostomy bilateral tube output, recent nephrostomy change out, left urostomy tube with clot retrieved out of it. NEUROLOGICAL: No headache, dizziness, syncope, paralysis, ataxia, numbness or tingling in the extremities, focal weakness, change in bowel or bladder control, seizure. MUSCULOSKELETAL: +muscle, back pain, joint pain or stiffness. HEMATOLOGIC: + Chronic anemia, easy bleeding/bruising. LYMPHATICS: No enlarged nodes. No history of splenectomy. PSYCHIATRIC: No history of depression or anxiety. ENDOCRINOLOGIC: No reports of sweating, cold or heat intolerance. No polyuria or polydipsia. ALLERGIES: + History of angioedema and anaphylaxis. Vital Signs Vital Signs Vital Signs: 03/27/24 11:07 03/27/24 11:10 03/27/24 11:26 Temperature 96.9 F L 96.9 F L Temperature Source Oral Oral Pulse Rate 86 87 Respiratory Rate 17 17 Respiratory Effort Normal Respiratory Depth Normal Respiratory Pattern Normal Blood Pressure 89/64 L 89/64 L Blood Pressure Mean 72 72 Pulse Ox 99 100 Oxygen Delivery Method Room Air Room Air Room Air 03/27/24 12:10 03/27/24 12:46 03/27/24 13:00 Temperature 96.9 F L 97.0 F L Temperature Source Oral Oral Pulse Rate 87 72 Respiratory Rate 17 16 Respiratory Effort Respiratory Depth Respiratory Pattern Blood Pressure 86/71 L 87/72 L Blood Pressure Mean 76 77 Pulse Ox 97 97 96 Oxygen Delivery Method Room Air Room Air Room Air 03/27/24 14:00 03/27/24 15:00 03/27/24 16:00 Temperature 97.1 F L 97.7 F L 98.4 F Temperature Source Axillary Axillary Oral Pulse Rate 71 74 77 Respiratory Rate 16 16 12 Respiratory Effort Respiratory Depth Respiratory Pattern Blood Pressure 93/71 97/75 109/78 Blood Pressure Mean 78 82 88 Pulse Ox 94 97 98 Oxygen Delivery Method Room Air Room Air Room Air 03/27/24 17:00 03/27/24 18:00 03/27/24 19:00 Temperature 98.7 F 98.7 F 97.6 F L Temperature Source Oral Oral Oral Pulse Rate 65 78 81 Respiratory Rate 16 19 H 16 Respiratory Effort Respiratory Depth Respiratory Pattern Blood Pressure 97/71 92/70 100/74 Blood Pressure Mean 79 77 82 Pulse Ox 98 98 99 Oxygen Delivery Method Room Air Room Air Room Air 03/27/24 21:00 Temperature Temperature Source Pulse Rate 78 Respiratory Rate 12 Respiratory Effort Respiratory Depth Respiratory Pattern Blood Pressure 103/74 Blood Pressure Mean 83 Pulse Ox 99 Oxygen Delivery Method Room Air Weight Weight: 164 lb 7.437 oz Body Mass Index (BMI) 21.1 Physical Exam Narrative Physical Examination: General: Awake, alert, oriented x 3 and cooperative, seated upright in the ED bed, mildly hoarse voice, fatigued, cachectic appearing. Skin: Normal color, normal turgor, no icterus, no cyanosis except very staged ecchymoses, abrasions. HEENT: AT/NC, EOMI, PERRLA, dry MM, no carotid bruits or JVD noted. Lungs: Diminished, greater bases, significantly reduced effort, mild crackles at bases, no rhonchi or wheezing. Heart: Regular rate with regular rhythm; no gallop, rub audible. Abdomen: Soft, cachectic appearing, generalized discomfort without any rebound or guarding, normal appearing output from ostomy but notes this is reduced, no obvious distention of the abdomen however there is a slight fullness to the left lateral flank, hyperactive BS, no obvious appreciable HSM but difficult given all of the tubes and ostomy. Extremities: No cyanosis, no clubbing, significant left lower extremity pedal to above the knee 3+ pitting edema with patient/spouse saying it is acute on chronic. Neurological: Patient awake, alert, oriented as needed, cognitive function intact; pupils equally reactive to light and accommodation, cranial nerves grossly normal, moving all 4 extremities, no focal deficits, strength severely globally decreased. Psychiatric: Affect appears flat, fatigued, no acute evidence of depressive or anxiety feelings but certainly high risk but no formal diagnosis reported in chart. Results Lab / Micro Data 03/27/24 12:20 03/27/24 12:20 Labs: Laboratory Results - last 24 hr 03/27/24 12:20: WBC 14.0 H, RBC 4.72, Hgb 12.2 L, Hct 39.4 L, MCV 83.5, MCH 25.8 L, MCHC 31.0 L, RDW Std Deviation 53.2 H, RDW Coeff of Marito 17.5 H, Plt Count 316, MPV 10.4, Immature Gran % (Auto) 0.600, Neut % (Auto) 88.0 H, Lymph % (Auto) 3.1 L, Mower % (Auto) 8.2, Eos % (Auto) 0.0, Baso % (Auto) 0.1, Absolute Neuts (auto) 12.3 H, Absolute Lymphs (auto) 0.43 L, Nucleated RBC % 0, Sodium 131 L, Potassium 5.5 H, Chloride 101, Carbon Dioxide 18.0 L, Anion Gap 12, BUN 66 H, Creatinine 4.23 H, Estim Creat Clear Calc 19.84, Est GFR (MDRD) Af Amer 19 L, Est GFR (MDRD) Non-Af 15 L, BUN/Creatinine Ratio 15.6, Glucose 113 H, Calcium 9.6, Troponin I High Sens 6, B-Natriuretic Peptide 60.5 Rhythm Strip Rhythm Strip: Sinus Rhythm Rate: 80 Ectopy: None Imaging Radiology Impression Chest X-Ray 03/27/24 12:01 IMPRESSION: Multiple tiny bilateral pulmonary nodules. Metastatic disease should be ruled out. Drainage catheter is seen in the upper abdomen as described. Electronically Signed: Seth Reyes MD at 14:17 EDT , Renal Ultrasound 03/27/24 17:04 IMPRESSION: Mild right hydronephrosis with no obstructing stone or mass seen. Nonobstructing 6 mm stone in the right kidney. Electronically Signed: Eliceo Tracy MD at 18:17 EDT , Assessment & Plan Assessment/Plan (1) Acute renal failure (ARF): PLAN: Plan The patient is a 58 y/o M w/ PMHx: HTN secondary to CA medication side effects per Oncology report, Chronic pain syndrome, Chronic normocytic anemia/AOCD, Severe protein calorie malnutrition, Colon Cancer stage IV, most recent discharge 01/30/2024 following evaluation and treatment for PERLA inhibitor associated angioedema who presents to the [facility] ED on 03/27/2024 with primary complaint of dyspnea with history of ongoing issues with pleural effusions noted to be malignant with bilateral chest tubes placed as drains which drains daily however unfortunately last week he has been more dyspneic which is worse with exertion with ongoing chronic generalized abdominal pain with bilateral nephrostomy tube exchange on Saturday of week of presentation and since then decreased appetite, decreased output from his colostomy tube with nausea without emesis in addition to reported clots being pulled out of his left nephrostomy tube with decreased nephrostomy tube output prompting eventual ED evaluation to be cautious. #1. Acute kidney injury on more recent appearance CKD stage II/I per GFR trending but has vacillated, most recent prior to this 02/29/2024 GFR 74 with intact bilateral nephrostomy tubes with recent change out the Saturday prior with current evidence of mild right hydronephrosis with history of bilateral uric obstruction requiring bilateral hydro nephrostomy tubes secondary to colon cancer: Unclear exact specific etiology, suspect some component of dehydration/poor intake but also concern for malfunction of nephrostomy tubes. Admission BUN/Cr 66/4.23, GFR 15, prior baseline creatinine noted to be primarily 0.8-1.0, most recent 02/29/2024 creatinine 1.09. Will continue to hydrate, hold nephrotoxic medications and repeat chemistry in AM. FeNa assessment requested. Renal ultrasound performed in the ED with mild right hydronephrosis with no obstructing stone or mass, nonobstructing 6 mm stone in the right kidney. Continue to monitor output. Pending transfer to [facility] with bed reportedly to be obtained in AM given bilateral nephrostomy tubes with change out recently on the Saturday prior to current presentation with concern for malfunction given decreased output. Urinalysis and urine culture from nephrostomy tubes has also been requested given mild leukocytosis. If patient does not in fact transferred to [facility] in the AM as they noted then would recommend nephrology involvement. #2. Dyspnea with left lower extremity swelling, acute on chronic: Patient and family notes some chronic component of left lower extremity swelling following previous cancer agents with remote duplex which was unremarkable at that time, given inability to obtain CTPA given current situation with dyspnea presentation as primary complaint will request bilateral lower extremity duplex ultrasounds as patient certainly with underlying cancer is high risk for PE and this could be part of what is going on at least from his dyspnea complaint aside from MIRNA presentation. #3. Leukocytosis, unclear etiology: Admission CBC with WBC 14 with left shift, chest x-ray with no overt findings, some concern given malfunction potential of nephrostomy tubes for possible infection, urine requested from nephrostomy output to send for culture, procalcitonin requested, trend CBC. #4. Hyperkalemia, mild: EKG with no significant peaked T waves, admission potassium 5.5, will continue hydration and will repeat BMP this evening as well as in a.m., maintain on telemetry to be cautious. #5. Hyponatremia, potentially component hypovolemia, poor intake/dehydration: Admission CMP with sodium 131, chloride 101, will continue hydration and repeat CMP in AM. #6. Metastatic colon cancer: Unclear exact metastasis sites, previously on Fruquintinib which has since been held secondary to hypercoagulability and hypertension side effects of the medication, following with [facility] oncologist Dr. Escalante. As noted above patient w/ concurrent bilateral ureteric obstruction as noted above status post bilateral hydro nephrostomy tubes, potential complication as noted above with pending further [facility] evaluation, transfer pending, #7. Chronic normocytic anemia: Admission hemoglobin 12.2, MCV 83.5, baseline more recent hemoglobin primarily 10 range and previous to this was 13-14, likely related with underlying cancer and treatments, continue to trend CBC. #8. Hypertension: Noted history, previously had been on PERLA inhibitor with allergic reaction during prior admission, transition to metoprolol and amlodipine, currently blood pressure is low normal, holding all regimen, as needed IV hydralazine if absolutely necessary. Upon discharge and transition may not require any other medications but in the setting of acute kidney injury and questionable infection is noted. #9. Severe protein calorie malnutrition: Evidenced by significant muscle and fat loss, cachexia, nutrition consulted for recommendations. #10. Former tobacco usage: Encourage continued tobacco cessation. #11. DVT prophylaxis: Heparin. #12. CODE status: Patient HCPOA and living will paperwork is all filled out but has yet to be formalized with to be performing as healthcare power of trust and estates attorney and present for discussion. Discussed CODE status at length including difference between FULL code, DNR-CCA and DNR-CC status. Following discussions about the differences in these status, requested Full Code status. Advanced Care Planning Face to Face Time: 16 minutes. Charges/Coding Visit Charges Inpatient E&M: 11878 Init Hosp L3 Procedures Hospitalists Procedures: 16645 Advncd Care Plan 30 Min
[2024-03-27 23:25] LABS: Anion Gap 13 (5-15); BUN 73 mg/dL (7-18); BUN/Creat Ratio 15.8 RATIO (10-20); Calcium,Total 9.3 mg/dL (8.5-10.1); Chloride 100 mmol/L (98-107); Creatinine, Serum 4.61 mg/dL (0.70-1.30); EST Glomerular Filtration Rate 14 mL/min (>60); Est Glom Filt Rate - Afr Amer 17 mL/min (>60); Glucose 107 mg/dL (74-106); Magnesium 2.4 mg/dL (1.6-2.6); Phosphorus 7.5 mg/dL (2.5-4.9); Potassium 5.7 mmol/L (3.5-5.1); Sodium Level 131 mmol/L (136-145)
[2024-03-27 23:35] LABS: Procalcitonin 4.08 ng/mL (0.00-0.09)
[2024-03-28 00:17] VITALS: PULSE 60; RESP 16; O2SAT 97
[2024-03-28] MEDS: Albuterol *CONC* 2.5mg/0.5mL VIAL.NEB. 10 MG INHALATION (00:17)
[2024-03-28] MEDS: Insulin Lispro 10 UNIT in Syringe 0 ML 6 UNIT IV (00:18)
[2024-03-28] MEDS: Calcium Gluconate 1 GM/10 ML Vial 0.5 GM IVP (00:19)
[2024-03-28] MEDS: Dextrose 10%-Water 250 ML 999 ML IV (00:57)
[2024-03-28] MEDS: Sodium Polystyrene Sulfonate 15 GM/60 ML UDC PO (01:04)
[2024-03-28] MEDS: HYDROmorphone 2 MG TABLET 4 MG PO (01:40)
[2024-03-28] MEDS: 0.9% Normal Saline (1000mL) 1,000 ML 150 ML IV (03:32)
[2024-03-28 03:34] VITALS: BP 98/73; PULSE 78; RESP 18; TEMP 36.2; O2SAT 99
[2024-03-28 04:49] VITALS: BMI 19.6
--- NOTE | 2024-03-28 07:12 | PN.HOSP_ITS ---
Reason for Visit Reason for Visit: Diagnoses Acute kidney failure, unspecified (03/27/24) Objective Data Objective Data Vital Signs: Vital Signs Temp Pulse Resp BP Pulse Ox O2 Del Method 97.1 F L 78 18 98/73 99 Room Air 03/28/24 03:34 03/28/24 03:34 03/28/24 03:34 03/28/24 03:34 03/28/24 03:34 03/28/24 03:34 Oxygen Delivery Method Room Air Weight: 156 lb 15.506 oz Body Mass Index (BMI) 19.6 Intake & Output: Intake and Output for Last 24 Hours 03/26/24 03/27/24 03/28/24 23:59 23:59 23:59 Intake Total 1250 / 1250 Balance 1250 / 1250 Lab / Micro Data 03/28/24 06:30 03/28/24 06:30 Labs: Laboratory Results - last 24 hr 03/27/24 12:20: WBC 14.0 H, RBC 4.72, Hgb 12.2 L, Hct 39.4 L, MCV 83.5, MCH 25.8 L, MCHC 31.0 L, RDW Std Deviation 53.2 H, RDW Coeff of Marito 17.5 H, Plt Count 316, MPV 10.4, Immature Gran % (Auto) 0.600, Neut % (Auto) 88.0 H, Lymph % (Auto) 3.1 L, [place] % (Auto) 8.2, Eos % (Auto) 0.0, Baso % (Auto) 0.1, Absolute Neuts (auto) 12.3 H, Absolute Lymphs (auto) 0.43 L, Nucleated RBC % 0, Sodium 131 L, Potassium 5.5 H, Chloride 101, Carbon Dioxide 18.0 L, Anion Gap 12, BUN 66 H, Creatinine 4.23 H, Estim Creat Clear Calc 19.84, Est GFR (MDRD) Af Amer 19 L, Est GFR (MDRD) Non-Af 15 L, BUN/Creatinine Ratio 15.6, Glucose 113 H, Calcium 9.6, Troponin I High Sens 6, B-Natriuretic Peptide 60.5 03/27/24 23:05: Sodium 131 L, Potassium 5.7 H, Chloride 100, Carbon Dioxide 18.0 L, Anion Gap 13, BUN 73 H, Creatinine 4.61 H, Estim Creat Clear Calc 18.20, Est GFR (MDRD) Af Amer 17 L, Est GFR (MDRD) Non-Af 14 L, BUN/Creatinine Ratio 15.8, Glucose 107 H, Calcium 9.3, Phosphorus 7.5 H, Magnesium 2.4, Procalcitonin 4.08 H Radiography Diagnostic Testing: Radiology Impression Chest X-Ray 03/27/24 12:01 IMPRESSION: Multiple tiny bilateral pulmonary nodules. Metastatic disease should be ruled out. Drainage catheter is seen in the upper abdomen as described. Electronically Signed: Seth Reyes MD at 14:17 EDT , Renal Ultrasound 03/27/24 17:04 IMPRESSION: Mild right hydronephrosis with no obstructing stone or mass seen. Nonobstructing 6 mm stone in the right kidney. Electronically Signed: Eliceo Tracy MD at 18:17 EDT , Rhythm Strip Rhythm Strip: Sinus Rhythm Rate: 80 Ectopy: None Physical Exam Narrative Seen and examined Blood pressure 120/81 better than triage when it was in low 90s. Heart rate 96/min. On room air General: Alert, Oriented x3, Cooperative, chronically severe malnourished, BMI 19.6 kg per ischemic HEENT: Atraumatic, PERRLA, EOMI, Normocephalic Oral: Oral mucosa dry no Gingival or Mucosal Lesions/ Ulcerations Neck: Supple, No JVD, Negative Carotid Bruits Chest wall/Lungs: Air entry diminished in bilateral lung bases. Bilateral pleural catheters anteriorly Cardiovascular: Regular rate, Regular Rhythm, Normal S1, Normal S2, No M/G/R Abdomen: Bowel Sounds Present, Soft, Non Tender, Non-Distended : Bilateral nephrostomy tube. No charting of urine output but yesterday. Yesterday was low, right nephrostomy more than left nephrostomy. No renal angle tenderness. No suprapubic tenderness. Extremities: Chronically left leg is more swollen/edematous than right, Capillary Refill Less than 3 Seconds Skin: No rashes, No breakdown Musculoskeletal: No Tenderness to Palpation of Joints or Extremities Neurological: Cranial nerves II-XII grossly intact, DTR 2+/4. No acute focal neurological deficit. Psych/Mental Status: Normal Affect, Appropriate. Assessment & Plan Assessment/Plan (1) Acute renal failure (ARF): (2) Hyperkalemia, diminished renal excretion: (3) Hydronephrosis of right kidney: PLAN: Plan 58-year-old gentleman was admitted with shortness of breath but found to have MIRNA with bilateral nephrostomy tubes 1. MIRNA, exact etiology unclear, most likely postobstructive uropathy and prerenal: History of bilateral ureteric obstruction requiring bilateral nephrostomy tube due to CA colon with colostomy. Patient is being admitted in PCU as interim to transfer to [facility]. Yesterday I saw the patient in ED and requested transfer as we do not have IR/urologist on-call. Admitting BUN/creatinine 66/4.23 increased to 72/4.78 despite IV fluid. BUN/creatinine 23/1.09 about a month ago on February 2024. Director Corporate Sales is consulted. 2. Electrolyte abnormality: Hyponatremia, hyperkalemia, normal anion gap metabolic acidosis: Anion gap increased from normal 7-14. IV fluid normal saline was changed to bicarb drip in the morning. Patient had hyperkalemia cocktail including calcium gluconate and Kayexalate. Calcium gluconate ordered. Monitor BMP. 3. Dyspnea on mild exertion with left lower extremity swelling with history of bilateral malignant effusion: Patient had recent duplex scan in [facility] and [facility] which was unremarkable. Rest thought to be due to previous cancer agent. Had recent CTPA which was negative for acute thromboembolism but could not do this time because of MIRNA. Dyspnea is better. Chest x-ray initially reviewed and shows expanded lungs. Bilateral pleural tubes functioning. Leukocytosis resolved. 4. Metastatic colon cancer with bilateral ureteric involvement and metastatic pleural effusion: Patient has colostomy functioning. Rest as described above 5. Chronic normocytic normochromic anemia: Admission hemoglobin 12.2, MCV 83.5. H&H 11/35%. Platelet count 259,000. Monitor CBC. 6. Hypertension: Currently blood pressure is normotensive. It was low in the ED. Hold antihypertensive medications. 7. Severe chronic protein calorie malnutrition: Evidence of moderate muscle atrophy of extremities, loss of subcutaneous fat. BMI 19.6. Prescribed 8. DVT prophylaxis on heparin subcu Laboratory Results 03/27/24 12:20: WBC 14.0 H, RBC 4.72, Hgb 12.2 L, Hct 39.4 L, MCV 83.5, MCH 25.8 L, MCHC 31.0 L, RDW Std Deviation 53.2 H, RDW Coeff of Marito 17.5 H, Plt Count 316, MPV 10.4, Immature Gran % (Auto) 0.600, Neut % (Auto) 88.0 H, Lymph % (Auto) 3.1 L, [place] % (Auto) 8.2, Eos % (Auto) 0.0, Baso % (Auto) 0.1, Absolute Neuts (auto) 12.3 H, Absolute Lymphs (auto) 0.43 L, Nucleated RBC % 0, Sodium 131 L, Potassium 5.5 H, Chloride 101, Carbon Dioxide 18.0 L, Anion Gap 12, BUN 66 H, Creatinine 4.23 H, Estim Creat Clear Calc 19.84, Est GFR (MDRD) Af Amer 19 L, Est GFR (MDRD) Non-Af 15 L, BUN/Creatinine Ratio 15.6, Glucose 113 H, Calcium 9.6, Troponin I High Sens 6, B-Natriuretic Peptide 60.5 03/27/24 23:05: Sodium 131 L, Potassium 5.7 H, Chloride 100, Carbon Dioxide 18.0 L, Anion Gap 13, BUN 73 H, Creatinine 4.61 H, Estim Creat Clear Calc 18.20, Est GFR (MDRD) Af Amer 17 L, Est GFR (MDRD) Non-Af 14 L, BUN/Creatinine Ratio 15.8, Glucose 107 H, Calcium 9.3, Phosphorus 7.5 H, Magnesium 2.4, Procalcitonin 4.08 H 03/28/24 06:30: WBC 10.9, RBC 4.25 L, Hgb 11.0 L, Hct 35.0 L, MCV 82.4, MCH 25.9 L, MCHC 31.4 L, RDW Std Deviation 53.1 H, RDW Coeff of Marito 17.7 H, Plt Count 259, MPV 10.7, Immature Gran % (Auto) 0.600, Neut % (Auto) 84.2 H, Lymph % (Auto) 4.4 L, [place] % (Auto) 10.6 H, Eos % (Auto) 0.1, Baso % (Auto) 0.1, A bsolute Neuts (auto) 9.2 H, Absolute Lymphs (auto) 0.48 L, Nucleated RBC % 0, S odium 131 L, Potassium 5.3 H, Chloride 101, Carbon Dioxide 16.0 L, Anion Gap 14, BUN 72 H, Creatinine 4.78 H, Estim Creat Clear Calc 16.76, Est GFR (MDRD) Af Amer 16 L, Est GFR (MDRD) Non-Af 13 L, BUN/Creatinine Ratio 15.1, Glucose 117 H, Calcium 9.2, Total Bilirubin 0.80, AST 252 H, ALT 90 H, Alkaline Phosphatase 227 H, Total Protein 5.9 L, Albumin 2.0 L, Globulin 3.9, Albumin/Globulin Ratio 0.5 L Patient has protracted history of CA colon with bilateral ureteric obstruction requiring bilateral nephrostomy tube. Patient came to ER with shortness of breath. Patient also had bilateral chest tubes/catheter but this time chest x- ray looks expanded. Chest x-ray evaluate as described below Renal ultrasound was done which shows mild right hydronephrosis with no obstructing stone or mass. On the right nephrostomy tube patient has urine output about 20 to 30 mL in more than 18 hours. On left side, patient has urine output about 100 mL in last 18 hours. There is no left hydronephrosis. Bilateral right and left kidney size is within normal limit. Urinary bladder no acute abnormality. Patient came to ED with MIRNA with creatinine 4.23, BUN 66 with BUN/creatinine ratio 15.6. Prior to that his creatinine was normal. K5.5. Currently we do not have IR coverage for handling nephrostomy tubes. I talked to the patient's and son in the room. About 2 days ago, his left nephrostomy was fixed with flush of clot in [facility]. Patient looks hemodynamically stable with blood pressure 92/70 which is his baseline. Though he had blood pressure around 140s during hospital course last time. Clinical Impression(s) from Imaging Studies Chest X-Ray 03/27/24 12:01 IMPRESSION: Multiple tiny bilateral pulmonary nodules. Metastatic disease should be ruled out. Drainage catheter is seen in the upper abdomen as described. Renal Ultrasound 03/27/24 17:04 IMPRESSION: Mild right hydronephrosis with no obstructing stone or mass seen. Nonobstructing 6 mm stone in the right kidney. Electronically Signed: Eliceo Tracy MD at 18:17 EDT , Charges/Coding Addendum Addendum: Total time of the visit including total time spent in counseling or coordination of care, (more than 50% of the total time, spent in obtaining medical information from nurses and other ancillary care providers,explaining to the patient about labs, imaging, diagnosis and management of active complex medical conditions), discussion with electrical engineering technologist, nursing staff, patient's review of labs and imaging is 35 minutes. Visit Charges Inpatient E&M: [id number] [facility] Hosp L3
[2024-03-28 07:16] LABS: Absolute Lymphocyte Count 0.48 X10^3/uL (0.83-4.51); Absolute Neutrophil Count 9.2 X10^3/uL (2.0-7.7); Basophil# 0.01 X10^3/uL; Basophil% 0.1 % (0-1); Eosinophil# 0.01 X10^3/uL; Eosinophils% 0.1 % (0-5); Lymphocyte # 0.48 X10^3/ul (0.83-4.51); Lymphocyte % 4.4 % (19-41); Mean Corp Hgb Conc 31.4 g/dL (32-36); Mean Corpuscular Hgb 25.9 pg (27.0-32.0); Mean Corpuscular Volume 82.4 fL (80-94); Mean Platelet Vol. 10.7 fl (6.2-12.0); Monocyte# 1.15 X10^3/uL; Monocyte% 10.6 % (0-10); NRBC Flagged by Analyzer 0 % (0-5); Neutrophil # 9.19 X10^3/uL (2.7-7.7); Neutrophil % 84.2 % (47-70); POSITIVE DIFFERENTIAL YES; Platelet Count 259 K/mm3 (150-450); RBC Distribution Width CV 17.7 % (11.6-14.6); RBC Distribution Width SD 53.1 fl (35.1-43.9); Red Blood Count 4.25 M/mm3 (4.6-6.2); White Blood Count 10.9 K/mm3 (4.4-11.0)
[2024-03-28 07:22] LABS: ALB/GLOB Ratio 0.5 RATIO (0.9-2.4); AST(SGOT) 252 U/L (15-37); Alanine Aminotransfer ALT/SGPT 90 U/L (16-61); Alkaline Phosphatase 227 U/L (45-117); Anion Gap 14 (5-15); BUN 72 mg/dL (7-18); BUN/Creat Ratio 15.1 RATIO (10-20); Calcium,Total 9.2 mg/dL (8.5-10.1); Chloride 101 mmol/L (98-107); Creatinine, Serum 4.78 mg/dL (0.70-1.30); EST Glomerular Filtration Rate 13 mL/min (>60); Est Glom Filt Rate - Afr Amer 16 mL/min (>60); Estimated Creatinine Clearance 16.76 ml/min; Globulin 3.9 g/dL (2.2-4.2); Glucose 117 mg/dL (74-106); Potassium 5.3 mmol/L (3.5-5.1); Protein, Total 5.9 g/dL (6.4-8.2); Sodium Level 131 mmol/L (136-145)
[2024-03-28] MEDS: Sodium Bicarbonate 150 MEQ in Dextrose 5%-Water (1000mL Bag) 1,000 ML IV (08:12)
[2024-03-28 08:29] VITALS: O2SAT 97
[2024-03-28 10:10] VITALS: BP 120/81; PULSE 96; RESP 10; TEMP 36.3; O2SAT 100
[2024-03-28] MEDS: Megestrol Acetate 400 MG/10 ML UDC 800 MG PO (10:16)
[2024-03-28] MEDS: Methylcellulose 2 GM Bottle 1 GM PO (10:16)
[2024-03-28] MEDS: Senna/Docusate Sodium 1 Tablet 5 TABLET PO (10:16)
[2024-03-28] MEDS: Heparin Injection (Vial) 5,000 UNIT/ML VIAL 5000 UNIT SC (10:16)
--- NOTE | 2024-03-28 13:44 | CT_ITS ---
STUDY: CT BRAIN WITHOUT CONTRAST REASON FOR EXAM: Male, 58 years old. AMS RADIATION DOSAGE (If Supplied By Facility): CTDIvol = ( 44.99 ) mGy, DLP = ( 829.85 ) mGycm TECHNIQUE: Transaxial CT imaging of the brain was performed without administration of intravenous contrast material. Individualized dose optimization techniques were used for this CT. COMPARISON: None. FINDINGS: Normal soft tissue structures. Normal calvarium. No visualized hydrocephalus or midline shift. No focal parenchymal edema is seen. There is mild cerebral atrophy with widening of the extra-axial spaces and ventricular dilatation. Normal white matter tracts of the cerebral hemispheres. Normal basal ganglia and thalami. Normal brainstem. Normal cerebellum. There is no intracranial hemorrhage. There are no findings of an acute ischemic infarction. Normal visualized paranasal sinuses. CT/Brain/Head without Contrast IMPRESSION: Chronic involutional changes of the brain. Electronically Signed: Celestino Fernandez MD at 15:25 EDT ,
[2024-03-28] MEDS: Calcium Gluconate IV 2 GM in 0.9% Normal Saline (100mL Bag) 100 ML IV (13:46)
--- NOTE | 2024-03-28 15:31 | PCM.CONS.R ---
Assessment & Plan Assessment/Plan (1) Acute renal failure (ARF): QUALIFIERS: Acute renal failure type: unspecified Qualified Code(s): N17.9 - Acute kidney failure, unspecified PLAN: I suspect he has sustained ATN, most likely ischemic due to low intake of food and fluids, but what is more important I do believe this gentleman is uremic based on asterixis and uremic order. Creatinine of 4.7 in gentleman with such a low muscle mass indicate significant kidney failure. While he is at dialysis point, based on widespread metastatic colon cancer I do not think that instituting dialysis will improve quality of his life except may be providing somewhat prolongation of it. Patient's is coming over later today and patient will discuss possibility of going on dialysis and they will let me know. In the meantime we will try gently hydration, check fractional excretion of sodium and urinalysis HPI Consult Data Date of Consult: 03/28/24 HPI Narrative Reason for Consultation: Acute kidney injury HPI Narrative: SHENA AVILA, is a 58 M who presents yesterday with shortness of breath, altered mental status and abnormal creatinine. He has PMHx: HTN secondary to CA medication side effects per Oncology report, Chronic pain syndrome, Chronic normocytic anemia/AOCD, Severe protein calorie malnutrition, Colon Cancer stage IV, most recent discharge 01/30/2024 following evaluation and treatment for PERLA inhibitor associated angioedema who presents to the [facility] ED on 03/27/2024 with primary complaint of dyspnea with history of ongoing issues with pleural effusions noted to be malignant with bilateral chest tubes placed as drains which drains daily however unfortunately last week he has been more dyspneic which is worse with exertion with ongoing chronic generalized abdominal pain with bilateral nephrostomy tube exchange on Saturday of week of presentation and since then decreased appetite, decreased output from his colostomy tube with nausea without emesis in addition to reported clots being pulled out of his left nephrostomy tube with decreased nephrostomy tube output prompting eventual ED evaluation to be cautious. Workup in the ED included T96.9, heart rate 86, BP 89/64, respiratory rate 17, 99% on room air with most recent repeat vitals T97.5, heart rate 84, BP 102/76, respiratory rate 11, 98% on room air, CBC with WC 14, human 12.2, MCV 83.5, platelet 316 with left shift and lymphopenia, BMP with sodium sodium 131, potassium 5.5, chloride 101, carbon oxide 18, anion gap 12, BUN/creatinine for 66/4.23, GFR 15, glucose 113, troponin 6, BNP 60.5, chest x-ray with multiple tiny bilateral pulmonary nodules, drainage catheter seen in the upper abdomen, findings consistent with metastatic disease, renal ultrasound with mild right hydronephrosis with no obstructing stone or mass, nonobstructing 6 mm stone in the right kidney. In the ED patient ministered maintenance IV fluids and Kayexalate 15 g p.o. x 1. In spite of some IV fluids, creatinine failed to improve and he has been potassium is still mildly elevated. More than anything he has uremic ODOR and asterixis. The kidney ultrasound showed mild left-sided hydronephrosis [facility] Medical History Chronic anemia Chronic pain GERD (gastroesophageal reflux disease) HTN (hypertension) History of colon cancer, stage IV PERLA inhibitor-aggravated angioedema Hydronephrosis due to obstruction of ureter Home Medications ?Medication ?Instructions ?Recorded ?Last Taken ?Type hydromorphone 4 mg tablet 4 mg PO Q2H PRN PAIN 01/28/24 Unknown History megestrol 400 mg/10 mL (40 mg/mL) 800 mg PO DAILY LOSS OF 01/28/24 Unknown History oral suspension APPETITE/WEIGHT LOSS methylcellulose (laxative) 500 mg 1,000 mg PO DAILY CONSTIPATION 01/28/24 Unknown History tablet (Citrucel) morphine 60 mg tablet,extended 120 mg PO Q12H PAIN 01/28/24 Unknown History release prochlorperazine maleate 10 mg 10 mg PO Q6H PRN NAUSEA 01/28/24 Unknown History tablet sennosides 8.6 mg-docusate sodium 5 tab-cap PO DAILY CONSTIPATION 01/28/24 Unknown History 50 mg tablet (Stool Softener-Laxative) amlodipine 5 mg tablet 10 mg PO DAILY 03/27/24 Unknown History famotidine 20 mg tablet (Acid 20 mg PO DAILY PRN gastric reflux 03/27/24 Unknown History Controller) lidocaine-prilocaine 2.5 %-2.5 % 2.5 g topical DAILY PRIOR TO PORT 03/27/24 Unknown History topical cream ACCESS metoprolol tartrate 25 mg tablet 25 mg PO BID 03/27/24 Unknown History Allergy/AdvReac Type Severity Reaction Status Date / Time PERLA Inhibitors Allergy Severe Angioedema Verified 03/27/24 11:11 lisinopril Allergy Unknown Angioedema Verified 03/27/24 11:11 ciprofloxacin Allergy Anaphylaxis Verified 03/27/24 11:11 ondansetron (From Zofran) AdvReac Mild [place] Verified 03/27/24 11:11 Family History Mother Hypertension Father Lung cancer Surgical History History of nasal septoplasty History of arthroscopic knee surgery Hx of surgical amputation of finger History of colostomy reversal Hx of appendectomy Social History household members: spouse and children Smoking Status: Former smoker how long ago did patient quit smoking: Smoked 1/2 ppd x 10 years, quit 1996. alcohol intake: current alcohol intake frequency: a few times a week substance use type: does not use ROS Constitutional Constitutional: Reports malaise, weakness and weight loss ENT HEENT: Reports dry mouth Cardiovascular Cardiovascular: Reports dyspnea on exertion and leg edema Respiratory/Chest Respiratory/Chest: Reports shortness of breath at rest Gastrointestinal Gastrointestinal: Reports anorexia and weight changes Genitourinary Genitourinary: Reports oliguria Integumentary Integumentary: Reports dry skin Neurologic Neurologic: Reports tremor(s) and weakness Psychiatric Psychiatric: Reports confusion Physical Exam Const alert Orientation / Consciousness: oriented to person and oriented to place Nutritional Appearance: cachectic HEENT normocephalic Head and Scalp: atraumatic Neck no lymphadenopathy Resp no use of accessory muscles Auscultation: diminished lung sounds Cardio regular rate and no rub GI non-tender Auscultation: hypoactive bowel sounds Palpation: soft Skin no rashes or lesions noted Psych cooperative Memory / Cognition: cognition impaired Medical Records Data Attestation: I reviewed the patient's medical records Medical Nutrition Assessment Dietitian: Malnutrition Criteria Met Start: 03/28/24 11:04 Freq: Status: Active Protocol: Document 03/28/24 11:04 THOMAS (Rec: 03/28/24 11:04 THOMAS [id number]) Nutrition Malnutrition Evidence of Malnutrition Exists Yes Malnutrition (severe): Chronic Evidenced By Suboptimal Energy Intake ( Severe),Physical Changes ( Severe) Clinical Problem Chronic Disease or Condition Related Malnutrition Etiology related to colon cancer w/ mets and inadequate energy intake Signs/Symptoms as evidenced by po intake meeting <75% of est nutritional needs, obvious fat loss/muscle wasting throughout body; has had 3.4% unintended wt loss x 2 mo (not sig, but gradual wt gain desirable d/t BMI 19.6) Status Active Problem Recommendation Dietitian Recommendations/Changes Will liberalize diet to Regular d/t signs and symptoms of malnutrition Will provide 8 oz CIB w/ breakfast and magic cup w/ lunch and dinner for increased nutrition if consumed Will order 4 oz strawberry ensure plus high protein 4x/ day w/ medpass for increased nutrition if consumed Rec continue appetite stimulant Lab / Micro Data Attestation: I reviewed the patient's lab results. 03/28/24 06:30 03/28/24 06:30 Labs: Laboratory Results - last 24 hr 03/27/24 23:05: Sodium 131 L, Potassium 5.7 H, Chloride 100, Carbon Dioxide 18.0 L, Anion Gap 13, BUN 73 H, Creatinine 4.61 H, Estim Creat Clear Calc 18.20, Est GFR (MDRD) Af Amer 17 L, Est GFR (MDRD) Non-Af 14 L, BUN/Creatinine Ratio 15.8, Glucose 107 H, Calcium 9.3, Phosphorus 7.5 H, Magnesium 2.4, Procalcitonin 4.08 H 03/28/24 06:30: WBC 10.9, RBC 4.25 L, Hgb 11.0 L, Hct 35.0 L, MCV 82.4, MCH 25.9 L, MCHC 31.4 L, RDW Std Deviation 53.1 H, RDW Coeff of Marito 17.7 H, Plt Count 259, MPV 10.7, Immature Gran % (Auto) 0.600, Neut % (Auto) 84.2 H, Lymph % (Auto) 4.4 L, [place] % (Auto) 10.6 H, Eos % (Auto) 0.1, Baso % (Auto) 0.1, Absolute Neuts (auto) 9.2 H, Absolute Lymphs (auto) 0.48 L, Nucleated RBC % 0, Sodium 131 L, Potassium 5.3 H, Chloride 101, Carbon Dioxide 16.0 L, Anion Gap 14, BUN 72 H, Creatinine 4.78 H, Estim Creat Clear Calc 16.76, Est GFR (MDRD) Af Amer 16 L, Est GFR (MDRD) Non-Af 13 L, BUN/Creatinine Ratio 15.1, Glucose 117 H, Calcium 9.2, Total Bilirubin 0.80, AST 252 H, ALT 90 H, Alkaline Phosphatase 227 H, Total Protein 5.9 L, Albumin 2.0 L, Globulin 3.9, Albumin/Globulin Ratio 0.5 L Rhythm Strip Rhythm Strip: Sinus Rhythm Rate: 80 Ectopy: None Imaging Radiology Impression Renal Ultrasound 03/27/24 17:04 IMPRESSION: Mild right hydronephrosis with no obstructing stone or mass seen. Nonobstructing 6 mm stone in the right kidney. Electronically Signed: Eliceo Tracy MD at 18:17 EDT , Brain CT 03/28/24 13:44 IMPRESSION: Chronic involutional changes of the brain. Electronically Signed: Celestino Fernandez MD at 15:25 EDT ,
[2024-03-28] MEDS: 0.9% Normal Saline (1000mL) 1,000 ML 100 ML IV (16:45)
[2024-03-28] MEDS: Albumin Human 25% (100 mL) 25 GM/100 ML BAG IV (16:45)
[2024-03-28 16:49] VITALS: BP 113/77; PULSE 92; RESP 18; TEMP 36.4; O2SAT 99
[2024-03-28 18:09] LABS: Mucous, Urine 0 SEEN /hpf (<or=2+); Squamous Epithelial Cells - UA 0 SEEN /hpf (0-5)
[2024-03-28 18:23] LABS: Color, Urine Yellow (Yellow); Glucose, Dipstick Normal (Normal); Ketone-Dipstick 5 mg/dl (Negative); Leukocyte Esterase-Dipstick 500 /ul (Negative); Nitrite-Dipstick Negative (Negative); Occult Blood-Urine 250 /ul (Negative); Protein-Dipstick 500 mg/dl (Negative); Specific Gravity, Urine 1.015 (1.002-1.030); Urine Bilirubin Dipstick Negative (Negative); Urine Clarity Turbid (Clear); Urine Urobilinogen Normal (Normal)
[2024-03-28 18:54] LABS: Bacteria 2+ /hpf (None Seen)
[2024-03-28 18:55] LABS: Red Blood Cells-Urine 10-25 SEEN /hpf (0-5); White Blood Cells >100 SEEN /hpf (0-5)
[2024-03-28 19:16] LABS: Anion Gap 14 (5-15); BUN 74 mg/dL (7-18); BUN/Creat Ratio 15.1 RATIO (10-20); Chloride 99 mmol/L (98-107); EST Glomerular Filtration Rate 13 mL/min (>60); Est Glom Filt Rate - Afr Amer 16 mL/min (>60); Estimated Creatinine Clearance 16.35 ml/min; Glucose 130 mg/dL (74-106); Potassium 4.9 mmol/L (3.5-5.1); Sodium Level 132 mmol/L (136-145)
[2024-03-28 19:17] LABS: Protein, Urine (Random) 1162.9 mg/dL (<11.9); Protein:Creat Ratio 8877 mg/g CRE (0-200); Urine Chloride 59 mmol/L (Not Establ.); Urine Sodium 71 mmol/L (Not Establ.)
--- NOTE | 2024-03-28 19:30 | PCM.DC.SUM ---
Providers Date of Admission: 03/27/24 Date of Discharge: 03/29/24 Primary Care Physician: Dr. Brayan Pierce MD Consultations 03/28/24 12:02 Consult: Nephrology Routine Consulting Provider: Barbie Jones Reason for Consult: MIRNA, B/L nephrostomy tubes, HyperKalemia EMERGENT Consult: No MD Notified: Yes Date Notified: 03/28/24 Time Notified: 12:02 Method of Notification: Verbal Reason For Visit: MIRNA, HYPERKALEMIA Diagnosis Discharge Diagnosis (1) Acute renal failure (ARF): Status: Acute Code(s): N17.9 - Acute kidney failure, unspecified Qualifiers: Acute renal failure type: unspecified Qualified Code(s): N17.9 - Acute kidney failure, unspecified Plan 58-year-old gentleman was admitted with shortness of breath but found to have MIRNA with bilateral nephrostomy tubes 1. MIRNA, exact etiology unclear, most likely postobstructive uropathy and prerenal: History of bilateral ureteric obstruction requiring bilateral nephrostomy tube due to CA colon with colostomy. Patient is being admitted in PCU as interim to transfer to [facility]. Yesterday I saw the patient in ED and requested transfer as we do not have IR/urologist on-call. Admitting BUN/creatinine 66/4.23 increased to 72/4.78 despite IV fluid. BUN/creatinine 23/1.09 about a month ago on February 2024. Garbage Collector Supervisor is consulted. 03/29: BUN/creatinine 74/4.9. Urine osmolality 312. Urine total protein 1.163 gram. Patient got bladder at [facility]. Patient discharged 2. Electrolyte abnormality: Hyponatremia, hyperkalemia, normal anion gap metabolic acidosis: Anion gap increased from normal 7-14. IV fluid normal saline was changed to bicarb drip in the morning. Patient had hyperkalemia cocktail including calcium gluconate and Kayexalate. Calcium gluconate ordered. Monitor BMP. 03/29: Sodium 132. Potassium got better. 4.9. 3. Dyspnea on mild exertion with left lower extremity swelling with history of bilateral malignant effusion: Patient had recent duplex scan in [facility] and [facility] which was unremarkable. Rest thought to be due to previous cancer agent. Had recent CTPA which was negative for acute thromboembolism but could not do this time because of MIRNA. Dyspnea is better. Chest x-ray initially reviewed and shows expanded lungs. Bilateral pleural tubes functioning. Leukocytosis resolved. 4. Metastatic colon cancer with bilateral ureteric involvement and metastatic pleural effusion: Patient has colostomy functioning. Rest as described above 5. Chronic normocytic normochromic anemia: Admission hemoglobin 12.2, MCV 83.5. H&H 11/35%. Platelet count 259,000. Monitor CBC. 6. Hypertension: Currently blood pressure is normotensive. It was low in the ED. Hold antihypertensive medications. 7. Severe chronic protein calorie malnutrition: Evidence of moderate muscle atrophy of extremities, loss of subcutaneous fat. BMI 19.6. Prescribed 8. DVT prophylaxis on heparin subcu Patient has protracted history of CA colon with bilateral ureteric obstruction requiring bilateral nephrostomy tube. Patient came to ER with shortness of breath. Patient also had bilateral chest tubes/catheter but this time chest x-ray looks expanded. Chest x-ray evaluate as described below Renal ultrasound was done which shows mild right hydronephrosis with no obstructing stone or mass. On the right nephrostomy tube patient has urine output about 20 to 30 mL in more than 18 hours. On left side, patient has urine output about 100 mL in last 18 hours. There is no left hydronephrosis. Bilateral right and left kidney size is within normal limit. Urinary bladder no acute abnormality. Patient came to ED with MIRNA with creatinine 4.23, BUN 66 with BUN/creatinine ratio 15.6. Prior to that his creatinine was normal. K5.5. Currently we do not have IR coverage for handling nephrostomy tubes. I talked to the patient's and son in the room. About 2 days ago, his left nephrostomy was fixed with flush of clot in [facility]. Patient looks hemodynamically stable with blood pressure 92/70 which is his baseline. Though he had blood pressure around 140s during hospital course last time. Clinical Impression(s) from Imaging Studies Chest X-Ray 03/27/24 12:01 IMPRESSION: Multiple tiny bilateral pulmonary nodules. Metastatic disease should be ruled out. Drainage catheter is seen in the upper abdomen as described. Renal Ultrasound 03/27/24 17:04 IMPRESSION: Mild right hydronephrosis with no obstructing stone or mass seen. Nonobstructing 6 mm stone in the right kidney. Electronically Signed: Eliceo Tracy MD at 18:17 EDT , Medications at Discharge Home Medications hydromorphone 4 mg tablet 4 mg PO Q2H PRN PAIN 01/28/24 megestrol 400 mg/10 mL (40 mg/mL) oral suspension 800 mg PO DAILY LOSS OF APPETITE/WEIGHT LOSS 01/28/24 methylcellulose (laxative) 500 mg tablet (Citrucel) 1,000 mg PO DAILY CONSTIPATION 01/28/24 morphine 60 mg tablet,extended release 120 mg PO Q12H PAIN 01/28/24 prochlorperazine maleate 10 mg tablet 10 mg PO Q6H PRN NAUSEA 01/28/24 sennosides 8.6 mg-docusate sodium 50 mg tablet (Stool Softener-Laxative) 5 tab-cap PO DAILY CONSTIPATION 01/28/24 amlodipine 5 mg tablet 10 mg PO DAILY 03/27/24 famotidine 20 mg tablet (Acid Controller) 20 mg PO DAILY PRN gastric reflux 03/27/24 lidocaine-prilocaine 2.5 %-2.5 % topical cream 2.5 g topical DAILY PRIOR TO PORT ACCESS 03/27/24 metoprolol tartrate 25 mg tablet 25 mg PO BID 03/27/24 Physical Exam Narrative Please see exam finding on the same day Weight / BMI Weight Weight: 156 lb 15.506 oz Body Mass Index (BMI) 19.6 ABG / Lab / Microbiology Data 03/28/24 06:30 03/28/24 18:05 Laboratory: Laboratory Results - last 24 hr 03/28/24 12:22: Urine Color Yellow, Urine Clarity Turbid, Urine pH 6.0, Ur Specific [place] 1.015, Urine Protein 500 H, Urine Glucose (UA) Normal, Urine Ketones 5 H, Urine Occult Blood 250 H, Urine Nitrite Negative, Urine Bilirubin Negative, Urine Urobilinogen Normal, Ur Leukocyte Esterase 500 H, Urine RBC 10-25 SEEN, Urine WBC >100 SEEN, Ur Squamous Epith Cells 0 SEEN, Urine Bacteria 2+, Urine Mucus 0 SEEN 03/28/24 17:59: Urine Osmolality 312, U Random Total Protein 1162.9 H, Ur Random Sodium 71, Urine Creatinine 131.00, Protein/Creatinin Ratio 8877 H, Urine Potassium 25.0, Urine Chloride 59 03/28/24 18:05: Sodium 132 L, Potassium 4.9, Chloride 99, Carbon Dioxide 18.0 L, Anion Gap 14, BUN 74 H, Creatinine 4.90 H, Estim Creat Clear Calc 16.35, Est GFR (MDRD) Af Amer 16 L, Est GFR (MDRD) Non-Af 13 L, BUN/Creatinine Ratio 15.1, Glucose 130 H, Calcium 9.0 Radiography Diagnostic Testing: Radiology Impression Brain CT 03/28/24 13:44 IMPRESSION: Chronic involutional changes of the brain. Electronically Signed: Celestino Fernandez MD at 15:25 EDT , Meaningful Use Info Meaningful Use Meaningful Use Diagnoses (Choose all that apply): None applicable Ischemic Stroke Statin Dosing Therapy Reference: STATIN DOSE THERAPY REFERENCE: * Patients > 75 years receive moderate or high dose statin therapy. * Patients 75 years or YOUNGER should receive HIGH intensity statin dose unless contraindicated. You will be required to document reason for non-treatment if statin daily dose does not meet guidelines. HIGH DOSE STATIN THERAPY DAILY Atorvastatin > than or = to 40 mg Rosuvastatin > than or = to 20 mg Amlodipine + Atorvastatin > than or = to 2.5/40 mg Ezetimibe + Simvastatin 10/80 mg Simvastatin 80mg Discharge Plan Admission Admit Date/Time: 03/27/24 22:33 Attending Provider: Luis Eduardo Gonzalez Primary Care Provider: Brayan Pierce Consulting Providers: Aminata Davidson; Barbie Jones Discharge Orders/Prescriptions Prescriptions: No Action amlodipine 5 mg tablet 10 mg PO DAILY metoprolol tartrate 25 mg tablet 25 mg PO BID famotidine [Acid Controller] 20 mg tablet 20 mg PO DAILY PRN (Reason: gastric reflux) lidocaine-prilocaine 2.5-2.5 % cream 2.5 g topical DAILY sennosides-docusate sodium [Stool Softener-Laxative] 8.6-50 mg tablet 5 tab-cap PO DAILY morphine 60 mg tablet extended release 120 mg PO Q12H Patient Comments: patient takes 0900 and 2100 daily prochlorperazine maleate 10 mg tablet 10 mg PO Q6H PRN (Reason: NAUSEA ) hydromorphone 4 mg tablet 4 mg PO Q2H PRN (Reason: PAIN ) megestrol 400 mg/10 mL (40 mg/mL) suspension 800 mg PO DAILY Citrucel 500 mg tablet 1,000 mg PO DAILY Referrals / Follow Up: Brayan Pierce MD [Primary Care Provider] - Disposition Disposition (needs filled in before D/C Order can be placed): [facility]
[2024-03-28 19:58] LABS: Osmolality, Urine 312 mOsm/KG
[2024-03-28 22:00] VITALS: BP 108/80; PULSE 76; RESP 17; TEMP 36.4; O2SAT 96
== END 2024-03-28 22:55 | disposition short-term general hospital (02) | DRG 693 ==
LOC: ED 18:33 → PCU 23:33
PROVIDERS: Internal Medicine Nephrology; Admitting Provider Family Medicine; Emergency Provider Emergency Medicine; PCP Family Medicine; Visit Provider Internal Medicine
DX: N13.2 Hydronephrosis with renal and ureteral calculous obstruction (principal); E43 Unspecified severe protein-calorie malnutrition; E87.20 Acidosis, unspecified; E87.1 Hypo-osmolality and hyponatremia; C18.2 Malignant neoplasm of ascending colon; C18.6 Malignant neoplasm of descending colon; J90 Pleural effusion, not elsewhere classified; N17.0 Acute kidney failure with tubular necrosis; D63.0 Anemia in neoplastic disease; Z51.5 Encounter for palliative care; I12.9 Hypertensive chronic kidney disease with stage 1 through stage 4 chronic kidney disease, or unspecified chronic kidney disease; Z93.3 Colostomy status; E87.5 Hyperkalemia; N18.2 Chronic kidney disease, stage 2 (mild); K21.9 Gastro-esophageal reflux disease without esophagitis; G89.4 Chronic pain syndrome; Z79.2 Long term (current) use of antibiotics; Z80.1 Family history of malignant neoplasm of trachea, bronchus and lung; Z87.891 Personal history of nicotine dependence
CPT/HCPCS: 36415; 36591; 70450; 71045; 76770; 80048; 80053; 81001; 82436; 82570; 83735; 83880; 83935; 84100; 84133; 84145; 84156; 84300; 84484; 85025; 93005; 94640; 94668; 97802; 99284; J7030; P9047; J0612